=== PATIENT | male | born 1960 | race Two or more races ===

== ENCOUNTER 2020-04-25 08:55 | Outpatient (REF) | payer OTHER, SELFPAY ==
[2020-04-25 10:03] LABS: MANUAL DIFF FLAG NO
[2020-04-25 10:04] LABS: Basophils Absolute Auto 0.1 X10*3/uL (0.0-0.2); Basophils Percent Auto 0.8 % (0-2); Eosinophils Absolute Auto 0.1 X10*3/uL (0.0-0.4); Eosinophils Percent Auto 1.8 % (0-4); Hematocrit 48.6 % (42-52); Hemoglobin 15.3 g/dl (14.0-18.0); Imm Gran Abs Auto 0.02 X10*3/uL (0.00-0.03); Imm Gran Pct Auto 0.3 % (0.0-0.4); Lymphocytes Absolute Auto 1.8 X10*3/uL (1.2-4.9); Lymphocytes Percent Auto 27.9 % (20-40); Mean Corpuscular HGB Conc 31.5 g/dl (31.0-36.0); Mean Corpuscular Hemoglobin 25.9 pg (27.0-33.0); Mean Corpuscular Volume 82.4 fL (80-98); Mean Platelet Volume 11.7 fL (9.4-12.4); Monocytes Absolute Auto 0.6 X10*3/uL (0.1-1.2); Monocytes Percent Auto 8.4 % (2-11); Neutrophils Percent Auto 60.8 % (45-73); Platelet Count 184 X10*3/uL (160-400); Red Cell Distribution Width 13.8 % (11.0-16.0); White Blood Count 6.6 X10*3/uL (4.8-10.8)
[2020-04-25 10:22] LABS: Estimated Average Glucose 123 mg/dL; Hemoglobin A1c % 5.9 %
[2020-04-25 10:31] LABS: Alanine Aminotransferase 36 U/L (0-40); Albumin Level 4.5 g/dL (3.5-5.0); Alkaline Phosphatase 68 U/L (39-117); Anion Gap 12 (12-20); Aspartate Amino Transferase 23 U/L (5-37); Bilirubin Total 0.4 mg/dL (0.0-1.0); Blood Urea Nitrogen 16 mg/dL (9-16); Calcium 9.9 mg/dL (8.4-10.2); Carbon Dioxide 29 mmol/L (22-29); Chloride 102 mmol/L (96-108); Cholesterol 182 mg/dL; Estimated Glomerular Filt Rate 57; Glucose Fasting 119 mg/dL (60-99); HDL Cholesterol 40 mg/dL; LDL Cholesterol Calculated 114 mg/dl; Potassium 4.5 mmol/l (3.3-5.1); Sodium 138 mmol/L (135-145); Total Protein 7.8 g/dL (6.5-8.0); Triglycerides 144 mg/dL
[2020-04-25 10:38] LABS: TSH reflex Free T4 1.56 mIU/mL (0.32-4.0)
[2020-04-25 10:58] LABS: Glucose Urine UA NEG (NEG); Leukocyte Esterase Urine NEG (NEG); Nitrite Urine NEG (NEG); PH 6.5 (5.0-8.0); Specific Gravity - Urine 1.025 (1.005-1.025); Urine Blood TRACE (NEG); Urine Ketones NEG (NEG); Urine Protein NEG (NEG-TRACE)
[2020-04-25 11:01] LABS: Appearance Urine CLEAR; Color Urine YELLOW
[2020-04-25 11:35] LABS: RBC Urine 0-2 /HPF (0); WBC Urine 0 /HPF (0-4)
== END 2020-04-25 08:56 | disposition home or self-care (01) ==
LOC: HO.LAB 08:55
PROVIDERS: Visit Provider Internal Medicine
DX: E78.00 Pure hypercholesterolemia, unspecified (principal); I10 Essential (primary) hypertension; R73.01 Impaired fasting glucose; E66.9 Obesity, unspecified
CPT/HCPCS: 36415; 80053; 80061; 81001; 83036; 84443; 85025

== ENCOUNTER 2020-05-04 08:46 | Day surgery (SDC) | payer OTHER, SELFPAY ==
[2020-04-26 12:53] VITALS: BMI 32.8
--- NOTE | 2020-05-03 10:02 | P.CONAN_ITS ---
HPI - Anesthesia Eval Consult details Narrative: 60yo M for Colonoscopy [facility] Past Medical History Medical History Benign essential hypertension Impaired fasting glucose Obesity (BMI 30-39.9) Pure hypercholesterolemia Family History Family History Father No problems noted. Mother No problems noted. Surgical History Surgical History No pertinent past surgical history Social History Social History Smoking Status: Former smoker Smoking Quit Date: 2019 Have you been hit, kicked, punched, or otherwise hurt by someone within the past year? If so, by whom?: No Advance Directives: No (unknown) Advance Directives Information Provided: No Recently lost weight without trying: No Meds Allergies Allergy/AdvReac Type Severity Reaction Status Date / Time No Known Allergies Allergy Verified 05/01/20 11:07 [No Known Allergies*] Home Medications Medication Instructions Recorded Confirmed Type atorvastatin 10 mg PO BEDTIME 04/26/20 05/01/20 History lisinopril 20 mg PO DAILY 04/26/20 05/01/20 History Exam Exam Date and Time: May 03, 2020 1002 Height,Weight and Vital Signs: Height 5 ft 9 in Weight 100.97 kg Pertinent Lab Results Pertinent Lab Results: Laboratory Tests 04/25/20 04/25/20 09:20 09:20 WBC 6.6 Hgb 15.3 Hct 48.6 Plt Count 184 Sodium 138 Potassium 4.5 Chloride 102 Carbon Dioxide 29 BUN 16 Creatinine 1.28 Assessment and Plan Assessment Anesthesia Assessment: Chart Reviewed
[2020-05-04 10:20] VITALS: BMI 31.7
[2020-05-04] MEDS: Lactated Ringers 1,000 ML 100 ML IVCONT (10:49)
--- NOTE | 2020-05-04 11:00 | MHC.SHP ---
Pre-Procedural Eval Section B Chief Complaint: SCREENING Relevant Family History (Specify if Yes): No Relevant Social History: None Present Medications: see Short Stay Collaborative assessment Medical History: Significant History (HLP, HTN) History of Previous Operations: No relevant previous surgery Allergies: Allergies Allergy/AdvReac Type Severity Reaction Status Date / Time No Known Allergies Allergy Verified 05/01/20 11:07 [No Known Allergies*] Review of Systems Sugical H&P ROS: Negative: Constitution, Cardiovascular, Respiratory, Neurological, Psychiatric, Hem-Onc, Allergic/Immunologic, Gastrointestinal, Genitourinary, Musculoskeletal, Integumentary, Endocrine and Eyes/Ears/Nose/Throat Exam Surgical H&P Exam: Normal: HEENT, Normal: Heart, Normal: Lungs, Normal: Extremities, Normal: Abdomen, Normal: Skin and Normal: Neurological Plan Diagnosis/Plan: Unchanged Patient has been examined and remains a candidate for the planned procedure
--- NOTE | 2020-05-04 11:01 | P.OP_ITS ---
Operative Note Operative Note Date of Service: 05/04/20 Narrative: Operative Information Procedure Description: Colonoscopy COLONOSCOPY Instrument: Olympus variable stiffness pediatric scope 190L Colonoscopy Monitoring: Vital signs and clinical assessment, continuous EKG monitoring, Pulse oximetry, Carbon Dioxide monitoring and blood pressure monitoring were done throughout the procedure. Colon withdrawal time was 13 minutes. Procedure: The patient was placed in the left lateral decubitis position and pre-procedure medications were administered. After a digital rectal examination of the ano-rectum, the video colonoscope was inserted into the rectum and advanced through the colon to the cecum/TI. The colonoscope was slowly withdrawn in a retrograde panoramic fashion and the colon mucosa was carefully examined including a retroflexed view of the rectum. Findings and interventions are described below. Procedure Difficulty:easy Findings: Terminal Ileum-normal Cecum:normal, several diverticula seen Ascending Colon: many diverticula seen Transverse Colon -several diverticula seen Descending Colon:normal Sigmoid Colon: normal Rectosigmoid junction, 12 mm sessile polyp removed with cold snare Rectum: Retroflexion with moderate sized internal hemorrhoids, grade II, 6-8 mm sessile polyp removed with forceps Anorectum - internal hemorrhoids seen at anal verge Colon preparation: [place] Bowel Preparation Scale Right colon; 2 Transverse colon: 2 Left colon; 2 (0 = Unprepared colon segment with mucosa not seen due to solid stool that cannot be cleared. 1 = Portion of mucosa of the colon segment seen, but other areas of the colon segment not well seen due to staining, residual stool and/or opaque liquid. 2 = Minor amount of residual staining, small fragments of stool and/or opaque liquid, but mucosa of colon segment seen well. 3 = Entire mucosa of colon segment seen well with no residual staining, small fragments of stool or opaque liquid) Impression and Post Procedure Diagnosis: polyps diverticulosis internal hemorrhoids Plan: High fiber diet leaflet Avoid straining at stooll, epsom salts and sitz bath prn, anusol supps or cream prn Repeat Colonoscopy in 3-5 years or earlier if clinically indicated Above findings were reviewed with the patient and relevant handouts were provided if indicated.
--- NOTE | 2020-05-04 11:01 | PM.OP ---
Brief Operative Note Date of Service: 05/04/20 Pre-op diagnosis: screening colon Post-op diagnosis: same Procedure: see op note Surgeon: Carlos Mccray MD Anesthesia: MAC Estimated blood loss (mL): 0 Condition: stable Disposition: PACU
--- NOTE | 2020-05-04 11:26 | P.CONAN_ITS ---
[facility] Past Medical History Medical History Benign essential hypertension Impaired fasting glucose Obesity (BMI 30-39.9) Pure hypercholesterolemia Family History Family History Father No problems noted. Mother No problems noted. Surgical History Surgical History No pertinent past surgical history Social History Social History Smoking Status: Former smoker Smoking Quit Date: 2019 Have you been hit, kicked, punched, or otherwise hurt by someone within the past year? If so, by whom?: No Advance Directives: No (unknown) Advance Directives Information Provided: No Recently lost weight without trying: No Meds Allergies Allergy/AdvReac Type Severity Reaction Status Date / Time No Known Allergies Allergy Verified 05/01/20 11:07 [No Known Allergies*] Home Medications Medication Instructions Recorded Confirmed Type atorvastatin 10 mg PO BEDTIME 04/26/20 05/01/20 History lisinopril 20 mg PO DAILY 04/26/20 05/01/20 History Exam Exam Date and Time: May 04, 2020 1126 Height,Weight and Vital Signs: Height 5 ft 9 in Weight 97.522 kg Airway Mallampati Class: I TM Dist: >3cm Neck ROM: Full Loose/Missing/Broken Teeth: No Heart: RRR Lungs: CTA Assessment and Plan Assessment Anesthesia Assessment: Anesthesia Plan Discussed and Chart Reviewed Final Anesthetic Review NPO: Yes ASA Class: II Final Preanesthetic Review: Meds/Allgs Chart Reviewed, Consent Obtained/Reviewed and Anes Risks/Benef Reviewed Patient Risk: Low Procedure Risk: Low Anesthetic Plan Anesthetic Plan: MAC: Disposition: Standard PACU
[2020-05-04 12:04] VITALS: BP 89/50; PULSE 90; RESP 14; TEMP 36.2; O2SAT 96
[2020-05-04 12:09] VITALS: BP 90/52; PULSE 77; O2SAT 95
[2020-05-04 12:24] VITALS: BP 124/80; PULSE 77; O2SAT 99
--- NOTE | 2020-05-04 12:54 | HO.POSTANES ---
Post Anesthesia Evaluation Post Anesthesia Evaluation Vital Signs: Vital Signs Temp Pulse Resp BP Pulse Ox 05/04/20 12:24 97.1 F 77 124/80 99 05/04/20 12:09 77 90/52 L 95 05/04/20 12:04 97.1 F 90 14 89/50 L 96 Anesthesia: Monitored Mental Status: Awake Pain Control: Satisfactory Nausea/Vomiting: None Hydration: Adequate Anesthesia-Related Issues: No Anes. Related Issues
== END 2020-05-04 13:30 | disposition home or self-care (01) ==
PROVIDERS: PCP Internal Medicine; Visit Provider Internal Medicine Gastroenterology
PROC: 0DJD8ZZ Inspection of Lower Intestinal Tract, Via Natural or Artificial Opening Endoscopic (ICD-10-PCS; CPT 45378; principal; 2020-05-04 10:40)
DX: Z12.11 Encounter for screening for malignant neoplasm of colon (principal); K63.5 Polyp of colon; K57.30 Diverticulosis of large intestine without perforation or abscess without bleeding; K64.1 Second degree hemorrhoids; I10 Essential (primary) hypertension; Z79.899 Other long term (current) drug therapy
CPT/HCPCS: 45385; 45380; 88305

== ENCOUNTER → 2020-05-11 09:13 | Outpatient (BNVA) | payer OTHER, SELFPAY | PROVIDERS: Visit Provider Physician Assistant | DX: K63.5 Polyp of colon (principal); Z79.899 Other long term (current) drug therapy | CPT/HCPCS: Q3014 ==

== ENCOUNTER 2020-07-18 06:38 | Outpatient (REF) | payer OTHER, SELFPAY ==
[2020-07-18 06:59] LABS: MANUAL DIFF FLAG NO
[2020-07-18 07:06] LABS: Basophils Absolute Auto 0.1 X10*3/uL (0.0-0.2); Basophils Percent Auto 1.2 % (0-2); Eosinophils Absolute Auto 0.1 X10*3/uL (0.0-0.4); Eosinophils Percent Auto 2.4 % (0-4); Hematocrit 48.5 % (42-52); Hemoglobin 14.9 g/dl (14.0-18.0); Imm Gran Abs Auto 0.02 X10*3/uL (0.00-0.03); Imm Gran Pct Auto 0.3 % (0.0-0.4); Lymphocytes Absolute Auto 1.7 X10*3/uL (1.2-4.9); Lymphocytes Percent Auto 28.6 % (20-40); Mean Corpuscular HGB Conc 30.7 g/dl (31.0-36.0); Mean Corpuscular Volume 81.5 fL (80-98); Mean Platelet Volume 11.1 fL (9.4-12.4); Monocytes Absolute Auto 0.6 X10*3/uL (0.1-1.2); Monocytes Percent Auto 10.4 % (2-11); Neutrophils Absolute Auto 3.4 X10*3/uL (2.0-8.3); Neutrophils Percent Auto 57.1 % (45-73); Platelet Count 221 X10*3/uL (160-400); Red Blood Count 5.95 X10*6/uL (4.60-5.80); Red Cell Distribution Width 13.9 % (11.0-16.0)
[2020-07-18 07:20] LABS: Alanine Aminotransferase 40 U/L (0-40); Albumin Level 4.4 g/dL (3.5-5.0); Alkaline Phosphatase 67 U/L (39-117); Anion Gap 10 (12-20); Aspartate Amino Transferase 24 U/L (5-37); Bilirubin Total 0.8 mg/dL (0.0-1.0); Blood Urea Nitrogen 17 mg/dL (9-16); Calcium 9.7 mg/dL (8.4-10.2); Carbon Dioxide 30 mmol/L (22-29); Chloride 103 mmol/L (96-108); Cholesterol 149 mg/dL; Estimated Glomerular Filt Rate > 60; Glucose Fasting 121 mg/dL (60-99); HDL Cholesterol 39 mg/dL; LDL Cholesterol Calculated 87 mg/dl; Potassium 4.4 mmol/L (3.3-5.1); Sodium 139 mmol/L (135-145); Total Protein 7.6 g/dL (6.5-8.0); Triglycerides 119 mg/dL
[2020-07-18 07:40] LABS: TSH reflex Free T4 1.12 uIU/mL (0.32-4.0)
[2020-07-18 08:00] LABS: Glucose Urine UA NEG (NEG); Leukocyte Esterase Urine NEG (NEG); Nitrite Urine NEG (NEG); PH 6.5 (5.0-8.0); Specific Gravity - Urine 1.025 (1.005-1.025); Urine Blood TRACE (NEG); Urine Ketones NEG (NEG); Urine Protein NEG (NEG-TRACE)
[2020-07-18 08:02] LABS: Appearance Urine CLEAR; Color Urine YELLOW
[2020-07-18 08:20] LABS: RBC Urine 0-2 /HPF (0); WBC Urine 0 /HPF (0-4)
== END 2020-07-18 06:39 | disposition home or self-care (01) ==
LOC: HO.LAB 06:38
PROVIDERS: Visit Provider Internal Medicine
DX: I10 Essential (primary) hypertension (principal); E78.00 Pure hypercholesterolemia, unspecified; R73.01 Impaired fasting glucose; E66.9 Obesity, unspecified
CPT/HCPCS: 36415; 80053; 80061; 81001; 81003; 84443; 85025

== ENCOUNTER 2020-08-28 11:35 | Emergency (ER) | payer OTHER, SELFPAY ==
--- NOTE | 2020-08-28 | ECG_ITS ---
Test Reason : PALPITATIONS Blood Pressure : / mmHG Vent. Rate : 119 BPM Atrial Rate : 119 BPM P-R Int : 164 ms QRS Dur : 096 ms QT Int : 320 ms P-R-T Axes : 032 032 019 degrees QTc Int : 450 ms Sinus tachycardia Possible Left atrial enlargement Borderline ECG When compared with ECG of 06-AUG-2019 07:42, No significant change was found Referred By: Generic ED Physician Electronically Signed By:Fredy Flores
--- NOTE | ~2020-08-28 | CT_ITS ---
EXAMINATION: CT ANGIOGRAM OF THE CHEST WITH AND WITHOUT CONTRAST (CT PULMONARY ANGIOGRAM FOR PE) CLINICAL INFORMATION: Reason for Exam right mass and tachycardia COMPARISON: None TECHNIQUE: Prior to contrast administration, noncontrast localization images were obtained. Subsequently, multidetector volumetric imaging was performed from the thoracic inlet to below the diaphragms following the administration of 80 mL Omnipaque 350 intravenous contrast. No contrast reaction reported Sagittal, coronal, and MIP oblique sagittal reformatted images were obtained on the CT workstation, uploaded to PACS, and reviewed. This CT examination was performed using dose optimization techniques as appropriate, variously including the following: *Automated exposure control *Adjustment of mA and/or kV according to patient size (this includes techniques or standardized protocols for targeted exams where dose is matched to indication/reason for exam; i.e. extremities or head) *Use of iterative reconstruction technique Total exam dose-length product 366 mGy-cm FINDINGS: QUALITY OF STUDY/CONTRAST BOLUS: Satisfactory. PULMONARY ARTERIES: No central or segmental pulmonary emboli. THORACIC AORTA: No aneurysm or dissection. LUNG: No focal consolidation, nodules or masses. PLEURA: No pleural effusion or pneumothorax. MEDIASTINUM: The is a large lobulated right para cardiac mass above the diaphragm measuring 51 Hounsfield units. It measures approximately 10.3 cm in AP, 6.31 cm wide and 4.48 cm in craniocaudad length. It appears to have a broad attachment along the right pericardium. No additional mass or lymph node seen in the mediastinum. There is no pleural effusion. No evidence of septal bowing or right heart strain. CHEST WALL/AXILLA: There are small shotty lymph nodes in the axilla the largest lymph node measures 1 cm left axilla image 7/5 and right axilla 1.2 cm axial image 12/5. OSSEOUS STRUCTURES: There is moderate spondylosis throughout mid and lower dorsal spine. No lytic process. UPPER ABDOMEN: Unremarkable. No reflux of contrast into the hepatic veins to suggest elevated right heart pressures. CT/CT angio chest PE protocol IMPRESSION: No evidence of PE. No evidence aortic dissection. Large enhancing para-aortic mass. Differential diagnosis includes complex pericardial cyst, lymphoma, germ cell tumor or metastatic disease. VTE: negative
--- NOTE | ~2020-08-28 | XR_ITS ---
EXAMINATION: XR CHEST CLINICAL INFORMATION: High white blood cell count COMPARISON: None TECHNIQUE: Frontal view of the chest was obtained. FINDINGS: There is abnormal appearance to the right heart border. Appearance is questionable for a right infrahilar mass. The heart does not appear enlarged. Hilar and mediastinal contours are otherwise unremarkable. There may be small calcified nodule at the right lung base overlying the anterior fifth rib. The lungs are otherwise clear. There is no pleural effusion or pneumothorax. Bony structures are unremarkable. XR/XR chest 1V IMPRESSION: Abnormal appearance to the right heart border questionable for a right infrahilar mass. Appearance appears atypical for a pneumonia. Clinical correlation recommended. Follow-up chest CT with IV contrast should be considered.
[2020-08-28 11:55] VITALS: BP 194/93; PULSE 115; RESP 20; TEMP 37.2; O2SAT 99; BMI 30.4
[2020-08-28 12:00] VITALS: BP 178/100; PULSE 108; RESP 18; TEMP 36.9; O2SAT 98
--- NOTE | 2020-08-28 12:33 | ED.WEAKNESS ---
HPI - Weakness General Chief complaint: Weakness Stated complaint: weakness Time Seen by Provider: 08/28/20 12:33 Mode of arrival: ambulatory Limitations: no limitations History of Present Illness HPI Narrative: Patient started feeling palpitation while at work, he then felt diffuse weakness Complaint: generalized weakness Onset (ago): hour(s) Duration: constant Location: generalized Severity: moderate Relieving factors: none Exacerbating factors: movement Associated symptoms: other (palpitations) Related Data Previous Rx's Medication Instructions Recorded atorvastatin 10 mg tablet 10 mg PO BEDTIME 90 Days #90 tab 07/26/20 losartan 50 mg tablet 50 mg PO DAILY 90 Days #90 tab 07/26/20 Allergies Allergy/AdvReac Type Severity Reaction Status Date / Time No Known Allergies Allergy Verified 07/26/20 11:55 [No Known Allergies*] Review of Systems Constitutional: Constitutional: Reports no additional constitutional complaints Eyes: Eyes: Reports no additional eye complaints ENT: Denies dizziness Cardiovascular: Cardiovascular: Reports no additional cardiovascular complaints Respiratory: Respiratory: Reports as per HPI Gastrointestinal: Gastrointestinal: Reports no additional gastrointestinal complaints Musculoskeletal: Musculoskeletal: Reports no additional musculoskeletal complaints Integumentary/Breasts: Skin/Breast: Denies rash Neurologic: Reports system reviewed and no additional complaints, except as documented, Denies dizziness and Denies Sensory deficit (Neuro) Psychiatric: Psychiatric: Denies anxiety PMFSH Past Medical History Medical History Benign essential hypertension Impaired fasting glucose Obesity (BMI 30-39.9) Pure hypercholesterolemia Surgical History No pertinent past surgical history Family History Family History Father No problems noted. Mother No problems noted. Social History Social History Alcohol intake: never Smoking Status: Former smoker Advance Directives: No Advance Directives Information Provided: No Physical Exam Vital Signs: Vital Signs: Last Vital Signs Temp 98.4 F 08/28/20 12:00 Pulse 78 08/28/20 14:00 Resp 18 08/28/20 12:00 BP 135/84 08/28/20 14:00 Pulse Ox 98 08/28/20 12:00 Body Mass Index 30.4 Const: Other: male appearing slightly anxious Nutritional Appearance: overweight Orientation/consciousness: oriented to person and patient oriented x3 Limitations: no limitations HENMT: Head: Yes normal to inspection Ears: external ears normal General nose exam: Normal external nose present Mouth: Normal oral and palatal mucosa present and oropharynx normal Throat: Yes posterior oropharynx normal Eyes: General: appearance normal, both eyes and all related structures Neck: Other: supple Neck: Yes normal visual inspection Chest: Chest palpation & inspection: normal inspection of the chest Resp: Auscultation: clear to auscultation bilaterally Cardio: Other: tachycardia Jugular venous distension: no JVD Rate: regular rate Rhythm: regular rhythm Heart sounds: S1 normal heart sound present and S2 normal heart sound present GI: Inspection: Yes normal to inspection Palpation (GI): Soft to palpation, nontender and No hepatosplenomegaly present Auscultation: normal bowel sounds : General: Yes no CVA tenderness Back/Spine/Pelvis: Back: no CVA tenderness Skin: General skin exam: no rashes or lesions noted Neuro: General: oriented to person and patient oriented x3 Cranial nerves: Yes CN's II-XII intact bilaterally Motor exam (neuro): 5/5 motor strength present throughout Sensory Exam: No Sensory deficit (Neuro) Extrem: General: Yes normal to inspection Psych: Appearance: grossly normal Course Course Course Narrative: Discussed with Dr. Gregg from thoracic will admit MDM - Weakness Medical Records Medical records narrative: Patient with large cardiac mass will discuss with oncology and admit. Lab Data Result diagrams: 08/28/20 13:33 08/28/20 13:33 Labs: Lab Results 08/28/20 08/28/20 08/28/20 Range/Units 13:33 13:33 13:33 WBC 13.8 H (4.8-10.8) X10*3/uL RBC 6.01 H (4.60-5.80) X10*6/uL Hgb 15.1 (14.0-18.0) g/dl Hct 48.7 (42-52) % MCV 81.0 (80-98) fL MCH 25.1 L (27.0-33.0) pg MCHC 31.0 (31.0-36.0) g/dl RDW 14.6 (11.0-16.0) % Plt Count 193 (160-400) X10*3/uL MPV 11.2 (9.4-12.4) fL Immature Gran % (Auto) 0.3 (0.0-0.4) % Neut % (Auto) 85.7 H (45-73) % Lymph % (Auto) 7.6 L (20-40) % [place] % (Auto) 5.9 (2-11) % Eos % (Auto) 0.1 (0-4) % Baso % (Auto) 0.4 (0-2) % Lymph # (Auto) 1.1 L (1.2-4.9) X10*3/uL [place] # (Auto) 0.8 (0.1-1.2) X10*3/uL Eos # (Auto) 0.0 (0.0-0.4) X10*3/uL Baso # (Auto) 0.1 (0.0-0.2) X10*3/uL Abs Immat Gran (auto) 0.04 H (0.00-0.03) X10*3/uL Absolute Neuts (auto) 11.8 H (2.0-8.3) X10*3/uL Absolute Nucleated RBC 0.000 (0.0-0.012) X10*3/uL Nucleated RBC % (auto) 0.0 (0.0-0.2) /100WBC Sodium 138 (135-145) mmol/L Potassium 4.8 (3.3-5.1) mmol/L Chloride 103 (96-108) mmol/L Carbon Dioxide 24 (22-29) mmol/L Anion Gap 16 (12-20) BUN 13 (9-16) mg/dL Creatinine 1.03 (0.5-1.4) mg/dL Estim Creat Clear Calc 91.4 Estimated GFR > 60 Random Glucose 134 H (60-115) mg/dL Calcium 10.0 (8.4-10.2) mg/dL Troponin I High Sens 10.5 (<3.5-35.0) ng/L TSH 0.59 (0.32-4.0) uIU/mL Urine Color Urine Appearance Urine pH (5.0-8.0) Ur Specific [place] (1.005-1.025) Urine Protein (NEG-TRACE) MG/DL Urine Glucose (UA) (NEG) MG/DL Urine Ketones (NEG) MG/DL Urine Blood (NEG) Urine Nitrite (NEG) Ur Leukocyte Esterase (NEG) 08/28/20 Range/Units 17:34 WBC (4.8-10.8) X10*3/uL RBC (4.60-5.80) X10*6/uL Hgb (14.0-18.0) g/dl Hct (42-52) % MCV (80-98) fL MCH (27.0-33.0) pg MCHC (31.0-36.0) g/dl RDW (11.0-16.0) % Plt Count (160-400) X10*3/uL MPV (9.4-12.4) fL Immature Gran % (Auto) (0.0-0.4) % Neut % (Auto) (45-73) % Lymph % (Auto) (20-40) % [place] % (Auto) (2-11) % Eos % (Auto) (0-4) % Baso % (Auto) (0-2) % Lymph # (Auto) (1.2-4.9) X10*3/uL [place] # (Auto) (0.1-1.2) X10*3/uL Eos # (Auto) (0.0-0.4) X10*3/uL Baso # (Auto) (0.0-0.2) X10*3/uL Abs Immat Gran (auto) (0.00-0.03) X10*3/uL Absolute Neuts (auto) (2.0-8.3) X10*3/uL Absolute Nucleated RBC (0.0-0.012) X10*3/uL Nucleated RBC % (auto) (0.0-0.2) /100WBC Sodium (135-145) mmol/L Potassium (3.3-5.1) mmol/L Chloride (96-108) mmol/L Carbon Dioxide (22-29) mmol/L Anion Gap (12-20) BUN (9-16) mg/dL Creatinine (0.5-1.4) mg/dL Estim Creat Clear Calc Estimated GFR Random Glucose (60-115) mg/dL Calcium (8.4-10.2) mg/dL Troponin I High Sens (<3.5-35.0) ng/L TSH (0.32-4.0) uIU/mL Urine Color YELLOW Urine Appearance CLEAR Urine pH 6.5 (5.0-8.0) Ur Specific [place] 1.010 (1.005-1.025) Urine Protein NEG (NEG-TRACE) MG/DL Urine Glucose (UA) NEG (NEG) MG/DL Urine Ketones NEG (NEG) MG/DL Urine Blood TRACE (NEG) Urine Nitrite NEG (NEG) Ur Leukocyte Esterase NEG (NEG) Imaging Data CT scan - chest: Radiologist's impression: large cardiac mass Discharge Plan Discharge Clinical Impression: Mass in chest Patient Disposition: Admitted As Inpatient Prescriptions: No Action atorvastatin 10 mg tablet 10 mg PO BEDTIME 90 Days Qty: 90 RF: 1 losartan 50 mg tablet 50 mg PO DAILY 90 Days Qty: 90 RF: 1
--- NOTE | 2020-08-28 12:40 | ECG_ITS ---
Test Reason : PALPITATIONS Blood Pressure : / mmHG Vent. Rate : 119 BPM Atrial Rate : 119 BPM P-R Int : 164 ms QRS Dur : 096 ms QT Int : 320 ms P-R-T Axes : 032 032 019 degrees QTc Int : 450 ms Sinus tachycardia Possible Left atrial enlargement Borderline ECG When compared with ECG of 06-AUG-2019 07:42, No significant change was found Referred By: Ramses Moore Electronically Signed By:Fredy Flores
[2020-08-28] MEDS: 0.9 % Sodium Chloride 1,000 ML 999 ML IVCONT (13:33)
[2020-08-28 13:38] LABS: MANUAL DIFF FLAG NO
[2020-08-28 13:40] LABS: Basophils Absolute Auto 0.1 X10*3/uL (0.0-0.2); Basophils Percent Auto 0.4 % (0-2); Eosinophils Percent Auto 0.1 % (0-4); Hematocrit 48.7 % (42-52); Hemoglobin 15.1 g/dl (14.0-18.0); Imm Gran Abs Auto 0.04 X10*3/uL (0.00-0.03); Imm Gran Pct Auto 0.3 % (0.0-0.4); Lymphocytes Absolute Auto 1.1 X10*3/uL (1.2-4.9); Lymphocytes Percent Auto 7.6 % (20-40); Mean Corpuscular Hemoglobin 25.1 pg (27.0-33.0); Mean Platelet Volume 11.2 fL (9.4-12.4); Monocytes Absolute Auto 0.8 X10*3/uL (0.1-1.2); Monocytes Percent Auto 5.9 % (2-11); Neutrophils Absolute Auto 11.8 X10*3/uL (2.0-8.3); Neutrophils Percent Auto 85.7 % (45-73); Platelet Count 193 X10*3/uL (160-400); Red Blood Count 6.01 X10*6/uL (4.60-5.80); Red Cell Distribution Width 14.6 % (11.0-16.0); White Blood Count 13.8 X10*3/uL (4.8-10.8)
[2020-08-28 13:58] LABS: Anion Gap 16 (12-20); Blood Urea Nitrogen 13 mg/dL (9-16); Carbon Dioxide 24 mmol/L (22-29); Chloride 103 mmol/L (96-108); Creatinine Clr Calc Pharmacy 91.4; Estimated Glomerular Filt Rate > 60; Glucose Random 134 mg/dL (60-115); Potassium 4.8 mmol/L (3.3-5.1); Sodium 138 mmol/L (135-145)
[2020-08-28 14:00] VITALS: BP 135/84; PULSE 78
[2020-08-28 14:05] LABS: Troponin-I High Sensitivity 10.5 ng/L (<3.5-35.0)
[2020-08-28 14:20] LABS: TSH reflex Free T4 0.59 uIU/mL (0.32-4.0)
[2020-08-28] MEDS: iohexoL 350 MG/ML 75 ML INFUS..BTL IV (16:17)
--- NOTE | 2020-08-28 17:26 | PC.NURSE ---
pt discharged by mistake, called and will return to [facility] [place],
[2020-08-28 17:49] LABS: Glucose Urine UA NEG (NEG); Leukocyte Esterase Urine NEG (NEG); Nitrite Urine NEG (NEG); PH 6.5 (5.0-8.0); Urine Blood TRACE (NEG); Urine Ketones NEG (NEG); Urine Protein NEG (NEG-TRACE)
[2020-08-28 17:50] LABS: Color Urine YELLOW
[2020-08-28 17:51] LABS: Appearance Urine CLEAR
[2020-08-28 18:00] VITALS: BP 180/99; PULSE 110; O2SAT 98
[2020-08-28 18:07] LABS: RBC Urine 0-2 /HPF (0); WBC Urine 0 /HPF (0-4)
[2020-08-28 18:52] LABS: Troponin-I High Sensitivity 15.2 ng/L (<3.5-35.0)
[2020-08-28 18:59] LABS: D Dimer 283 NG/ML
--- NOTE | 2020-08-28 20:47 | ED.WEAKNESS ---
HPI - Weakness General Chief complaint: Weakness Stated complaint: weakness Time Seen by Provider: 08/28/20 12:33 Mode of arrival: ambulatory Limitations: no limitations History of Present Illness Complaint: generalized weakness Location: generalized Severity: moderate Relieving factors: none Exacerbating factors: movement Associated symptoms: other (palpitations) Related Data Previous Rx's Medication Instructions Recorded atorvastatin 10 mg tablet 10 mg PO BEDTIME 90 Days #90 tab 07/26/20 losartan 50 mg tablet 50 mg PO DAILY 90 Days #90 tab 07/26/20 Allergies Allergy/AdvReac Type Severity Reaction Status Date / Time No Known Allergies Allergy Verified 07/26/20 11:55 [No Known Allergies*] [facility] Past Medical History Medical History Benign essential hypertension Impaired fasting glucose Obesity (BMI 30-39.9) Pure hypercholesterolemia Surgical History No pertinent past surgical history Family History Family History Father No problems noted. Mother No problems noted. Social History Social History Alcohol intake: never Smoking Status: Former smoker Advance Directives: No Advance Directives Information Provided: No Physical Exam Vital Signs: Vital Signs: Last Vital Signs Temp 98.4 F 08/28/20 12:00 Pulse 110 H 08/28/20 18:00 Resp 18 08/28/20 12:00 BP 180/99 H 08/28/20 18:00 Pulse Ox 98 08/28/20 18:00 Body Mass Index 30.4 MDM - Weakness MDM Narrative Medical decision making narrative: Took over patient's case at the change of shift. CT angio of the chest was positive for having a mass that seems to be attached to the pericardium. There is no massive pericardial effusion. There is no vascular attachment. My predecessor discussed the case with thoracic. Initially the case was to be admitted to Dr. Mcqueen the hospitalist service. Dr. Mcqueen did not feel comfortable with the admission. He contacted Dr. Gregg directly. Wanted patient to be transferred to [facility]. Patient's case was then discussed with Dr. Huffman at [facility]. He accepted the patient. Risk of transfer discussed with patient. Patient is being transferred as we do not have the proper thoracic service to take care of patient. Patient needed higher level care. Risk and benefit of transfer also discussed including the risk of transfer. Patient states understanding. Imaging was transferred to [facility] via emily [facility]. In guarded condition awaiting admission. Lab Data Result diagrams: 08/28/20 13:33 08/28/20 13:33 Labs: Lab Results 08/28/20 08/28/20 08/28/20 Range/Units 13:33 13:33 13:33 WBC 13.8 H (4.8-10.8) X10*3/uL RBC 6.01 H (4.60-5.80) X10*6/uL Hgb 15.1 (14.0-18.0) g/dl Hct 48.7 (42-52) % MCV 81.0 (80-98) fL MCH 25.1 L (27.0-33.0) pg MCHC 31.0 (31.0-36.0) g/dl RDW 14.6 (11.0-16.0) % Plt Count 193 (160-400) X10*3/uL MPV 11.2 (9.4-12.4) fL Immature Gran % (Auto) 0.3 (0.0-0.4) % Neut % (Auto) 85.7 H (45-73) % Lymph % (Auto) 7.6 L (20-40) % [place] % (Auto) 5.9 (2-11) % Eos % (Auto) 0.1 (0-4) % Baso % (Auto) 0.4 (0-2) % Lymph # (Auto) 1.1 L (1.2-4.9) X10*3/uL [place] # (Auto) 0.8 (0.1-1.2) X10*3/uL Eos # (Auto) 0.0 (0.0-0.4) X10*3/uL Baso # (Auto) 0.1 (0.0-0.2) X10*3/uL Abs Immat Gran (auto) 0.04 H (0.00-0.03) X10*3/uL Absolute Neuts (auto) 11.8 H (2.0-8.3) X10*3/uL Absolute Nucleated RBC 0.000 (0.0-0.012) X10*3/uL Nucleated RBC % (auto) 0.0 (0.0-0.2) /100WBC D-Dimer NG/ML Hold Blue Top Sodium 138 (135-145) mmol/L Potassium 4.8 (3.3-5.1) mmol/L Chloride 103 (96-108) mmol/L Carbon Dioxide 24 (22-29) mmol/L Anion Gap 16 (12-20) BUN 13 (9-16) mg/dL Creatinine 1.03 (0.5-1.4) mg/dL Estim Creat Clear Calc 91.4 Estimated GFR > 60 Random Glucose 134 H (60-115) mg/dL Calcium 10.0 (8.4-10.2) mg/dL Troponin I High Sens 10.5 (<3.5-35.0) ng/L TSH 0.59 (0.32-4.0) uIU/mL Urine Color Urine Appearance Urine pH (5.0-8.0) Ur Specific [place] (1.005-1.025) Urine Protein (NEG-TRACE) MG/DL Urine Glucose (UA) (NEG) MG/DL Urine Ketones (NEG) MG/DL Urine Blood (NEG) Urine Nitrite (NEG) Ur Leukocyte Esterase (NEG) Urine RBC (0) /HPF Urine WBC (0-4) /HPF Ur Squamous Epith Cells /LPF Urine Bacteria /LPF 08/28/20 08/28/20 08/28/20 Range/Units 17:34 18:12 18:12 WBC (4.8-10.8) X10*3/uL RBC (4.60-5.80) X10*6/uL Hgb (14.0-18.0) g/dl Hct (42-52) % MCV (80-98) fL MCH (27.0-33.0) pg MCHC (31.0-36.0) g/dl RDW (11.0-16.0) % Plt Count (160-400) X10*3/uL MPV (9.4-12.4) fL Immature Gran % (Auto) (0.0-0.4) % Neut % (Auto) (45-73) % Lymph % (Auto) (20-40) % [place] % (Auto) (2-11) % Eos % (Auto) (0-4) % Baso % (Auto) (0-2) % Lymph # (Auto) (1.2-4.9) X10*3/uL [place] # (Auto) (0.1-1.2) X10*3/uL Eos # (Auto) (0.0-0.4) X10*3/uL Baso # (Auto) (0.0-0.2) X10*3/uL Abs Immat Gran (auto) (0.00-0.03) X10*3/uL Absolute Neuts (auto) (2.0-8.3) X10*3/uL Absolute Nucleated RBC (0.0-0.012) X10*3/uL Nucleated RBC % (auto) (0.0-0.2) /100WBC D-Dimer 283 NG/ML Hold Blue Top SEE NOTE Sodium (135-145) mmol/L Potassium (3.3-5.1) mmol/L Chloride (96-108) mmol/L Carbon Dioxide (22-29) mmol/L Anion Gap (12-20) BUN (9-16) mg/dL Creatinine (0.5-1.4) mg/dL Estim Creat Clear Calc Estimated GFR Random Glucose (60-115) mg/dL Calcium (8.4-10.2) mg/dL Troponin I High Sens 15.2 (<3.5-35.0) ng/L TSH (0.32-4.0) uIU/mL Urine Color YELLOW Urine Appearance CLEAR Urine pH 6.5 (5.0-8.0) Ur Specific [place] 1.010 (1.005-1.025) Urine Protein NEG (NEG-TRACE) MG/DL Urine Glucose (UA) NEG (NEG) MG/DL Urine Ketones NEG (NEG) MG/DL Urine Blood TRACE (NEG) Urine Nitrite NEG (NEG) Ur Leukocyte Esterase NEG (NEG) Urine RBC 0-2 (0) /HPF Urine WBC 0 (0-4) /HPF Ur Squamous Epith Cells NONE /LPF Urine Bacteria NONE /LPF Critical Care Time Critical Care Time Critical Care Time: Yes Total Critical Care Time: 40 Attestation: I have personally provided 40 minutes of critical care time exclusive of time spent on separately billable procedures. Time includes review of lab data, radiology results, discussion with consultants, and monitoring for potential decompensation. Interventions were performed as documented above Discharge Plan Discharge Clinical Impression: Mass in chest Patient Disposition: [facility] Transfer Details: Transfer to [facility] Prescriptions: No Action atorvastatin 10 mg tablet 10 mg PO BEDTIME 90 Days Qty: 90 RF: 1 losartan 50 mg tablet 50 mg PO DAILY 90 Days Qty: 90 RF: 1
--- NOTE | 2020-08-28 21:15 | PC.NURSE ---
PLAN TO TRANSFER TO [facility], PER FOR MASS FOUND ON HEART. PREPARING FOR TRANSFER AT THIS TIME.
[2020-08-28 21:42] LABS: COVID-19 Test Negative (Negative)
--- NOTE | 2020-08-28 22:47 | PC.NURSE ---
Pt transfered to [facility] via [facility]. Report given to CHARLENE Ramey.
== END 2020-08-28 22:48 | disposition short-term general hospital (02) ==
PROVIDERS: Emergency Medicine; Emergency Provider Emergency Medicine Emergency Medical Services; PCP Internal Medicine
DX: I51.89 Other ill-defined heart diseases (principal); R53.1 Weakness; Z20.822 Contact with and (suspected) exposure to COVID-19; I10 Essential (primary) hypertension; E78.00 Pure hypercholesterolemia, unspecified; Z79.02 Long term (current) use of antithrombotics/antiplatelets; Z79.899 Other long term (current) drug therapy
CPT/HCPCS: 36415; 71045; 71275; 80048; 81001; 84443; 84484; 85025; 85379; 87635; 93005; 96361; 96365; 99285; 99291; Q9967

== ENCOUNTER → 2020-09-29 08:36 | Outpatient (BNVA) | payer OTHER, SELFPAY | PROVIDERS: PCP Internal Medicine; Visit Provider Surgery | DX: J98.59 Other diseases of mediastinum, not elsewhere classified (principal); I10 Essential (primary) hypertension; Z79.899 Other long term (current) drug therapy | CPT/HCPCS: 99212 ==

== ENCOUNTER 2020-10-10 11:01 | Day surgery (SDC) | payer OTHER, SELFPAY ==
[2020-10-10] VITALS (8 sets, daily range): BP systolic 102–133; BP diastolic 71–83; PULSE 78–93; RESP 16–20; TEMP 36.5–37.4; O2SAT 94–96; BMI 30.7
--- NOTE | ~2020-10-10 | CT_ITS ---
PROCEDURE: CT GUIDED BIOPSY, LUNG CLINICAL INFORMATION: Right lung biopsy. COMPARISON: None TECHNIQUE: Following explaining CT guided right mediastinal mass biopsy procedure, benefits and risk, a written consent was obtained. Patient was placed supine and pulmonary CT imaging was obtained through the anterior chest. An optimal site was selected along the right sternum and markers placed. Repeat imaging was obtained. A most right marker was selected and marked on the skin. The skin was cleaned and draped chlorhexidine solution. 1% lidocaine was injected at the skin and along the periosteum of the right sternum. A 20-gauge guide needle was then advanced along the right sternum using stoma the guide into the right para mediastinal mass. Coaxial for possible biopsy was performed through the right mediastinal mass. The tissue collected was handed over to the pathologist for immediate light evaluation, alcohol and flow cytometry. Postprocedure the guide needle was withdrawn and complete hemostasis achieved at puncture site. Simple dressing applied postprocedure. This CT examination was performed using dose optimization techniques as appropriate, variously including the following: *Automated exposure control *Adjustment of mA and/or kV according to patient size (this includes techniques or standardized protocols for targeted exams where dose is matched to indication/reason for exam; i.e. extremities or head) *Use of iterative reconstruction technique DLP: 385 mGy-cm FINDINGS: On preliminary CT imaging there is a large right paracardiac mass. 6 CT fluoroscopy-guided right paramediastinal mass coaxial core biopsy was performed x4. Immediate pathology results revealed lymph nodes. CT/CT biopsy lung RT IMPRESSION: Successful CT fluoroscopy-guided right mediastinal mass biopsy performed.
[2020-10-10 11:26] LABS: MANUAL DIFF FLAG NO
[2020-10-10 11:30] LABS: Basophils Absolute Auto 0.1 X10*3/uL (0.0-0.2); Eosinophils Absolute Auto 0.2 X10*3/uL (0.0-0.4); Eosinophils Percent Auto 2.3 % (0-4); Hematocrit 47.7 % (42-52); Hemoglobin 15.1 g/dl (14.0-18.0); Imm Gran Abs Auto 0.02 X10*3/uL (0.00-0.03); Imm Gran Pct Auto 0.3 % (0.0-0.4); Lymphocytes Absolute Auto 1.9 X10*3/uL (1.2-4.9); Lymphocytes Percent Auto 26.9 % (20-40); Mean Corpuscular HGB Conc 31.7 g/dl (31.0-36.0); Mean Corpuscular Hemoglobin 25.5 pg (27.0-33.0); Mean Corpuscular Volume 80.6 fL (80-98); Mean Platelet Volume 10.7 fL (9.4-12.4); Monocytes Absolute Auto 0.7 X10*3/uL (0.1-1.2); Monocytes Percent Auto 9.5 % (2-11); Neutrophils Absolute Auto 4.2 X10*3/uL (2.0-8.3); Platelet Count 209 X10*3/uL (160-400); Red Blood Count 5.92 X10*6/uL (4.60-5.80); Red Cell Distribution Width 14.5 % (11.0-16.0)
[2020-10-10 11:37] LABS: Prothrombin Time 12.1 SEC (10.8-13.0)
[2020-10-10 11:40] LABS: Partial Thromboplastin Time 35.2 SEC (24.1-38.0)
[2020-10-10] MEDS: Acetaminophen 325 MG TABLET 650 MG PO (15:40)
[2020-10-10] MEDS: oxyCODONE HCl Immed Release 5 MG TABLET PO (15:40)
== END 2020-10-10 17:58 | disposition home or self-care (01) ==
PROVIDERS: Radiology Diagnostic Radiology; PCP Internal Medicine; Visit Provider Radiology Diagnostic Radiology
DX: J98.59 Other diseases of mediastinum, not elsewhere classified (principal); I10 Essential (primary) hypertension; R73.01 Impaired fasting glucose; Z79.899 Other long term (current) drug therapy; Z87.891 Personal history of nicotine dependence
CPT/HCPCS: 32408; 36415; 85025; 85610; 85730; 88112; 88184; 88185; 88300; 88305; 88333; 88341; 88342; 88360; 99152; 99153; J2250; J3010

== ENCOUNTER → 2020-10-20 09:20 | Outpatient (BNVA) | payer OTHER, SELFPAY | PROVIDERS: PCP Internal Medicine; Visit Provider Surgery | DX: D49.89 Neoplasm of unspecified behavior of other specified sites (principal); Z79.899 Other long term (current) drug therapy | CPT/HCPCS: 99212 ==

== ENCOUNTER 2020-11-06 08:23 | Outpatient (REF) | payer OTHER, SELFPAY ==
--- NOTE | ~2020-11-06 | MR_ITS ---
EXAMINATION: MR CHEST WITHOUT AND WITH CONTRAST CLINICAL INFORMATION: Thymoma. COMPARISON: Previous chest CTA 08/28/2020. TECHNIQUE: Sagittal axial and coronal sequences through the chest with and without contrast. Patient received 10 mL Gadavist contrast. FINDINGS: There is a lobulated bilobed mass seen in the right side of the mediastinum. This abuts the SVC, right atrium and right pulmonary hilum. This is intermediate signal on T1 and T2-weighted sequences. This has a small probable cystic component posteriorly. This does not demonstrate evidence of enhancement. This measures 6.2 x 10.4 cm in transverse and AP dimension and approximately 8 cm in sagittal dimension. There is a fat plane seen between the mass and the right side of the heart. The lungs are clear. There is no pleural effusion or pleural thickening. No enlarged hilar or mediastinal lymph nodes are seen. The heart does not appear enlarged. There is no pericardial effusion. The thoracic aorta is normal in caliber. No chest wall mass is seen. There are small bilateral axillary lymph nodes, right greater than left. Largest lymph node measures 1 cm. There are several liver lesions. These are low signal on T1-weighted sequences and high signal on T2-weighted sequences. The largest measures 3 cm in the anterior segment of the right lobe of the liver. These are not included on the postcontrast enhanced images and cannot be further characterized. There are degenerative changes of the spine. MR/MR chest wo/w con IMPRESSION: Large lobulated right-sided mediastinal mass. This abuts the SVC, right atrium and right pulmonary hilum. There is a fat plane seen between the mass and these structures. No adenopathy or pleural effusion. Small bilateral axillary lymph nodes, right greater than left. Multiple liver lesions not fully characterized on this exam.
[2020-11-06 09:18] LABS: Glucose Urine UA NEG (NEG); Leukocyte Esterase Urine NEG (NEG); Nitrite Urine NEG (NEG); Specific Gravity - Urine 1.015 (1.005-1.025); Urine Blood NEG (NEG); Urine Ketones NEG (NEG); Urine Protein TRACE MG/DL (NEG-TRACE)
[2020-11-06 09:19] LABS: MANUAL DIFF FLAG NO
[2020-11-06 09:20] LABS: Appearance Urine CLEAR; Color Urine YELLOW
[2020-11-06 09:24] LABS: Basophils Absolute Auto 0.1 X10*3/uL (0.0-0.2); Basophils Percent Auto 0.9 % (0-2); Eosinophils Absolute Auto 0.3 X10*3/uL (0.0-0.4); Eosinophils Percent Auto 3.6 % (0-4); Hematocrit 44.7 % (42-52); Hemoglobin 13.9 g/dl (14.0-18.0); Imm Gran Abs Auto 0.03 X10*3/uL (0.00-0.03); Imm Gran Pct Auto 0.4 % (0.0-0.4); Lymphocytes Absolute Auto 1.7 X10*3/uL (1.2-4.9); Lymphocytes Percent Auto 22.5 % (20-40); Mean Corpuscular HGB Conc 31.1 g/dl (31.0-36.0); Mean Corpuscular Hemoglobin 25.3 pg (27.0-33.0); Mean Corpuscular Volume 81.3 fL (80-98); Mean Platelet Volume 11.1 fL (9.4-12.4); Monocytes Absolute Auto 0.8 X10*3/uL (0.1-1.2); Monocytes Percent Auto 10.3 % (2-11); Neutrophils Absolute Auto 4.7 X10*3/uL (2.0-8.3); Neutrophils Percent Auto 62.3 % (45-73); Platelet Count 213 X10*3/uL (160-400); Red Cell Distribution Width 14.3 % (11.0-16.0); White Blood Count 7.6 X10*3/uL (4.8-10.8)
[2020-11-06 09:35] LABS: Estimated Average Glucose 137 mg/dL; Hemoglobin A1c % 6.4 %
[2020-11-06 09:42] LABS: Alanine Aminotransferase 36 U/L (0-40); Albumin Level 4.4 g/dL (3.5-5.0); Alkaline Phosphatase 85 U/L (39-117); Anion Gap 11 (12-20); Aspartate Amino Transferase 23 U/L (5-37); Bilirubin Total 0.7 mg/dL (0.0-1.0); Blood Urea Nitrogen 15 mg/dL (9-16); Calcium 9.7 mg/dL (8.4-10.2); Carbon Dioxide 29 mmol/L (22-29); Chloride 105 mmol/L (96-108); Cholesterol 152 mg/dL; Estimated Glomerular Filt Rate > 60; Glucose Fasting 117 mg/dL (60-99); HDL Cholesterol 40 mg/dL; LDL Cholesterol Calculated 71 mg/dl; Potassium 4.7 mmol/L (3.3-5.1); Sodium 140 mmol/L (135-145); Total Protein 7.7 g/dL (6.5-8.0); Triglycerides 205 mg/dL
== END 2020-11-06 08:24 | disposition home or self-care (01) ==
LOC: HO.MRI 08:23
PROVIDERS: PCP Internal Medicine; Visit Provider Surgery
DX: D49.89 Neoplasm of unspecified behavior of other specified sites (principal); E78.00 Pure hypercholesterolemia, unspecified; R73.01 Impaired fasting glucose; I10 Essential (primary) hypertension
CPT/HCPCS: 36415; 71552; 80053; 80061; 81003; 83036; 85025; A9585

== ENCOUNTER 2020-11-07 10:43 | Outpatient (REF) | payer OTHER, SELFPAY ==
--- NOTE | ~2020-11-07 | PE_ITS ---
EXAMINATION: Fluorine-18 FDG PET/CT Scan CLINICAL INDICATION: Initial treatment management. Neoplasm, 10/10/2020 biopsy of mediastinal lesion reported as thymoma. Also, patient states Covid vaccination right arm last week. PROCEDURE: 69 minutes following the intravenous administration of 17.1 mCi of fluorine 18 FDG, images from the base of the skull to the mid thighs were obtained using a combined PET/CT scanner with CT scan based attenuation correction. No oral contrast was administered. No intravenous contrast was administered. Transverse, coronal, sagittal, and volume reconstruction projections were obtained. The patient's blood glucose as determined by a finger stick, was 99 mg/dl immediately prior to injection. Total CT exam dose-length product 788.39 mGy-cm * These CT images were obtained using dose optimization techniques as appropriate, variously including the following: Automated exposure control * Adjustment of mA and/or kV according to patient size (this includes techniques or standardized protocols for targeted exams where dose is matched to indication/reason for exam; i.e. extremities or head) * Use of iterative reconstruction technique COMPARISON: No previous PET/CT scan is available for comparison. CT angiogram of the chest dated 10/28/2020 is available for comparison. Images from a CT-guided biopsy dated 10/10/2020 are also available for comparison. FINDINGS: (Slice numbers described in this report are numbered superiorly to inferiorly with slice #1 in the head) NECK AND VISUALIZED HEAD: There is a focus of moderately intense increased FDG activity present in the midline tongue base, SUVmax 7.1, slice 36/[address] abnormality. Superior to this there is increased activity in the lingual tonsils bilaterally, slightly more intensely on the right, with no associated abnormal FDG activity. There are also multiple normal-sized and normal-appearing bilateral cervical level 1A and 1B lymph nodes, the largest of which are mildly FDG avid, the most intense a right level 1B lymph node showing SUVmax 5.8, slice 37/267. In addition, a subcentimeter right-sided level 2A lymph node which is mildly FDG avid, SUVmax 3.8, slice 32/267. No additional cervical lymphadenopathy is present. The distribution of FDG activity in this region is otherwise physiological. THORAX: The recently biopsied right sided anterior para-aortic mass is mildly FDG avid with only minimal heterogeneity throughout the mass, SUVmax 5.9, slice 92/267. On the CT images this measures 10.2 x 6.4 cm in largest transverse dimensions, and approximately 4.7 cm cephalocaudad. It is not significantly changed in appearance from the CT angiogram dated 08/28/2020. No pulmonary nodules are visualized. Mildly to moderately intense increased FDG activity is present in several right axillary lymph nodes, the most intense showing SUVmax 7.3, slice 80/267 corresponding to a normal-appearing lymph node that measures 1.7 x 1.0 cm in largest transverse dimensions. There is also weakly increased activity laterally in the right deltoid musculature, SUVmax 2.0, slice 78/267. No left axillary lymphadenopathy or mediastinal or supraclavicular lymphadenopathy is present. There are no additional foci of abnormally increased FDG activity present in the chest. ABDOMEN AND PELVIS: No foci of abnormal FDG activity are present in the abdomen or pelvis. There is diffuse FDG activity throughout the gastrointestinal tract of varying intensities, likely physiological. There is mild diverticulosis without evidence of diverticulitis. The hollow viscera are otherwise unremarkable. The liver, spleen, kidneys, adrenal glands and pancreas appear unremarkable. The pelvic organs are unremarkable. There is no retroperitoneal, mesenteric common pelvic or inguinal lymphadenopathy. MUSCULOSKELETAL: There is mild FDG activity in the acromioclavicular joints bilaterally, likely arthritic. There is also mildly increased FDG activity associated with degenerative changes anteriorly in the cervical spine at the C5 level. No other foci of abnormal FDG activity are present in the osseous structures. There are degenerative changes in the spine but no suspicious sclerotic or lytic lesions are visualized. There is a small lipoma laterally in the proximal right thigh musculature. VASCULAR: No significant abnormalities are present. PET/PET CT fusion skull to thigh IMPRESSION: 1. Abnormal FDG activity in the mediastinal mass is noted as described above, and the intensity is consistent with an aggressive thymoma or thymic carcinoma. 2. There is focally increased activity in the midline tongue base as described above, and this is nonspecific and may be physiological or inflammatory in etiology in the absence of significant CT findings at this site. In addition, subcentimeter FDG avid cervical lymph nodes are present bilaterally and these are also nonspecific. Initial correlation with direct visualization of the midline tongue base is recommended for follow-up. This could also be evaluated with CT imaging of the neck soft tissues performed without and with intravenous contrast. 3. FDG avid right axillary lymphadenopathy is nonspecific, but is most likely due to recent Covid vaccination. 4. No additional abnormalities suspicious for metastatic or other malignant lesions are noted.
== END 2020-11-07 10:44 | disposition home or self-care (01) ==
LOC: HO.PET 10:43
PROVIDERS: Visit Provider Surgery
DX: Z13.89 Encounter for screening for other disorder (principal)

== ENCOUNTER → 2020-11-17 09:36 | Outpatient (BNVA) | payer OTHER, SELFPAY | PROVIDERS: PCP Internal Medicine; Visit Provider Surgery | DX: D49.89 Neoplasm of unspecified behavior of other specified sites (principal); Z79.899 Other long term (current) drug therapy | CPT/HCPCS: 99212 ==

== ENCOUNTER 2021-01-15 06:24 | Outpatient (REF) | payer OTHER, SELFPAY ==
[2021-01-15 07:06] LABS: MANUAL DIFF FLAG NO
[2021-01-15 07:17] LABS: Basophils Absolute Auto 0.1 X10*3/uL (0.0-0.2); Basophils Percent Auto 0.9 % (0-2); Eosinophils Absolute Auto 0.2 X10*3/uL (0.0-0.4); Eosinophils Percent Auto 2.9 % (0-4); Hemoglobin 13.7 g/dl (14.0-18.0); Imm Gran Abs Auto 0.02 X10*3/uL (0.00-0.03); Imm Gran Pct Auto 0.3 % (0.0-0.4); Lymphocytes Absolute Auto 1.8 X10*3/uL (1.2-4.9); Lymphocytes Percent Auto 26.8 % (20-40); Mean Corpuscular HGB Conc 31.1 g/dl (31.0-36.0); Mean Corpuscular Hemoglobin 25.5 pg (27.0-33.0); Mean Corpuscular Volume 81.8 fL (80-98); Mean Platelet Volume 11.7 fL (9.4-12.4); Monocytes Absolute Auto 0.6 X10*3/uL (0.1-1.2); Monocytes Percent Auto 9.7 % (2-11); Neutrophils Absolute Auto 3.9 X10*3/uL (2.0-8.3); Neutrophils Percent Auto 59.4 % (45-73); Platelet Count 231 X10*3/uL (160-400); Red Blood Count 5.38 X10*6/uL (4.60-5.80); Red Cell Distribution Width 13.6 % (11.0-16.0); White Blood Count 6.5 X10*3/uL (4.8-10.8)
[2021-01-15 07:34] LABS: Alanine Aminotransferase 42 U/L (0-40); Albumin Level 4.4 g/dL (3.5-5.0); Alkaline Phosphatase 102 U/L (39-117); Anion Gap 12 (12-20); Aspartate Amino Transferase 23 U/L (5-37); Bilirubin Total 0.4 mg/dL (0.0-1.0); Blood Urea Nitrogen 12 mg/dL (9-16); Calcium 9.6 mg/dL (8.4-10.2); Carbon Dioxide 28 mmol/L (22-29); Chloride 101 mmol/L (96-108); Cholesterol 167 mg/dL; Estimated Glomerular Filt Rate > 60; Glucose Fasting 108 mg/dL (60-99); HDL Cholesterol 48 mg/dL; LDL Cholesterol Calculated 100 mg/dl; Potassium 4.3 mmol/L (3.3-5.1); Sodium 137 mmol/L (135-145); Total Protein 7.6 g/dL (6.5-8.0); Triglycerides 97 mg/dL
[2021-01-15 07:58] LABS: TSH reflex Free T4 1.88 uIU/mL (0.32-4.0)
[2021-01-15 08:27] LABS: Estimated Average Glucose 120 mg/dL; Hemoglobin A1c % 5.8 %
[2021-01-15 09:10] LABS: Glucose Urine UA NEG (NEG); Leukocyte Esterase Urine NEG (NEG); Nitrite Urine NEG (NEG); Specific Gravity - Urine >= 1.030 (1.005-1.025); Urine Blood NEG (NEG); Urine Ketones NEG (NEG); Urine Protein NEG (NEG-TRACE)
[2021-01-15 09:12] LABS: Appearance Urine CLEAR; Color Urine YELLOW
[2021-01-15 09:34] LABS: Creatinine Urine 144.57 mg/dL; Microalbum/Creatinine Ratio Ur 4.8 ug/mg cr
== END 2021-01-15 06:25 | disposition home or self-care (01) ==
LOC: HO.LAB 06:24
PROVIDERS: PCP Internal Medicine; Visit Provider Internal Medicine
DX: I10 Essential (primary) hypertension (principal); R80.9 Proteinuria, unspecified; E78.00 Pure hypercholesterolemia, unspecified; R73.01 Impaired fasting glucose; D49.89 Neoplasm of unspecified behavior of other specified sites
CPT/HCPCS: 36415; 80053; 80061; 81003; 82043; 83036; 84443; 85025

== ENCOUNTER 2021-06-19 06:10 | Outpatient (REF) | payer OTHER, SELFPAY ==
[2021-06-19 06:25] LABS: MANUAL DIFF FLAG NO
[2021-06-19 07:09] LABS: Basophils Absolute Auto 0.1 X10*3/uL (0.0-0.2); Basophils Percent Auto 1.2 % (0-2); Eosinophils Absolute Auto 0.2 X10*3/uL (0.0-0.4); Eosinophils Percent Auto 2.6 % (0-4); Hematocrit 46.7 % (42.0-52.0); Hemoglobin 14.5 g/dl (14.0-18.0); Imm Gran Abs Auto 0.02 X10*3/uL (0.00-0.03); Imm Gran Pct Auto 0.3 % (0.0-0.4); Lymphocytes Absolute Auto 1.7 X10*3/uL (1.2-4.9); Lymphocytes Percent Auto 28.4 % (20-40); Mean Corpuscular Hemoglobin 25.5 pg (27.0-33.0); Mean Corpuscular Volume 82.1 fL (80.0-98.0); Mean Platelet Volume 11.9 fL (9.4-12.4); Monocytes Absolute Auto 0.6 X10*3/uL (0.1-1.2); Monocytes Percent Auto 9.4 % (2-11); Neutrophils Absolute Auto 3.5 x10*3/uL (2.0-8.3); Neutrophils Percent Auto 58.1 % (45-73); Platelet Count 214 X10*3/uL (160-400); Red Blood Count 5.69 X10*6/uL (4.60-5.80); Red Cell Distribution Width 14.4 % (11.0-16.0); White Blood Count 6.1 X10*3/uL (4.8-10.8)
[2021-06-19 07:46] LABS: Alanine Aminotransferase 47 U/L (0-40); Albumin Level 4.2 g/dL (3.5-5.0); Alkaline Phosphatase 81 U/L (39-117); Anion Gap 13 (12-20); Aspartate Amino Transferase 27 U/L (5-37); Bilirubin Total 0.4 mg/dL (0.0-1.0); Blood Urea Nitrogen 15 mg/dL (9-16); Calcium 9.6 mg/dL (8.4-10.2); Carbon Dioxide 27 mmol/L (22-29); Chloride 104 mmol/L (96-108); Cholesterol 200 mg/dL; Estimated Glomerular Filt Rate > 60; Glucose Fasting 128 mg/dL (60-99); HDL Cholesterol 45 mg/dL; LDL Cholesterol Calculated 128 mg/dl; Potassium 4.3 mmol/L (3.3-5.1); Sodium 140 mmol/L (135-145); Total Protein 7.6 g/dL (6.5-8.0); Triglycerides 137 mg/dL
[2021-06-19 07:53] LABS: Prostate Specific Antigen 3.14 ng/mL (<0.05-4.0)
[2021-06-19 08:10] LABS: Erythrocyte Sedimentation Rate 6 MM/HR (0-15)
== END 2021-06-19 06:11 | disposition home or self-care (01) ==
LOC: HO.LAB 06:10
PROVIDERS: PCP Internal Medicine Medical Oncology; Visit Provider Internal Medicine Medical Oncology
DX: Z12.5 Encounter for screening for malignant neoplasm of prostate (principal); E78.5 Hyperlipidemia, unspecified; I10 Essential (primary) hypertension
CPT/HCPCS: 36415; 80053; 80061; 84153; 85025; 85652

== ENCOUNTER 2021-06-20 07:00 | Outpatient (REF) | payer OTHER, SELFPAY ==
--- NOTE | ~2021-06-20 | CT_ITS ---
EXAMINATION: CT CHEST WITHOUT CONTRAST CLINICAL INFORMATION: Lung cancer. COMPARISON: PET/CT of 11/07/[address] scan of 08/28/2020. TECHNIQUE: Multidetector volumetric CT imaging of the chest was done. Axial MIP volume rendering provided. Sagittal and coronal reformatted images were obtained. This CT examination was performed using dose optimization techniques as appropriate, variously including the following: *Automated exposure control *Adjustment of mA and/or kV according to patient size (this includes techniques or standardized protocols for targeted exams where dose is matched to indication/reason for exam; i.e. extremities or head) *Use of iterative reconstruction technique DLP: 215 mGy-cm FINDINGS: LUNGS: Central airways are patent. No bronchial wall thickening. No bronchiectasis. No confluent parenchymal disease. There are a few scattered calcified granulomas seen. Scattered sub-4 mm densities are present. There is a 3 mm noncalcified density seen within the right upper lobe on image 280 of 665. MEDIASTINUM: Since previous study the right mediastinal mass adjacent to the right pericardium and hilar region is no longer seen. Heart normal size. No significant coronary artery calcification is seen. No pericardial effusion. No thoracic aortic aneurysm. There appears to be a 2.1 cm right thyroid nodule with calcification about its rim. No mediastinal or hilar lymphadenopathy is seen. There are a few nonenlarged subcarinal calcified lymph nodes. There is some hazy density seen about the anterior mediastinum but without focal solid mass identified and without mass effect. PLEURA: There is no pleural effusion. No pleural mass or thickening. AXILLA: There are prominent axillary lymph nodes with one left-sided enlarged lymph node measuring 1.4 x 1.1 cm in size. No significant change from prior study of 08/28/2020 is seen. No internal mammary lymphadenopathy. UPPER ABDOMEN: The previously noted low-density lesion with some rim enhancement from study of 08/28/2020 is not identified on this noncontrast study. This likely represented a hemangioma. No adrenal gland masses. OSSEOUS STRUCTURES: Status post median sternotomy. No suspicious destructive bony lesions identified. DISH is present. CT/CT chest wo con IMPRESSION: Status post surgery for right mediastinal mass. Old granulomatous disease. 2.1 cm rim calcified right thyroid nodule. Known liver lesion not identified on this noncontrasted study.
== END 2021-06-20 07:01 | disposition home or self-care (01) ==
LOC: HO.CT 07:00
PROVIDERS: Visit Provider Surgery
DX: D49.89 Neoplasm of unspecified behavior of other specified sites (principal)
CPT/HCPCS: 71250

== ENCOUNTER → 2021-07-13 08:59 | Outpatient (BNVA) | payer OTHER, SELFPAY | PROVIDERS: PCP Internal Medicine Medical Oncology; Visit Provider Surgery | DX: D49.89 Neoplasm of unspecified behavior of other specified sites (principal); Z79.899 Other long term (current) drug therapy; Z87.891 Personal history of nicotine dependence; Z90.89 Acquired absence of other organs | CPT/HCPCS: 99212 ==

== ENCOUNTER 2022-01-04 09:42 | Outpatient (REF) | payer OTHER, SELFPAY ==
--- NOTE | ~2022-01-04 | US_ITS ---
EXAMINATION: US THYROID CLINICAL INFORMATION: Nontoxic single thyroid nodule. COMPARISON: None. TECHNIQUE: Linear transducer grayscale and color Doppler examination with attention to the region of the thyroid. FINDINGS: SIZE: Measurements of the thyroid lobes and nodules are given in sagittal, anteroposterior and transverse dimensions respectively. Right Thyroid Lobe: 5.1 x 2.1 x 3.1 cm, volume 17.4 mL. Parenchyma: The gland echotexture is heterogeneous. Thyroid vascularity is normal. Left Thyroid Lobe: 5.3 x 1.8 x 2.4 cm, volume 12.0 mL. Parenchyma: The gland echotexture is heterogeneous. Thyroid vascularity is normal. Isthmus: 0.6 cm in maximum AP dimension. Estimated total number of nodules greater than or equal to 1 cm: 3. Embossing Clerk nodules are described as follows: 1. Location: Right superior. Size: 0.7 x 0.6 x 0.8 cm, volume 0.18 mL. Nodule characteristics: Composition: Solid/almost completely solid (2). Echogenicity: Isoechoic (1). Shape: Not taller than wide (0). Margins: Ill-defined (0). Echogenic Foci: None (0). ACR TI-RADS total points: 3. ACR TI-RADS category: 3. 2. Location: Right mid. Size: 2.3 x 2.0 x 1.6 cm, volume 3.8 mL. Nodule characteristics: Composition: Solid/almost completely solid (2). Echogenicity: Hypoechoic (2). Shape: Not taller than wide (0). Margins: Smooth (0). Echogenic Foci: Punctate echogenic foci (3). ACR TI-RADS total points: 7. ACR TI-RADS category: 5. 3. Location: Right inferior. Size: 1.5 x 1.6 x 1.1 cm, volume 1.4 mL. Nodule characteristics: Composition: Solid (2). Echogenicity: Hypoechoic (2). Shape: Not taller than wide (0). Margins: Smooth (0). Echogenic Foci: None (0). ACR TI-RADS total points: 4. ACR TI-RADS category: 4. 4. Location: Left superior. Size: 0.9 x 0.8 x 0.7 cm, volume 0.3 mL. Nodule characteristics: Composition: Solid/almost completely solid (2). Echogenicity: Isoechoic (1). Shape: Not taller than wide (0). Margins: Smooth (0). Echogenic Foci: None (0). ACR TI-RADS total points: 3. ACR TI-RADS category: 3. 5. Location: Left mid. Size: 2.3 x 1.9 x 1.4 cm, volume 3.2 mL. Nodule characteristics: Composition: Solid (2). Echogenicity: Hypoechoic (2). Shape: Not taller than wide (0). Margins: Smooth (0). Echogenic Foci: None (0). ACR TI-RADS total points: 4. ACR TI-RADS category: 4. NODES: No lymphadenopathy is seen in the tissue surrounding the thyroid gland. US/US thyroid IMPRESSION: Enlarged right thyroid lobe. Suspicious solid right thyroid nodule, heterogeneous, measuring 2.3 cm and abnormal by TI-RADS criteria. Recommend biopsy. There is a left midpole thyroid nodule measuring 2.3 cm. Recommend annual follow-up of all other nodules. ACR TI-RADS RECOMMENDATION REFERENCE: Ultrasound-guided fine-needle aspiration, followup ultrasound, no further follow up. * TR1 (0 point) and TR 2 (2 points): No FNA or follow up * TR3 (3 points): FNA if more than or equal to 2.5 cm in maximum dimension, followup ultrasound in 1, 3 and 5 years if 1.5 to 2.4 cm in maximum dimension. * TR4 (4-6 points): FNA if more than or equal to 1.5 cm in maximum dimension, followup ultrasound in 1, 2, 3 and 5 years if 1 to 1.4 cm in maximum dimension. * TR5 (more than or equal to 7 points): FNA if more than or equal to 1 cm in maximum dimension, followup ultrasound every year for 5 years if 0.5 to 0.9 cm in maximum dimension. * TR3, TR4 or TR5 nodules that are below the size threshold for follow up receive no follow up.
[2022-01-04 13:13] LABS: Free T4 (Free Thyroxine) 1.08 ng/dL (0.71-1.85); Thyroid Stimulating Hormone 1.29 uIU/mL (0.32-4.0)
== END 2022-01-04 09:43 | disposition home or self-care (01) ==
LOC: HO.US 09:42
PROVIDERS: Visit Provider Internal Medicine Endocrinology, Diabetes & Metabolism
DX: E04.1 Nontoxic single thyroid nodule (principal)
CPT/HCPCS: 36415; 76536; 84439; 84443

== ENCOUNTER → 2022-01-08 10:27 | Outpatient (BNVA) | payer OTHER, SELFPAY | PROVIDERS: PCP Internal Medicine Medical Oncology; Visit Provider Internal Medicine Endocrinology, Diabetes & Metabolism | DX: E04.1 Nontoxic single thyroid nodule (principal) | CPT/HCPCS: 99202 ==

== ENCOUNTER 2022-01-23 12:29 | Outpatient (REF) | payer OTHER, SELFPAY ==
--- NOTE | ~2022-01-23 | CT_ITS ---
EXAMINATION: CT CHEST WITHOUT CONTRAST CLINICAL INFORMATION: Thymoma. COMPARISON: CT chest 06/20/2021 and PET/CT 11/07/2020. CTA 08/28/2020. TECHNIQUE: Multidetector volumetric CT imaging of the chest was done. Axial MIP volume rendering provided. Sagittal and coronal reformatted images were obtained. This CT examination was performed using dose optimization techniques as appropriate, variously including the following: *Automated exposure control *Adjustment of mA and/or kV according to patient size (this includes techniques or standardized protocols for targeted exams where dose is matched to indication/reason for exam; i.e. extremities or head) *Use of iterative reconstruction technique DLP: 409 mGy-cm FINDINGS: WALKING DRAGLINE OILER: Unremarkable. LUNGS: The lungs are well expanded and clear of acute pneumonic process. There are no pulmonary nodules, mass or ground-glass density. There are scattered calcified granulomas in the right middle lobe and right lower lobe, largest measuring 5 mm right middle lobe subpleural location axial image 314/6. No noncalcified nodules seen. MEDIASTINUM: Previously visualized large right paracardiac and paramediastinal thymoma has been surgically removed. There is no residual or recurrent mass seen in this region. The heart size and the great vessels are normal caliber. No pericardial effusion. No abnormal sized mediastinal lymph nodes. There is a heterogeneous complex nodule mid pole right lobe, similar to previous exam measuring 2.1 cm. PLEURA: There is no pleural effusion. No pleural mass or thickening. AXILLA: No lymphadenopathy. UPPER ABDOMEN: The visualized liver, spleen, pancreas, and bilateral adrenal glands are unremarkable. OSSEOUS STRUCTURES: There is moderate ventral spondylosis throughout the dorsal spine. There are median sternotomy sutures from previous intervention. No aggressive lytic or sclerotic process seen. CT/CT chest wo con IMPRESSION: Status post-resection of right paramediastinal large thymoma. There is no recurrent tumor or any residual thymoma tissue seen. No abnormal mediastinal adenopathy or mass. Calcified lung nodules, likely granuloma, are stable and unchanged. No new nodules seen. Fleischner guidelines were followed.
== END 2022-01-23 12:30 | disposition home or self-care (01) ==
LOC: HO.CT 12:29
PROVIDERS: Visit Provider Surgery
DX: D49.89 Neoplasm of unspecified behavior of other specified sites (principal)
CPT/HCPCS: 71250

== ENCOUNTER → 2022-01-25 09:58 | Outpatient (BNVA) | payer OTHER, SELFPAY | PROVIDERS: PCP Internal Medicine Medical Oncology; Visit Provider Surgery | DX: D49.89 Neoplasm of unspecified behavior of other specified sites (principal) | CPT/HCPCS: 99212 ==

== ENCOUNTER 2022-02-21 08:18 | Outpatient (REF) | payer OTHER, SELFPAY ==
--- NOTE | 2022-02-21 09:22 | PM.OP ---
Brief Operative Note Date of Service: 02/21/22 Pre-op diagnosis: Multinodular Thyroid Procedure: This is doctor Mable Drew. This is an ultrasound-guided fine-needle aspiration report. Date of Examination: Indication: Multinodular Thyroid Porcedure: Procedure was explained to the patient. Alternatives, the risk and benefits were discussed. Written consent was obtained. A time-out was also obtained. After sterile preparation, fine-needle aspiration of a 0.8 cm left upper pole lateral thyroid nodule was performed using direct ultrasound guidance to confirm accurate needle placement. Four aspirations were made using 27 gauge needles. Samples were submitted for cytology. Our attention was then turned to a nodule in the left upper pole medial region. Fine-needle aspiration of a left upper pole medial 1.2 cm thyroid nodule was performed using direct ultrasound guidance to confirm accurate needle placement. Three aspirations were made using 27 gauge needles. Samples were submitted for cytology. One pass was dedicated for [employer] sequencing spray operator testing. Our attention was then turned to the left mid pole. Fine-needle aspiration of a left mid pole 2.1 cm thyroid nodule was performed using direct ultrasound guidance to confirm accurate needle placement. Four aspirations were made using 27 gauge needles. An additional 2 aspirations were made using 25 guage needles. Samples were submitted for cytology. One pass was dedicated for [employer] sequencing spray operator testing. The patient tolerated the procedure well. Aftercare instructions were provided. Impression: Uncomplicated fine needle aspiration biopsy of a left upper pole lateral 0.8 cm thyroid nodule, a left upper pole medial 1.2 cm thyroid nodule and a left mid pole 2.1 cm thyroid nodule under ultrasound guidance. The patient has 3 additional nodules (isthmus and 2 within the R lobe) requiring FNA bipsy but he will present at another date for these. Surgeon: Mable Drew, DO Was an Computer Information Systems Professor used for this Procedure?: No Estimated blood loss (mL): 0
[2022-02-21] MEDS: Lidocaine HCl 1 % MPF 5 ML VIAL 2 ML SUBCUT (09:38)
== END 2022-02-21 08:19 | disposition home or self-care (01) ==
LOC: HO.US 08:18
PROVIDERS: Visit Provider Internal Medicine Endocrinology, Diabetes & Metabolism
DX: E04.2 Nontoxic multinodular goiter (principal)
CPT/HCPCS: 10005; 10006; 88172; 88173; 88177

== ENCOUNTER → 2022-02-28 08:47 | Outpatient (BNVA) | payer OTHER, SELFPAY | PROVIDERS: PCP Internal Medicine Medical Oncology; Visit Provider Internal Medicine Endocrinology, Diabetes & Metabolism | DX: E04.1 Nontoxic single thyroid nodule (principal); C73 Malignant neoplasm of thyroid gland | CPT/HCPCS: 99212 ==

== ENCOUNTER 2022-07-17 13:43 | Outpatient (REF) | payer OTHER, SELFPAY ==
--- NOTE | ~2022-07-17 | CT_ITS ---
EXAMINATION: CT CHEST WITHOUT CONTRAST CLINICAL INFORMATION: History of mediastinal mass post resection/thymoma COMPARISON: Previous MRI of the chest October [address] scans most recent December 2021 TECHNIQUE: Multidetector volumetric CT imaging of the chest was done. Axial MIP volume rendering provided. Sagittal and coronal reformatted images were obtained. This CT examination was performed using dose optimization techniques as appropriate, variously including the following: *Automated exposure control *Adjustment of mA and/or kV according to patient size (this includes techniques or standardized protocols for targeted exams where dose is matched to indication/reason for exam; i.e. extremities or head) *Use of iterative reconstruction technique DLP: 413 mGy-cm FINDINGS: COOLER OPERATOR: Median sternotomy wires LUNGS: Small calcified pulmonary nodules are stable. Largest is a 4 mm peripheral or subpleural calcified right middle lobe nodule axial image 368 series 5. No new pulmonary nodules. MEDIASTINUM: . The mediastinal mass has been removed. No evidence of recurrent or residual lesion. The thyroid gland appears to have been removed. Small partially calcified mediastinal lymph nodes. No enlarged lymph nodes. Normal heart size. No pericardial effusion. Normal caliber thoracic aorta. The thyroid gland has been removed. CORONARY ARTERY CALCIFICATION: None visualized on this study. PLEURA: There is no pleural effusion. No pleural mass or thickening. AXILLA: No lymphadenopathy. UPPER ABDOMEN: 3.6 cm low-attenuation lesion in the liver axial image 63 series 2. This is similar to previous exams. OSSEOUS STRUCTURES: Median sternotomy wires. Degenerative changes of the spine. CT/CT chest wo IV con IMPRESSION: No evidence of recurrent or metastatic disease in the chest. The thyroid gland has been removed in the interval from December 2021 exam. Stable 3.6 cm liver lesion. Fleischner guidelines were followed.
== END 2022-07-17 13:44 | disposition home or self-care (01) ==
LOC: HO.CT 13:43
PROVIDERS: Visit Provider Surgery
DX: D49.89 Neoplasm of unspecified behavior of other specified sites (principal)
CPT/HCPCS: 71250

== ENCOUNTER → 2022-07-19 09:32 | Outpatient (BNVA) | payer OTHER, SELFPAY | PROVIDERS: PCP Internal Medicine Medical Oncology; Visit Provider Surgery | DX: D49.89 Neoplasm of unspecified behavior of other specified sites (principal); Z90.89 Acquired absence of other organs | CPT/HCPCS: 99212 ==

== ENCOUNTER 2022-08-21 06:02 | Outpatient (REF) | payer OTHER, SELFPAY ==
[2022-08-21 06:12] LABS: MANUAL DIFF FLAG NO
[2022-08-21 07:45] LABS: Basophils Absolute Auto 0.1 X10*3/uL (0.0-0.2); Basophils Percent Auto 1.1 % (0-2); Eosinophils Absolute Auto 0.2 X10*3/uL (0.0-0.4); Eosinophils Percent Auto 3.4 % (0-4); Hematocrit 46.7 % (42.0-52.0); Hemoglobin 14.7 g/dl (14.0-18.0); Imm Gran Abs Auto 0.01 X10*3/uL (0.00-0.03); Imm Gran Pct Auto 0.2 % (0.0-0.4); Lymphocytes Absolute Auto 1.6 X10*3/uL (1.2-4.9); Lymphocytes Percent Auto 28.2 % (20-40); Mean Corpuscular HGB Conc 31.5 g/dl (31.0-36.0); Mean Corpuscular Hemoglobin 25.4 pg (27.0-33.0); Mean Corpuscular Volume 80.8 fL (80.0-98.0); Mean Platelet Volume 12.1 fL (9.4-12.4); Monocytes Absolute Auto 0.6 X10*3/uL (0.1-1.2); Monocytes Percent Auto 9.9 % (2-11); Neutrophils Absolute Auto 3.2 x10*3/uL (2.0-8.3); Neutrophils Percent Auto 57.2 % (45-73); Platelet Count 184 X10*3/uL (160-400); Red Blood Count 5.78 X10*6/uL (4.60-5.80); Red Cell Distribution Width 13.8 % (11.0-16.0); White Blood Count 5.6 X10*3/uL (4.8-10.8)
[2022-08-21 08:22] LABS: Alanine Aminotransferase 45 U/L (0-40); Alkaline Phosphatase 80 U/L (39-117); Anion Gap 14 (12-20); Aspartate Amino Transferase 26 U/L (5-37); Bilirubin Total 0.8 mg/dL (0.0-1.0); Blood Urea Nitrogen 10 mg/dL (9-16); Calcium 8.9 mg/dL (8.4-10.2); Carbon Dioxide 25 mmol/L (22-29); Chloride 106 mmol/L (96-108); Estimated Glomerular Filt Rate > 60; Glucose Random 135 mg/dL (60-115); Potassium 4.1 mmol/L (3.3-5.1); Sodium 141 mmol/L (135-145); Total Protein 6.7 g/dL (6.5-8.0)
[2022-08-21 08:27] LABS: Free T4 (Free Thyroxine) 1.49 ng/dL (0.71-1.85)
== END 2022-08-21 06:03 | disposition home or self-care (01) ==
LOC: HO.LAB 06:02
PROVIDERS: PCP Internal Medicine Medical Oncology; Visit Provider Internal Medicine Medical Oncology
DX: I10 Essential (primary) hypertension (principal); E78.5 Hyperlipidemia, unspecified; D15.0 Benign neoplasm of thymus
CPT/HCPCS: 36415; 80053; 84439; 84443; 85025

== ENCOUNTER → 2022-09-04 09:38 | Outpatient (BNVA) | payer OTHER, SELFPAY | PROVIDERS: PCP Internal Medicine Medical Oncology; Visit Provider Internal Medicine Endocrinology, Diabetes & Metabolism | DX: C73 Malignant neoplasm of thyroid gland (principal) | CPT/HCPCS: 99212 ==

== ENCOUNTER 2022-09-04 10:28 | Outpatient (REF) | payer OTHER, SELFPAY ==
[2022-09-04 12:22] LABS: Free T4 (Free Thyroxine) 1.26 ng/dL (0.71-1.85); Thyroid Stimulating Hormone 0.33 uIU/mL (0.32-4.0)
[2022-09-06 10:53] LABS: Thyroglobulin <0.1 ng/mL
== END 2022-09-04 10:29 | disposition home or self-care (01) ==
LOC: HO.LAB 10:28
PROVIDERS: PCP Internal Medicine Medical Oncology; Visit Provider Internal Medicine Endocrinology, Diabetes & Metabolism
DX: C73 Malignant neoplasm of thyroid gland (principal)
CPT/HCPCS: 36415; 84432; 84439; 84443

== ENCOUNTER 2023-01-14 14:43 | Outpatient (AMB) | payer OTHER, SELFPAY ==
--- NOTE | 2023-01-14 14:56 | A.OFFVIS_ITS ---
Intake Vital Signs 01/14/23 14:57 Height 5 ft 11 in Weight 234 lb 9.149 oz BMI 32.7 BP 142/88 H Blood Pressure Location Lt brachial Position Sitting Pulse 76 Pulse Source Pulse Oximeter Intake Visit Reasons: S/P thyroidectomy Intake Note: Patient present today for S/P Thyroidectomy follow up visit. Security Expert Required: No Accompanied by: Self / Same As Patient Allergies lisinopril Allergy (Verified 01/14/23 15:01) Cough Medication List - Last Reconciled 01/14/23 by Nicholas Gregg MD atorvastatin 40 mg PO BEDTIME 90 days levothyroxine 150 mcg PO DAILY HPI HPI Comments History of Present Illness Details This 62-year-old male status post total thyroidectomy by Dr. 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 He is currently on 150 mcg levothyroxine post surgery. Thyroglobulin level was undetectable [facility] Medical History (Updated 02/28/22 @ 09:10 by Nicholas Gregg MD) Albuminuria Benign essential hypertension Impaired fasting glucose Obesity (BMI 30-39.9) Personal history of nicotine dependence Polyp of colon, hyperplastic (~2019) Pure hypercholesterolemia Thymoma (~2020) Thyroid cancer Thyroid nodule Surgical History History of lung biopsy (~09/2020) Hx of colonoscopy (~05/2020) S/P thymectomy (~12/20/20) Status post thymectomy Family History Father No problems noted. Mother No problems noted. 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 Reflexes 2+ DTR Assessment & Plan Assessment & Plan (1) Thyroid cancer: Code(s): C73 - Malignant neoplasm of thyroid gland Plan: This 62-year-old male status post thyroidectomy with 1.4 cm classic papillary with minimal microscopic extrathyroidal extension. He appears to be clinically euthyroid 150 mcg levothyroxine. He has undetectable thyroglobulin The plan is recheck TSH and free T4 and adjust levothyroxine. Will check neck ultrasound. Assuming neck ultrasound does not show any evidence of persistence of disease would hold off on radioactive iodine Orders: Orders US thyroid Today C73 - Malignant neoplasm of thyroid gland, E04.2 - Nontoxic multinodular goiter Coding Level of Care Code Est Pt Level 3 (34872) Diagnoses Thyroid cancer C73
[2023-01-14 14:57] VITALS: BP 142/88; PULSE 76; BMI 32.7
== END 2023-01-14 15:33 | disposition home or self-care (01) ==
PROVIDERS: PCP Internal Medicine Medical Oncology; Referring Provider Internal Medicine Medical Oncology; Visit Provider Internal Medicine Endocrinology, Diabetes & Metabolism
DX: C73 Malignant neoplasm of thyroid gland (principal)
CPT/HCPCS: 99213

== ENCOUNTER → 2023-01-14 14:43 | Outpatient (BNVA) | payer OTHER, SELFPAY | PROVIDERS: Visit Provider Internal Medicine Endocrinology, Diabetes & Metabolism | DX: C73 Malignant neoplasm of thyroid gland (principal); E89.0 Postprocedural hypothyroidism; Z79.899 Other long term (current) drug therapy | CPT/HCPCS: 99212 ==

== ENCOUNTER 2023-01-28 05:55 | Outpatient (REF) | payer OTHER, SELFPAY ==
[2023-01-28 06:13] LABS: MANUAL DIFF FLAG NO
[2023-01-28 07:01] LABS: Basophils Absolute Auto 0.1 X10*3/uL (0.0-0.2); Eosinophils Absolute Auto 0.1 X10*3/uL (0.0-0.4); Eosinophils Percent Auto 2.3 % (0-4); Hemoglobin 15.2 g/dl (14.0-18.0); Imm Gran Abs Auto 0.02 X10*3/uL (0.00-0.03); Imm Gran Pct Auto 0.3 % (0.0-0.4); Lymphocytes Absolute Auto 1.5 X10*3/uL (1.2-4.9); Lymphocytes Percent Auto 23.8 % (20-40); Mean Corpuscular HGB Conc 31.7 g/dl (31.0-36.0); Mean Corpuscular Hemoglobin 25.5 pg (27.0-33.0); Mean Corpuscular Volume 80.4 fL (80.0-98.0); Mean Platelet Volume 11.8 fL (9.4-12.4); Monocytes Absolute Auto 0.6 X10*3/uL (0.1-1.2); Monocytes Percent Auto 9.7 % (2-11); Neutrophils Absolute Auto 3.8 x10*3/uL (2.0-8.3); Neutrophils Percent Auto 62.9 % (45-73); Platelet Count 197 X10*3/uL (160-400); Red Blood Count 5.97 X10*6/uL (4.60-5.80); Red Cell Distribution Width 14.2 % (11.0-16.0); White Blood Count 6.1 X10*3/uL (4.8-10.8)
[2023-01-28 07:26] LABS: Alanine Aminotransferase 50 U/L (0-40); Albumin Level 4.3 g/dL (3.5-5.0); Alkaline Phosphatase 71 U/L (39-117); Anion Gap 13 (12-20); Aspartate Amino Transferase 26 U/L (5-37); Bilirubin Total 0.6 mg/dL (0.0-1.0); Blood Urea Nitrogen 14 mg/dL (9-16); Calcium 9.7 mg/dL (8.4-10.2); Carbon Dioxide 26 mmol/L (22-29); Chloride 106 mmol/L (96-108); Cholesterol 148 mg/dL (<200); Estimated Glomerular Filt Rate > 60; Glucose Fasting 147 mg/dL (60-99); HDL Cholesterol 42 mg/dL (>40); LDL Cholesterol Calculated 91 mg/dL (<100); Sodium 141 mmol/L (135-145); Total Protein 7.5 g/dL (6.5-8.0); Triglycerides 78 mg/dL (<150)
[2023-01-28 07:42] LABS: Free T4 (Free Thyroxine) 1.28 ng/dL (0.71-1.85); Thyroid Stimulating Hormone 0.88 uIU/mL (0.32-4.0)
== END 2023-01-28 05:56 | disposition home or self-care (01) ==
LOC: HO.LAB 05:55
PROVIDERS: PCP Internal Medicine Medical Oncology; Visit Provider Internal Medicine Medical Oncology
DX: I10 Essential (primary) hypertension (principal); E78.5 Hyperlipidemia, unspecified; E66.9 Obesity, unspecified; C73 Malignant neoplasm of thyroid gland; R73.9 Hyperglycemia, unspecified
CPT/HCPCS: 36415; 80053; 80061; 84439; 84443; 85025

== ENCOUNTER 2023-08-12 06:01 | Outpatient (REF) | payer OTHER, SELFPAY ==
[2023-08-12 06:18] LABS: MANUAL DIFF FLAG NO
[2023-08-12 07:17] LABS: Basophils Absolute Auto 0.1 X10*3/uL (0.0-0.2); Basophils Percent Auto 1.1 % (0-2); Eosinophils Absolute Auto 0.1 X10*3/uL (0.0-0.4); Eosinophils Percent Auto 1.9 % (0-4); Hematocrit 48.7 % (42.0-52.0); Hemoglobin 15.6 g/dl (14.0-18.0); Imm Gran Abs Auto 0.01 X10*3/uL (0.00-0.03); Imm Gran Pct Auto 0.2 % (0.0-0.4); Lymphocytes Absolute Auto 1.5 X10*3/uL (1.2-4.9); Mean Corpuscular Hemoglobin 25.7 pg (27.0-33.0); Mean Corpuscular Volume 80.2 fL (80.0-98.0); Mean Platelet Volume 11.7 fL (9.4-12.4); Monocytes Absolute Auto 0.6 X10*3/uL (0.1-1.2); Monocytes Percent Auto 9.8 % (2-11); Platelet Count 233 X10*3/uL (160-400); Red Blood Count 6.07 X10*6/uL (4.60-5.80); Red Cell Distribution Width 14.3 % (11.0-16.0); White Blood Count 6.3 X10*3/uL (4.8-10.8)
[2023-08-12 07:52] LABS: Alanine Aminotransferase 53 U/L (0-40); Albumin Level 4.4 g/dL (3.5-5.0); Alkaline Phosphatase 77 U/L (39-117); Anion Gap 12 (12-20); Aspartate Amino Transferase 33 U/L (5-37); Bilirubin Total 0.7 mg/dL (0.0-1.0); Blood Urea Nitrogen 17 mg/dL (9-16); Calcium 9.8 mg/dL (8.4-10.2); Carbon Dioxide 27 mmol/L (22-29); Chloride 105 mmol/L (96-108); Cholesterol 251 mg/dL (<200); Estimated Glomerular Filt Rate > 60; Glucose Fasting 136 mg/dL (60-99); HDL Cholesterol 44 mg/dL (>40); LDL Cholesterol Calculated 187 mg/dL (<100); Potassium 4.2 mmol/L (3.3-5.1); Sodium 140 mmol/L (135-145); Triglycerides 103 mg/dL (<150)
[2023-08-12 08:10] LABS: Erythrocyte Sedimentation Rate 7 MM/HR (0-15)
== END 2023-08-12 06:02 | disposition home or self-care (01) ==
LOC: HO.LAB 06:01
PROVIDERS: PCP Internal Medicine Medical Oncology; Visit Provider Internal Medicine Medical Oncology
DX: E66.9 Obesity, unspecified (principal); R73.9 Hyperglycemia, unspecified; C73 Malignant neoplasm of thyroid gland
CPT/HCPCS: 36415; 80053; 80061; 84439; 84443; 85025; 85652

== ENCOUNTER 2023-11-19 06:00 | Outpatient (REF) | payer OTHER, SELFPAY ==
[2023-11-19 06:19] LABS: MANUAL DIFF FLAG NO
[2023-11-19 07:49] LABS: Basophils Absolute Auto 0.1 X10*3/uL (0.0-0.2); Eosinophils Absolute Auto 0.1 X10*3/uL (0.0-0.4); Eosinophils Percent Auto 2.2 % (0-4); Hematocrit 47.4 % (42.0-52.0); Hemoglobin 15.1 g/dl (14.0-18.0); Imm Gran Abs Auto 0.01 X10*3/uL (0.00-0.03); Imm Gran Pct Auto 0.2 % (0.0-0.4); Lymphocytes Absolute Auto 1.5 X10*3/uL (1.2-4.9); Lymphocytes Percent Auto 24.7 % (20-40); Mean Corpuscular HGB Conc 31.9 g/dl (31.0-36.0); Mean Corpuscular Hemoglobin 25.6 pg (27.0-33.0); Mean Corpuscular Volume 80.3 fL (80.0-98.0); Mean Platelet Volume 11.8 fL (9.4-12.4); Monocytes Absolute Auto 0.6 X10*3/uL (0.1-1.2); Monocytes Percent Auto 10.5 % (2-11); Neutrophils Absolute Auto 3.7 x10*3/uL (2.0-8.3); Neutrophils Percent Auto 61.4 % (45-73); Platelet Count 176 X10*3/uL (160-400); Red Cell Distribution Width 13.8 % (11.0-16.0)
[2023-11-19 08:18] LABS: Alanine Aminotransferase 47 U/L (0-40); Albumin Level 4.3 g/dL (3.5-5.0); Alkaline Phosphatase 83 U/L (39-117); Anion Gap 10 (12-20); Aspartate Amino Transferase 24 U/L (5-37); Bilirubin Total 0.8 mg/dL (0.0-1.0); Blood Urea Nitrogen 15 mg/dL (9-16); Calcium 9.8 mg/dL (8.4-10.2); Carbon Dioxide 29 mmol/L (22-29); Chloride 105 mmol/L (96-108); Cholesterol 137 mg/dL (<200); Estimated Glomerular Filt Rate > 60; Glucose Fasting 129 mg/dL (60-99); HDL Cholesterol 38 mg/dL (>40); LDL Cholesterol Calculated 79 mg/dL (<100); Sodium 140 mmol/L (135-145); Total Protein 7.6 g/dL (6.5-8.0); Triglycerides 101 mg/dL (<150)
== END 2023-11-19 06:01 | disposition home or self-care (01) ==
LOC: HO.LAB 06:00
PROVIDERS: PCP Internal Medicine Medical Oncology; Visit Provider Internal Medicine Medical Oncology
DX: E78.5 Hyperlipidemia, unspecified (principal); E66.9 Obesity, unspecified; E11.9 Type 2 diabetes mellitus without complications
CPT/HCPCS: 36415; 80053; 80061; 85025

== ENCOUNTER 2024-03-26 10:15 | Outpatient (REF) | payer OTHER, SELFPAY ==
[2024-03-26 10:44] LABS: MANUAL DIFF FLAG NO
[2024-03-26 11:46] LABS: Basophils Absolute Auto 0.1 X10*3/uL (0.0-0.2); Basophils Percent Auto 0.8 % (0-2); Eosinophils Absolute Auto 0.1 X10*3/uL (0.0-0.4); Eosinophils Percent Auto 0.7 % (0-4); Hematocrit 48.8 % (42.0-52.0); Hemoglobin 15.7 g/dl (14.0-18.0); Imm Gran Abs Auto 0.02 X10*3/uL (0.00-0.03); Imm Gran Pct Auto 0.3 % (0.0-0.4); Lymphocytes Absolute Auto 1.4 X10*3/uL (1.2-4.9); Lymphocytes Percent Auto 19.9 % (20-40); Mean Corpuscular HGB Conc 32.2 g/dl (31.0-36.0); Mean Corpuscular Hemoglobin 25.4 pg (27.0-33.0); Mean Corpuscular Volume 79.1 fL (80.0-98.0); Mean Platelet Volume 11.2 fL (9.4-12.4); Monocytes Absolute Auto 0.6 X10*3/uL (0.1-1.2); Monocytes Percent Auto 8.7 % (2-11); Neutrophils Percent Auto 69.6 % (45-73); Platelet Count 207 X10*3/uL (160-400); Red Blood Count 6.17 X10*6/uL (4.60-5.80); Red Cell Distribution Width 14.1 % (11.0-16.0); White Blood Count 7.1 X10*3/uL (4.8-10.8)
[2024-03-26 12:36] LABS: Alanine Aminotransferase 59 U/L (0-40); Albumin Level 4.4 g/dL (3.5-5.0); Alkaline Phosphatase 84 U/L (39-117); Anion Gap 13 (12-20); Aspartate Amino Transferase 38 U/L (5-37); Bilirubin Total 0.8 mg/dL (0.0-1.0); Blood Urea Nitrogen 10 mg/dL (9-16); Carbon Dioxide 27 mmol/L (22-29); Chloride 103 mmol/L (96-108); Cholesterol 153 mg/dL (<200); Estimated Glomerular Filt Rate > 60; Glucose Fasting 118 mg/dL (60-99); HDL Cholesterol 47 mg/dL (>40); LDL Cholesterol Calculated 88 mg/dL (<100); Potassium 4.3 mmol/L (3.3-5.1); Sodium 139 mmol/L (135-145); Triglycerides 93 mg/dL (<150)
[2024-03-26 12:53] LABS: Prostate Specific Antigen 4.78 ng/mL (<0.05-4.0)
[2024-03-26 12:56] LABS: Free T4 (Free Thyroxine) 1.31 ng/dL (0.71-1.85); Thyroid Stimulating Hormone 0.41 uIU/mL (0.32-4.0)
== END 2024-03-26 10:16 | disposition home or self-care (01) ==
LOC: HO.LAB 10:15
PROVIDERS: PCP Internal Medicine Medical Oncology; Visit Provider Internal Medicine Medical Oncology
DX: N40.0 Benign prostatic hyperplasia without lower urinary tract symptoms (principal); E11.9 Type 2 diabetes mellitus without complications; C73 Malignant neoplasm of thyroid gland
CPT/HCPCS: 36415; 80053; 80061; 84153; 84439; 84443; 85025

== ENCOUNTER 2024-05-19 08:44 | Outpatient (REF) | payer OTHER, SELFPAY ==
--- OUTSIDE RECORDS SUMMARY | 2024-05-20 09:05 | XMS_ITS ---
Author Organization Nicholas Ontiveros III, MD Address [address] [place] [address] [place] [address] Care Team Providers Care Patient Registration Specialist Name Role Phone Nicholas Ontiveros Primary Care Provider [phone] Medications Medication SIG (Take, Route, Fr equency, Duration) Notes Start Date End Date Status Naproxen 500 MG 1 tablet with food o r milk as needed Orally every 12 hrs for severe pain for 30 days 04/05/2024 11/01/2024 Active Social History Sex Assigned At : Social History Observation Description Sex Assigned At Male Encounters Encounter Location Date Provider Diagnosis Nicholas Ontiveros III, MD [address] [place] [address] [address] [place] [address] 04/05/2024 Nicholas Ontiveros Plan Of Treatment Medication Medication Name Sig Start Date Stop Date Notes Naproxen 500 MG 1 tablet with food o r milk as needed Orally every 12 hrs for severe pain for 30 days 04/05/2024 11/01/2024 Next Appt Details Provider Name:Nicholas Ontiveros, 07/28/2024 09:30:00 AM, [address] [facility] [place], [address], Provider Name:Nicholas Ontiveros, 08/18/2024 02:00:00 PM, [address] [place] [address] [place], [address], Progress Notes * Narendra PAGAN HDOB:1 06/17/1959 (63 yo M)Acc No.[id number]:04/05/2024 Patient:?Michael PAGAN ra :1960???Age:63 Y???Sex:Male Address:[address] [place] [address], [address] * Refills? Start Naproxen Tablet, 500 MG, Orally, 60, 1 tablet with food or milk as needed, every 12 hrs for severe pain, 30 days, Refills=6 * true * Date:? Generated for Dominick culp/Mindy/eTransmitting on:?05/20/2024 09:05 AM EST
--- OUTSIDE RECORDS SUMMARY | 2024-05-20 09:06 | XMS_ITS | Patient Health Record ---
Author Organization Nicholas Ontiveros III, MD Address [address] [place] [address] [address] [place] [address] Care Team Providers Care Materials Branch Chief Name Role Phone Nicholas Ontiveros Primary Care Provider [phone] Allergies Allergen (clinical drug ingredient) Drug/Non Drug Allergy documented on EMR Reaction Allergy Type Onset Date Status lisinopril Lisinopril Unknown Drug Allergy Activ e Results Component Value Reference Range Notes Complete Blood Count Auto Di ff Reviewed date:08/18/2023 02:12:24 PM Interpretation: Performing Lab:[facility], [address] [place] [phone] Notes/Report: White Blood Count 6.3 4.8-10.8 X10*3/uL [...] te Reviewed date:08/18/2023 02:12:24 PM Interpretation: Performing Lab:[facility], [address] [place] [address] Notes/Report: Erythrocyte Sedimentation Rate 7 0-15 MM/HR Patients with polycythemia and many hemoglobin abnormalities may have depressed sed rates whereas patients with anemia may have elevated sed rates. [facility] [place]. Panel Fa st Reviewed date:08/18/2023 02:12:24 PM Interpretation: Performing Lab:[facility], [address] [place] [phone] Notes/Report: Sodium 140 135-145 mmol/L Potassium 4.2 3.3-5.1 mmol/L Chloride 105 96-108 mmol/L Carbon Dioxide 27 22-29 mmol/L Anion Gap 12 12-20 Blood Urea Nitrogen 17 9-16 mg/dL Creatinine 1.12 0.5-1.4 mg/dL Estimated Glomerular Filt Rate > 60 NOTE: For -Citizen Of [place] individuals, multiply the result by 1.210. Chronic [...] Panel Reviewed date:08/18/2023 02:12:24 PM Interpretation: Performing Lab:[facility], [address] [place] [phone] Notes/Report: Triglycerides 103 <150 mg/dL Desirable Triglyceride: [...] Thyroxine) Reviewed date:08/18/2023 02:12:24 PM Interpretation: Performing Lab:[facility], [address] [place] [phone] Notes/Report: Free T4 (Free Thyroxine) 1.40 0.71-1.85 ng/dL Thyroid Stimulating Hormone Reviewed date:08/18/2023 02:12:24 PM Interpretation: Performing Lab:[facility], [address] [place] [phone] Notes/Report: Thyroid Stimulating Hormone 2.30 0.32-4.0 uIU/ mL TSH 3rd Generation ([employer]) URINE DIP STICK Reviewed date:08/18/2023 01:45:01 PM Interpretation: Performing Lab: Notes/Report: SG 1.025 1.005 - 1.025 pH 5.0 5.0 - 9.0 JEFFRY Negative Negative - NIT Negative Negative - PRO 15 Negative - Trace GLU Negative Negative - KET Negative Negative - UBG 0.2 0.1 - 1.8 ALPHONSE Negative 0.2 - 1.3 BLD 50 Negative - Diabetic Eye Exam Reviewed date:11/25/2023 01:32:39 PM Interpretation:undefined Performing Lab: Notes/Report: undefined Complete Blood Count Auto Di ff Reviewed date:11/22/2023 05:53:30 PM Interpretation: Performing Lab:[facility], [address] [place] [phone] Notes/Report: White Blood Count 6.0 4.8-10.8 X10*3/uL [...] NRBC Abs Auto 0.000 0.0-0.012 X10*3/uL Comprehensive [place]. Panel Fa st Reviewed date:11/22/2023 05:53:30 PM Interpretation: Performing Lab:[facility], [address] [place] [phone] Notes/Report: Sodium 140 135-145 mmol/L Potassium 4.0 3.3-5.1 mmol/L Chloride 105 96-108 mmol/L Carbon Dioxide 29 22-29 mmol/L Anion Gap 10 12-20 Blood Urea Nitrogen 15 9-16 mg/dL Creatinine 0.92 0.5-1.4 mg/dL Estimated Glomerular Filt Rate > 60 NOTE: For -Citizen Of [place] individuals, multiply the result by 1.210. Chronic [...] Panel Reviewed date:11/22/2023 05:53:30 PM Interpretation: Performing Lab:[facility], [address] [place] [phone] Notes/Report: Triglycerides 101 <150 mg/dL Desirable Triglyceride: [...] ff Reviewed date:03/27/2024 09:04:41 PM Interpretation: Performing Lab:[facility], [address] [place] [address] Notes/Report: White Blood Count 7.1 4.8-10.8 X10*3/uL [...] NRBC Abs Auto 0.000 0.0-0.012 X10*3/uL Comprehensive [place]. Panel Fa st Reviewed date:03/27/2024 09:04:41 PM Interpretation: Performing Lab:[facility], [address] [place] [phone] Notes/Report: Sodium 139 135-145 mmol/L Potassium 4.3 3.3-5.1 mmol/L Chloride 103 96-108 mmol/L Carbon Dioxide 27 22-29 mmol/L Anion Gap 13 12-20 Blood Urea Nitrogen 10 9-16 mg/dL Creatinine 0.97 0.5-1.4 mg/dL Estimated Glomerular Filt Rate > 60 NOTE: For -Citizen Of [place] individuals, multiply the result by 1.210. Chronic [...] Panel Reviewed date:03/27/2024 09:04:41 PM Interpretation: Performing Lab:[address] [address] Notes/Report: Triglycerides 93 <150 mg/dL Desirable Triglyceride: [...] Antigen Reviewed date:03/27/2024 09:04:41 PM Interpretation: Performing Lab:[address] [phone] Notes/Report: Prostate Specific Antigen 4.78 <0.05-4.0 ng/mL PSA methodology: Gold Alinity i Chemiluminescent Microparticle Immunoassay (CMIA) Free T4 (Free Thyroxine) Reviewed date:03/27/2024 09:04:41 PM Interpretation: Performing Lab:[facility], [address] [place] [phone] Notes/Report: Free T4 (Free Thyroxine) 1.31 0.71-1.85 ng/dL Thyroid Stimulating Hormone Reviewed date:03/27/2024 09:04:41 PM Interpretation: Performing Lab:[facility], [address] [place] [phone] Notes/Report: Thyroid Stimulating Hormone 0.41 0.32-4.0 uIU/ mL TSH 3rd Generation ([employer]) Reason For Referral Reason Consult and Treat Left Knee Pain Diagnosis 1 Left knee pain (M25. 562) Referral Organization Nicholas Ontiveros III, MD Referring Provider First Name Nicholas Referring Provider Last Name Rama Referring Provider Speciality Internal M edicine Referred Provider [facility] er, Orthopedic Surgeons Referred Provider Specialty Orthopedic S [facility] General Notes Carolyn Sung 04/05/2024 04:30:10 PM > Referral faxed [...] Problem Status W/U Status Risk Notes Problem 0571772 Former smoker (Z87.891) Active confirmed He is highly motivated not to smoke. We formulated a plan to prevent relapse in times of stress and illness. Problem Hyperlipidemia (01428690) Hyperlipidemia (E78.5) Active confirmed His lipids are currently controlled. No change in current medication was necessary. I recommended aggressive weight loss and a healthy diet. Problem 777822953971900 Obesity (BMI 30.0-34.9) (E66.9) Active confirmed His weight is currently stable. We reviewed his weight loss strategy. I recommended weight loss in the right a one half of a pound per week through diet restricted in fat calories and sodium unconcentrated sweets. Problem Hypertension (70561327) Hypertension (I10) Active confirmed His blood pressure is unremarkable and no change in his regimen was necessary today. I recommended aggressive weight loss and sodium restriction. He has succeeded in losing 4 pounds. He will continue to lose weight and be followed in the office. Problem Benign prostatic hyperplasia (753626110) BPH (benign prostatic hyperplasia) (N40.0) Active confirmed He has been rising from sleep at most once a night to urinate. We have discussed lifestyle modifications he could make to reduce nocturia. Problem Thyroid cancer (216882971) Thyroid cancer (C73) Active confirmed He was found to have a 1.4 cm papillary thyroid cancer in the right lobe of his thyroid which has been removed. There is no sign of recurrence Problem 508508587 Type 2 diabetes mellitus without complication, without long-term current use of insulin (E11.9) Active confirmed His blood glucose is slightly elevated. Hemoglobin A1c has been ordered. No change in medication was necessary. He will pursue aggressive weight loss. Problem 300519759 Allergy to lisinopril (Z88.8) Active confirmed Problem 948509866 Thymoma, benign (D15.0) Active confirmed He has [...] Date Provider Diagnosis Nicholas Ontiveros III, MD [address] [place] [address] [place] [address] 08/18/2023 Nicholas Ontiveros Right anterior knee pain M25.561 ; Hyperlipidemia E78.5 ; Obesity (BMI 30.0-34.9) E66.9 ; Type 2 diabetes mellitus without complication, without long-term current use of insulin E11.9 ; Thymoma, benign D15.0 ; Former smoker Z87.891 ; Hypertension I10 and BPH (benign prostatic hyperplasia) N40.0 Nicholas Ontiveros III, MD [address] [place] [address] [place] [address] 11/24/2023 Nicholas Ontiveros BPH (benign prostati c hyperplasia) N40.0 ; Type 2 diabetes mellitus without complication, without long-term current use of insulin E11.9 ; Thyroid cancer C73 ; Former smoker Z87.891 ; Hypertension I10 and Thymoma D49.89 Nicholas Ontiveros III, MD [address] [place] [address] [place] [address] 03/31/2024 Nicholas Ontiveros Hyperlipidemia E78.5 ; Thyroid cancer C73 ; Obesity (BMI 30.0-34.9) E66.9 ; Type 2 diabetes mellitus without complication, without long-term current use of insulin E11.9 ; BPH (benign prostatic hyperplasia) N40.0 and Former smoker Z87.891 Nicholas Ontiveros III, MD [address] [place] [address] [place] [address] 04/05/2024 Nicholas Ontiveros Assessments Encounter Date Diagnosis [...] Details Provider Name:Nicholas Ontiveros, 07/28/2024 09:30:00 AM, [address] [place] [address] [address], [place], [address], Provider Name:Nicholas Ontiveros, 08/18/2024 02:00:00 PM, [address] [place] [address] [address], [place], [address], Insurance Providers Payer Name Payer Address Payer Phone Subscriber Number Group Number Insured Name Patient Relationship to Insured Coverage Start Date Coverage End Date [facility] [address] [place] [phone] [id number] Narendra Naylor Self - patient is the insured Medical (General) History Medical History History ICD Code Hyperlipidemia E78.5 Hypertension I10 Benign thymoma, resected, 2020 Obesity Impaired fasting glucose Low-sodium diet Colonic polyp, hyperplastic 2019 Albuminuria Former smoker Papillary carcinoma of the thyroid 2022 Surgical History Surgery Date(Month/Year) Thyroidectomy for papillary thyroid canc er 2022 thymectomy, , [facility] ter, benign 11/2020 Colonoscopy, [facility], Dr. Mccray 05/2020 lung biopsy 09/2020
--- OUTSIDE RECORDS SUMMARY | 2024-05-20 09:06 | XMS_ITS ---
Author Organization Nicholas Ontiveros III, MD Address [address] [place] [address] [place] [address] Care Team Providers Care Continuing Education Dean Name Role Phone Nicholas Ontiveros Primary Care [...] Provider Speciality Internal M edicine Referred Provider [facility] er, Orthopedic Surgeons Referred Provider [facility] General Notes D Carolyn 04/05/2024 04:30:10 PM [...] Date Provider Diagnosis Nicholas Ontiveros III, MD [address] [place] [address] [place] [address] 03/31/2024 Nicholas Ontiveros Hyperlipidemia E78.5 ; Thyroid [...] and Treat Left Knee Pain, Orthopedic Surgeons [facility] Next Appt Details Follow Up: As Scheduled, t week in July, Reason: OV, Pre Op, Follow-up on knee pain and preoperative clearance for cataract surgery Provider Name:Nicholas Ontiveros, 07/28/2024 09:30:00 AM, [address] [place] [address] [address], [place], [phone], Provider Name:Nicholas nOtiveros, 08/18/2024 02:00:00 PM, [address] [place] [address] [address], [place], [address], Progress Notes * Narendra PAGAN HDOB:1 06/17/1959 (63 yo M)Acc No.[id number]:03/31/2024 Progress Notes Patient:?YURISOFÍAMichael Joao Provider:?Nicholas Ontiveros MD :1960???Age:63 Y???Sex:Male Kelechi e:03/31/2024 Address:[address] [place], [place] [id number] Subjective: * Chief Complaints: * ???HypertensionLeft knee [...] History:? * Surgical History:?lung biops y olonoscopy, [facility], Dr. Mccray 05/2020thymectomy, , [facility], benign 11/2020Thyroidectomy for papillary thyroid cancer [...] Findings: Tobacco Non-User?Ex-cigarette smoker ???He lives in [facility]. He is employed and has no toxic exposures. He is but has a good relationship with his ex-. He has recovered from his recent thymectomy and is back at work. He does not smoke or drink alcohol or take drugs. He has no children. He was sborn in [facility]. * Medications:?TakingValsartan 40 MG Tablet 1 [...] days, 30, Refills 1.? Referral To:[facility]??Orthopedic Surgery ?Reason:Consult and Treat Left Knee Pain [...] Provider:?Nicholas Ontiveros MD Date:?03/04 Generated for Dominick culp/Mindy/eTtelmasmitting on:?05/20/2024 09:05 AM EST History and Physical Notes * [...] Referral Date Referring Provider Referred Provider Not es 03/31/2024 Nicholas Ontiveros [facility], Orthopedic Surgeons Consult and Treat Left Knee Pain
--- OUTSIDE RECORDS SUMMARY | 2024-05-20 09:06 | XMS_ITS ---
Author Organization Nicholas Ontiveros III, MD Address [address] [place] [address] [address] [place] [address] Care Team Providers Care Manager Medical Name Role Phone Nicholas Ontiveros Primary Care Provider [phone] Allergies Allergen (clinical drug ingredient) Drug/Non Drug [...] W/U Status Risk Notes Problem Thyroid cancer (092635194) Thyroid cancer (C73) Active confirmed He was [...] Date Provider Diagnosis Nicholas Ontiveros III, MD [address] [place] [address] [place] [address] 11/24/2023 Nicholas Ontiveros BPH (benign prostati c [...] OV Provider Name:Nicholas Ontiveros, 07/28/2024 09:30:00 AM, [address] [place] [address] [address], [place], [address], Provider Name:Nicholas Ontiveros, 08/18/2024 02:00:00 PM, [address] [place] [address] [address], [place], [address], Progress Notes * Narendra PAGAN HDOB:1 06/17/1959 (63 yo M)Acc No.[id number]:11/24/2023 Progress Notes Patient:?Ramonitamaximo Michael Provider:?Nicholas Ontiveros MD :1960???Age:63 Y???Sex:Male Kelechi e:11/24/2023 Address:[address] [place], [place] [id number] Subjective: * Chief Complaints: * ???Papillary thyroid [...] History:? * Surgical History:?lung biops y 1Colonoscopy, [facility], Dr. Mccray 05/2020thymectomy, , [facility], benign 11/2020Thyroidectomy for papillary thyroid cancer 2022 [...] Findings: Tobacco Non-User?Ex-cigarette smoker ???He lives in [facility]. He is employed and has no toxic exposures. He is but has a good relationship with his ex-. He has recovered from his recent thymectomy and is back at work. He does not smoke or drink alcohol or take drugs. He has no children. He was sborn in [facility]. * Medications:?TakingValsartan 40 MG Tablet 1 [...] 42 (Ref Range: >40 mg/dL) * Lab:[facility] [place]. Pane l Fast * Order Date 11/19/2023 [...] * Provider:?Nicholas Ontiveros MD Date:?11/01 Generated for Dominick culp/Mindy/eTtelmasmitting on:?05/20/2024 09:05 AM EST History and Physical Notes * HPI (History of Present Illness) Category Sub-Category Detail Notes COVID-19 Screening Questions Have you had any new onset fever, chills, cough, congestion, sore throat, shortness of breath, muscle aches?: No Have you been exposed to the virus withi n the last 10 days?: No Have you travelled internationally in [facility] last 10 days?: No Have you [...]
== END 2024-05-19 08:45 | disposition home or self-care (01) ==
LOC: HO.HOSX 08:44
PROVIDERS: Visit Provider Orthopaedic Surgery
DX: M25.562 Pain in left knee (principal); M17.12 Unilateral primary osteoarthritis, left knee
CPT/HCPCS: 73562; 99202

== ENCOUNTER 2024-05-19 09:50 | Outpatient (AMB) | payer OTHER, SELFPAY ==
--- OUTSIDE RECORDS SUMMARY | 2024-05-19 09:54 | XMS_ITS ---
Author Organization Nicholas Ontiveros III, MD Address [address] [place] [address] [place] [address] Care Team Providers Care Archivist Name Role Phone Nicholas Ontiveros Primary Care Provider [phone] Allergies Allergen (clinical drug ingredient) Drug/Non Drug [...] Provider Speciality Internal M edicine Referred Provider [facility] er, Orthopedic Surgeons Referred Provider [facility] [place] [facility] Notes D Carolyn 04/05/2024 04:30:10 PM > Referral faxed with progress note Referral Priority Routine REASON FOR VISIT Hypertension, Left knee pain [...] Date Provider Diagnosis Nicholas Ontiveros III, MD [address] [place] [address] [place] [address] 03/31/2024 Nicholas Ontiveros Hyperlipidemia E78.5 ; Thyroid [...] and Treat Left Knee Pain, [facility] Next Appt Details Follow Up: As Scheduled, t week in July, Reason: OV, Pre Op, Follow-up on knee pain and preoperative clearance for cataract surgery Provider Name:Nicholas Ontiveros, 07/28/2024 09:30:00 AM, [address] [place] [address] [address], [place], [address], Provider Name:Nicholas Ontiveros, 08/18/2024 02:00:00 PM, [address] [place] [address] [address], [place], [address], Progress Notes * Narendra PAGAN HDOB:1 06/17/1959 (63 yo M)Acc No.[id number]:03/31/2024 Progress Notes Patient:?YURISOFÍAMichael Joao Provider:?Nicholas Ontiveros MD :1960???Age:63 Y???Sex:Male Kelechi e:03/31/2024 Address:[address] [place], [place] [id number] Subjective: * Chief Complaints: * ???HypertensionLeft knee lia n x 6 daysHistory of thymomaThe DemeoBenign prostatic hypertrophyDiabetesPapillary thyroid cancer 2022 * HPI: ???COVID-19 Screening:?Questions?Have you experienced fever, chills, cough, sore throat, shortness of breath, difficulty breathing, muscle aches, loss of taste or smell??No ?Have you been exposed to the virus within the last 10 days??No ?Have you travelled internationally in the last 10 days??No ?Have you been exposed to COVID-19 in the past??Yes ???:? The patient, a 63-year-old male, presented with [...] undergoing upcoming cataract surgery in July. * ROS:?General/Constitutional:?pain?Left knee for the last 6 days.?Chills?denies.?Fatigue?admits.?Fever?denies.?ENT:?Decreased hearing?denies.?Respiratory:?Cough?denies.?Cardiovascular:?Chest pain with exertion?denies.?Dyspnea on exertion?denies.?Shortness of breath?denies.?Gastrointestinal:?Constipation?occasional.?Decreased appetite?denies.?Diarrhea?denies.?Heartburn?denies.?Nausea?denies.?Rectal bleeding?denies.?Vomiting?denies.?Hematology:?bruising?denies.?petechiae?denies.?Swollen glands?none have been noted.?Genitourinary:?Frequent urination?once a night.?Musculoskeletal:?Muscle aches?denies.?Painful joints?Left knee.?Sciatica?denies.?Weakness?denies.?Skin:?Itching?denies.?Rash?denies.?Skin lesion(s)?denies.?Neurologic:?Difficulty speaking?denies.?Dizziness?denies.?Headache?denies.?Low back pain?denies.?Psychiatric:?Depressed mood?denies.? * Medical History:? * Surgical History:?lung biops y olonoscopy, [facility], Dr. Mccray 05/2020thymectomy, , [facility], benign 11/2020Thyroidectomy for papillary thyroid cancer 2022 * Hospitalization/Major Diagno stic Procedure:?Denies Past Hospitalization * Family History:?Father: dece ased 87 yrs, Head injury, alcoholism.?Mother: 92 yrs, Stroke.? He is not aware of any inherited [...] who are healthy and well. * Social History:?Tobacco Use:?Tobacco Use/Smoking?Patient is a?former smoker ?How long has it been since you last smoked??1-5 years ?Additional Findings: Tobacco Non-User?Ex-cigarette smoker ???He lives in [facility]. He is employed and has no toxic exposures. He is but has a good relationship with his ex-. He has recovered from his recent thymectomy and is back at work. He does not smoke or drink alcohol or take drugs. He has no children. He was sborn in [facility]. * Medications:?TakingValsartan 40 MG Tablet 1 tablet Orally Once [...] reviewed and reconciled with the patient * Allergies:?Lisinopril: Aller gyno[Allergies Verified] Objective: * Vitals:?Ht: 71, Wt: 222, BMI :30.96, BP: 138/80, HR: 97, Temp: 97.9, Wt-k.7. * ???Past Orders: Lab:[facility] * Collection Date 03/26/2024 11/19/2023 08/12/2023 Collection Time 10:44 AM 06:18 AM 06:16 AM Order Date 03/26/2024 11/19/2023 08/12/2023 Sodium 139 (Ref Range: 135-145 mmol/L) 140 (Ref Range: 135-145 mmol/L) 140 (Ref Range: 135-145 mmol/L) Bilirubin Total 0.8 (Ref Range: 0.0-1.0 mg/dL) 0.8 (Ref Range: 0.0-1.0 mg/dL) 0.7 (Ref Range: 0.0-1.0 mg/dL) Aspartate Amino Transferase 38?H (Ref Range: 5-37 U/L) 24 (Ref Range: 5-37 U/L) 33 (Ref Range: 5-37 U/L) Alanine Aminotransferase 59?H (Ref Range: 0-40 U/L) 47?H (Ref Range: 0-40 U/L) 53?H (Ref Range: 0-40 U/L) Total Protein 8.0 [...] mmol/L) Anion Gap 13 (Ref Range: 12-20) 10?L (Ref Range: 12-20) 12 (Ref Range: 12-20) Blood Urea Nitrogen 10 (Ref Range: 9-16 mg/dL) 15 (Ref Range: 9-16 mg/dL) 17?H (Ref Range: 9-16 mg/dL) Creatinine 0.97 (Ref Range: 0.5-1.4 mg/dL) 0.92 (Ref Range: 0.5-1.4 mg/dL) 1.12 (Ref Range: 0.5-1.4 mg/dL) Estimated Glomerular Filt Rate > 60 > 60 > 60 Glucose Fasting 118?H (Ref Range: 60-99 mg/dL) 129?H (Ref Range: 60-99 mg/dL) 136?H (Ref Range: 60-99 mg/dL) Calcium 10.0 (Ref [...] <200 mg/dL) 137 (Ref Range: <200 mg/dL) 251?H (Ref Range: <200 mg/dL) LDL Cholesterol Calculated 88 (Ref Range: <100 mg/dL) 79 (Ref Range: <100 mg/dL) 187?H (Ref Range: <100 mg/dL) HDL Cholesterol 47 (Ref Range: >40 mg/dL) 38?L (Ref Range: >40 mg/dL) 44 (Ref Range: >40 mg/dL) * Lab:Prostate Specific Antige n * Collection Date 03/26/2024 06/19/2021 Collection Time 10:44 AM 06:22 AM Order Date 03/26/2024 06/19/2021 Prostate Specific Antigen 4.78?H (Ref Range: <0.05-4.0 ng/mL) 3.14 (Ref Range: [...] (Ref Range: 4.8-10.8 X10*3/uL) Red Blood Count 6.17?H (Ref Range: 4.60-5.80 X10*6/uL) 5.90?H (Ref Range: 4.60-5.80 X10*6/uL) 6.07?H (Ref Range: 4.60-5.80 X10*6/uL) Hemoglobin 15.7 (Ref Range: 14.0-18.0 g/dl) 15.1 (Ref Range: 14.0-18.0 g/dl) 15.6 (Ref Range: 14.0-18.0 g/dl) Hematocrit 48.8 (Ref Range: 42.0-52.0 %) 47.4 (Ref Range: 42.0-52.0 %) 48.7 (Ref Range: 42.0-52.0 %) Mean Corpuscular Volume 79.1?L (Ref Range: 80.0-98.0 fL) 80.3 (Ref Range: 80.0-98.0 fL) 80.2 (Ref Range: 80.0-98.0 fL) Mean Corpuscular Hemoglobin 25.4?L (Ref Range: 27.0-33.0 pg) 25.6?L (Ref Range: 27.0-33.0 pg) 25.7?L (Ref Range: 27.0-33.0 pg) Mean Corpuscular HGB [...] (Ref Range: 0.0-0.4 %) Lymphocytes Percent Auto 19.9?L (Ref Range: 20-40 %) 24.7 (Ref Range: [...] 0.000 (Ref Range: 0.0-0.012 X10*3/uL) * Examination: ???General Examination: ?GENERAL APPEARANCE:?pleasant, well nourished, well developed, in no acute distress, calm and relaxed, obese, man.?HEAD:?atraumatic, normocephalic.?EYES:?eomi, perrla, anicteric, conjugate.?EARS:?normal.?NOSE:?septum intact.?ORAL CAVITY:?normal, unremarkable.?NECK/THYROID:?no jugular venous distention, no carotid bruit, Thyroid surgery scar well-healed, no palpable remnant.?LYMPH NODES:?no enlarged lymph nodes,spleen normal.?SKIN:?no suspicious lesions, anicteric.?HEART:?no clicks, gallops, murmurs, or rubs, regular rhythm, S1, S2 normal, no s3, or vascular bruits.?LUNGS:?clear to auscultation, Healed median sternotomy incision.?BREASTS:??no masses palpable bilaterally.?ABDOMEN:?bowel sounds normal, no ascites, no organomegaly, no mass, centripital obesity.?RECTAL EXAM:?not examined.?MUSCULOSKELETAL:?extremities unremarkable, no clubbing, cyanosis or edema.?PERIPHERAL PULSES:?normal.?NEUROLOGIC:?alert and oriented, cranial nerves 2-12 grossly intact, deep tendon reflexes 2+ symmetrical, motor strength normal upper and lower extremities, sensory exam intact.?PSYCH:?alert, oriented.? Assessment: * Assessment: 1.?Thyroid cancer - C73 (Bhavana moya)???Notes :He was found to have a 1.4 cm papillary thyroid cancer in the right lobe of his thyroid which has been removed.? There is no sign of recurrence???2.?Hyperlipidemia - E78.5???Notes :His lipids are currently controlled.? No change in current medication was necessary.? I recommended aggressive weight loss and a healthy diet.???3.?Obesity (BMI 30.0-34.9) - E66.9???Notes :His weight is currently stable.? We reviewed his weight loss strategy.? I recommended weight loss in the right a one half of a pound per week through diet restricted in fat calories and sodium unconcentrated sweets.???4.?Type 2 diabetes mellitus without complication, without long-term current use of insulin - E11.9???Notes :His blood glucose is slightly elevated.? Hemoglobin A1c has been ordered.? No change in medication was necessary.? He will pursue aggressive weight loss.???5.?BPH (benign prostatic hyperplasia) - N40.0???Notes :He has been rising from sleep at most once a night to urinate.? We have discussed lifestyle modifications he could make to reduce nocturia.???6.?Former smoker - Z87.891???Notes :He is highly motivated not to smoke. We formulated a plan to prevent relapse in times of stress and illness.??? Plan: * Treatment: 2.?Hyperlipidemia?LAB: PROFILE, FASTING (COMPREHENSIVE METABOLIC) ?LAB: CBC WITH AUTO DIFF ?LAB: Lipid Panel ?LAB: PSA Free and Total ?LAB: Free T4 (Free Thyroxine) ?LAB: Microalbumin, Random ?LAB: Hemoglobin A1c 3.?Obesity (BMI 30.0-34.9)?LAB: PROFILE, FASTING (COMPREHENSIVE METABOLIC) ?LAB: CBC WITH AUTO DIFF ?LAB: Lipid Panel ?LAB: PSA Free and Total ?LAB: Free T4 (Free Thyroxine) ?LAB: Microalbumin, Random ?LAB: Hemoglobin A1c 4.?Type 2 diabetes mellitus without complication, without long-term current use of insulin?LAB: PROFILE, FASTING (COMPREHENSIVE METABOLIC) ?LAB: CBC WITH AUTO DIFF ?LAB: Lipid Panel ?LAB: PSA Free and Total ?LAB: Free T4 (Free Thyroxine) ?LAB: Microalbumin, Random ?LAB: Hemoglobin A1c 5.?BPH (benign prostatic hyp erplasia)?LAB: PROFILE, FASTING (COMPREHENSIVE METABOLIC) ?LAB: CBC WITH AUTO DIFF ?LAB: Lipid Panel ?LAB: PSA Free and Total ?LAB: Free T4 (Free Thyroxine) ?LAB: Microalbumin, Random ?LAB: Hemoglobin A1c 6.?Others? Continue Atorvastatin Calcium Tablet, 40 MG, TAKE 1 TABLET BY MOUTH EVERY DAY;?Continue Valsartan Tablet, 40 MG, 1 tablet, Orally, Once a day;?Continue Levothyroxine Sodium Tablet, 150 MCG, TAKE 1 TABLET BY MOUTH EVERY DAY IN THE MORNING ON EMPTY STOMACH FOR 90 DAYS;?Start Meloxicam Capsule, 10 MG, 1 capsule, Orally, Once a day, 30 days, 30, Refills 1.? Referral To:[facility]??Orthopedic Surgery ?Reason:Consult and Treat Left Knee Pain * Procedure Codes:? * Preventive Medicine:? ??Counseling:?Care goal follow-up plan:?Counseling for abnormal BMI given?Yes ?Above Normal BMI Follow-up?Dietary management education, guidance, and counseling, Dietary needs education, Exercise promotion: strength training, Exercise promotion: stretching, Feeding regime, Giving encouragement to exercise, Lifestyle education regarding diet, Nutrition / feeding management, Nutrition therapy, Prescribed activity/exercise education, Prescribed diet education, Prescribed dietary intake, Special diet education, Weight monitoring , Intervention, Order not done: Medical or Other reason not done * Follow Up:?As Scheduled, week in July (Reason: OV, Pre Op, Follow-up on knee pain and preoperative clearance for cataract surgery) * Images: * Sign off status: Completed true * Provider:?Nicholas Ontiveros MD Date:?03/04 Generated for Dominick culp/Mindy/eTransmitting on:?05/19/2024 09:53 AM EST History and Physical Notes * HPI (History of Present Illness) Category Sub-Category Detail Notes COVID-19 Screening Questions Have you had any new onset fever, chills, cough, congestion, sore throat, shortness of breath, muscle aches?: No Have you been exposed to the virus withi n the last 10 days?: No Have you travelled internationally in last 10 days?: No Have you been [...] Notes Referral Date Referring Provider Referred Provider Not sabino 03/31/2024 Nicholas Ontiveros [facility], Orthopedic Surgeons Consult and Treat Left Knee Pain
--- OUTSIDE RECORDS SUMMARY | 2024-05-19 09:54 | XMS_ITS ---
Author Organization Nicholas Ontiveros III, MD Address [address] [place] [address] [place] [address] Care Team Providers Care Producer Assistant Name Role Phone Nicholas Ontiveros Primary Care Provider Allergies Allergen (clinical drug [...] W/U Status Risk Notes Problem Thyroid cancer ([id number]) Thyroid cancer (C73) Active confirmed He was found to have a 1.4 cm papillary thyroid cancer in the right lobe of his thyroid which has been removed. There is no sign of recurrence Vital Signs Blood pressure systolic 132 mm Hg 11/24/19 Blood pressure diastolic 81 mm Hg 024 Heart Rate 85 /min 11/24/2023 Height 71 in 11/24/2023 Weight 222 lbs 11/24/2023 BMI 30.96 kg/m2 11/24/2023 Encounters Encounter Location Date Provider Diagnosis Nicholas Ontiveros III, MD [address] [place] [address] [place] [address] 11/24/2023 Nicholas Ontiveros BPH (benign prostati c [...] Up: 4 Months, Reason: OV Provider Name:Nicholas Ontiveros, 07/28/2024 09:30:00 AM, [address] [place] [address] [address], [place], [address], Provider Name:Nicholas Ontiveros, 08/18/2024 02:00:00 PM, [address] [place] [address] [address], [place], [address], Progress Notes * Narendra PAAGN HDOB:1 06/17/1959 (63 yo M)Acc No.[id number]:11/24/2023 Progress Notes Patient:?Ramonitamaximo Michael Provider:?Nicholas Ontiveros MD :1960???Age:63 Y???Sex:Male Kelechi e:11/24/2023 Address:[address] [place], [place] [id number] Subjective: * Chief Complaints: * ???Papillary thyroid cancerThymomaHypertensionHyperlipidemiaObesityDiabetesBenign prostatic hypertrophy * HPI: ???COVID-19 Screening:? He returns for management of numerous issues. [...] No change in his medications was needed. ?Questions?Have you experienced fever, chills, cough, sore throat, shortness of breath, difficulty breathing, muscle aches, loss of taste or smell??No ?Have you been exposed to the virus within the last 10 days??No ?Have you travelled internationally in the last 10 days??No ?Have you been exposed to COVID-19 in the past??Yes * ROS:?General/Constitutional:?pain?only normal aches and pains.?Chills?denies.?Fatigue?admits.?Fever?denies.?ENT:?Decreased hearing?denies.?Respiratory:?Cough?denies.?Cardiovascular:?Chest pain with exertion?denies.?Dyspnea on exertion?denies.?Shortness of breath?denies.?Gastrointestinal:?Constipation?occasional.?Decreased appetite?denies.?Diarrhea?denies.?Heartburn?denies.?Nausea?occasional.?Rectal bleeding?denies.?Vomiting?denies.?Hematology:?bruising?denies.?petechiae?denies.?Swollen glands?none have been noted.?Genitourinary:?Frequent urination?once a night.?Musculoskeletal:?Muscle aches?denies.?Painful joints?denies.?Sciatica?denies.?Weakness?denies.?Skin:?Itching?denies.?Rash?denies.?Skin lesion(s)?denies.?Neurologic:?Difficulty speaking?denies.?Dizziness?denies.?Headache?denies.?Low back pain?denies.?Psychiatric:?Depressed mood?denies.? * Medical History:? * Surgical History:?lung biops y 1Colonoscopy, [facility], Dr. Mccray 05/2020thymectomy, , , benign 11/2020Thyroidectomy for papillary thyroid cancer 2022 [...] Findings: Tobacco Non-User?Ex-cigarette smoker ???He lives in [facility]. He is employed and has no toxic exposures. He is but has a good relationship with his ex-. He has recovered from his recent thymectomy and is back at work. He does not smoke or drink alcohol or take drugs. He has no children. He was sborn in [facility]. * Medications:?TakingValsartan 40 MG Tablet 1 tablet [...] Vitals:?Ht: 71, Wt: 222, BMI :30.96, BP: 132/81, HR: 85, Wt-k.7. * ???Past Orders: Lab:Lipid Panel * Order Date 11/19/2023 08/12/2023 01/28/2023 Triglycerides 101 (Ref Range: <150 mg/dL) 103 (Ref Range: <150 mg/dL) 78 (Ref Range: <150 mg/dL) Cholesterol 137 (Ref Range: <200 mg/dL) 251?H (Ref Range: <200 mg/dL) 148 (Ref Range: <200 mg/dL) LDL Cholesterol Calculated 79 (Ref Range: <100 mg/dL) 187?H (Ref Range: <100 mg/dL) 91 (Ref Range: <100 mg/dL) HDL Cholesterol 38?L (Ref Range: >40 mg/dL) 44 (Ref Range: >40 mg/dL) 42 (Ref Range: >40 mg/dL) * Lab:Comprehensive [place]. Pane l Fast * Order Date 11/19/2023 08/12/2023 01/28/2023 Sodium 140 (Ref Range: 135-145 mmol/L) 140 (Ref Range: 135-145 mmol/L) 141 (Ref Range: 135-145 mmol/L) Bilirubin Total 0.8 (Ref Range: 0.0-1.0 mg/dL) 0.7 (Ref Range: 0.0-1.0 mg/dL) 0.6 (Ref Range: 0.0-1.0 mg/dL) Aspartate Amino Transferase 24 (Ref Range: 5-37 U/L) 33 (Ref Range: 5-37 U/L) 26 (Ref Range: 5-37 U/L) Alanine Aminotransferase 47?H (Ref Range: 0-40 U/L) 53?H (Ref Range: 0-40 U/L) 50?H (Ref Range: 0-40 U/L) Total Protein 7.6 [...] 26 (Ref Range: 22-29 mmol/L) Anion Gap 10?L (Ref Range: 12-20) 12 (Ref Range: 12-20) 13 (Ref Range: 12-20) Blood Urea Nitrogen 15 (Ref Range: 9-16 mg/dL) 17?H (Ref Range: 9-16 mg/dL) 14 (Ref Range: 9-16 mg/dL) Creatinine 0.92 (Ref Range: 0.5-1.4 mg/dL) 1.12 (Ref Range: 0.5-1.4 mg/dL) 0.99 (Ref Range: 0.5-1.4 mg/dL) Estimated Glomerular Filt Rate > 60 > 60 > 60 Glucose Fasting 129?H (Ref Range: 60-99 mg/dL) 136?H (Ref Range: 60-99 mg/dL) 147?H (Ref Range: 60-99 mg/dL) Calcium 9.8 (Ref Range: 8.4-10.2 mg/dL) 9.8 (Ref Range: 8.4-10.2 mg/dL) 9.7 (Ref Range: 8.4-10.2 mg/dL) * Lab:Complete Blood Count Aut o Diff * Order Date 11/19/2023 08/12/2023 01/28/2023 White Blood Count 6.0 (Ref Range: 4.8-10.8 X10*3/uL) 6.3 (Ref Range: 4.8-10.8 X10*3/uL) 6.1 (Ref Range: 4.8-10.8 X10*3/uL) Red Blood Count 5.90?H (Ref Range: 4.60-5.80 X10*6/uL) 6.07?H (Ref Range: 4.60-5.80 X10*6/uL) 5.97?H (Ref Range: 4.60-5.80 X10*6/uL) Hemoglobin 15.1 (Ref Range: 14.0-18.0 g/dl) 15.6 (Ref Range: 14.0-18.0 g/dl) 15.2 (Ref Range: 14.0-18.0 g/dl) Hematocrit 47.4 (Ref Range: 42.0-52.0 %) 48.7 (Ref Range: 42.0-52.0 %) 48.0 (Ref Range: 42.0-52.0 %) Mean Corpuscular Volume 80.3 (Ref Range: 80.0-98.0 fL) 80.2 (Ref Range: 80.0-98.0 fL) 80.4 (Ref Range: 80.0-98.0 fL) Mean Corpuscular Hemoglobin 25.6?L (Ref Range: 27.0-33.0 pg) 25.7?L (Ref Range: 27.0-33.0 pg) 25.5?L (Ref Range: 27.0-33.0 pg) Mean Corpuscular HGB [...] distress, calm and relaxed , obese , man.?HEAD:?atraumatic, normocephalic.?EYES:?eomi, perrla, anicteric, conjugate.?EARS:?normal.?NOSE:?septum intact.?ORAL CAVITY:?normal, unremarkable.?NECK/THYROID:?no jugular venous distention, no carotid bruit, thyroid normal.?LYMPH NODES:?no enlarged lymph nodes,spleen normal.?SKIN:?no suspicious lesions, anicteric.?HEART:?no clicks, gallops, murmurs, or rubs, regular rhythm, S1, S2 normal, no s3, or vascular bruits,old? median sternotomy.?LUNGS:?clear to auscultation .?BREASTS:??no masses palpable bilaterally.?ABDOMEN:?bowel sounds normal, no ascites, no organomegaly, no mass.?RECTAL EXAM:?not examined.?MUSCULOSKELETAL:?extremities unremarkable, no clubbing, cyanosis or edema.?PERIPHERAL PULSES:?normal.?NEUROLOGIC:?alert and oriented, cranial nerves 2-12 grossly intact, deep tendon reflexes 2+ symmetrical, motor strength normal upper and lower extremities, sensory exam intact.?PSYCH:?alert, oriented , cognitive function intact , speech clear.? Assessment: * Assessment: 1.?BPH (benign prostatic hyp erplasia) - N40.0, He is experiencing R once a night. We discussed lifestyle modification as a way to reduce nocturia.?2.?Type 2 diabetes mellitus without complication, without long-term current use of insulin - E11.9, His fasting glucose is 129. I have ordered a microalbumin and hemoglobin A1c.?3.?Thyroid cancer - C73, This has been resected. There was no sign of recurrent disease.?4.?Former smoker - Z87.891, He is highly motivated not to smoke. We formulated a plan to prevent relapse in times of stress and illness.?5.?Hypertension - I10, His blood pressure is unremarkable and no change in his regimen was necessary today. I recommended aggressive weight loss and sodium restriction. He has succeeded in losing 4 pounds. He will continue to lose weight and be followed in the office.?6.?Thymoma - D49.89, The wound is well-healed and there is no sign of recurrent or? Plan: * Treatment: 2.?Type 2 diabetes mellitus without complication, without long-term current use of insulin?LAB: PROFILE, FASTING (COMPREHENSIVE METABOLIC) ?LAB: TSH (THYROID STIMULATING HORMONE) ?LAB: PSA, TOTAL ?LAB: CBC WITH AUTO DIFF ?LAB: Lipid Panel ?LAB: Free T4 (Free Thyroxine) 3.?Thyroid cancer?LAB: PROFILE, FASTING (COMPREHENSIVE METABOLIC) ?LAB: TSH (THYROID STIMULATING HORMONE) ?LAB: PSA, TOTAL ?LAB: CBC WITH AUTO DIFF ?LAB: Lipid Panel ?LAB: Free T4 (Free Thyroxine) 4.?Others? Continue Valsartan Tablet, 40 MG, 1 tablet, Orally, Once a day;?Continue Atorvastatin Calcium Tablet, 40 MG, take 1 tablet by mouth every day for 90 days, Orally, Once a day;?Continue Levothyroxine Sodium Tablet, 150 MCG, TAKE 1 TABLET BY MOUTH EVERY DAY IN THE MORNING ON EMPTY STOMACH FOR 90 DAYS.?? * Procedure Codes:? * Preventive Medicine:? ??Counseling:?Care [...] done: Medical or Other reason not done ?Smoking/Tobacco Use?Patient counseled on the dangers of tobacco use and urged to quit.?11/24/2023 * Follow Up:?4 Months (Reason: OV) * Images: * Sign off status: Completed true * Provider:?Nicholas Ontiveros MD Date:?11/01 Generated for Gustavoi suni/Mindy/eTransmitting on:?05/19/2024 09:53 AM EST History and Physical Notes * HPI (History of Present Illness) Category Sub-Category Detail Notes COVID-19 Screening Questions Have you had any new onset fever, chills, cough, congestion, sore throat, shortness of breath, muscle aches?: No Have you been exposed to the virus withi n the last 10 days?: No [facility] you [facility] days?: No Have [...]
--- OUTSIDE RECORDS SUMMARY | 2024-05-19 09:54 | XMS_ITS ---
Author Organization Nicholas Ontiveros III, MD Address [address] [place] [address] [place] [address] Care Team Providers Care Shredder/Granulator Operator Name Role Phone Nicholas Ontiveros Primary Care Provider Medications Medication SIG (Take, [...] Date Provider Diagnosis Nicholas Ontiveros III, MD [address] [place] [address] [address] [address] 04/05/2024 Nicholas Ontiveros Plan Of Treatment Medication Medication Name Sig Start Date Stop Date Notes Naproxen 500 MG 1 tablet with food o r milk as needed Orally every 12 hrs for severe pain for 30 days 04/05/2024 11/01/2024 Next Appt Details Provider Name:Nicholas Ontiveros, 07/28/2024 09:30:00 AM, [address] [facility] [place], [address], Provider Name:Nicholas Ontiveros, 08/18/2024 02:00:00 PM, [address] [facility] [place], [address], Progress Notes * Narendra PAGAN HDOB:1 06/17/1959 (63 yo M)Acc No.[id number]:04/05/2024 Patient:?Michael PAGAN ra :1960???Age:63 Y???Sex:Male Address:[address] [place] [address], [address] * Refills? Start Naproxen Tablet, 500 MG, Orally, 60, 1 tablet with food or milk as needed, every 12 hrs for severe pain, 30 days, Refills=6 * true * Date:? Generated for Dominick culp/Mindy/eTransmitting on:?05/19/2024 09:53 AM EST
--- OUTSIDE RECORDS SUMMARY | 2024-05-19 09:54 | XMS_ITS | Patient Health Record ---
Author Organization Nicholas Ontiveros III, MD Address [address] [place] [address] [address] [place] [address] Care Team Providers Care Broadband Engineer Name Role Phone Nicholas Ontiveros Primary Care Provider Allergies Allergen (clinical drug ingredient) Drug/Non Drug Allergy documented on EMR Reaction Allergy Type Onset Date Status lisinopril Lisinopril Unknown Drug Allergy Activ e Results Component Value Reference Range Notes Complete Blood Count Auto Di ff Reviewed date:08/18/2023 02:12:24 PM Interpretation: Performing Lab:[facility], [address] [place] [phone] Notes/Report: White Blood Count 6.3 4.8-10.8 X10*3/uL Red Blood Count 6.07 4.60-5.80 X10*6/uL Hemoglobin 15.6 14.0-18.0 g/dl Hematocrit 48.7 42.0-52.0 % Mean Corpuscular Volume 80.2 80.0-98.0 fL Mean Corpuscular Hemoglobin 25.7 27.0-33.0 pg Mean Corpuscular HGB Conc 32.0 31.0-36.0 g/dl Red Cell Distribution Width 14.3 11.0-16.0 % Platelet Count 233 160-400 X10*3/uL Mean Platelet Volume 11.7 9.4-12.4 fL Neutrophils Percent Auto 63.0 45-73 % Imm Gran Pct Auto 0.2 0.0-0.4 % Lymphocytes Percent Auto 24.0 20-40 % Monocytes Percent Auto 9.8 2-11 % Eosinophils Percent Auto 1.9 0-4 % Basophils Percent Auto 1.1 0-2 % NRBC Pct Auto 0.0 0.0-0.2 /100WBC Neutrophils Absolute Auto 4.0 2.0-8.3 x10*3/u L Imm Gran Abs Auto 0.01 0.00-0.03 X10*3/uL Lymphocytes Absolute Auto 1.5 1.2-4.9 X10*3/u L Monocytes Absolute Auto 0.6 0.1-1.2 X10*3/uL Eosinophils Absolute Auto 0.1 0.0-0.4 X10*3/u L Basophils Absolute Auto 0.1 0.0-0.2 X10*3/uL NRBC Abs Auto 0.000 0.0-0.012 X10*3/uL Erythrocyte Sedimentation Ra te Reviewed date:08/18/2023 02:12:24 PM Interpretation: Performing Lab:[facility], [address] [place] [phone] Notes/Report: Erythrocyte Sedimentation Rate 7 0-15 MM/HR Patients with polycythemia and many hemoglobin abnormalities may have depressed sed rates whereas patients with anemia may have elevated sed rates. Comprehensive [place]. Panel Fa st Reviewed date:08/18/2023 02:12:24 PM Interpretation: Performing Lab:[facility], [address] [place] [phone] Notes/Report: Sodium 140 135-145 mmol/L Potassium 4.2 3.3-5.1 mmol/L Chloride 105 96-108 mmol/L Carbon Dioxide 27 22-29 mmol/L Anion Gap 12 12-20 Blood Urea Nitrogen 17 9-16 mg/dL Creatinine 1.12 0.5-1.4 mg/dL Estimated Glomerular Filt Rate > 60 NOTE: For -Stateless individuals, multiply the result by 1.210. Chronic Kidney Disease: Estimated GFR < 60 mL/min/1.73m2 Severe Kidney Disease: Estimated GFR < 15 mL/min/1.73m2 Glucose Fasting 136 60-99 mg/dL A fasting glucose of 126 mg/dl or greater on more than one occasion is considered diagnostic of diabetes. Calcium 9.8 8.4-10.2 mg/dL Bilirubin Total 0.7 0.0-1.0 mg/dL Aspartate Amino Transferase 33 5-37 U/L Alanine Aminotransferase 53 0-40 U/L Total Protein 8.0 6.5-8.0 g/dL Albumin Level 4.4 3.5-5.0 g/dL Alkaline Phosphatase 77 39-117 U/L Lipid Panel Reviewed date:08/18/2023 02:12:24 PM Interpretation: Performing Lab:[facility], [address] [place] [phone] Notes/Report: Triglycerides 103 <150 mg/dL Desirable Triglyceride: less than 150 mg/dL Borderline High Triglyceride 150-199 mg/dL High Triglyceride: 200-499 mg/dL Very High Triglyceride: greater than or equal to 5OO mg/dL Cholesterol 251 <200 mg/dL Desirable Cholesterol: less than 200 mg/dL Borderline High Cholesterol: 200-239 mg/dL High Cholesterol: greater than 239 mg/dL LDL Cholesterol Calculated 187 <100 mg/dL Desirable LDL: less than 100 mg/dL Near Optimal/Above Optimal LDL: 110-129 mg/dL Borderline High LDL: 130-159 mg/dL High LDL: 160-189 mg/dL Very High LDL: greater than or equal to 190 mg/dL HDL Cholesterol 44 >40 mg/dL Desirable HDL: greater than 40 mg/dL Note: This HDL assay may give artificially low results in patients with liver disease. Free T4 (Free Thyroxine) Reviewed date:08/18/2023 02:12:24 PM Interpretation: Performing Lab:[facility], [address] [place] [phone] Notes/Report: Free T4 (Free Thyroxine) 1.40 0.71-1.85 ng/dL Thyroid Stimulating Hormone Reviewed date:08/18/2023 02:12:24 PM Interpretation: Performing Lab:[facility], [address] [place] [phone] Notes/Report: Thyroid Stimulating Hormone 2.30 0.32-4.0 uIU/ mL TSH 3rd Generation ([employer]) URINE DIP STICK Reviewed date:08/18/2023 01:45:01 PM Interpretation: Performing Lab: Notes/Report: SG 1.025 1.005 - 1.025 pH 5.0 5.0 - 9.0 JEFFRY Negative Negative - NIT Negative Negative - PRO 15 Negative - Trace GLU Negative Negative - KET Negative Negative - UBG 0.2 0.1 - 1.8 ALPOHNSE Negative 0.2 - 1.3 BLD 50 Negative - Diabetic Eye Exam Reviewed date:11/25/2023 01:32:39 PM Interpretation:undefined Performing Lab: Notes/Report: undefined Complete Blood Count Auto Di ff Reviewed date:11/22/2023 05:53:30 PM Interpretation: Performing Lab:[facility], [address] [place] [phone] Notes/Report: White Blood Count 6.0 4.8-10.8 X10*3/uL Red Blood Count 5.90 4.60-5.80 X10*6/uL Hemoglobin 15.1 14.0-18.0 g/dl Hematocrit 47.4 42.0-52.0 % Mean Corpuscular Volume 80.3 80.0-98.0 fL Mean Corpuscular Hemoglobin 25.6 27.0-33.0 pg Mean Corpuscular HGB Conc 31.9 31.0-36.0 g/dl Red Cell Distribution Width 13.8 11.0-16.0 % Platelet Count 176 160-400 X10*3/uL Mean Platelet Volume 11.8 9.4-12.4 fL Neutrophils Percent Auto 61.4 45-73 % Imm Gran Pct Auto 0.2 0.0-0.4 % Lymphocytes Percent Auto 24.7 20-40 % Monocytes Percent Auto 10.5 2-11 % Eosinophils Percent Auto 2.2 0-4 % Basophils Percent Auto 1.0 0-2 % NRBC Pct Auto 0.0 0.0-0.2 /100WBC Neutrophils Absolute Auto 3.7 2.0-8.3 x10*3/u L Imm Gran Abs Auto 0.01 0.00-0.03 X10*3/uL Lymphocytes Absolute Auto 1.5 1.2-4.9 X10*3/u L Monocytes Absolute Auto 0.6 0.1-1.2 X10*3/uL Eosinophils Absolute Auto 0.1 0.0-0.4 X10*3/u L Basophils Absolute Auto 0.1 0.0-0.2 X10*3/uL NRBC Abs Auto 0.000 0.0-0.012 X10*3/uL Comprehensive [place]. Panel Fa st Reviewed date:11/22/2023 05:53:30 PM Interpretation: Performing Lab:[facility], [address] [place] [phone] Notes/Report: Sodium 140 135-145 mmol/L Potassium 4.0 3.3-5.1 mmol/L Chloride 105 96-108 mmol/L Carbon Dioxide 29 22-29 mmol/L Anion Gap 10 12-20 Blood Urea Nitrogen 15 9-16 mg/dL Creatinine 0.92 0.5-1.4 mg/dL Estimated Glomerular Filt Rate > 60 NOTE: For -Stateless individuals, multiply the result by 1.210. Chronic Kidney Disease: Estimated GFR < 60 mL/min/1.73m2 Severe Kidney Disease: Estimated GFR < 15 mL/min/1.73m2 Glucose Fasting 129 60-99 mg/dL A fasting glucose of 126 mg/dl or greater on more than one occasion is considered diagnostic of diabetes. Calcium 9.8 8.4-10.2 mg/dL Bilirubin Total 0.8 0.0-1.0 mg/dL Aspartate Amino Transferase 24 5-37 U/L Alanine Aminotransferase 47 0-40 U/L Total Protein 7.6 6.5-8.0 g/dL Albumin Level 4.3 3.5-5.0 g/dL Alkaline Phosphatase 83 39-117 U/L Lipid Panel Reviewed date:11/22/2023 05:53:30 PM Interpretation: Performing Lab:[facility], [address] [place] [phone] Notes/Report: Triglycerides 101 <150 mg/dL Desirable Triglyceride: less than 150 mg/dL Borderline High Triglyceride 150-199 mg/dL High Triglyceride: 200-499 mg/dL Very High Triglyceride: greater than or equal to 5OO mg/dL Cholesterol 137 <200 mg/dL Desirable Cholesterol: less than 200 mg/dL Borderline High Cholesterol: 200-239 mg/dL High Cholesterol: greater than 239 mg/dL LDL Cholesterol Calculated 79 <100 mg/dL Desirable LDL: less than 100 mg/dL Near Optimal/Above Optimal LDL: 110-129 mg/dL Borderline High LDL: 130-159 mg/dL High LDL: 160-189 mg/dL Very High LDL: greater than or equal to 190 mg/dL HDL Cholesterol 38 >40 mg/dL Desirable HDL: greater than 40 mg/dL Note: This HDL assay may give artificially low results in patients with liver disease. Complete Blood Count Auto Di ff Reviewed date:03/27/2024 09:04:41 PM Interpretation: Performing Lab:[facility], [address] [place] [phone] Notes/Report: White Blood Count 7.1 4.8-10.8 X10*3/uL Red Blood Count 6.17 4.60-5.80 X10*6/uL Hemoglobin 15.7 14.0-18.0 g/dl Hematocrit 48.8 42.0-52.0 % Mean Corpuscular Volume 79.1 80.0-98.0 fL Mean Corpuscular Hemoglobin 25.4 27.0-33.0 pg Mean Corpuscular HGB Conc 32.2 31.0-36.0 g/dl Red Cell Distribution Width 14.1 11.0-16.0 % Platelet Count 207 160-400 X10*3/uL Mean Platelet Volume 11.2 9.4-12.4 fL Neutrophils Percent Auto 69.6 45-73 % Imm Gran Pct Auto 0.3 0.0-0.4 % Lymphocytes Percent Auto 19.9 20-40 % Monocytes Percent Auto 8.7 2-11 % Eosinophils Percent Auto 0.7 0-4 % Basophils Percent Auto 0.8 0-2 % NRBC Pct Auto 0.0 0.0-0.2 /100WBC Neutrophils Absolute Auto 5.0 2.0-8.3 x10*3/u L Imm Gran Abs Auto 0.02 0.00-0.03 X10*3/uL Lymphocytes Absolute Auto 1.4 1.2-4.9 X10*3/u L Monocytes Absolute Auto 0.6 0.1-1.2 X10*3/uL Eosinophils Absolute Auto 0.1 0.0-0.4 X10*3/u L Basophils Absolute Auto 0.1 0.0-0.2 X10*3/uL NRBC Abs Auto 0.000 0.0-0.012 X10*3/uL Comprehensive [place]. Panel Fa st Reviewed date:03/27/2024 09:04:41 PM Interpretation: Performing Lab:[facility], [address] [place] [phone] Notes/Report: Sodium 139 135-145 mmol/L Potassium 4.3 3.3-5.1 mmol/L Chloride 103 96-108 mmol/L Carbon Dioxide 27 22-29 mmol/L Anion Gap 13 12-20 Blood Urea Nitrogen 10 9-16 mg/dL Creatinine 0.97 0.5-1.4 mg/dL Estimated Glomerular Filt Rate > 60 NOTE: For -Stateless individuals, multiply the result by 1.210. Chronic Kidney Disease: Estimated GFR < 60 mL/min/1.73m2 Severe Kidney Disease: Estimated GFR < 15 mL/min/1.73m2 Glucose Fasting 118 60-99 mg/dL A fasting glucose from 100-125 mg/dl is considered impaired (pre-diabetes). Calcium 10.0 8.4-10.2 mg/dL Bilirubin Total 0.8 0.0-1.0 mg/dL Aspartate Amino Transferase 38 5-37 U/L Alanine Aminotransferase 59 0-40 U/L Total Protein 8.0 6.5-8.0 g/dL Albumin Level 4.4 3.5-5.0 g/dL Alkaline Phosphatase 84 39-117 U/L Lipid Panel Reviewed date:03/27/2024 09:04:41 PM Interpretation: Performing Lab:[address] [phone] Notes/Report: Triglycerides 93 <150 mg/dL Desirable Triglyceride: less than 150 mg/dL Borderline High Triglyceride 150-199 mg/dL High Triglyceride: 200-499 mg/dL Very High Triglyceride: greater than or equal to 5OO mg/dL Cholesterol 153 <200 mg/dL Desirable Cholesterol: less than 200 mg/dL Borderline High Cholesterol: 200-239 mg/dL High Cholesterol: greater than 239 mg/dL LDL Cholesterol Calculated 88 <100 mg/dL Desirable LDL: less than 100 mg/dL Near Optimal/Above Optimal LDL: 110-129 mg/dL Borderline High LDL: 130-159 mg/dL High LDL: 160-189 mg/dL Very High LDL: greater than or equal to 190 mg/dL HDL Cholesterol 47 >40 mg/dL Desirable HDL: greater than 40 mg/dL Note: This HDL assay may give artificially low results in patients with liver disease. Prostate Specific Antigen Reviewed date:03/27/2024 09:04:41 PM Interpretation: Performing Lab:[address] [phone] Notes/Report: Prostate Specific Antigen 4.78 <0.05-4.0 ng/mL PSA methodology: Gold [employer] i Chemiluminescent Microparticle Immunoassay (CMIA) Free T4 (Free Thyroxine) Reviewed date:03/27/2024 09:04:41 PM Interpretation: Performing Lab:[facility], [address] [place] [phone] Notes/Report: Free T4 (Free Thyroxine) 1.31 0.71-1.85 ng/dL Thyroid Stimulating Hormone Reviewed date:03/27/2024 09:04:41 PM Interpretation: Performing Lab:[facility], [address] [place] [phone] Notes/Report: Thyroid Stimulating Hormone 0.41 0.32-4.0 uIU/ mL TSH 3rd Generation ([facility] [employer]) Reason For Referral Reason Consult and Treat Left Knee Pain Diagnosis 1 Left knee pain (M25. 562) Referral Organization Nicholas Ontiveros III, MD Referring Provider First Name Nicholas Referring Provider Last Name Rama Referring Provider Speciality Internal M edicine Referred Provider [facility], [facility] Surgeons Referred Provider Specialty Orthopedic [facility] General Notes Caroyln Sung 04/05/2024 04:30:10 PM > Referral faxed with progress note Referral Priority Routine Medications Medication SIG (Take, Route, Frequency, Duration) Notes Start Date End Date Status Levothyroxine Sodium 150 MCG TAKE 1 TABLET BY MOUTH EVERY DAY IN THE MORNING ON EMPTY STOMACH FOR 90 DAYS Active Valsartan 40 MG 1 tablet Orally Once a day 08/10/2021 Active Atorvastatin Calcium 40 MG TAKE 1 TABLET BY MOUTH EVERY DAY Active Naproxen 500 MG 1 tablet with food o r milk as needed Orally every 12 hrs for severe pain for 30 days 04/05/2024 11/01/2024 Active Meloxicam 10 MG 1 capsule Orally Onc e a day for 30 days 03/31/2024 05/29/2024 Active Immunizations Vaccine Route Administration Date Status Comme nts COVID 19 Moderna Unknown 10/04/2020 Administered COVID 19 Moderna Unknown 11/01/2020 Administered COVID 19 Moderna Unknown 06/09/2021 Administered Social History Tobacco Use: Social History Observation Description Date Details (start date - stop date) Former Smoker NA - NA Sex Assigned At : Social History Observation Description Sex Assigned At Male Tobacco Use/Smoking Question Answer Notes Patient is a former smoker How long has it been since you last smoked? 1-5 years Additional Findings: Tobacco Non-User Ex-cigaret te smoker Alcohol Screen Question Answer Notes Did you have a drink containing alcohol in the p ast year? No Points 0 Interpretation Negative Problems Problem Type SNOMED Code ICD Code Onset Dates Problem Status W/U Status Risk Notes Problem 6420764 Former smoker (Z87.891) Active confirmed He is highly motivated not to smoke. We formulated a plan to prevent relapse in times of stress and illness. Problem Hyperlipidemia (15550867) Hyperlipidemia (E78.5) Active confirmed His lipids are currently controlled. No change in current medication was necessary. I recommended aggressive weight loss and a healthy diet. Problem [id number] Obesity (BMI 30.0-34.9) (E66.9) Active confirmed His weight is currently stable. We reviewed his weight loss strategy. I recommended weight loss in the right a one half of a pound per week through diet restricted in fat calories and sodium unconcentrated sweets. Problem Hypertension (36121994) Hypertension (I10) Active confirmed His blood pressure is unremarkable and no change in his regimen was necessary today. I recommended aggressive weight loss and sodium restriction. He has succeeded in losing 4 pounds. He will continue to lose weight and be followed in the office. Problem Benign prostatic hyperplasia (681439637) BPH (benign prostatic hyperplasia) (N40.0) Active confirmed He has been rising from sleep at most once a night to urinate. We have discussed lifestyle modifications he could make to reduce nocturia. Problem Thyroid cancer (957758266) Thyroid cancer (C73) Active confirmed He was found to have a 1.4 cm papillary thyroid cancer in the right lobe of his thyroid which has been removed. There is no sign of recurrence Problem 616164844 Type 2 diabetes mellitus without complication, without long-term current use of insulin (E11.9) Active confirmed His blood glucose is slightly elevated. Hemoglobin A1c has been ordered. No change in medication was necessary. He will pursue aggressive weight loss. 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 Vital Signs Heart Rate 97 /min 03/31/2024 Temperature 97.9 degrees Fahrenheit 03/31/2024 Blood pressure diastolic 80 mm Hg 03/31/2024 Height 71 in 03/31/2024 Blood pressure systolic 138 mm Hg 03/31/2024 Weight 222 lbs 03/31/2024 BMI 30.96 kg/m2 03/31/2024 Encounters Encounter Location Date Provider Diagnosis Nicholas Ontiveros III, MD [address] [place] [address] [place] [phone] 08/18/2023 Nicholas Ontiveros Right anterior knee pain M25.561 ; Hyperlipidemia E78.5 ; Obesity (BMI 30.0-34.9) E66.9 ; Type 2 diabetes mellitus without complication, without long-term current use of insulin E11.9 ; Thymoma, benign D15.0 ; Former smoker Z87.891 ; Hypertension I10 and BPH (benign prostatic hyperplasia) N40.0 Nicholas Ontiveros III, MD [address] [place] [address] [place] [address] 11/24/2023 Nicholas Ontiveros BPH (benign prostati c hyperplasia) N40.0 ; Type 2 diabetes mellitus without complication, without long-term current use of insulin E11.9 ; Thyroid cancer C73 ; Former smoker Z87.891 ; Hypertension I10 and Thymoma D49.89 Nicholas Ontiveros III, MD [address] [place] [address] [place] [phone] 03/31/2024 Nicholas Ontiveros Hyperlipidemia E78.5 ; Thyroid cancer C73 ; Obesity (BMI 30.0-34.9) E66.9 ; Type 2 diabetes mellitus without complication, without long-term current use of insulin E11.9 ; BPH (benign prostatic hyperplasia) N40.0 and Former smoker Z87.891 Nicholas Ontiveros III, MD [address] [place] [address] [place] [phone] 04/05/2024 Nicholas Ontiveros Assessments Encounter Date Diagnosis (ICD Code) Assessment Notes Treat ment Notes Treatment Clinical Notes 08/18/2023 Hyperlipidemia (ICD-10 - E78.5) Recently we decided to stop his atorvastatin to see if he could control his total cholesterol by diet. The value today is 251. He has resumed his atorvastatin. 08/18/2023 Right anterior knee pain (ICD-10 - M25.561) This is likely from limping and bearing weight and probably. He was given an appointment with orthopedics. 11/24/2023 BPH (benign prostatic hyperplasia) (ICD-10 - N40.0) He is experiencing R once a night. We discussed lifestyle modification as a way to reduce nocturia. 11/24/2023 Type 2 diabetes mellitus without complication, without long-term current use of insulin (ICD-10 - E11.9) His fasting glucose is 129. I have ordered a microalbumin and hemoglobin A1c. 03/31/2024 Hyperlipidemia (ICD-10 - E78.5) His lipids are currently controlled. No change in current medication was necessary. I recommended aggressive weight loss and a healthy diet. 03/31/2024 Thyroid cancer (ICD-10 - C73) He was found to have a 1.4 cm papillary thyroid cancer in the right lobe of his thyroid which has been removed. There is no sign of recurrence 08/18/2023 Obesity (BMI 30.0-34.9) (ICD-10 - E66.9) He has lost 4 pounds and his body mass index is 31. We reviewed his weight loss strategy. He will continue to lose weight at a rate of one half of a pound per week. He will consider a referral to the weight loss clinic. 11/24/2023 Thyroid cancer (ICD-10 - C73) This has been resected. There was no sign of recurrent disease. 03/31/2024 Obesity (BMI 30.0-34.9) (ICD-10 - E66.9) His weight is currently stable. We reviewed his weight loss strategy. I recommended weight loss in the right a one half of a pound per week through diet restricted in fat calories and sodium unconcentrated sweets. 08/18/2023 Type 2 diabetes mellitus without complication, without long-term current use of insulin (ICD-10 - E11.9) He has lost 4 pounds. I have ordered a hemoglobin A1c. He will have a fasting lipid profile and a microalbumin. We reviewed the elements of the diabetic diet. His fasting glucose was 136. 11/24/2023 Former smoker (ICD-10 - Z87.891) He is highly motivated not to smoke. We formulated a plan to prevent relapse in times of stress and illness. 03/31/2024 Type 2 diabetes mellitus without complication, without long-term current use of insulin (ICD-10 - E11.9) His blood glucose is slightly elevated. Hemoglobin A1c has been ordered. No change in medication was necessary. He will pursue aggressive weight loss. 08/18/2023 Thymoma, benign (ICD-10 - D15.0) He has recovered from the surgery and the sternal incision is well-healed and nonpainful. 11/24/2023 Hypertension (ICD-10 - I10) His blood pressure is unremarkable and no change in his regimen was necessary today. I recommended aggressive weight loss and sodium restriction. He has succeeded in losing 4 pounds. He will continue to lose weight and be followed in the office. 03/31/2024 BPH (benign prostatic hyperplasia) (ICD-10 - N40.0) He has been rising from sleep at most once a night to urinate. We have discussed lifestyle modifications he could make to reduce nocturia. 08/18/2023 Former smoker (ICD-10 - Z87.891) He is highly motivated not to smoke. We formulated a plan to prevent relapse in times of stress and illness. 11/24/2023 Thymoma (ICD-10 - D49.89) The wound is well-healed and there is no sign of recurrent or 03/31/2024 Former smoker (ICD-10 - Z87.891) He is highly motivated not to smoke. We formulated a plan to prevent relapse in times of stress and illness. 08/18/2023 Hypertension (ICD-10 - I10) His blood pressure is 138/90 and no change in his regimen was necessary today. I recommended aggressive weight loss and sodium restriction. He has succeeded in losing 4 pounds. He will continue to lose weight and be followed in the office. 08/18/2023 BPH (benign prostatic hyperplasia) (ICD-10 - N40.0) He is rising from sleep once a night. No change in his regimen was needed. We discussed lifestyle modification as a way of controlling nocturia. Plan Of Treatment Pending Test Test Name Order Date PROFILE, FASTING (COMPREHENSIVE METABOLI C) 03/31/2024 PROFILE, FASTING (COMPREHENSIVE METABOLI C) 02/04/2023 PROFILE, FASTING (COMPREHENSIVE METABOLI C) 11/01/2022 PROFILE, FASTING (COMPREHENSIVE METABOLI C) 08/18/2023 PROFILE, FASTING (COMPREHENSIVE METABOLI C) 03/26/2021 PROFILE, FASTING (COMPREHENSIVE METABOLI C) 11/24/2023 LIPID PANEL 02/04/2023 LIPID PANEL 11/01/2022 LIPID PANEL 03/26/2021 FREE T4 (FT4) 02/04/2023 FREE T4 (FT4) 11/01/2022 TSH (THYROID STIMULATING HORMONE) 2023 TSH (THYROID STIMULATING HORMONE) 2022 TSH (THYROID STIMULATING HORMONE) 2022 PSA, TOTAL 11/24/2023 PSA, TOTAL 03/26/2021 CBC w DIFF 02/04/2023 CBC w DIFF 11/01/2022 CBC w DIFF 03/26/2021 SED RATE (ESR) 03/26/2021 SED RATE (ESR) 02/04/2023 CBC WITH AUTO DIFF 03/31/2024 CBC WITH AUTO DIFF 11/24/2023 CBC WITH AUTO DIFF 08/18/2023 Lipid Panel 03/31/2024 Lipid Panel 11/24/2023 Lipid Panel 08/18/2023 PSA Free and Total 03/31/2024 Free T4 (Free Thyroxine) 03/31/2024 Free T4 (Free Thyroxine) 11/24/2023 Microalbumin, Random 03/31/2024 Hemoglobin A1c 03/31/2024 Next Appt Details Provider Name:Nicholas Ontiveros, 07/28/2024 09:30:00 AM, [address] [place] [address] [address], [place], [phone], Provider Name:Nicholas Ontiveros, 08/18/2024 02:00:00 PM, [address] [place] [address] [address], [place], [phone], Insurance Providers Payer Name Payer Address Payer Phone Subscriber Number Group Number Insured Name Patient Relationship to Insured Coverage Start Date Coverage End Date [facility] [address] [place] [phone] [id number] Narendra Naylor Self - patient is the insured Medical (General) History Medical History History ICD Code Hyperlipidemia E78.5 Hypertension I10 Benign thymoma, resected, 2020 Obesity Impaired fasting glucose Low-sodium diet Colonic polyp, hyperplastic 2019 Albuminuria Former smoker Papillary carcinoma of the thyroid 2022 Surgical History Surgery Date(Month/Year) Thyroidectomy for papillary thyroid canc er 2022 thymectomy, , [facility] ter, benign 11/2020 Colonoscopy, [facility], Dr. Mccray 05/2020 lung biopsy 09/2020
--- NOTE | 2024-05-19 09:58 | MHC.OFFVIS ---
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 He describes his pain as sharp and severe in nature. He has failed the last 3 months of conservative treatment which has consisted of physical therapy exercises, topical creams, Tylenol and anti-inflammatory medicines. Most of the pain is along the medial aspect of his knee. He denies any locking or giving way. He states that his left knee pain is interfering with his activities of daily living and his ability to sleep well through the night. He wishes to hold off on surgery for as long as possible. Allergies lisinopril Allergy (Verified 05/19/24 09:59) Cough Medication List - Last Reviewed 05/19/24 by PETER Akhtar atorvastatin 40 mg PO BEDTIME 90 days levothyroxine 150 mcg PO DAILY valsartan 40 mg PO DAILY [facility] Medical History (Updated 05/19/24 @ 10:21 by Jamie Campbell MD) Thyroid cancer Thyroid nodule Albuminuria Thymoma (~2020) Personal history of nicotine dependence Polyp of colon, hyperplastic (~2019) Obesity (BMI 30-39.9) Impaired fasting glucose Pure hypercholesterolemia Benign essential hypertension Surgical History History of lung biopsy (~09/2020) Hx of colonoscopy (~05/2020) S/P thymectomy (~12/20/20) Status post thymectomy Family History Father No problems noted. Mother No problems noted. 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 Physical Exam Vital Signs: BMI result Body Mass Index 32.6 Const Other: Well-nourished well-developed very friendly male awake alert and oriented x3 in no acute distress Extrem Other: Bilateral lower extremity examination shows good capillary refill, no skin lesions noted, normal sensation light touch Left knee examination shows a minimal effusion, palpable crepitus with range of motion, pain with range of motion, range of motion from -3 degrees to 115 degrees, no instability Results Reviewed Results Reviewed: X-rays of the patient's left knee show moderate to severe joint space narrowing, subchondral sclerosis, no acute bony abnormalities Assessment & Plan Assessment & Plan (1) Osteoarthritis of left knee: Code(s): M17.12 - Unilateral primary osteoarthritis, left knee Category: Medical Plan Narendra is a 64-year-old male who presents with progressively worsening left knee pain due to osteoarthritis. I had a lengthy discussion with the patient regarding the treatment options. He wishes to hold off on total knee replacement surgery for as long as possible. I agree with this plan. I will see whether or not the patient's insurance company will cover a viscosupplementation injection. I will see him back once the injection is available. Feel free to call me at any time should questions regarding his orthopedic management arise. Thank you very much for asking me to see this very friendly gentleman. I spent 22 minutes in reviewing the patient's records and imaging studies, seeing the patient and documenting in the medical record. Orders: Orders XR knee LT 3V Today M25.562 - Pain in left knee Coding Level of Care Code New Pt Level 3 (02149) Complex EM visit Add On G2211 Diagnoses Osteoarthritis of left knee M17.12
[2024-05-19 10:02] VITALS: BMI 32.6
== END 2024-05-19 10:12 | disposition home or self-care (01) ==
PROVIDERS: PCP Internal Medicine Medical Oncology; Visit Provider Orthopaedic Surgery
DX: M17.12 Unilateral primary osteoarthritis, left knee (principal)
CPT/HCPCS: 99203; G2211

== ENCOUNTER 2024-06-09 07:37 | Outpatient (AMB) | payer OTHER, SELFPAY ==
--- OUTSIDE RECORDS SUMMARY | 2024-06-09 07:39 | XMS_ITS ---
Author Organization Nicholas Ontiveros III, MD Address [address] [place] [address] [place] [address] Care Team Providers Care Inspector [employer] Name Role Phone Nicholas Ontiveros Primary Care [...] Provider Speciality Internal M edicine Referred Provider [facility] er, Orthopedic Surgeons Referred Provider Specialty Orthopedic S [facility] General Notes D Carolyn 04/05/2024 04:30:10 PM [...] Date Provider Diagnosis Nicholas Ontiveros III, MD [address] [place] [address] [place] [address] 03/31/2024 Nicholas Ontiveros Hyperlipidemia E78.5 ; Thyroid [...] and Treat Left Knee Pain, Orth[facility] Surgeons [facility] Next Appt Details Follow Up: As Scheduled, t week in July, Reason: OV, Pre Op, Follow-up on knee pain and preoperative clearance for cataract surgery Provider Name:Nicholas Ontiveros, 07/28/2024 09:30:00 AM, [address] [place] [address] [address], [place], [address], Provider Name:Nicholas Ontiveros, 08/18/2024 02:00:00 PM, [address] [place] [address] [address], [place], [address], Progress Notes * Narendra PAGAN HDOB:1 06/17/1959 (63 yo M)Acc No.[id number]:03/31/2024 Progress Notes Patient:?YURISOFÍA Michael ra Shepherd Provider:?Nicholas Ontiveros MD :1960???Age:63 Y???Sex:Male Kelechi e:03/31/2024 Address:[address] [place], [place] [id number] Subjective: * Chief Complaints: * ???HypertensionLeft knee [...] History:? * Surgical History:?lung biops y olonoscopy, [facility], Dr. Mccray 05/2020thymectomy, , [facility], benign 11/2020Thyroidectomy for papillary thyroid cancer 2022 [...] Findings: Tobacco Non-User?Ex-cigarette smoker ???He lives in [facility]. He is employed and has no toxic exposures. He is but has a good relationship with his ex-. He has recovered from his recent thymectomy and is back at work. He does not smoke or drink alcohol or take drugs. He has no children. He was sborn in [facility]. * Medications:?TakingValsartan 40 MG Tablet 1 tablet [...] days, 30, Refills 1.? Referral To:[facility] Sur[facility]??Orthopedic Surgery ?Reason:Consult and Treat Left Knee Pain [...] reason not done * Follow Up:?As Scheduled, t rahel in July (Reason: OV, Pre Op, Follow-up on knee pain and preoperative clearance for cataract surgery) * Images: * Sign off status: Completed true * Provider:?Nicholas Ontiveros MD Date:?03/04 Generated for Printi ng/Mindy/eTransmitting on:?06/09/2024 07:39 AM EST History and Physical Notes * [...] Referred Provider Not es 03/31/2024 Nicholas Ontiveros [facility], Orthopedic Surgeons Consult and Treat Left Knee Pain
--- OUTSIDE RECORDS SUMMARY | 2024-06-09 07:39 | XMS_ITS | Patient Health Record ---
Author Organization Nicholas Ontiveros III, MD Address [address] [place] [address] Care Team Providers Care Donations Attendant Name Role Phone Nicholas Ontiveros Primary Care Provider Allergies Allergen (clinical drug ingredient) Drug/Non Drug Allergy documented on EMR Reaction Allergy Type Onset Date Status lisinopril Lisinopril Unknown Drug Allergy Activ e Results Component Value Reference Range Notes URINE DIP STICK Reviewed date:08/18/2023 01:45:01 PM Interpretation: Performing Lab: Notes/Report: SG 1.025 1.005 - 1.025 pH 5.0 5.0 - 9.0 JEFFRY Negative Negative - NIT Negative Negative - PRO 15 Negative - Trace GLU Negative Negative - KET Negative Negative - UBG 0.2 0.1 - 1.8 ALPHONSE Negative 0.2 - 1.3 BLD 50 Negative - Complete Blood Count Auto Di ff Reviewed date:08/18/2023 02:12:24 PM Interpretation: Performing Lab:[facility], [address] [place] [phone] Notes/Report: White Blood Count 6.3 4.8-10.8 X10*3/uL [...] te Reviewed date:08/18/2023 02:12:24 PM Interpretation: Performing Lab:[facility], [address] [place] [phone] Notes/Report: Erythrocyte Sedimentation Rate 7 0-15 MM/HR Patients with polycythemia and many hemoglobin abnormalities may have depressed sed rates whereas patients with anemia may have elevated sed rates. Comprehensive Gilbert. Panel Fa st Reviewed date:08/18/2023 02:12:24 PM Interpretation: Performing Lab:[facility], [address] [place] [phone] Notes/Report: Sodium 140 135-145 mmol/L Potassium 4.2 3.3-5.1 mmol/L Chloride 105 96-108 mmol/L Carbon Dioxide 27 22-29 mmol/L Anion Gap 12 12-20 Blood Urea Nitrogen 17 9-16 mg/dL Creatinine 1.12 0.5-1.4 mg/dL Estimated Glomerular Filt Rate > 60 NOTE: For -Ethiopian individuals, multiply the result by 1.210. Chronic [...] Panel Reviewed date:08/18/2023 02:12:24 PM Interpretation: Performing Lab:[address] [address] Notes/Report: Triglycerides 103 <150 mg/dL Desirable Triglyceride: [...] Thyroxine) Reviewed date:08/18/2023 02:12:24 PM Interpretation: Performing Lab:[facility], [address] [place] [phone] Notes/Report: Free T4 (Free Thyroxine) 1.40 0.71-1.85 ng/dL Thyroid Stimulating Hormone Reviewed date:08/18/2023 02:12:24 PM Interpretation: Performing Lab:[facility], [address] [place] [phone] Notes/Report: Thyroid Stimulating Hormone 2.30 0.32-4.0 uIU/ mL TSH 3rd Generation ([employer]) Diabetic Eye Exam Reviewed date:11/25/2023 01:32:39 PM Interpretation:undefined Performing Lab: Notes/Report: undefined Complete Blood Count Auto Di ff Reviewed date:11/22/2023 05:53:30 PM Interpretation: Performing Lab:[facility], [address] [place] [phone] Notes/Report: White Blood Count 6.0 4.8-10.8 X10*3/uL [...] NRBC Abs Auto 0.000 0.0-0.012 X10*3/uL Comprehensive [place]. Panel Fa st Reviewed date:11/22/2023 05:53:30 PM Interpretation: Performing Lab:[facility], [address] [place] [phone] Notes/Report: Sodium 140 135-145 mmol/L Potassium 4.0 3.3-5.1 mmol/L Chloride 105 96-108 mmol/L Carbon Dioxide 29 22-29 mmol/L Anion Gap 10 12-20 Blood Urea Nitrogen 15 9-16 mg/dL Creatinine 0.92 0.5-1.4 mg/dL Estimated Glomerular Filt Rate > 60 NOTE: For -Ethiopian individuals, multiply the result by 1.210. Chronic [...] Panel Reviewed date:11/22/2023 05:53:30 PM Interpretation: Performing Lab:[facility], [address] [place] [phone] Notes/Report: Triglycerides 101 <150 mg/dL Desirable Triglyceride: [...] ff Reviewed date:03/27/2024 09:04:41 PM Interpretation: Performing Lab:[facility], [address] [place] [phone] Notes/Report: White Blood Count 7.1 4.8-10.8 X10*3/uL [...] NRBC Abs Auto 0.000 0.0-0.012 X10*3/uL Comprehensive [place]. Panel Fa st Reviewed date:03/27/2024 09:04:41 PM Interpretation: Performing Lab:[facility], [address] [place] [phone] Notes/Report: Sodium 139 135-145 mmol/L Potassium 4.3 3.3-5.1 mmol/L Chloride 103 96-108 mmol/L Carbon Dioxide 27 22-29 mmol/L Anion Gap 13 12-20 Blood Urea Nitrogen 10 9-16 mg/dL Creatinine 0.97 0.5-1.4 mg/dL Estimated Glomerular Filt Rate > 60 NOTE: For -Ethiopian individuals, multiply the result by 1.210. Chronic [...] Reviewed date:03/27/2024 09:04:41 PM Interpretation: Performing Lab:[address] [address] Notes/Report: Triglycerides 93 <150 mg/dL Desirable Triglyceride: [...] Reviewed date:03/27/2024 09:04:41 PM Interpretation: Performing Lab:[address] [address] Notes/Report: Prostate Specific Antigen 4.78 <0.05-4.0 ng/mL PSA methodology: Gold Alinity i Chemiluminescent Microparticle Immunoassay (CMIA) Free T4 (Free Thyroxine) Reviewed date:03/27/2024 09:04:41 PM Interpretation: Performing Lab:[facility], [address] [place] [phone] Notes/Report: Free T4 (Free Thyroxine) 1.31 0.71-1.85 ng/dL Thyroid Stimulating Hormone Reviewed date:03/27/2024 09:04:41 PM Interpretation: Performing Lab:[facility], [address] [place] [phone] Notes/Report: Thyroid Stimulating Hormone 0.41 0.32-4.0 uIU/ mL TSH 3rd Generation ([facility]) Reason For Referral Reason Consult and Treat Left Knee Pain Diagnosis 1 Left knee pain (M25. 562) Referral Organization Nicholas Ontiveros III, MD Referring Provider First Name Nicholas Referring Provider Last Name Rama Referring Provider Speciality Internal M edicine Referred Provider [facility], Orthopedic Surgeons Referred Provider Specialty Orthopedic [facility] General Notes Carolyn Sung 04/05/2024 04:30:10 PM > Referral faxed with progress note Referral Priority Routine Referral Appointment Date 05/19/2024 Medications Medication SIG (Take, Route, Frequency, Duration) Notes Start Date End Date Status Levothyroxine Sodium 150 MCG TAKE 1 TABLET BY MOUTH EVERY DAY IN THE MORNING ON EMPTY STOMACH FOR 90 DAYS Active Atorvastatin Calcium 40 MG TAKE 1 TABLET BY MOUTH EVERY DAY Active Naproxen 500 MG 1 tablet with food o r milk as needed Orally every 12 hrs for severe pain for 30 days 04/05/2024 11/01/2024 Active Valsartan 40 MG TAKE 1 TABLET BY YESSICA TH EVERY DAY FOR 90 DAYS for 90 Active Immunizations Vaccine Route Administration Date Status [...] Problem Status W/U Status Risk Notes Problem 7693573 Former smoker (Z87.891) Active confirmed He is highly motivated not to smoke. We formulated a plan to prevent relapse in times of stress and illness. Problem Hyperlipidemia (53248327) Hyperlipidemia (E78.5) Active confirmed His lipids are currently controlled. No change in current medication was necessary. I recommended aggressive weight loss and a healthy diet. Problem 648100557528941 Obesity (BMI 30.0-34.9) (E66.9) Active confirmed His weight is currently stable. We reviewed his weight loss strategy. I recommended weight loss in the right a one half of a pound per week through diet restricted in fat calories and sodium unconcentrated sweets. Problem Hypertension (04476584) Hypertension (I10) Active confirmed His blood pressure is unremarkable and no change in his regimen was necessary today. I recommended aggressive weight loss and sodium restriction. He has succeeded in losing 4 pounds. He will continue to lose weight and be followed in the office. Problem Benign prostatic hyperplasia (939461812) BPH (benign prostatic hyperplasia) (N40.0) Active confirmed He has been rising from sleep at most once a night to urinate. We have discussed lifestyle modifications he could make to reduce nocturia. Problem Thyroid cancer (034325330) Thyroid cancer (C73) Active confirmed He was found to have a 1.4 cm papillary thyroid cancer in the right lobe of his thyroid which has been removed. There is no sign of recurrence Problem 957320455 Type 2 diabetes mellitus without complication, without long-term current use of insulin (E11.9) Active confirmed His blood glucose is slightly elevated. Hemoglobin A1c has been ordered. No change in medication was necessary. He will pursue aggressive weight loss. 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) Active confirmed Problem 665245576 Thymoma, benign (D15.0) Active confirmed He has [...] Date Provider Diagnosis Nicholas Ontiveros III, MD [address] [place] [address] [place] [phone] 08/18/2023 Nicholas Ontiveros Right anterior knee pain M25.561 ; Hyperlipidemia E78.5 ; Obesity (BMI 30.0-34.9) E66.9 ; Type 2 diabetes mellitus without complication, without long-term current use of insulin E11.9 ; Thymoma, benign D15.0 ; Former smoker Z87.891 ; Hypertension I10 and BPH (benign prostatic hyperplasia) N40.0 Nicholas Ontiveros III, MD [address] [place] [address] [place] [phone] 11/24/2023 Nicholas Ontiveros BPH (benign prostati c hyperplasia) N40.0 ; Type 2 diabetes mellitus without complication, without long-term current use of insulin E11.9 ; Thyroid cancer C73 ; Former smoker Z87.891 ; Hypertension I10 and Thymoma D49.89 Nicholas Onitveros III, MD [address] [place] [address] [place] [phone] 03/31/2024 Nicholas Ontiveros Hyperlipidemia E78.5 ; Thyroid cancer C73 ; Obesity (BMI 30.0-34.9) E66.9 ; Type 2 diabetes mellitus without complication, without long-term current use of insulin E11.9 ; BPH (benign prostatic hyperplasia) N40.0 and Former smoker Z87.891 Nicholas Ontiveros III, MD [address] [place] [address] [place] [phone] 04/05/2024 Nicholas Ontiveros Assessments Encounter Date Diagnosis [...] Details Provider Name:Nicholas Ontiveros, 07/28/2024 09:30:00 AM, [address] [place] [address] [address], [place], [address], Provider Name:Nicholas Ontiveros, 08/18/2024 02:00:00 PM, [address] [place] [address] [address], [place], [address], Insurance Providers Payer Name Payer Address Payer Phone Subscriber Number Group Number Insured Name Patient Relationship to Insured Coverage Start Date Coverage End Date [facility] [address] [place] [phone] [id number] Narendra Naylor Self - patient is the insured Medical (General) History Medical History History ICD Code Hyperlipidemia E78.5 Hypertension I10 Benign thymoma, resected, 2020 Obesity Impaired fasting glucose Low-sodium diet Colonic polyp, hyperplastic 2019 Albuminuria Former smoker Papillary carcinoma of the thyroid 2022 Surgical History Surgery Date(Month/Year) Thyroidectomy for papillary thyroid canc er 2022 thymectomy, , [facility] ter, benign 11/2020 Colonoscopy, [facility], Dr. Mccray 05/2020 lung biopsy 09/2020
--- OUTSIDE RECORDS SUMMARY | 2024-06-09 07:39 | XMS_ITS ---
Author Organization Nicholas Ontiveros III, MD Address [address] [place] [address] [place] [address] Care Team Providers Care Chief Technician X Ray Name Role Phone Nicholas Ontiveros Primary Care Provider [phone] Allergies Allergen (clinical drug ingredient) Drug/Non Drug [...] W/U Status Risk Notes Problem Thyroid cancer (315933342) Thyroid cancer (C73) Active confirmed He was [...] Date Provider Diagnosis Nicholas Ontiveros III, MD [address] [place] [address] [place] [address] 11/24/2023 Nicholas Ontiveros BPH (benign prostati c [...] OV Provider Name:Nicholas Ontiveros, 07/28/2024 09:30:00 AM, [address] [place] [address] [address], [place], [address], Provider Name:Nicholas Ontiveros, 08/18/2024 02:00:00 PM, [address] [place] [address] [address], [place], [phone], Progress Notes * Narendra PAGAN HDOB:1 06/17/1959 (63 yo M)Acc No.[id number]:11/24/2023 Progress Notes Patient:?Ramonitamaximo Michael Provider:?Nicholas Ontiveros MD :1960???Age:63 Y???Sex:Male Kelechi e:11/24/2023 Address:[address] [place], [place] [id number] Subjective: * Chief Complaints: * ???Papillary thyroid [...] History:? * Surgical History:?lung biops y 1Colonoscopy, [facility], Dr. Mccray 05/2020thymectomy, , [facility], benign 11/2020Thyroidectomy for papillary thyroid cancer [...] Findings: Tobacco Non-User?Ex-cigarette smoker ???He lives in [facility]. He is employed and has no toxic exposures. He is but has a good relationship with his ex-. He has recovered from his recent thymectomy and is back at work. He does not smoke or drink alcohol or take drugs. He has no children. He was sborn in [facility]. * Medications:?TakingValsartan 40 MG Tablet 1 [...] 42 (Ref Range: >40 mg/dL) * Lab:[facility] [place]. Pane l Fast * Order Date 11/19/2023 [...] Ontiveros MD Date:?11/01 Generated for Dominick culp/Mindy/eTtelmasmitting on:?06/09/2024 07:39 AM EST History and Physical [...]
--- OUTSIDE RECORDS SUMMARY | 2024-06-09 07:39 | XMS_ITS ---
Author Organization Nicholas Ontiveros III, MD Address [address] [place] [address] [place] [address] Care Team Providers Care Formal Service Waiter Name Role Phone Nicholas Ontiveros Primary Care [...] Date Provider Diagnosis Nicholas Ontiveros III, MD [address] [place] [address] [place] [address] 04/05/2024 Nicholsa Ontiveros Plan Of Treatment Medication Medication Name Sig Start Date Stop Date Notes Naproxen 500 MG 1 tablet with food o r milk as needed Orally every 12 hrs for severe pain for 30 days 04/05/2024 11/01/2024 Next Appt Details Provider Name:Nicholas Ontiveros, 07/28/2024 09:30:00 AM, [address] [facility] [place], [address], Provider Name:Nicholsa Ontiveros, 08/18/2024 02:00:00 PM, [address] [facility] [place], [address], Progress Notes * Narendra PAGAN HDOB:1 06/17/1959 (63 yo M)Acc No.[id number]:04/05/2024 Patient:?Michael PAGAN ra :1960???Age:63 Y???Sex:Male Address:[address] [place] [address], [address] * Refills? Start Naproxen Tablet, 500 MG, Orally, 60, 1 tablet with food or milk as needed, every 12 hrs for severe pain, 30 days, Refills=6 * true * Date:? Generated for Dominick cupl/Mindy/eTransmitting on:?06/09/2024 07:39 AM EST
[2024-06-09 07:42] VITALS: BMI 32.6
--- NOTE | 2024-06-09 07:42 | MHC.OFFVIS ---
Vital Signs 06/09/24 07:42 Height 5 ft 11 in Weight 234 lb BMI 32.6 Intake Visit Reasons: Left knee pain Intake Note: Narendra is a 64 year old male who presents today for a left knee cortisone injection. He would like to move forward with gel injections however he must trial cortisone injections first - per insurance requirements. He agrees with plan and wishes to have a cortisone injection today. He has tried Tylenol and anti-inflammatory medicines which gave him minimal relief. He denies any locking or giving way. He wishes to hold off on surgery if at all possible. Allergies lisinopril Allergy (Verified 05/19/24 09:59) Cough Medication List - Last Reconciled 06/09/24 by Jamie Campbell MD atorvastatin 40 mg PO BEDTIME 90 days levothyroxine 150 mcg PO DAILY valsartan 40 mg PO DAILY [facility] Medical History (Updated 05/19/24 @ 10:21 by Jamie Campbell MD) Thyroid cancer Thyroid nodule Albuminuria Thymoma (~2020) Personal history of nicotine dependence Polyp of colon, hyperplastic (~2019) Obesity (BMI 30-39.9) Impaired fasting glucose Pure hypercholesterolemia Benign essential hypertension Surgical History History of lung biopsy (~09/2020) Hx of colonoscopy (~05/2020) S/P thymectomy (~12/20/20) Status post thymectomy Family History Father No problems noted. Mother No problems noted. 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 Physical Exam Vital Signs: BMI result Body Mass Index 32.6 Const Other: Well-nourished well-developed very friendly male awake alert and oriented x3 in no acute distress Extrem Other: Bilateral lower extremity examination shows good capillary refill, no skin lesions noted, normal sensation light touch Left knee examination shows a minimal effusion, palpable crepitus with range of motion, pain with range of motion, no instability Office Procedures AMB Joint Injection/Aspiration Joint Injection/Aspiration Primary Site: left knee Prep: site was prepped using aseptic technique Injected: 40 mg of, DepoMedrol and 1% plain lidocaine Procedure: The patient tolerated the procedure well Coding - Large joint Procedure code (CPT) selection complete Results Reviewed Results Reviewed: X-rays of the patient's left knee taken previously show joint space narrowing, subchondral sclerosis, no acute bony abnormalities Assessment & Plan Assessment & Plan (1) Osteoarthritis of left knee: Code(s): M17.12 - Unilateral primary osteoarthritis, left knee Category: Medical (2) Left knee pain: Code(s): M25.562 - Pain in left knee Category: Medical Plan Narendra presents with left knee pain due to osteoarthritis. The risks and benefits of a cortisone injection were discussed at length with the patient. The patient wished proceed. Tolerated the injection well. He will continue with his home exercise program. He will contact me prior to his follow-up appointment in 3 months should any questions or concerns arise. If he does not get relief from the cortisone injection I will see whether or not the patient's insurance company will cover a viscosupplementation injection. Feel free to call me at any time should questions regarding his orthopedic management arise. I spent 22 minutes in reviewing the patient's records and imaging studies, seeing the patient and documenting in the medical record. Orders: Orders AMB Joint Injection/Aspiration Today M17.12 - Unilateral primary osteoarthritis, left knee Coding Level of Care Code Est Pt Level 3 (81204) Complex EM visit Add On G2211 Diagnoses Osteoarthritis of left knee M17.12 Left knee pain M25.562 CPT Codes Coding - Large joint: 86861 - Large joint ([id number])
== END 2024-06-09 08:22 | disposition home or self-care (01) ==
PROVIDERS: PCP Internal Medicine Medical Oncology; Visit Provider Orthopaedic Surgery
DX: M17.12 Unilateral primary osteoarthritis, left knee (principal); M25.562 Pain in left knee
CPT/HCPCS: 20610; 99213

== ENCOUNTER → 2024-06-09 07:37 | Outpatient (BNVA) | payer OTHER, SELFPAY | PROVIDERS: PCP Internal Medicine Medical Oncology; Visit Provider Orthopaedic Surgery | DX: M17.12 Unilateral primary osteoarthritis, left knee (principal); M25.562 Pain in left knee | CPT/HCPCS: 20610; 99212; J1010; J2003 ==

== ENCOUNTER 2024-07-21 06:02 | Outpatient (REF) | payer OTHER, SELFPAY ==
--- OUTSIDE RECORDS SUMMARY | 2024-07-21 06:07 | XMS_ITS | Clinical Summary ---
Author Organization [facility] Address [address] [place] [address] Care Team Providers Care Front Elevator Operator Name Role Phone Nicholas Ontiveros MD Primary Care Provider [phone] Social History Tobacco Use Types Packs/Day Years Used Date Smoking Tobacco: Never Assessed Sex and Gender Information Value Date Recorded Sex Assigned at Not on file Legal Sex Male 10:02 AM EST Gender Identity Not on file Sexual Orientation Not on file Plan of Treatment Health Maintenance Due Date Last Done Comments DTaP,Tdap,and Td Vaccines (1 - Tdap) 1979 Pneumococcal Vaccine: 50+ Ye ars (1 of 1 - PCV) 2010 Zoster Vaccines (1 of 2) 2010 Cholesterol Screening (Lipid Panel) 04/30/2022 Colorectal Cancer Screening: Colonoscopy 04/30/2022 Depression Screening 04/30/2022 HIV Screening 04/30/2022 Hepatitis C Screening 04/30/2022 Social Influencers of Health Screening 04/30/2022 COVID-19 Vaccine (1 - 2023-2 5 season) 2024 Influenza Vaccine (#1) 2024 RSV Immunization Patients 60 + Years Old (1 - 1-dose 75+ series) 2035 HIB Vaccines Aged Out No longer eligi ble based on patient's age to complete this topic HPV Vaccines Aged Out No longer eligi ble based on patient's age to complete this topic Hepatitis A Vaccines Aged Out No long er eligible based on patient's age to complete this topic Hepatitis B Vaccines Aged Out No long er eligible based on patient's age to complete this topic IPV Vaccines Aged Out No longer eligi ble based on patient's age to complete this topic MMR Vaccines Aged Out No longer eligi ble based on patient's age to complete this topic Meningococcal ACWY Vaccine Aged Out N o longer eligible based on patient's age to complete this topic Meningococcal B Vacine Aged Out No lo nger eligible based on patient's age to complete this topic Pneumococcal Vaccine: Pediat rics (0 to 5 Years) and At-Risk Patients (6 to 64 Years) Aged Out No longer eligible b ased on patient's age to complete this topic RSV Immunization Patients Un sonja 20 months Aged Out No longer eligible b ased on patient's age to complete this topic Varicella Vaccines Aged Out No longer eligible based on patient's age to complete this topic Care Teams Front Elevator Operator Relationship Specialty Start Date End Date Nicholas Ontiveros MD [address] [address] PCP - General 07/18/21
--- OUTSIDE RECORDS SUMMARY | 2024-07-21 06:07 | XMS_ITS ---
Author Organization Nicholas Ontiveros III, MD Address [address] [place] [address] [place] [address] Care Team Providers Care Sap Functional Analyst Name Role Phone Nicholas Ontiveros Primary Care Provider [phone] Medications Medication SIG (Take, Route, Fr equency, Duration) Notes Start Date End Date Status Naproxen 500 MG 1 tablet with food o r milk as needed Orally every 12 hrs for severe pain for 30 days 04/05/2024 11/01/2024 Active Social History Sex Assigned At : Social History Observation Description Sex Assigned At Male Encounters Encounter Location Date Provider Diagnosis Nicholas Ontiveros III, MD [address] [place] [address] [address] [place] [address] 04/05/2024 Nicholas Ontiveros Plan Of Treatment Medication Medication Name Sig Start Date Stop Date Notes Naproxen 500 MG 1 tablet with food o r milk as needed Orally every 12 hrs for severe pain for 30 days 04/05/2024 11/01/2024 Next Appt Details Provider Name:Nicholas Ontiveros, 07/28/2024 09:30:00 AM, [address] [facility] [place], [address], Provider Name:Nicholas Ontiveros, 08/18/2024 02:00:00 PM, [address] [place] [address] [place], [address], Progress Notes * Narendra PAGAN HDOB:1 06/17/1959 (63 yo M)Acc No.[id number]:04/05/2024 Patient:?Michael PAGAN ra :1960???Age:63 Y???Sex:Male Address:[address] [place] [address], [address] * Refills? Start Naproxen Tablet, 500 MG, Orally, 60, 1 tablet with food or milk as needed, every 12 hrs for severe pain, 30 days, Refills=6 * true * Date:? Generated for Dominick culp/Mindy/eTransmitting on:?07/21/2024 06:07 AM EST
--- OUTSIDE RECORDS SUMMARY | 2024-07-21 06:08 | XMS_ITS ---
Author Organization Nicholas Ontiveros III, MD Address [address] [place] [address] [place] [address] Care Team Providers Care Assisted Living Director Name Role Phone Nicholas Ontiveros Primary Care Provider [phone] Allergies Allergen (clinical drug ingredient) Drug/Non Drug [...] W/U Status Risk Notes Problem Thyroid cancer (823534130) Thyroid cancer (C73) Active confirmed He was [...] Date Provider Diagnosis Nicholas Ontiveros III, MD [address] [place] [address] [place] [address] 11/24/2023 Nicholas Ontiveros BPH (benign prostati c [...] OV Provider Name:Nicholas Ontiveros, 07/28/2024 09:30:00 AM, [address] [place] [address] [address], [place], [phone], Provider Name:Nicholas Ontiveros, 08/18/2024 02:00:00 PM, [address] [place] [address] [address], [place], [phone], Progress Notes * Narendra PAGAN HDOB:1 06/17/1959 (63 yo M)Acc No.[id number]:11/24/2023 Progress Notes Patient:?Ramonitamaximo Michael Provider:?Nicholas Ontiveros MD :1960???Age:63 Y???Sex:Male Kelechi e:11/24/2023 Address:[address] [place], [place] [id number] Subjective: * Chief Complaints: * ???Papillary thyroid [...] History:? * Surgical History:?lung biops y 1Colonoscopy, [facility], Dr. Mccray 05/2020thymectomy, , [facility], benign 11/2020Thyroidectomy for papillary thyroid cancer [...] Findings: Tobacco Non-User?Ex-cigarette smoker ???He lives in [facility]. He is employed and has no toxic exposures. He is but has a good relationship with his ex-. He has recovered from his recent thymectomy and is back at work. He does not smoke or drink alcohol or take drugs. He has no children. He was sborn in [facility]. * Medications:?TakingValsartan 40 MG Tablet 1 [...] 42 (Ref Range: >40 mg/dL) * Lab:[facility] * Order Date 11/19/2023 [...] Ontiveros MD Date:?11/01 Generated for Dominick culp/Mindy/eTtelmasmitting on:?07/21/2024 06:07 AM EST History and Physical Notes * HPI (History of Present Illness) Category Sub-Category Detail Notes COVID-19 Screening Questions Have you had any new onset fever, chills, cough, congestion, sore throat, shortness of breath, muscle aches?: No Have you been exposed to the virus withi n the last 10 days?: No Have you travelled internationally in [facility] last 10 days?: No Have you been [...]
--- OUTSIDE RECORDS SUMMARY | 2024-07-21 06:08 | XMS_ITS ---
Author Organization iNcholas Ontiveros III, MD Address [address] [place] [address] [place] [address] Care Team Providers Care Senior Net Architect Name Role Phone Nicholas Ontiveros Primary Care [...] Provider Speciality Internal M edicine Referred Provider [facility] er, Orthopedic Surgeons Referred Provider Specialty Orthopedic [facility] General Notes D Carolyn 04/05/2024 [...] Date Provider Diagnosis Nicholas Ontiveros III, MD [address] [place] [address] [place] [address] 03/31/2024 Nicholas Ontiveros Hyperlipidemia E78.5 ; Thyroid [...] and Treat Left Knee Pain, [facility] Next Appt Details Follow Up: As Scheduled, t week in July, Reason: OV, Pre Op, Follow-up on knee pain and preoperative clearance for cataract surgery Provider Name:Nicholas Ontiveros, 07/28/2024 09:30:00 AM, [address] [place] [address] [address], [place], [phone], Provider Name:Nicholas Ontiveros, 08/18/2024 02:00:00 PM, [address] [place] [address] [address], [place], [phone], Progress Notes * Narendra PAGAN HDOB:1 06/17/1959 (63 yo M)Acc No.[id number]:03/31/2024 Progress Notes Patient:?YURISOFÍA Michael ra Shepherd Provider:?Nicholas Ontiveros MD :1960???Age:63 Y???Sex:Male Kelechi e:03/31/2024 Address:[address] [place], [place] [id number] Subjective: * Chief Complaints: * ???HypertensionLeft knee [...] History:? * Surgical History:?lung biops y olonoscopy, [facility], Dr. Mccray 05/2020thymectomy, , [facility], benign 11/2020Thyroidectomy for papillary thyroid cancer [...] Findings: Tobacco Non-User?Ex-cigarette smoker ???He lives in [facility]. He is employed and has no toxic exposures. He is but has a good relationship with his ex-. He has recovered from his recent thymectomy and is back at work. He does not smoke or drink alcohol or take drugs. He has no children. He was sborn in [facility]. * Medications:?TakingValsartan 40 MG Tablet 1 [...] days, 30, Refills 1.? Referral To:[facility]??Orthopedic Surgery ?Reason:Consult and Treat Left Knee [...] Ontiveros MD Date:?03/04 Generated for Printi ng/Mindy/eTransmitting on:?07/21/2024 06:07 AM EST History and Physical [...] Referred Provider Not es 03/31/2024 Nicholas Ontiveros [facility], Orthopedic Surgeons Consult and Treat Left Knee Pain
[2024-07-21 06:16] LABS: MANUAL DIFF FLAG NO
[2024-07-21 07:19] LABS: Basophils Absolute Auto 0.1 X10*3/uL (0.0-0.2); Basophils Percent Auto 1.1 % (0-2); Eosinophils Absolute Auto 0.1 X10*3/uL (0.0-0.4); Eosinophils Percent Auto 1.5 % (0-4); Hematocrit 47.5 % (42.0-52.0); Hemoglobin 15.4 g/dl (14.0-18.0); Imm Gran Abs Auto 0.02 X10*3/uL (0.00-0.03); Imm Gran Pct Auto 0.3 % (0.0-0.4); Lymphocytes Absolute Auto 1.5 X10*3/uL (1.2-4.9); Lymphocytes Percent Auto 24.2 % (20-40); Mean Corpuscular HGB Conc 32.4 g/dl (31.0-36.0); Mean Corpuscular Hemoglobin 25.8 pg (27.0-33.0); Mean Corpuscular Volume 79.4 fL (80.0-98.0); Mean Platelet Volume 11.1 fL (9.4-12.4); Monocytes Absolute Auto 0.6 X10*3/uL (0.1-1.2); Monocytes Percent Auto 10.1 % (2-11); Neutrophils Absolute Auto 3.9 x10*3/uL (2.0-8.3); Neutrophils Percent Auto 62.8 % (45-73); Platelet Count 213 X10*3/uL (160-400); Red Blood Count 5.98 X10*6/uL (4.60-5.80); White Blood Count 6.2 X10*3/uL (4.8-10.8)
[2024-07-21 07:25] LABS: Estimated Average Glucose 154 mg/dL; Hemoglobin A1C 202.1597 umol/L; Total Hemoglobin (HGBA1C) 3807.2807 umol/L
[2024-07-21 07:39] LABS: Alanine Aminotransferase 59 U/L (0-40); Albumin Level 4.3 g/dL (3.5-5.0); Alkaline Phosphatase 82 U/L (39-117); Anion Gap 15 (12-20); Aspartate Amino Transferase 34 U/L (5-37); Bilirubin Total 0.8 mg/dL (0.0-1.0); Blood Urea Nitrogen 17 mg/dL (9-16); Calcium 9.4 mg/dL (8.4-10.2); Carbon Dioxide 25 mmol/L (22-29); Chloride 105 mmol/L (96-108); Cholesterol 139 mg/dL (<200); Estimated Glomerular Filt Rate > 60; Glucose Fasting 120 mg/dL (60-99); HDL Cholesterol 39 mg/dL (>40); LDL Cholesterol Calculated 84 mg/dL (<100); Potassium 4.2 mmol/L (3.3-5.1); Sodium 141 mmol/L (135-145); Triglycerides 83 mg/dL (<150)
[2024-07-21 07:56] LABS: Free T4 (Free Thyroxine) 1.56 ng/dL (0.71-1.85)
[2024-07-21 08:58] LABS: Creatinine Urine 214.04 mg/dL
[2024-07-22 11:57] LABS: Free Prostate Spec Ag 0.5 ng/mL; Percent Free Prostate Spec Ag 11 % (calc) (>25); Prostate Specific Ag Total 4.7 ng/mL (< OR = 4.0)
== END 2024-07-21 06:03 | disposition home or self-care (01) ==
LOC: HO.LAB 06:02
PROVIDERS: PCP Internal Medicine Medical Oncology; Visit Provider Internal Medicine Medical Oncology
DX: E78.5 Hyperlipidemia, unspecified (principal); E66.9 Obesity, unspecified; C73 Malignant neoplasm of thyroid gland; E11.9 Type 2 diabetes mellitus without complications; N40.0 Benign prostatic hyperplasia without lower urinary tract symptoms
CPT/HCPCS: 36415; 80053; 80061; 82043; 82570; 83036; 84154; 84439; 85025

== ENCOUNTER 2024-08-12 06:00 | Outpatient (REF) | payer OTHER, SELFPAY ==
--- OUTSIDE RECORDS SUMMARY | 2024-08-12 06:03 | XMS_ITS ---
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 Name Role Phone Nicholas Ontiveros Primary Care [...] Problem Status W/U Status Risk Notes Problem [id number] Age-related incipient cataract of both eyes (H25.093) [...] Date Provider Diagnosis Nicholas Ontiveros III, MD [address] [place] [address] DR [place]EDO[place], ADARSH [id number] 07/28/2024 Nicholas Ontiveros Thyroid cancer C73 ; [...] As Scheduled, Verito son: OV Provider Name:Nicholas Ontiveros, 08/18/2024 02:00:00 PM, [address] [place] [address] DR, [place] [address], [place], [address], Progress Notes * Narendra PAGAN HDOB:1 06/17/1959 (64 yo M)Acc No.[id number]:07/28/2024 Patient:?Michael PAGAN ra Provider:?Nicholas Ontiveros MD :1960???Age:64 Y???Sex:Male Kelechi e:07/28/2024 Address:[address] [place], [place] [id number] Subjective: * Chief Complaints: * ???Medical clearance for gabrielle ateral cataract surgery by Dr. Bocanegra on 08/05/24, 08/20/24HypertensionHyperlipidemiaObesityHistory of resected thymomaProstatic hypertrophyDiabetesHistory of thyroidectomy for papillary thyroid cancer. I * HPI: ???COVID-19 Screening:? 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 He is here today for medical clearance.? He was carefully examined and a careful history was obtained.? He has had no trouble breathing and no chest pains.? He seems quite medically stable.? He has a history of thymoma resection as well as a total thyroidectomy for a 1.4 cm papillary thyroid cancer which is now in remission.? He was breathing comfortably today.? His examination was unremarkable.? He has been quite stable lately with normal vital signs.? He is given medical clearance for cataract extraction with anesthesia without reservation.? ?The risk is minimal and the benefit is great.? He is medically cleared for the procedures. ?Questions?Have you had any new onset fever, chills, cough, congestion, sore throat, shortness of breath, muscle aches??No * ROS:?General/Constitutional:?pain?only normal aches and pains.?Chills?denies.?Fatigue?admits.?Fever?denies.?ENT:?Decreased hearing?denies.?Respiratory:?Cough?denies.?Cardiovascular:?Chest pain with exertion?denies.?Dyspnea on exertion?denies.?Shortness of breath?denies.?Gastrointestinal:?Constipation?occasional.?Decreased appetite?denies.?Diarrhea?denies.?Heartburn?denies.?Nausea?denies.?Rectal bleeding?denies.?Vomiting?denies.?Hematology:?bruising?denies.?petechiae?denies.?Swollen glands?none have been noted.?Genitourinary:?Frequent urination?once a night.?Musculoskeletal:?Muscle aches?denies.?Painful joints?denies.?Sciatica?denies.?Weakness?denies.?Skin:?Itching?denies.?Rash?denies.?Skin lesion(s)?denies.?Neurologic:?Difficulty speaking?denies.?Dizziness?denies.?Headache?denies.?Low back pain?denies.?Psychiatric:?Depressed mood?denies.? * Medical History:? * Surgical History:?lung biops y olonoscopy, [facility], Dr. Mccray 05/2020thymectomy, , [facility], benign 11/2020Thyroidectomy for papillary thyroid cancer [...] Findings: Tobacco Non-User?Ex-cigarette smoker ???He lives in [facility]. He is employed and has no toxic exposures. He is but has a good relationship with his ex-. He has recovered from his recent thymectomy and is back at work. He does not smoke or drink alcohol or take drugs. He has no children. He was sborn in [facility]. * Medications:?TakingAtorvasta tin Calcium 40 MG Tablet TAKE 1 TABLET [...] gyno[Allergies Verified] Objective: * Vitals:?Ht: 71, Wt: 221, BMI :30.82, BP: 138/80, HR: 78, Temp: 98.1, Wt-k.24. * Examination: ???General Examination: ?GENERAL APPEARANCE:?pleasant, well nourished, well developed, in no acute distress, calm and relaxed, obese, man.?HEAD:?atraumatic, normocephalic.?EYES:?eomi, perrla, anicteric, conjugate.?EARS:?normal.?NOSE:?septum intact.?ORAL CAVITY:?normal, unremarkable.?NECK/THYROID:?no jugular venous distention, no carotid bruit, thyroid normal,? Healed thyroidectomy scar, no palpable masses.?LYMPH NODES:?no enlarged lymph nodes,spleen normal.?SKIN:?no suspicious lesions, anicteric.?HEART:?no clicks, gallops, murmurs, or rubs, regular rhythm, S1, S2 normal, no s3, or vascular bruits, Healed sternotomy incision.?LUNGS:?clear to auscultation .?BREASTS:??no masses palpable bilaterally.?ABDOMEN:?bowel sounds normal, no ascites, no organomegaly, no mass, centripital obesity.?RECTAL EXAM:?not examined.?MUSCULOSKELETAL:?extremities unremarkable, no clubbing, cyanosis or edema.?PERIPHERAL PULSES:?normal.?NEUROLOGIC:?alert and oriented, cranial nerves 2-12 grossly intact, deep tendon reflexes 2+ symmetrical, motor strength normal upper and lower extremities, sensory exam intact.?PSYCH:?alert, oriented, alert, oriented, thought process logical, goal directed, cognitive function intact, good eye contact, speech clear.? Assessment: * Assessment: 1.?Thyroid cancer - C73 (Bhavana moya)???Notes :He was found to have a 1.4 cm papillary thyroid cancer in the right lobe of his thyroid which has been removed. There is no sign of recurrence???2.?Age-related incipient cataract of both eyes - H25.093???Notes :He is medically cleared for sequential bilateral cataract extraction and lens implantation in July 2024.? There is no contraindication and he is given medical clearance.???3.?Hyperlipidemia - E78.5???Notes :He seems to be stable.? A fasting lipid profile will be done prior to his next visit.???4.?Obesity (BMI 30.0-34.9) - E66.9???Notes :His body mass index is 30 in the obese range.? We have reviewed his weight loss strategy.? We have discussed diet and nutrition at length.? We made a plan to lose weight at a rate of one half of a pound per week.???5.?Hypertension - I10???Notes :His blood pressure is unremarkable and no change in his regimen was necessary today. I recommended aggressive weight loss and sodium restriction. He has succeeded in losing 4 pounds. He will continue to lose weight and be followed in the office.???6.?Thymoma, benign - D15.0???Notes :He has recovered from the surgery and the sternal incision is well-healed and nonpainful.???7.?Former smoker - Z87.891???Notes :He is highly motivated not to smoke. We formulated a plan to prevent relapse in times of stress and illness.???8.?Allergy to lisinopril - Z88.8???Notes :This medication caused a chronic cough and therefore it was discontinued.???9.?Type 2 diabetes mellitus without complication, without long-term current use of insulin - E11.9???Notes :His blood glucose is slightly elevated. Hemoglobin A1c has been ordered. No change in medication was necessary. He will pursue aggressive weight loss.??? Plan: * Treatment: 2.?Obesity (BMI 30.0-34.9)?LAB: PROFILE, FASTING (COMPREHENSIVE METABOLIC) ?LAB: PSA, TOTAL ?LAB: CBC WITH AUTO DIFF ?LAB: Lipid Panel 3.?Type 2 diabetes mellitus without complication, without long-term current use of insulin?LAB: PROFILE, FASTING (COMPREHENSIVE METABOLIC) ?LAB: PSA, TOTAL ?LAB: CBC WITH AUTO DIFF ?LAB: Lipid Panel 4.?Others? Continue Valsartan Tablet, 40 MG, TAKE 1 TABLET BY MOUTH EVERY DAY FOR 90 DAYS;?Continue Naproxen Tablet, 500 MG, 1 tablet with food or milk as needed, Orally, every 12 hrs for severe pain;?Continue Atorvastatin Calcium Tablet, 40 MG, TAKE 1 TABLET BY MOUTH EVERY DAY;?Continue Levothyroxine Sodium Tablet, 150 MCG, TAKE 1 [...] dangers of tobacco use and urged to quit.?07/28/2024 ??DM Care Plan:?Patient Lifestyle Goals?Patient wants to be able to manage diabetes without too much effort.?Treatment Goals?HbA1C < 7.0, Blood Sugars less than < 115.?Barriers?no barriers.?Self-Managment Goals?Work on weight loss, with a goal of losing 1 lb per week.? * Follow Up:?As Scheduled (Lovelady son: OV) * Images: * Sign off status: Completed true * Provider:?Nicholas Ontiveros MD Date:?07/04 Generated for Dominick culp/Mindy/eTransmitting on:?08/12/2024 06:03 AM EDT History and Physical Notes * HPI (History [...]
--- OUTSIDE RECORDS SUMMARY | 2024-08-12 06:03 | XMS_ITS ---
Author Organization Nicholas Ontiveros III, MD Address [address] [place] [address] [place] [address] Care Team Providers Care Senior Telecommunications Engineer Name Role Phone Nicholas Ontiveros Primary [...] Provider Speciality Internal M edicine Referred Provider [facility] er, Orthopedic Surgeons Referred Provider Specialty Orthopedic [facility] General Notes D Carolyn 04/05/2024 04:30:10 PM [...] Date Provider Diagnosis Nicholas Ontiveros III, MD [address] [place] [address] [place] [address] 03/31/2024 Nicholas Ontiveros Hyperlipidemia E78.5 ; Thyroid [...] and Treat Left Knee Pain, Orthopedic Surgeons [facility] Next Appt Details Follow Up: As Scheduled, t week in July, Reason: OV, Pre Op, Follow-up on knee pain and preoperative clearance for cataract surgery Provider Name:Nicholas Ontiveros, 08/18/2024 02:00:00 PM, [address] [place] [address] , [place] [address], [place], [address], Progress Notes * Narendra PAGAN HDOB:1 06/17/1959 (63 yo M)Acc No.[id number]:03/31/2024 Progress Notes Patient:?Michael PAGAN ra H Provider:?Nicholas Ontiveros MD :1960???Age:63 Y???Sex:Male Kelechi e:03/31/2024 Address:[address] [place], [place] [id number] Subjective: * Chief Complaints: * ???HypertensionLeft knee [...] History:? * Surgical History:?lung biops y olonoscopy, [facility], Dr. Mccray 05/2020thymectomy, , [facility], benign 11/2020Thyroidectomy for papillary thyroid cancer 2022 [...] Findings: Tobacco Non-User?Ex-cigarette smoker ???He lives in [facility]. He is employed and has no toxic exposures. He is but has a good relationship with his ex-. He has recovered from his recent thymectomy and is back at work. He does not smoke or drink alcohol or take drugs. He has no children. He was sborn in [facility]. * Medications:?TakingValsartan 40 MG Tablet 1 tablet [...] 97, Temp: 97.9, Wt-k.7. * ???Past Orders: Lab:[facility] [place] * Collection Date 03/26/2024 11/19/2023 [...] days, 30, Refills 1.? Referral To:Orthopedic Surgeons [facility]??Orthopedic Surgery ?Reason:Consult and Treat Left Knee [...] not done * Follow Up:?As Scheduled, t week in July (Reason: OV, Pre Op, Follow-up on knee pain and preoperative clearance for cataract surgery) * Images: * Sign off status: Completed true * Provider:?Nicholas Ontiveros MD Date:?03/04 Generated for Printi ng/Fajaquig/eTransmitting on:?08/12/2024 06:03 AM EDT History and Physical Notes * HPI (History of Present Illness) Category Sub-Category Detail Notes COVID-19 Screening Questions Have you had any new onset fever, chills, cough, congestion, sore throat, shortness of breath, muscle aches?: No Have you been exposed to the virus withi n the last 10 days?: No Have you travelled internationally in [facility] last 10 days?: No Have you [...] Referred Provider Not sabino 03/31/2024 Nicholas Ontiveros [facility], Orthopedic Surgeons Consult and Treat Left Knee Pain
--- OUTSIDE RECORDS SUMMARY | 2024-08-12 06:03 | XMS_ITS | Clinical Summary ---
Author Organization [facility] Address [address] [place] [address] Care Team Providers Care Horticultural Farmer Name Role Phone Nicholas Ontiveros MD Primary Care Provider [phone] Social History Tobacco Use Types Packs/Day Years [...] age to complete this topic Care Teams Horticultural Farmer Relationship Specialty Start Date End Date Nicholas Ontiveros MD [address] [address] PCP - General 07/18/21
--- OUTSIDE RECORDS SUMMARY | 2024-08-12 06:03 | XMS_ITS ---
Author Organization Nicholas Ontiveros III, MD Address [address] [place] [address] [place] [address] Care Team Providers Care Ambulance Officer Name Role Phone Nicholas Ontiveros Primary Care Provider [phone] Medications Medication SIG (Take, Route, Fr equency, Duration) Notes Start Date End Date Status Naproxen 500 MG 1 tablet with food o r milk as needed Orally every 12 hrs for severe pain for 30 days 04/05/2024 11/01/2024 Active Social History Sex Assigned At : Social History Observation Description Sex Assigned At Male Encounters Encounter Location Date Provider Diagnosis Nicholas Ontiveros III, MD [address] [place] [address] DR [facility] [place] [address] 04/05/2024 Nicholas Ontiveros Plan Of Treatment Medication Medication Name Sig Start Date Stop Date Notes Naproxen 500 MG 1 tablet with food o r milk as needed Orally every 12 hrs for severe pain for 30 days 04/05/2024 11/01/2024 Next Appt Details Provider Name:Nicholas Ontiveros, 08/18/2024 02:00:00 PM, [address] [place] [address] [address] [facility] [place], [phone], Progress Notes * Narendra PAGAN HDOB:1 06/17/1959 (63 yo M)Acc No.[id number]:04/05/2024 Patient:?Michael PAGAN ra Joao :1960???Age:63 Y???Sex:Male Address:[address] [place] [address], [address] * Refills? Start Naproxen Tablet, 500 MG, Orally, 60, 1 tablet with food or milk as needed, every 12 hrs for severe pain, 30 days, Refills=6 * true * Date:? Generated for Dominick culp/Mindy/Russsmitting on:?08/12/2024 06:03 AM EDT
[2024-08-12 06:09] LABS: MANUAL DIFF FLAG NO
[2024-08-12 06:54] LABS: Basophils Absolute Auto 0.1 X10*3/uL (0.0-0.2); Basophils Percent Auto 1.1 % (0-2); Eosinophils Absolute Auto 0.1 X10*3/uL (0.0-0.4); Eosinophils Percent Auto 1.9 % (0-4); Hematocrit 46.7 % (42.0-52.0); Imm Gran Abs Auto 0.01 X10*3/uL (0.00-0.03); Imm Gran Pct Auto 0.2 % (0.0-0.4); Lymphocytes Absolute Auto 1.5 X10*3/uL (1.2-4.9); Lymphocytes Percent Auto 24.1 % (20-40); Mean Corpuscular HGB Conc 32.1 g/dl (31.0-36.0); Mean Corpuscular Hemoglobin 25.6 pg (27.0-33.0); Mean Corpuscular Volume 79.7 fL (80.0-98.0); Mean Platelet Volume 11.3 fL (9.4-12.4); Monocytes Absolute Auto 0.6 X10*3/uL (0.1-1.2); Monocytes Percent Auto 9.2 % (2-11); Neutrophils Absolute Auto 3.9 x10*3/uL (2.0-8.3); Neutrophils Percent Auto 63.5 % (45-73); Platelet Count 200 X10*3/uL (160-400); Red Blood Count 5.86 X10*6/uL (4.60-5.80); White Blood Count 6.2 X10*3/uL (4.8-10.8)
[2024-08-12 07:09] LABS: Alanine Aminotransferase 51 U/L (0-40); Albumin Level 4.2 g/dL (3.5-5.0); Alkaline Phosphatase 87 U/L (39-117); Anion Gap 11 (12-20); Aspartate Amino Transferase 31 U/L (5-37); Bilirubin Total 0.8 mg/dL (0.0-1.0); Blood Urea Nitrogen 14 mg/dL (9-16); Calcium 9.3 mg/dL (8.4-10.2); Carbon Dioxide 27 mmol/L (22-29); Chloride 106 mmol/L (96-108); Cholesterol 121 mg/dL (<200); Estimated Glomerular Filt Rate > 60; Glucose Fasting 128 mg/dL (60-99); HDL Cholesterol 39 mg/dL (>40); LDL Cholesterol Calculated 70 mg/dL (<100); Potassium 4.1 mmol/L (3.3-5.1); Sodium 140 mmol/L (135-145); Total Protein 7.8 g/dL (6.5-8.0); Triglycerides 64 mg/dL (<150)
[2024-08-12 07:28] LABS: Prostate Specific Antigen 4.88 ng/mL (<0.05-4.0)
== END 2024-08-12 06:01 | disposition home or self-care (01) ==
LOC: HO.LAB 06:00
PROVIDERS: PCP Internal Medicine Medical Oncology; Visit Provider Internal Medicine Medical Oncology
DX: E78.5 Hyperlipidemia, unspecified (principal); E66.9 Obesity, unspecified; N40.0 Benign prostatic hyperplasia without lower urinary tract symptoms; E11.9 Type 2 diabetes mellitus without complications
CPT/HCPCS: 36415; 80053; 80061; 84153; 85025

== ENCOUNTER 2024-09-07 09:05 | Outpatient (AMB) | payer OTHER, SELFPAY ==
[2024-09-07 09:45] VITALS: BMI 32.6
--- NOTE | 2024-09-07 09:45 | A.OFFVIS_ITS ---
Vital Signs 09/07/24 09:45 Height 5 ft 11 in Weight 234 lb BMI 32.6 Intake Visit Reasons: Left knee pain Intake Note: Narendra is a 64 year old female who presents with complaints of left knee pain. He describes his pain as sharp in nature. He has had cortisone injections in the past which gave him fairly good relief. He wishes to hold off on surgery if at all possible. He has done physical therapy exercises which aggravated his pain. He has also tried Tylenol and anti-inflammatory medicines which gave him minimal relief. Allergies lisinopril Allergy (Verified 09/07/24 09:49) Cough Medication List - Last Reconciled 09/07/24 by Jamie Campbell MD atorvastatin 40 mg PO BEDTIME 90 days levothyroxine 150 mcg PO DAILY valsartan 40 mg PO DAILY [facility] Medical History (Updated 05/19/24 @ 10:21 by Jamie Capmbell MD) Thyroid cancer Thyroid nodule Albuminuria Thymoma (~2020) Personal history of nicotine dependence Polyp of colon, hyperplastic (~2019) Obesity (BMI 30-39.9) Impaired fasting glucose Pure hypercholesterolemia Benign essential hypertension Surgical History History of lung biopsy (~09/2020) Hx of colonoscopy (~05/2020) S/P thymectomy (~12/20/20) Status post thymectomy Family History Father No problems noted. Mother No problems noted. 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 Physical Exam Vital Signs: BMI result Body Mass Index 32.6 Const Other: Well-nourished well-developed very friendly male awake alert and oriented x3 in no acute distress Extrem Other: Bilateral lower extremity examination shows good capillary refill, no skin lesions noted, normal sensation light touch Left knee examination shows a minimal effusion, palpable crepitus with range of motion, pain with range of motion, no instability Office Procedures AMB Joint Injection/Aspiration Joint Injection/Aspiration Primary Site: left knee Prep: site was prepped using aseptic technique Injected: 40 mg of, DepoMedrol and 1% plain lidocaine Procedure: The patient tolerated the procedure well Coding - Large joint Procedure code (CPT) selection complete Results Reviewed Results Reviewed: X-rays of the patient's left knee show joint space narrowing, subchondral sclerosis, no acute bony abnormalities Assessment & Plan Assessment & Plan (1) Osteoarthritis of left knee: Code(s): M17.12 - Unilateral primary osteoarthritis, left knee Category: Medical (2) Left knee pain: Code(s): M25.562 - Pain in left knee Category: Medical Plan Narendra presents with left knee pain due to degenerative joint disease. The risks and benefits of a left knee cortisone injection were discussed at length with the patient. The patient wished to proceed. He tolerated the injection well. Will continue with his home exercise program. He will contact me prior to his follow-up appointment in 3 months should any questions or concerns arise. Feel free to call me at any time should questions regarding his orthopedic management arise. I spent 22 minutes in reviewing the patient's records and imaging studies, seeing the patient and documenting in the medical record. Orders: Orders AMB Joint Injection/Aspiration Today M17.12 - Unilateral primary osteoarthritis, left knee Coding Level of Care Code Est Pt Level 3 (98322) Complex EM visit Add On G2211 Diagnoses Osteoarthritis of left knee M17.12 Left knee pain M25.562 CPT Codes Coding - Large joint: 80515 - Large joint ([id number])
--- OUTSIDE RECORDS SUMMARY | 2024-09-07 09:59 | XMS_ITS ---
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 Name Role Phone Nicholas Ontiveros Primary Care Provider [phone] Allergies Allergen (clinical drug ingredient) Drug/Non Drug [...] Problem Status W/U Status Risk Notes Problem [id number] Age-related incipient cataract of both eyes (H25.093) [...] Date Provider Diagnosis Nicholas Ontiveros III, MD [address] [place] [address] [place] [address] 07/28/2024 Nicholas Ontiveros Thyroid cancer C73 ; [...] Scheduled, Verito son: OV Provider Name:Nicholas Ontiveros, 11/25/2024 09:00:00 AM, [address] [place] [address] [address], [place], [id number], Provider Name:Nicholas Ontiveros, 08/22/2025 02:00:00 PM, [address] [place] [address] [address], [place], [address], Progress Notes * Narendra PAGAN HDOB:1 06/17/1959 (64 yo M)Acc No.[id number]:07/28/2024 Patient:?Michael PAGAN ra Provider:?Nicholas Ontiveros MD :1960???Age:64 Y???Sex:Male Kelechi e:07/28/2024 Address:[address] [place] [address] Subjective: * Chief Complaints: * ???Medical clearance for gabrielle ateral cataract surgery by Dr. Bocanegra on 08/05/24, 08/20/24HypertensionHyperlipidemiaObesityHistory of resected thymomaProstatic hypertrophyDiabetesHistory of thyroidectomy for papillary thyroid cancer. I * HPI: ???COVID-19 Screening:? 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 He is here today for [...] History:? * Surgical History:?lung biops y olonoscopy, [facility], Dr. Mccray 05/2020thymectomy, , [facility] [...] Tobacco Non-User?Ex-cigarette smoker ???He lives in [facility]. He is employed and has no toxic exposures. He is but has a good relationship with his ex-. He has recovered from his recent thymectomy and is back at work. He does not smoke or drink alcohol or take drugs. He has no children. He was sborn in [facility]. * Medications:?TakingAtorvasta tin Calcium 40 MG Tablet [...] lb per week.? * Follow Up:?As Scheduled (Verito son: OV) * Images: * Sign off status: Completed true * Provider:?Nicholas Ontiveros MD Date:?07/04 Generated for Dominick culp/Mindy/Naveenitting on:?09/07/2024 09:59 AM EDT History and Physical Notes * [...]
--- OUTSIDE RECORDS SUMMARY | 2024-09-07 09:59 | XMS_ITS ---
Author Organization Nicholas Ontiveros III, MD Address [address] 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, [address], Provider Name:Nicholas Ontiveros, 08/22/2025 02:00:00 PM, [address] [facility] [place], [address], Progress Notes * Narendra PAGAN HDOB:1 06/17/1959 (63 yo M)Acc No.[id number]:04/05/2024 Patient:?JEANETH Michael graves Joao :1960???Age:63 Y???Sex:Male Address:[address] [place] [address] * Refills? Start Naproxen Tablet, 500 MG, Orally, 60, 1 tablet with food or milk as needed, every 12 hrs for severe pain, 30 days, Refills=6 * true * Date:? Generated for Dominick culp/Mindy/eTransmitting on:?09/07/2024 09:59 AM EDT
--- OUTSIDE RECORDS SUMMARY | 2024-09-07 09:59 | XMS_ITS ---
Author Organization Nicholas Ontiveros III, MD Address [address] [place] [address] Care Team Providers Care Higher Level Teaching Assistant Name Role Phone Nicholas Ontiveros Primary Care Provider [phone] Allergies Allergen (clinical drug ingredient) Drug/Non Drug [...] Problem Status W/U Status Risk Notes Problem [id number] Elevated PSA (R97.20) Active confirmed In the [...] Date Provider Diagnosis Nicholas Ontiveros III, MD [address] [place] [address] [place] [address] 08/18/2024 Nicholas Ontiveros Hypertension I10 ; Hyperlipidemia [...] Up: 2 Months, Reason: ov Provider Name:Nicholas Quiñonesrne, 11/25/2024 09:00:00 AM, [address] [place] [address] [address], [place], [phone], Provider Name:Nicholas Ontiveros, 08/22/2025 02:00:00 PM, [address] [place] [address] [address], [place], [address], Progress Notes * Narendra PAGAN HDOB:1 06/17/1959 (64 yo M)Acc No.[id number]:08/18/2024 Progress Notes Patient:?YURIROLANDOMichael NASH ra H Provider:?Nicholas Ontiveros MD :1960???Age:64 Y???Sex:Male Kelechi e:08/18/2024 Address:[address] [place] [address] Subjective: * Chief Complaints: * ???Annual Exam * HPI: ???Depression Screening:?He returns for his annual physical examination at the age of 64.? Since his last visit he has been healthy and well.? His blood work was reviewed with him.? His physical examination showed no new problems. He is followed here for a history of a thymoma, obesity, hyperlipidemia and hypertensioon, diabetes mellitus and benign prostatic hypertrophy.? All of these problems have been stable.There was no sign of recurrent thyroid cancer at this time.? He has no bone pain and feels quite well.? He is trying to lose weight and consume a healthy diet.? He has been compliant with all of his medication. ?PHQ-9?Little interest or pleasure in doing things?Not at all ?Feeling down, depressed, or hopeless?Not at all ?Trouble falling or staying asleep, or sleeping too much?Not at all ?Feeling tired or having little energy?Not at all ?Poor appetite or overeating?Not at all ?Feeling bad about yourself or that you are a failure, or have let yourself or your family down?Not at all ?Trouble concentrating on things, such as reading the newspaper or watching television?Not at all ?Moving or speaking so slowly that other people could have noticed; or the opposite, being so fidgety or restless that you have been moving around a lot more than usual?Not at all ?Thoughts that you would be better off or of hurting yourself in some way?Not at all ?Total Score?0 ???COVID-19 Screening:?Questions?Have you had any new onset fever, chills, cough, congestion, sore throat, shortness of breath, muscle aches??No ???SDOH Questions:?SDOH Questions?In the past year have you been worried about losing your housing??No ?In the past year have you or any family members you live with been unable to get any of the following when it was really needed? Check all that apply:?None * ROS:?General/Constitutional:?pain?only normal aches and pains.?Chills?denies.?Fatigue?admits.?Fever?denies.?ENT:?Decreased hearing?denies.?Respiratory:?Cough?denies.?Cardiovascular:?Chest pain with exertion?denies.?Dyspnea on exertion?denies.?Shortness of breath?denies.?Gastrointestinal:?Constipation?occasional.?Decreased appetite?denies.?Diarrhea?denies.?Heartburn?denies.?Nausea?denies.?Rectal bleeding?denies.?Vomiting?denies.?Hematology:?bruising?denies.?petechiae?denies.?Swollen glands?none have been noted.?Genitourinary:?Frequent urination?once a night.?Musculoskeletal:?Muscle aches?denies.?Painful joints?denies.?Sciatica?denies.?Weakness?denies.?Skin:?Itching?denies.?Rash?denies.?Skin lesion(s)?denies.?Neurologic:?Difficulty speaking?denies.?Dizziness?denies.?Headache?denies.?Low back pain?denies.?Psychiatric:?Depressed mood?denies.? * Medical History:? * Surgical History:?lung biops y olonoscopy, [facility], Dr. Mccray 05/2020thymectomy, , [facility], benign 11/2020Thyroidectomy for papillary thyroid cancer ilateral eye cataract surgery 2024 * Hospitalization/Major Diagno stic Procedure:?Denies Past Hospitalization [...] healthy and well. * Social History:?Tobacco Use:?Tobacco Control (Standard)?Tobacco use:?Former smoker ?How long has it been since you last smoked??5-10 years ?Additional Findings: Tobacco non-user?Ex-cigarette smoker ???Drugs/Alcohol:?Drugs?Have you used drugs other than those for medical reasons in the past 12 months??No ???Drug/Alcohol:?AUDIT-C (Standard)?Did you have a drink containing alcohol in the past year??Yes ?How often did you have six or more drinks on one occasion in the past year??Less than monthly (1 point) ?How many drinks did you have on a typical day when you were drinking in the past year??1 or 2 drinks (0 point) ?How often did you have a drink containing alcohol in the past year??Never (0 point) ?Points?1 ?Interpretation?Negative ???He lives in [facility]. He is employed and has no toxic exposures. He is but has a good relationship with his ex-. He has recovered from his recent thymectomy and is back at work. He does not smoke or drink alcohol or take drugs. He has no children. He was sborn in [facility]. * Medications:?TakingValsartan 40 MG Tablet TAKE 1 TABLET BY [...] Vitals:?Ht: 71, Wt: 222, BMI :30.96, BP: 133/77, HR: 80, Temp: 98.4, Wt-k.7. * ???Past Orders: Lab:Complete Blood Count Aut o Diff * Collection Date 08/12/2024 07/21/2024 03/26/2024 Collection Time 06:08 AM 06:15 AM 10:44 AM Order Date 08/12/2024 07/21/2024 03/26/2024 White Blood Count 6.2 (Ref Range: 4.8-10.8 X10*3/uL) 6.2 (Ref Range: 4.8-10.8 X10*3/uL) 7.1 (Ref Range: 4.8-10.8 X10*3/uL) Red Blood Count 5.86?H (Ref Range: 4.60-5.80 X10*6/uL) 5.98?H (Ref Range: 4.60-5.80 X10*6/uL) 6.17?H (Ref Range: 4.60-5.80 X10*6/uL) Hemoglobin 15.0 (Ref Range: 14.0-18.0 g/dl) 15.4 (Ref Range: 14.0-18.0 g/dl) 15.7 (Ref Range: 14.0-18.0 g/dl) Hematocrit 46.7 (Ref Range: 42.0-52.0 %) 47.5 (Ref Range: 42.0-52.0 %) 48.8 (Ref Range: 42.0-52.0 %) Mean Corpuscular Volume 79.7?L (Ref Range: 80.0-98.0 fL) 79.4?L (Ref Range: 80.0-98.0 fL) 79.1?L (Ref Range: 80.0-98.0 fL) Mean Corpuscular Hemoglobin 25.6?L (Ref Range: 27.0-33.0 pg) 25.8?L (Ref Range: 27.0-33.0 pg) 25.4?L (Ref Range: 27.0-33.0 pg) Mean Corpuscular HGB [...] 20-40 %) 24.2 (Ref Range: 20-40 %) 19.9?L (Ref Range: 20-40 %) Monocytes Percent Auto [...] 0.000 (Ref Range: 0.0-0.012 X10*3/uL) * Lab:Wisam Ferreira l Fast * Collection Date 08/12/2024 07/21/2024 [...] 5-37 U/L) 34 (Ref Range: 5-37 U/L) 38?H (Ref Range: 5-37 U/L) Alanine Aminotransferase 51?H (Ref Range: 0-40 U/L) 59?H (Ref Range: 0-40 U/L) 59?H (Ref Range: 0-40 U/L) Total Protein 7.8 [...] 27 (Ref Range: 22-29 mmol/L) Anion Gap 11?L (Ref Range: 12-20) 15 (Ref Range: 12-20) 13 (Ref Range: 12-20) Blood Urea Nitrogen 14 (Ref Range: 9-16 mg/dL) 17?H (Ref Range: 9-16 mg/dL) 10 (Ref Range: 9-16 mg/dL) Creatinine 0.88 (Ref Range: 0.5-1.4 mg/dL) 0.84 (Ref Range: 0.5-1.4 mg/dL) 0.97 (Ref Range: 0.5-1.4 mg/dL) Estimated Glomerular Filt Rate > 60 > 60 > 60 Glucose Fasting 128?H (Ref Range: 60-99 mg/dL) 120?H (Ref Range: 60-99 mg/dL) 118?H (Ref Range: 60-99 mg/dL) Calcium 9.3 (Ref [...] 88 (Ref Range: <100 mg/dL) HDL Cholesterol 39?L (Ref Range: >40 mg/dL) 39?L (Ref Range: >40 mg/dL) 47 (Ref Range: >40 mg/dL) * Lab:Prostate Specific Antige n * Collection Date 08/12/2024 03/26/2024 06/19/2021 Collection Time 06:08 AM 10:44 AM 06:22 AM Order Date 08/12/2024 03/26/2024 06/19/2021 Prostate Specific Antigen 4.88?H (Ref Range: <0.05-4.0 ng/mL) 4.78?H (Ref Range: <0.05-4.0 ng/mL) 3.14 (Ref Range: <0.05-4.0 ng/mL) ???Lab:Microalbumin, Random (Order Date - 07/21/2024) (Collection Date & Time - 07/21/2024 06:10 AM)?ValueReference Range?Creatinine Pauiw848.04- mg/dL?Microalbumin Urine15.0- mg/L?Microalbum Creatinine Ratio Ur 7.0<30 - ug/mg cr ???Lab:Hemoglobin A1c (Order Date - 07/21/2024) (Collection Date & Time - 07/21/2024 06:15 AM)?ValueReference Range?Hemoglobin A1c %7.0H<6.0 - %?Estimated Average Wttscrr491- mg/dL ???Lab:PSA Free and Total (Order Date [...] -) Menstrating NR NR N/A * Examination: ???General Examination: ?GENERAL APPEARANCE:?pleasant, well nourished, well developed, in no acute distress, calm and relaxed, obese, man.?HEAD:?atraumatic, normocephalic.?EYES:?eomi, perrla, anicteric, conjugate.?EARS:?normal.?NOSE:?septum intact.?ORAL CAVITY:?normal, unremarkable.?NECK/THYROID:?no jugular venous distention, no carotid bruit, No thyroid remnant palpable, healed thyroidectomy scar.?LYMPH NODES:?no enlarged lymph nodes,spleen normal.?SKIN:?no suspicious lesions, anicteric.?HEART:?no clicks, gallops, murmurs, or rubs, regular rhythm, S1, S2 normal, no s3, or vascular bruits, Healed sternotomy incision.?LUNGS:?clear to auscultation .?BREASTS:??no masses palpable bilaterally.?ABDOMEN:?bowel sounds normal, no ascites, no organomegaly, no mass, centripital obesity.?RECTAL EXAM:?prostate normal, stool guaiac negative, no masses palpable.?MUSCULOSKELETAL:?extremities unremarkable, no clubbing, cyanosis or edema.?PERIPHERAL PULSES:?normal.?NEUROLOGIC:?alert and oriented, cranial nerves 2-12 grossly intact, deep tendon reflexes 2+ symmetrical, motor strength normal upper and lower extremities, sensory exam intact.?PSYCH:?alert, oriented.? Assessment: * Assessment: 1.?Hypertension - I10 (Prima ry)???Notes :His blood pressure is unremarkable and no change in his regimen was necessary today. I recommended aggressive weight loss and sodium restriction. He has succeeded in losing 4 pounds. He will continue to lose weight and be followed in the office.???2.?Hyperlipidemia - E78.5???Notes :His total cholesterol is 121.? He was continued on current medication.? No change was necessary.???3.?Obesity (BMI 30.0-34.9) - E66.9???Notes :His body mass index is 30 in the obese range. We have reviewed his weight loss strategy. We have discussed diet and nutrition at length. We made a plan to lose weight at a rate of one half of a pound per week.???4.?Thymoma, benign - D15.0???Notes :He has recovered from the surgery and the sternal incision is well-healed and nonpainful.???5.?Former smoker - Z87.891???Notes :He is highly motivated not to smoke. We formulated a plan to prevent relapse in times of stress and illness.???6.?Type 2 diabetes mellitus without complication, without long-term current use of insulin - E11.9???Notes :His blood glucose is slightly elevated. Hemoglobin A1c is 7.0. No change in medication was necessary. He will pursue aggressive weight loss.???7.?Thyroid cancer - C73???Notes :He was found to have a 1.4 cm papillary thyroid cancer in the right lobe of his thyroid which has been removed. There is no sign of recurrence.? He is asymptomatic and feeling well.???8.?Age-related incipient cataract of both eyes - H25.093???Notes :He is medically cleared for sequential bilateral cataract extraction and lens implantation in July 2024. There is no contraindication and he is given medical clearance.???9.?Elevated PSA - R97.20???Notes :In the past his PSA was 3.14 and then 4.78.? It is now 4.88 with a free PSA of 11%.? This is going to be repeated in the near future.? Necessary he will see urology.? No nodules were palpated today.??? Plan: * Treatment: * Labs:? * ?Lab: URINE DIP STICK (C ollection Date & Time - 08/18/2024) ? Value Reference Range ?SG 1.030 1.005 - 1.025 * ?pH 5.0 5.0 - 9.0 * ?JEFFRY Negative Negative - * ?NIT Negative Negative - * ?PRO 15 Negative - Trac e * ?GLU Negative Negative - * ?KET 5 Negative - * ?UBG 0.2 0.1 - 1.8 * ?ALPHONSE 1 0.2 - 1.3 * ?BLD + Negative - * Procedure Codes:?14659 URINE -NO MICRO * Preventive Medicine:? ??Counseling:?Care goal follow-up plan:?Counseling [...] dangers of tobacco use and urged to quit.?08/18/2024 ??DM Care Plan:?Patient Lifestyle Goals?Patient wants to be able to manage diabetes without too much effort.?Treatment Goals?Blood Sugars less than < 115, HbA1C < 7.0.?Barriers?no barriers.?Self-Managment Goals?Work on weight loss, with a goal of losing 1 lb per week.? * Follow Up:?2 Months (Reason: ov) * Images: * Sign off status: Completed true * Provider:?Nicholas Ontiveros MD Date:?07/31 Generated for Dominick culp/Mindy/eTransmitting on:?09/07/2024 09:59 AM EDT History and Physical [...]
--- OUTSIDE RECORDS SUMMARY | 2024-09-07 09:59 | XMS_ITS | Patient Health Record ---
Author Organization Nicholas Ontiveros III, MD Address [address] [place] [address] Care Team Providers Care Black Leather Buffer Name Role Phone Nicholas Ontiveros Primary Care [...] 0.2 - 1.3 BLD + Negative - Diabetic Eye Exam Reviewed date:11/25/2023 01:32:39 PM Interpretation:undefined Performing Lab: Notes/Report: undefined Complete Blood Count Auto Di ff Reviewed date:11/22/2023 05:53:30 PM Interpretation: Performing Lab:[facility], [address] [place] [phone] Notes/Report: White Blood Count 6.0 4.8-10.8 X10*3/uL [...] NRBC Abs Auto 0.000 0.0-0.012 X10*3/uL Comprehensive Post. Panel Fa st Reviewed date:11/22/2023 05:53:30 PM Interpretation: Performing Lab:[facility], [address] [place] [phone] Notes/Report: Sodium 140 135-145 mmol/L Potassium 4.0 3.3-5.1 mmol/L Chloride 105 96-108 mmol/L Carbon Dioxide 29 22-29 mmol/L Anion Gap 10 12-20 Blood Urea Nitrogen 15 9-16 mg/dL Creatinine 0.92 0.5-1.4 mg/dL Estimated Glomerular Filt Rate > 60 NOTE: For -Russian individuals, multiply the result by 1.210. Chronic [...] Panel Reviewed date:11/22/2023 05:53:30 PM Interpretation: Performing Lab:[facility], [address] [place] [phone] Notes/Report: Triglycerides 101 <150 mg/dL Desirable Triglyceride: [...] ff Reviewed date:03/27/2024 09:04:41 PM Interpretation: Performing Lab:[facility], [address] [place] [phone] Notes/Report: White Blood Count 7.1 4.8-10.8 X10*3/uL [...] NRBC Abs Auto 0.000 0.0-0.012 X10*3/uL Comprehensive Post. Panel Fa st Reviewed date:03/27/2024 09:04:41 PM Interpretation: Performing Lab:[facility], [address] [place] [phone] Notes/Report: Sodium 139 135-145 mmol/L Potassium 4.3 3.3-5.1 mmol/L Chloride 103 96-108 mmol/L Carbon Dioxide 27 22-29 mmol/L Anion Gap 13 12-20 Blood Urea Nitrogen 10 9-16 mg/dL Creatinine 0.97 0.5-1.4 mg/dL Estimated Glomerular Filt Rate > 60 NOTE: For -Russian individuals, multiply the result by 1.210. Chronic [...] Panel Reviewed date:03/27/2024 09:04:41 PM Interpretation: Performing Lab:[facility], [address] [place] [phone] Notes/Report: Triglycerides 93 <150 mg/dL Desirable Triglyceride: [...] Antigen Reviewed date:03/27/2024 09:04:41 PM Interpretation: Performing Lab:[facility], [address] [place] [phone] Notes/Report: Prostate Specific Antigen 4.78 <0.05-4.0 ng/mL PSA methodology: Gold Alinity i Chemiluminescent Microparticle Immunoassay (CMIA) Free T4 (Free Thyroxine) Reviewed date:03/27/2024 09:04:41 PM Interpretation: Performing Lab:[address] [phone] Notes/Report: Free T4 (Free Thyroxine) 1.31 0.71-1.85 ng/dL Thyroid Stimulating Hormone Reviewed date:03/27/2024 09:04:41 PM Interpretation: Performing Lab:[facility], [address] [place] [phone] Notes/Report: Thyroid Stimulating Hormone 0.41 0.32-4.0 uIU/ mL TSH 3rd Generation ([employer]) Complete Blood Count Auto Di ff Reviewed date:07/21/2024 03:44:39 PM Interpretation: Performing Lab:[facility], [address] [place] [phone] Notes/Report: White Blood Count 6.2 4.8-10.8 X10*3/uL Red Blood Count 5.98 4.60-5.80 X10*6/uL Hemoglobin 15.4 14.0-18.0 g/dl Hematocrit 47.5 42.0-52.0 % Mean Corpuscular Volume 79.4 80.0-98.0 fL Mean Corpuscular Hemoglobin 25.8 27.0-33.0 pg Mean Corpuscular HGB Conc 32.4 31.0-36.0 g/dl Red Cell Distribution Width 14.0 11.0-16.0 % Platelet Count 213 160-400 X10*3/uL Mean Platelet Volume 11.1 9.4-12.4 fL Neutrophils Percent Auto 62.8 45-73 % Imm Gran Pct Auto 0.3 0.0-0.4 % Lymphocytes Percent Auto 24.2 20-40 % Monocytes Percent Auto 10.1 2-11 % Eosinophils Percent Auto 1.5 0-4 % Basophils Percent Auto 1.1 0-2 % NRBC Pct Auto 0.0 0.0-0.2 /100WBC Neutrophils Absolute Auto 3.9 2.0-8.3 x10*3/u L Imm Gran Abs Auto 0.02 0.00-0.03 X10*3/uL Lymphocytes Absolute Auto 1.5 1.2-4.9 X10*3/u L Monocytes Absolute Auto 0.6 0.1-1.2 X10*3/uL Eosinophils Absolute Auto 0.1 0.0-0.4 X10*3/u L Basophils Absolute Auto 0.1 0.0-0.2 X10*3/uL NRBC Abs Auto 0.000 0.0-0.012 X10*3/uL Comprehensive Post. Panel Fa st Reviewed date:07/21/2024 03:44:39 PM Interpretation: Performing Lab:[facility], [address] [place] [phone] Notes/Report: Sodium 141 135-145 mmol/L Potassium 4.2 3.3-5.1 mmol/L Chloride 105 96-108 mmol/L Carbon Dioxide 25 22-29 mmol/L Anion Gap 15 12-20 Blood Urea Nitrogen 17 9-16 mg/dL Creatinine 0.84 0.5-1.4 mg/dL Estimated Glomerular Filt Rate > 60 Chronic Kidney Disease: Estimated GFR < 60 mL/min/1.73m2 Severe Kidney Disease: Estimated GFR < 15 mL/min/1.73m2 Glucose Fasting 120 60-99 mg/dL A fasting glucose from 100-125 mg/dl is considered impaired (pre-diabetes). Calcium 9.4 8.4-10.2 mg/dL Bilirubin Total 0.8 0.0-1.0 mg/dL Aspartate Amino Transferase 34 5-37 U/L Alanine Aminotransferase 59 0-40 U/L Total Protein 8.0 6.5-8.0 g/dL Albumin Level 4.3 3.5-5.0 g/dL Alkaline Phosphatase 82 39-117 U/L Lipid Panel Reviewed date:07/21/2024 03:44:39 PM Interpretation: Performing Lab:[facility], [address] [place] [phone] Notes/Report: Triglycerides 83 <150 mg/dL Desirable Triglyceride: less than 150 mg/dL Borderline High Triglyceride 150-199 mg/dL High Triglyceride: 200-499 mg/dL Very High Triglyceride: greater than or equal to 5OO mg/dL Cholesterol 139 <200 mg/dL Desirable Cholesterol: less than 200 mg/dL Borderline High Cholesterol: 200-239 mg/dL High Cholesterol: greater than 239 mg/dL LDL Cholesterol Calculated 84 <100 mg/dL Desirable LDL: less than 100 mg/dL Near Optimal/Above Optimal LDL: 110-129 mg/dL Borderline High LDL: 130-159 mg/dL High LDL: 160-189 mg/dL Very High LDL: greater than or equal to 190 mg/dL HDL Cholesterol 39 >40 mg/dL Desirable HDL: greater than 40 mg/dL Note: This HDL assay may give artificially low results in patients with liver disease. PSA Free and Total Reviewed date:07/25/2024 09:07:18 AM Interpretation: Performing Lab:[facility], [address] [place] [phone] Notes/Report: Prostate Specific Ag Total 4.7 < OR = 4.0 ng/ mL Percent Free Prostate Spec Ag 11 >25 % (calc ) PSA(ng/mL) Free PSA(%) Estimated(x) Probability of Cancer(as%) 0-2.5 (*) Approx. 1 2.6-4.0(1) 0-27(2) 24(3) 4.1-10(4) 0-10 56 11-15 28 16-20 20 21-25 16 >or =26 8 >10(+) N/A >50 References:(1)Jason et al.:Urology 60: 469-474 (2001) (2)Jason et al.:J.Urol 168: 922-925 (2001) Free PSA(%) Sensitivity(%) Specificity(%) < or = 25 85 19 < or = 30 93 9 (3)Catalona et al.:SILKE 277: 4464-5463 (1996) (4)Catalona et al.:SILKE 279: 7709-3351 (1997) (x)These estimates vary with age, ethnicity, family history and JOSE results. (*)The diagnostic usefulness of % Free PSA has not been established in patients with total PSA below 2.6 ng/mL (+)In men with PSA above 10 ng/mL, prostate cancer risk is determined by total PSA alone. The Total PSA value from this assay system is standardized against the equimolar PSA standard. The test result will be approximately 20% higher when compared to the WHO-standardized Total PSA (Siemens assay). Comparison of serial PSA results should be interpreted with this fact in mind. PSA was performed using the [place] Immunoassay method. Values obtained from different assay methods cannot be used interchangeably. PSA levels, regardless of value, should not be interpreted as absolute evidence of the presence or absence of disease. THIS TEST WAS PERFORMED AT: [facility] [address] [place] [phone] MAURY ORTIZ MD Free Prostate Spec Ag 0.5 Free T4 (Free Thyroxine) Reviewed date:07/21/2024 03:44:39 PM Interpretation: Performing Lab:[facility], [address] [place] [phone] Notes/Report: Free T4 (Free Thyroxine) 1.56 0.71-1.85 ng/dL Microalbumin, Random Reviewed date:07/21/2024 03:44:39 PM Interpretation: Performing Lab:[facility], [address] [place] [phone] Notes/Report: Creatinine Urine 214.04 Microalbumin Urine 15.0 Microalbum/Creatinine Ratio Ur 7.0 <30 ug/mg cr Albumin/Creatinine Ratio Reference Ranges: Normal: < 30 ug/mg creatinine Microalbuminuria: 30 - 300 ug/mg creatinine Clinical Albuminuria: > 300 ug/mg creatinine Hemoglobin A1c Reviewed date:07/21/2024 03:44:39 PM Interpretation: Performing Lab:[facility], [address] [place] [phone] Notes/Report: Hemoglobin A1c % 7.0 <6.0 % Hemoglobin A1C Reference Range Adults: 4.8 - 6.0 % Non diabetic: < 6.0 % Goal: < 7.0 % Additional Action Suggested: > 8.0 % Note: Hemoglobin A1c results are invalid for patients with abnormal amounts of HbF. Blood transfusions may impact the HbA1c concentration in the patient sample. Estimated Average Glucose 154 eAG = Estimated average glucose which is %A1C expressed as average glucose, using the formula of the K8M-Nrhytzl Average Glucose study (ADAG), Diabetes Care, Vol.31,#8, 2007 Complete Blood Count Auto Di ff Reviewed date:08/18/2024 02:09:40 PM Interpretation: Performing Lab:[facility], [address] [place] [phone] Notes/Report: White Blood Count 6.2 4.8-10.8 X10*3/uL Red Blood Count 5.86 4.60-5.80 X10*6/uL Hemoglobin 15.0 14.0-18.0 g/dl Hematocrit 46.7 42.0-52.0 % Mean Corpuscular Volume 79.7 80.0-98.0 fL Mean Corpuscular Hemoglobin 25.6 27.0-33.0 pg Mean Corpuscular HGB Conc 32.1 31.0-36.0 g/dl Red Cell Distribution Width 14.0 11.0-16.0 % Platelet Count 200 160-400 X10*3/uL Mean Platelet Volume 11.3 9.4-12.4 fL Neutrophils Percent Auto 63.5 45-73 % Imm Gran Pct Auto 0.2 0.0-0.4 % Lymphocytes Percent Auto 24.1 20-40 % Monocytes Percent Auto 9.2 2-11 % Eosinophils Percent Auto 1.9 0-4 % Basophils Percent Auto 1.1 0-2 % NRBC Pct Auto 0.0 0.0-0.2 /100WBC Neutrophils Absolute Auto 3.9 2.0-8.3 x10*3/u L Imm Gran Abs Auto 0.01 0.00-0.03 X10*3/uL Lymphocytes Absolute Auto 1.5 1.2-4.9 X10*3/u L Monocytes Absolute Auto 0.6 0.1-1.2 X10*3/uL Eosinophils Absolute Auto 0.1 0.0-0.4 X10*3/u L Basophils Absolute Auto 0.1 0.0-0.2 X10*3/uL NRBC Abs Auto 0.000 0.0-0.012 X10*3/uL Comprehensive Post. Panel Fa st Reviewed date:08/18/2024 02:09:40 PM Interpretation: Performing Lab:[facility], [address] [place] [phone] Notes/Report: Sodium 140 135-145 mmol/L Potassium 4.1 3.3-5.1 mmol/L Chloride 106 96-108 mmol/L Carbon Dioxide 27 22-29 mmol/L Anion Gap 11 12-20 Blood Urea Nitrogen 14 9-16 mg/dL Creatinine 0.88 0.5-1.4 mg/dL Estimated Glomerular Filt Rate > 60 Chronic Kidney Disease: Estimated GFR < 60 mL/min/1.73m2 Severe Kidney Disease: Estimated GFR < 15 mL/min/1.73m2 Glucose Fasting 128 60-99 mg/dL A fasting glucose of 126 mg/dl or greater on more than one occasion is considered diagnostic of diabetes. Calcium 9.3 8.4-10.2 mg/dL Bilirubin Total 0.8 0.0-1.0 mg/dL Aspartate Amino Transferase 31 5-37 U/L Alanine Aminotransferase 51 0-40 U/L Total Protein 7.8 6.5-8.0 g/dL Albumin Level 4.2 3.5-5.0 g/dL Alkaline Phosphatase 87 39-117 U/L Lipid Panel Reviewed date:08/18/2024 02:09:40 PM Interpretation: Performing Lab:[facility], [address] [place] [phone] Notes/Report: Triglycerides 64 <150 mg/dL Desirable Triglyceride: less than 150 mg/dL Borderline High Triglyceride 150-199 mg/dL High Triglyceride: 200-499 mg/dL Very High Triglyceride: greater than or equal to 5OO mg/dL Cholesterol 121 <200 mg/dL Desirable Cholesterol: less than 200 mg/dL Borderline High Cholesterol: 200-239 mg/dL High Cholesterol: greater than 239 mg/dL LDL Cholesterol Calculated 70 <100 mg/dL Desirable LDL: less than 100 mg/dL Near Optimal/Above Optimal LDL: 110-129 mg/dL Borderline High LDL: 130-159 mg/dL High LDL: 160-189 mg/dL Very High LDL: greater than or equal to 190 mg/dL HDL Cholesterol 39 >40 mg/dL Desirable HDL: greater than 40 mg/dL Note: This HDL assay may give artificially low results in patients with liver disease. Prostate Specific Antigen Reviewed date:08/18/2024 02:09:40 PM Interpretation: Performing Lab:[facility], [address] [place] [phone] Notes/Report: Prostate Specific Antigen 4.88 <0.05-4.0 ng/mL PSA methodology: Gold Alinity i Chemiluminescent Microparticle Immunoassay (CMIA) Reason For Referral Reason Consult and Treat Left Knee Pain Diagnosis 1 Left knee pain (M25. 562) Referral Organization Nicholas Ontiveros III, MD Referring Provider First Name Nicholas Referring Provider Last Name Rama Referring Provider Speciality Internal M edicine Referred Provider [facility] Sur[facility] Referred Provider Specialty [facility] General Notes D, Carolyn 04/05/2024 04:30:10 PM [...] ON EMPTY STOMACH FOR 90 DAYS Active Immunizations Vaccine Route Administration Date Status [...] Problem Status W/U Status Risk Notes Problem [id number] Former smoker (Z87.891) Active confirmed He is highly motivated not to smoke. We formulated a plan to prevent relapse in times of stress and illness. Problem Hyperlipidemia (47855309) Hyperlipidemia (E78.5) Active confirmed His total cholesterol is 121. He was continued on current medication. No change was necessary. Problem [id number] Obesity (BMI 30.0-34.9) (E66.9) Active confirmed His body mass index is 30 in the obese range. We have reviewed his weight loss strategy. We have discussed diet and nutrition at length. We made a plan to lose weight at a rate of one half of a pound per week. Problem Hypertension (41660931) Hypertension (I10) Active confirmed His blood pressure is unremarkable and no change in his regimen was necessary today. I recommended aggressive weight loss and sodium restriction. He has succeeded in losing 4 pounds. He will continue to lose weight and be followed in the office. Problem Benign prostatic hyperplasia (844602633) BPH (benign prostatic hyperplasia) (N40.0) Active confirmed He has been rising from sleep at most once a night to urinate. We have discussed lifestyle modifications he could make to reduce nocturia. Problem Thyroid cancer (247813799) Thyroid cancer (C73) Active confirmed He was found to have a 1.4 cm papillary thyroid cancer in the right lobe of his thyroid which has been removed. There is no sign of recurrence. He is asymptomatic and feeling well. Problem 092573761 Elevated PSA (R97.20) Active confirmed In the past his PSA was 3.14 and then 4.78. It is now 4.88 with a free PSA of 11%. This is going to be repeated in the near future. Necessary he will see urology. No nodules were palpated today. Problem 942304721 Type 2 diabetes mellitus without complication, without long-term current use of insulin (E11.9) Active confirmed His blood gl ucose is slightly elevated. Hemoglobin A1c is 7.0. No change in medication was necessary. He will pursue aggressive weight loss. Problem 699023067 Age-related incipient cataract of both eyes (H25.093) Active confirmed He is medically cleared for sequential bilateral cataract extraction and lens implantation in July 2024. There is no contraindication and he is given medical clearance. 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 Problem 589530408 Thymoma, benign (D15.0) Active confirmed He has recovere d from the surgery and the sternal incision is well-healed and nonpainful. Vital Signs Heart Rate 80 /min 08/18/2024 Temperature 98.4 degrees Fahrenheit 08/18/2024 Blood pressure diastolic 77 mm Hg 08/18/2024 Height 71 in 08/18/2024 Blood pressure systolic 133 mm Hg 08/18/2024 Weight 222 lbs 08/18/2024 BMI 30.96 kg/m2 08/18/2024 Encounters Encounter Location Date Provider Diagnosis Nicholas Ontiveros III, MD [address] [place] [address] [place] [address] 11/24/2023 Nicholas Ontiveros BPH (benign prostati c hyperplasia) N40.0 ; Type 2 diabetes mellitus without complication, without long-term current use of insulin E11.9 ; Thyroid cancer C73 ; Former smoker Z87.891 ; Hypertension I10 and Thymoma D49.89 Nicholas Ontiveros III, MD [address] [place] [address] [place] [phone] 03/31/2024 Nicholas Ontiveros Hyperlipidemia E78.5 ; Thyroid cancer C73 ; Obesity (BMI 30.0-34.9) E66.9 ; Type 2 diabetes mellitus without complication, without long-term current use of insulin E11.9 ; BPH (benign prostatic hyperplasia) N40.0 and Former smoker Z87.891 Nicholas Ontiveros III, MD [address] [place] [address] [place] [address] 07/28/2024 Nicholas Ontiveros Thyroid cancer C73 ; Age-related incipient cataract of both eyes H25.093 ; Hyperlipidemia E78.5 ; Obesity (BMI 30.0-34.9) E66.9 ; Hypertension I10 ; Thymoma, benign D15.0 ; Former smoker Z87.891 ; Allergy to lisinopril Z88.8 and Type 2 diabetes mellitus without complication, without long-term current use of insulin E11.9 Nicholas Ontiveros III, MD [address] [place] [address] [place] [address] 08/18/2024 Nicholas Ontiveros Hypertension I10 ; Hyperlipidemia E78.5 ; Obesity (BMI 30.0-34.9) E66.9 ; Thymoma, benign D15.0 ; Former smoker Z87.891 ; Type 2 diabetes mellitus without complication, without long-term current use of insulin E11.9 ; Thyroid cancer C73 ; Age-related incipient cataract of both eyes H25.093 and Elevated PSA R97.20 Nicholas Ontiveros III, MD [address] [place] [address] [place] [address] 04/05/2024 Nicholas Ontiveros Assessments Encounter Date Diagnosis (ICD Code) Assessment Notes T reatment Notes Treatment Clinical Notes 11/24/2023 BPH (benign [...] There is no sign of recurrence 07/28/2024 Thyroid cancer (ICD-10 - C73) He [...] and he is given medical clearance. 08/18/2024 Hyperlipidemia (ICD-10 - E78.5) His total cholesterol is 121. He was continued on current medication. No change was necessary. 08/18/2024 Hypertension (ICD-10 - I10) His blood pressure is unremarkable and no change in his regimen was necessary today. I recommended aggressive weight loss and sodium restriction. He has succeeded in losing 4 pounds. He will continue to lose weight and be followed in the office. 11/24/2023 Thyroid cancer (ICD-10 - C73) This has been resected. There was no sign of recurrent disease. 03/31/2024 Obesity (BMI 30.0-34.9) (ICD-10 - E66.9) His weight is currently stable. We reviewed his weight loss strategy. I recommended weight loss in the right a one half of a pound per week through diet restricted in fat calories and sodium unconcentrated sweets. 07/28/2024 Hyperlipidemia (ICD-10 - E78.5) He seems to be stable. A fasting lipid profile will be done prior to his next visit. 08/18/2024 Obesity (BMI 30.0-34.9) (ICD-10 - E66.9) His body mass index is 30 in the obese range. We have reviewed his weight loss strategy. We have discussed diet and nutrition at length. We made a plan to lose weight at a rate of one half of a pound per week. 11/24/2023 Former smoker (ICD-10 - Z87.891) He [...] necessary. He will pursue aggressive weight loss. 07/28/2024 Obesity (BMI 30.0-34.9) (ICD-10 - E66.9) [...] modifications he could make to reduce nocturia. 07/28/2024 Hypertension (ICD-10 - I10) His blood pressure is unremarkable and no change in his regimen was necessary today. I recommended aggressive weight loss and sodium restriction. He has succeeded in losing 4 pounds. He will continue to lose weight and be followed in the office. 08/18/2024 Former smoker (ICD-10 - Z87.891) He [...] in times of stress and illness. 07/28/2024 Thymoma, benign (ICD-10 - D15.0) He has recovered from the surgery and the sternal incision is well-healed and nonpainful. 08/18/2024 Type 2 diabetes mellitus without complication, without long-term current use of insulin (ICD-10 - E11.9) His blood glucose is slightly elevated. Hemoglobin A1c is 7.0. No change in medication was necessary. He will pursue aggressive weight loss. 07/28/2024 Former smoker (ICD-10 - Z87.891) He is highly motivated not to smoke. We formulated a plan to prevent relapse in times of stress and illness. 08/18/2024 Thyroid cancer (ICD-10 - C73) He was found to have a 1.4 cm papillary thyroid cancer in the right lobe of his thyroid which has been removed. There is no sign of recurrence. He is asymptomatic and feeling well. 07/28/2024 Allergy to lisinopril (ICD-10 - Z88.8) This medication caused a chronic cough and therefore it was discontinued. 08/18/2024 Age-related incipient cataract of both eyes (ICD-10 - H25.093) He is medically cleared for sequential bilateral cataract extraction and lens implantation in July 2024. There is no contraindication and he is given medical clearance. 07/28/2024 Type 2 diabetes mellitus without complication, without long-term current use of insulin (ICD-10 - E11.9) His blood glucose is slightly elevated. Hemoglobin A1c has been ordered. No change in medication was necessary. He will pursue aggressive weight loss. 08/18/2024 Elevated PSA (ICD-10 - R97.20) In the past his PSA was 3.14 and then 4.78. It is now 4.88 with a free PSA of 11%. This is going to be repeated in the near future. Necessary he will see urology. No nodules were palpated today. Plan Of Treatment Pending Test Test Name Order Date PROFILE, FASTING (COMPREHENSIVE METABOLI C) 02/04/2023 PROFILE, FASTING (COMPREHENSIVE METABOLI C) 11/01/2022 PROFILE, FASTING (COMPREHENSIVE METABOLI C) 03/26/2021 PROFILE, FASTING (COMPREHENSIVE METABOLI C) 08/18/2023 PROFILE, FASTING (COMPREHENSIVE METABOLI C) 07/28/2024 PROFILE, FASTING (COMPREHENSIVE METABOLI C) 11/24/2023 PROFILE, FASTING (COMPREHENSIVE METABOLI C) 03/31/2024 LIPID PANEL 02/04/2023 LIPID PANEL 11/01/2022 LIPID PANEL 03/26/2021 FREE T4 (FT4) 02/04/2023 FREE T4 (FT4) 11/01/2022 TSH (THYROID STIMULATING HORMONE) 2022 TSH (THYROID STIMULATING HORMONE) 2022 TSH (THYROID STIMULATING HORMONE) 2023 PSA, TOTAL 11/24/2023 PSA, TOTAL 07/28/2024 PSA, TOTAL 03/26/2021 CBC w DIFF 03/26/2021 CBC w DIFF 02/04/2023 CBC w DIFF 11/01/2022 SED RATE (ESR) 02/04/2023 SED RATE (ESR) 03/26/2021 CBC WITH AUTO DIFF 03/31/2024 CBC WITH AUTO DIFF 11/24/2023 CBC WITH AUTO DIFF 08/18/2023 CBC WITH AUTO DIFF 07/28/2024 Lipid Panel 03/31/2024 Lipid Panel 11/24/2023 Lipid Panel 08/18/2023 Lipid Panel 07/28/2024 PSA Free and Total 03/31/2024 Free T4 (Free Thyroxine) 03/31/2024 Free T4 (Free Thyroxine) 11/24/2023 Microalbumin, Random 03/31/2024 Hemoglobin A1c 03/31/2024 Next Appt Details Provider Name:Nicholas Ontiveros, 11/25/2024 09:00:00 AM, [address] [place] [address] [address], [place], [phone], Provider Name:Nicholas Ontiveros, 08/22/2025 02:00:00 PM, [address] [place] [address] [address], [place], [phone], Insurance Providers Payer Name Payer Address Payer Phone Subscriber Number Group Number Insured Name Patient Relationship to Insured Coverage Start Date Coverage End Date [facility] [address] [place] [phone] [id number] Narendra Naylor Self - patient is the insured Medical (General) History Medical History History ICD Code Hyperlipidemia E78.5 Hypertension I10 Benign thymoma, resected, 2021 Obesity Impaired fasting glucose Low-sodium diet Colonic polyp, hyperplastic 2019 Albuminuria Former smoker Papillary carcinoma of the thyroid 2022 Surgical History Surgery Date(Month/Year) Bilateral eye cataract surgery 2024 Thyroidectomy for papillary thyroid canc er 2022 thymectomy, , [facility] ter, benign 11/2020 Colonoscopy, [facility], Dr. Mccray 05/2020 lung biopsy 09/2020
--- OUTSIDE RECORDS SUMMARY | 2024-09-07 09:59 | XMS_ITS | Clinical Summary ---
Author Organization [facility] Address [address] [place] [address] Care Team Providers Care Legal Administrative Secretary Name Role Phone Nicholas Ontiveros MD Primary Care Provider [phone] Social History Tobacco Use Types Packs/Day Years [...] 2024 Influenza Vaccine (#1) 2024 RSV Immunization Adult Patie nts (1 - 1-dose 75+ series) 2035 HIB [...] age to complete this topic Meningococcal B Vaccine Aged Out No l onger eligible based on patient's age to complete [...] age to complete this topic Care Teams Legal Administrative Secretary Relationship Specialty Start Date End Date Nicholas Ontiveros MD [address] [address] PCP - General 07/18/21
== END 2024-09-07 10:07 | disposition home or self-care (01) ==
LOC: HO.HOS 09:05
PROVIDERS: PCP Internal Medicine Medical Oncology; Visit Provider Orthopaedic Surgery
DX: M17.12 Unilateral primary osteoarthritis, left knee (principal); M25.562 Pain in left knee
CPT/HCPCS: 20610; 99213

== ENCOUNTER → 2024-09-07 09:05 | Outpatient (BNVA) | payer OTHER, SELFPAY | PROVIDERS: PCP Internal Medicine Medical Oncology; Visit Provider Orthopaedic Surgery | DX: M17.12 Unilateral primary osteoarthritis, left knee (principal) | CPT/HCPCS: 20610; 99212; J1010; J2003 ==

== ENCOUNTER 2024-12-14 08:48 | Outpatient (AMB) | payer OTHER, SELFPAY ==
--- NOTE | 2024-12-14 08:53 | MHC.OFFVIS ---
Vital Signs 12/14/24 09:00 Height 5 ft 11 in Weight 234 lb BMI 32.6 Intake Visit Reasons: OV- Left knee pain-last inj 09/07/24 Intake Note: Narendra is a 64 year old female who presents with complaints of left knee pain. He describes his pain as sharp in nature. He has tried topical creams which gave him minimal relief. He wishes to hold off on surgery if at all possible. He has had cortisone injections in the past which gave him fairly good relief. Allergies lisinopril Allergy (Verified 12/14/24 08:54) Cough Medication List - Last Reconciled 12/14/24 by Jamie Campbell MD atorvastatin 40 mg PO BEDTIME 90 days levothyroxine 150 mcg PO DAILY metoprolol succinate ER 50 mg PO DAILY naltrexone-bupropion 8-90 mg (Contrave) tabs PO valsartan 40 mg PO DAILY [facility] Medical History (Updated 05/19/24 @ 10:21 by Jamie Campbell MD) Thyroid cancer Thyroid nodule Albuminuria Thymoma (~2020) Personal history of nicotine dependence Polyp of colon, hyperplastic (~2019) Obesity (BMI 30-39.9) Impaired fasting glucose Pure hypercholesterolemia Benign essential hypertension Surgical History History of lung biopsy (~09/2020) Hx of colonoscopy (~05/2020) S/P thymectomy (~12/20/20) Status post thymectomy Family History Father No problems noted. Mother No problems noted. 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 Physical Exam Vital Signs: BMI result Body Mass Index 32.6 Const Other: Well-nourished well-developed very friendly male awake alert and oriented x3 in no acute distress Extrem Other: Bilateral lower extremity examination shows good capillary refill, no skin lesions noted, normal sensation light touch Left knee examination shows a minimal effusion, palpable crepitus with range of motion, pain with range of motion, no instability Office Procedures AMB Joint Injection/Aspiration Joint Injection/Aspiration Primary Site: left knee Prep: site was prepped using aseptic technique Injected: 40 mg of, DepoMedrol and 1% plain lidocaine Procedure: The patient tolerated the procedure well Coding 64979 - Large joint Procedure code (CPT) selection complete Results Reviewed Results Reviewed: X-rays of the patient's left knee taken previously show joint space narrowing, subchondral sclerosis, no acute bony abnormalities Assessment & Plan Assessment & Plan (1) Osteoarthritis of left knee: Code(s): M17.12 - Unilateral primary osteoarthritis, left knee Category: Medical Plan Mr. Pagan presents with left knee pain due to osteoarthritis. The risks and benefits of a cortisone injection were discussed at length with the patient. The patient wished to proceed. He tolerated the injection well. He will continue with his home exercise program. He will contact me prior to his follow-up appointment in 3 months should any questions or concerns arise. Feel free to call me at any time should questions regarding his orthopedic management arise. I spent 20 minutes in reviewing the patient's records and imaging studies, seeing the patient and documenting in the medical record. Orders: Orders AMB Joint Injection/Aspiration Today M17.12 - Unilateral primary osteoarthritis, left knee Coding Level of Care Code Est Pt Level 3 (76610) Complex EM visit Add On G2211 Diagnoses Osteoarthritis of left knee M17.12 CPT Codes Coding - Large joint: 03503 - Large joint ([id number])
--- OUTSIDE RECORDS SUMMARY | 2024-12-14 08:57 | XMS_ITS | Clinical Summary ---
Author Organization [facility] Address [address] [place] [address] Care Team Providers Care Circuit Breaker Assembler Name Role Phone Nicholas Ontiveros MD Primary Care Provider [phone] Social History Tobacco Use Types Packs/Day Years [...] 2023-2 5 season) 2024 Influenza Vaccine (#1) 2025 RSV Immunization Adult Patie nts (1 - [...] age to complete this topic Care Teams Circuit Breaker Assembler Relationship Specialty Start Date End Date Nicholas Ontiveros MD [address] [address] PCP - General 07/18/21
--- OUTSIDE RECORDS SUMMARY | 2024-12-14 08:57 | XMS_ITS | Patient Health Record ---
Author Organization Nicholas Ontiveros III, MD Address [address] [place] [address] Care Team Providers Care Pot Runner Name Role Phone Nicholas Ontiveros Primary Care [...] 0.2 - 1.3 BLD + Negative - Complete Blood Count Auto Di ff Reviewed date:03/27/2024 09:04:41 PM Interpretation: Performing Lab:[facility], [address] [place] [phone] Notes/Report: White Blood Count 7.1 4.8-10.8 X10*3/uL [...] NRBC Abs Auto 0.000 0.0-0.012 X10*3/uL Comprehensive [place]. Panel Fa st Reviewed date:03/27/2024 09:04:41 PM Interpretation: Performing Lab:[facility], [address] [place] [address] Notes/Report: Sodium 139 135-145 mmol/L Potassium 4.3 3.3-5.1 mmol/L Chloride 103 96-108 mmol/L Carbon Dioxide 27 22-29 mmol/L Anion Gap 13 12-20 Blood Urea Nitrogen 10 9-16 mg/dL Creatinine 0.97 0.5-1.4 mg/dL Estimated Glomerular Filt Rate > 60 NOTE: For -[place] individuals, multiply the result by 1.210. Chronic [...] Panel Reviewed date:03/27/2024 09:04:41 PM Interpretation: Performing Lab:[address] [address] Notes/Report: Triglycerides 93 <150 mg/dL Desirable Triglyceride: [...] Antigen Reviewed date:03/27/2024 09:04:41 PM Interpretation: Performing Lab:[address] [address] Notes/Report: Prostate Specific Antigen 4.78 <0.05-4.0 ng/mL PSA methodology: Gold Alinity i Chemiluminescent Microparticle Immunoassay (CMIA) Free T4 (Free Thyroxine) Reviewed date:03/27/2024 09:04:41 PM Interpretation: Performing Lab:[address] [address] Notes/Report: Free T4 (Free Thyroxine) 1.31 0.71-1.85 ng/dL Thyroid Stimulating Hormone Reviewed date:03/27/2024 09:04:41 PM Interpretation: Performing Lab:[address] [address] Notes/Report: Thyroid Stimulating Hormone 0.41 0.32-4.0 uIU/ mL TSH 3rd Generation ([employer]) Complete Blood Count Auto Di ff Reviewed date:07/21/2024 03:44:39 PM Interpretation: Performing Lab:[facility], [address] [place] [address] Notes/Report: White Blood Count 6.2 4.8-10.8 X10*3/uL [...] NRBC Abs Auto 0.000 0.0-0.012 X10*3/uL Comprehensive [place]. Panel Fa st Reviewed date:07/21/2024 03:44:39 PM Interpretation: Performing Lab:[place] [address] [address] Notes/Report: Sodium 141 135-145 mmol/L Potassium 4.2 [...] Panel Reviewed date:07/21/2024 03:44:39 PM Interpretation: Performing Lab:[address] [address] Notes/Report: Triglycerides 83 <150 mg/dL Desirable Triglyceride: [...] Total Reviewed date:07/25/2024 09:07:18 AM Interpretation: Performing Lab:[address] [place] [address] Notes/Report: Prostate Specific Ag Total 4.7 < [...] 30 93 9 (3)Catalona et al.:SILKE 277: 3715-9043 (1996) (4)Catalona et al.:SILKE 279: 6182-3952 (1997) (x)These estimates vary with age, ethnicity, [...] mind. PSA was performed using the [place] Immunoassay method. Values obtained from different assay methods cannot be used interchangeably. PSA levels, regardless of value, should not be interpreted as absolute evidence of the presence or absence of disease. THIS TEST WAS PERFORMED AT: [facility] [address] [place] [phone] MAURY ORTIZ MD Free Prostate Spec Ag 0.5 Free T4 (Free Thyroxine) Reviewed date:07/21/2024 03:44:39 PM Interpretation: Performing Lab:[facility], [address] [place] [phone] Notes/Report: Free T4 (Free Thyroxine) 1.56 0.71-1.85 ng/dL Microalbumin, Random Reviewed date:07/21/2024 03:44:39 PM Interpretation: Performing Lab:[facility], [address] [place] [address] Notes/Report: Creatinine Urine 214.04 Microalbumin Urine 15.0 Microalbum/Creatinine Ratio Ur 7.0 <30 ug/mg cr Albumin/Creatinine Ratio Reference Ranges: Normal: < 30 ug/mg creatinine Microalbuminuria: 30 - 300 ug/mg creatinine Clinical Albuminuria: > 300 ug/mg creatinine Hemoglobin A1c Reviewed date:07/21/2024 03:44:39 PM Interpretation: Performing Lab:[address] [address] Notes/Report: Hemoglobin A1c % 7.0 <6.0 % [...] average glucose, using the formula of the [id number] Average Glucose study (ADAG), Diabetes Care, Vol.31,#8, Dec. 2007 Complete Blood Count Auto Di ff Reviewed date:08/18/2024 02:09:40 PM Interpretation: Performing Lab:[address] [address] Notes/Report: White Blood Count 6.2 4.8-10.8 X10*3/uL [...] NRBC Abs Auto 0.000 0.0-0.012 X10*3/uL Comprehensive [place]. Panel Fa st Reviewed date:08/18/2024 02:09:40 PM Interpretation: Performing Lab:[facility], [address] [place] [phone] Notes/Report: Sodium 140 135-145 mmol/L Potassium 4.1 [...] Panel Reviewed date:08/18/2024 02:09:40 PM Interpretation: Performing Lab:[facility], [address] [place] [address] Notes/Report: Triglycerides 64 <150 mg/dL Desirable Triglyceride: [...] Antigen Reviewed date:08/18/2024 02:09:40 PM Interpretation: Performing Lab:[facility], [address] [place] [address] Notes/Report: Prostate Specific Antigen 4.88 <0.05-4.0 ng/mL PSA methodology: Gold Alinity i Chemiluminescent Microparticle Immunoassay (CMIA) Reason For Referral Reason Consult and Treat Left Knee Pain Diagnosis 1 Left knee pain (M25. 562) Referral Organization Nicholas Ontiveros III, MD Referring Provider First Name Nicholas Referring Provider Last Name Rama Referring Provider Speciality Internal M edicine Referred Provider [facility] er, Orthopedic Surgeons Referred Provider Specialty Orthopedic S urgery General Notes D, Carolyn 04/05/2024 04:30:10 PM [...] 1 TABLET BY MOUTH EVERY DAY Active Metoprolol Succinate 50 MG 1 capsule Ora lly Once a day 11/25/2024 Active Levothyroxine Sodium 150 MCG TAKE 1 TABLET BY MOUTH EVERY DAY Orally Once a day Active Immunizations Vaccine Route Administration Date Status [...] Problem Status W/U Status Risk Notes Problem 6319604 Former smoker (Z87.891) Active confirmed He is highly motivated not to smoke. We formulated a plan to prevent relapse in times of stress and illness. Problem Hyperlipidemia (02749680) Hyperlipidemia (E78.5) Active confirmed His total cholesterol is 121. He was continued on current medication. No change was necessary. Problem Obesity (175415081) Obesity (E66.9) Active confirmed His body mass index is 31. We reviewed his weight loss strategy diet and nutrition. We formulated a plan to lose weight at a rate of one half of a pound per week.At his request. I have given him a prescription for Contrave. If unavailable. I will try to help your made. I would like to avoid phentermine. Problem Hypertension (85550406) Hypertension (I10) Active confirmed His blood pressure is elevated. He was begun on metoprolol succinate 10 mg daily with a follow-up visit. Problem Benign prostatic hyperplasia (283765355) BPH (benign prostatic hyperplasia) (N40.0) Active confirmed He has been rising from sleep at most once a night to urinate. We have discussed lifestyle modifications he could make to reduce nocturia. Problem Thyroid cancer (331631949) Thyroid cancer (C73) Active confirmed He was found to have a 1.4 cm papillary thyroid cancer in the right lobe of his thyroid which has been removed. There is no sign of recurrence. He is asymptomatic and feeling well. Problem 982463599 Elevated PSA (R97.20) Active confirmed In the past his PSA was 3.14 and then 4.78. It is now 4.88 with a free PSA of 11%. This is going to be repeated in the near future. Necessary he will see urology. No nodules were palpated today. Problem 451688242 Type 2 diabetes mellitus without complication, without long-term current use of insulin (E11.9) Active confirmed His blood gl ucose is slightly elevated. Hemoglobin A1c is 7.0. No change in medication was necessary. He will pursue aggressive weight loss. Problem 813006315 Age-related incipient cataract of both eyes (H25.093) Active confirmed He is medically cleared for sequential bilateral cataract extraction and lens implantation in July 2024. There is no contraindication and he is given medical clearance. 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 Problem 427517354 Thymoma, benign (D15.0) Active confirmed He has recovere d from the surgery and the sternal incision is well-healed and nonpainful. Vital Signs Heart Rate 72 /min 12/09/2024 Temperature 97.9 degrees Fahrenheit 12/09/2024 Blood pressure diastolic 80 mm Hg 12/09/2024 Height 71 in 12/09/2024 Blood pressure systolic 142 mm Hg 12/09/2024 Weight 224 lbs 12/09/2024 BMI 31.24 kg/m2 12/09/2024 Encounters Encounter Location Date Provider Diagnosis Nicholas Ontiveros III, MD [address] [place] [address] [address] [place], [place] [address] 03/31/2024 Nicholas Ontiveros Hyperlipidemia E78.5 ; Thyroid cancer C73 ; Obesity (BMI 30.0-34.9) E66.9 ; Type 2 diabetes mellitus without complication, without long-term current use of insulin E11.9 ; BPH (benign prostatic hyperplasia) N40.0 and Former smoker Z87.891 Nicholas Ontiveros III, MD [address] [place] [address] [place] [address] 07/28/2024 Nicholas Ontiveros Thyroid cancer C73 ; Age-related incipient cataract of both eyes H25.093 ; Hyperlipidemia E78.5 ; Obesity (BMI 30.0-34.9) E66.9 ; Hypertension I10 ; Thymoma, benign D15.0 ; Former smoker Z87.891 ; Allergy to lisinopril Z88.8 and Type 2 diabetes mellitus without complication, without long-term current use of insulin E11.9 Nicholas Ontiveros III, MD [address] [place] [address] [place] [address] 08/18/2024 Nicholas Ontiveros Hypertension I10 ; Hyperlipidemia E78.5 ; Obesity (BMI 30.0-34.9) E66.9 ; Thymoma, benign D15.0 ; Former smoker Z87.891 ; Type 2 diabetes mellitus without complication, without long-term current use of insulin E11.9 ; Thyroid cancer C73 ; Age-related incipient cataract of both eyes H25.093 and Elevated PSA R97.20 Nicholas Ontiveros III, MD [address] [place] [address] [place] [address] 11/25/2024 Nicholas Ontiveros Former smoker Z87.89 1 ; Thymoma, benign D15.0 ; Hyperlipidemia E78.5 ; Hypertension I10 ; Elevated PSA R97.20 ; Thyroid cancer C73 and BPH (benign prostatic hyperplasia) N40.0 Nicholas Ontiveros III, MD [address] [place] [address] [place] [address] 12/09/2024 Nicholas Ontiveros Obesity E66.9 ; Thyr oid cancer C73 ; Type 2 diabetes mellitus without complication, without long-term current use of insulin E11.9 ; Thymoma, benign D15.0 ; Elevated PSA R97.20 ; Right anterior knee pain M25.561 and Former smoker Z87.891 Nicholas Ontiveros III, MD [address] [place] [address] [address] [place], [place] [address] 04/05/2024 Nicholas Ontiveros Assessments Encounter Date Diagnosis (ICD Code) Assessment Notes T reatment Notes Treatment Clinical Notes 03/31/2024 Hyperlipidemia (ICD-10 [...] weight and be followed in the office. 11/25/2024 Former smoker (ICD-10 - Z87.891) He is highly motivated not to smoke. We formulated a plan to prevent relapse in times of stress and illness. 11/25/2024 Thymoma, benign (ICD-10 - D15.0) He has recovered from the surgery and the sternal incision is well-healed and nonpainful. 12/09/2024 Obesity (ICD-10 - E66.9) His body [...] recurrence. He is asymptomatic and feeling well. 03/31/2024 Obesity (BMI 30.0-34.9) (ICD-10 - E66.9) [...] one half of a pound per week. 11/25/2024 Hyperlipidemia (ICD-10 - E78.5) His total cholesterol is 121. He was continued on current medication. No change was necessary. 12/09/2024 Type 2 diabetes mellitus without complication, without long-term current use of insulin (ICD-10 - E11.9) His blood glucose is slightly elevated. Hemoglobin A1c is 7.0. No change in medication was necessary. He will pursue aggressive weight loss. 03/31/2024 Type 2 diabetes mellitus without complication, [...] sternal incision is well-healed and nonpainful. 11/25/2024 Hypertension (ICD-10 - I10) His blood pressure is elevated. He was begun on metoprolol succinate 10 mg daily with a follow-up visit. 12/09/2024 Thymoma, benign (ICD-10 - D15.0) He has recovered from the surgery and the sternal incision is well-healed and nonpainful. 03/31/2024 BPH (benign prostatic hyperplasia) (ICD-10 - [...] in times of stress and illness. 11/25/2024 Elevated PSA (ICD-10 - R97.20) In the past his PSA was 3.14 and then 4.78. It is now 4.88 with a free PSA of 11%. This is going to be repeated in the near future. Necessary he will see urology. No nodules were palpated today. 12/09/2024 Elevated PSA (ICD-10 - R97.20) In the past his PSA was 3.14 and then 4.78. It is now 4.88 with a free PSA of 11%. This is going to be repeated in the near future. Necessary he will see urology. No nodules were palpated today. 03/31/2024 Former smoker (ICD-10 - Z87.891) He [...] necessary. He will pursue aggressive weight loss. 11/25/2024 Thyroid cancer (ICD-10 - C73) He was found to have a 1.4 cm papillary thyroid cancer in the right lobe of his thyroid which has been removed. There is no sign of recurrence. He is asymptomatic and feeling well. 12/09/2024 Right anterior knee pain (ICD-10 - M25.561) This is likely from limping and bearing weight and probably. He was given an appointment with orthopedics. 07/28/2024 Former smoker (ICD-10 - Z87.891) He [...] asymptomatic and feeling well. 11/25/2024 BPH (benign prostatic hyperplasia) (ICD-10 - N40.0) He has been rising from sleep at most once a night to urinate. We have discussed lifestyle modifications he could make to reduce nocturia. 12/09/2024 Former smoker (ICD-10 - Z87.891) He [...] 07/28/2024 PROFILE, FASTING (COMPREHENSIVE METABOLI C) 11/24/2023 LIPID PANEL 02/04/2023 LIPID PANEL 11/01/2022 LIPID PANEL 03/26/2021 FREE T4 (FT4) 02/04/2023 FREE T4 (FT4) 11/01/2022 TSH (THYROID STIMULATING HORMONE) 2023 TSH (THYROID STIMULATING HORMONE) 2022 TSH (THYROID STIMULATING HORMONE) 2022 PSA, TOTAL 11/24/2023 PSA, TOTAL 07/28/2024 PSA, TOTAL 03/26/2021 CBC w DIFF 11/01/2022 CBC w DIFF 03/26/2021 CBC w DIFF 02/04/2023 SED RATE (ESR) 03/26/2021 SED RATE (ESR) [...] 03/31/2024 Next Appt Details Provider Name:Nicholas Ontiveros, 01/20/2025 09:45:00 AM, [address] [place] [address] [place], [address], Provider Name:Nicholas Ontiveros, 08/22/2025 02:00:00 PM, [address] [place] [address] [place], [address], Insurance Providers Payer Name Payer Address Payer Phone Subscriber Number Group Number Insured Name Patient Relationship to Insured Coverage Start Date Coverage End Date [facility] [address] [place] [phone] [id number] Narendra Naylor Self - patient is the insured Medical (General) History Medical History History ICD Code Hyperlipidemia E78.5 Hypertension I10 Benign thymoma, resected, 2020 Obesity Low-sodium diet Colonic polyp, hyperplastic 2019 Albuminuria Former smoker Papillary carcinoma of the thyroid 2022 Adult-onset diabetes Surgical History Surgery Date(Month/Year) Bilateral eye cataract surgery 2024 Thyroidectomy for papillary thyroid canc er 2022 thymectomy, , [facility] ter, benign 11/2020 Colonoscopy, [facility], Dr. Mccray 05/2020 lung biopsy 09/2020
[2024-12-14 09:00] VITALS: BMI 32.6
== END 2024-12-14 09:16 | disposition home or self-care (01) ==
LOC: HO.HOS 08:49
PROVIDERS: PCP Internal Medicine Medical Oncology; Visit Provider Orthopaedic Surgery
DX: M17.12 Unilateral primary osteoarthritis, left knee (principal)
CPT/HCPCS: 20610; 99213

== ENCOUNTER → 2024-12-14 08:48 | Outpatient (BNVA) | payer OTHER, SELFPAY | PROVIDERS: PCP Internal Medicine Medical Oncology; Visit Provider Orthopaedic Surgery | DX: M17.12 Unilateral primary osteoarthritis, left knee (principal); M25.562 Pain in left knee | CPT/HCPCS: 20610; 99212; J1010; J2003 ==

== ENCOUNTER 2025-03-30 05:58 | Outpatient (REF) | payer OTHER, SELFPAY ==
[2025-03-30 06:12] LABS: MANUAL DIFF FLAG NO
[2025-03-30 07:28] LABS: Hematocrit 47.5 % (42.0-52.0); Hemoglobin 14.9 g/dl (14.0-18.0); Imm Gran Abs Auto 0.01 X10*3/uL (0.00-0.03); Imm Gran Pct Auto 0.2 % (0.0-0.4); Lymphocytes Absolute Auto 1.6 X10*3/uL (1.2-4.9); Mean Corpuscular HGB Conc 31.4 g/dl (31.0-36.0); Mean Corpuscular Hemoglobin 25.3 pg (27.0-33.0); Mean Corpuscular Volume 80.6 fL (80.0-98.0); NRBC Abs Auto 0.000 X10*3/uL (0.0-0.012); NRBC Pct Auto 0.0 /100WBC (0.0-0.2); Platelet Count 196 X10*3/uL (160-400); Red Blood Count 5.89 X10*6/uL (4.60-5.80); White Blood Count 5.9 X10*3/uL (4.8-10.8)
[2025-03-30 08:26] LABS: Alanine Aminotransferase 56 U/L (0-40); Albumin Level 4.3 g/dL (3.5-5.0); Alkaline Phosphatase 85 U/L (39-117); Anion Gap 10 (12-20); Aspartate Amino Transferase 34 U/L (5-37); Blood Urea Nitrogen 10 mg/dL (9-16); Calcium 9.3 mg/dL (8.4-10.2); Carbon Dioxide 29 mmol/L (22-29); Chloride 106 mmol/L (96-108); Cholesterol 154 mg/dL (<200); Estimated Glomerular Filt Rate > 60; HDL Cholesterol 39 mg/dL (>40); Potassium 4.4 mmol/L (3.3-5.1); Sodium 141 mmol/L (135-145); Total Protein 7.4 g/dL (6.5-8.0); Triglycerides 80 mg/dL (<150)
[2025-03-30 08:53] LABS: Prostate Specific Antigen 5.04 ng/mL (<0.05-4.0)
[2025-03-30 09:14] LABS: Microalbum/Creatinine Ratio Ur 4.9 ug/mg cr (<30)
== END 2025-03-30 05:59 | disposition home or self-care (01) ==
LOC: HO.LAB 05:58
PROVIDERS: PCP Internal Medicine Medical Oncology; Visit Provider Internal Medicine Medical Oncology
DX: E11.9 Type 2 diabetes mellitus without complications (principal); N40.0 Benign prostatic hyperplasia without lower urinary tract symptoms; E78.5 Hyperlipidemia, unspecified; E66.9 Obesity, unspecified
CPT/HCPCS: 36415; 80053; 80061; 82043; 82570; 84153; 85025

== ENCOUNTER 2025-04-06 13:59 | Outpatient (AMB) | payer OTHER, SELFPAY ==
--- OUTSIDE RECORDS SUMMARY | 2023-11-24 10:00 | XMS_ITS ---
Author Organization Nicholas Ontiveros III, MD Address [address] [place] [address] [place] [address] Care Team Providers Care Certified Pest Control Technician Name Role Phone Dr. Nicholas Ontiveros III Primary Care Provider [phone] Allergies Allergen (clinical drug ingredient) Drug/Non Drug Allergy documented on EMR Reaction Allergy Type Onset Date Status lisinopril Lisinopril Unknown Drug Allergy Activ e REASON FOR VISIT Papillary thyroid cancer, Thymoma, Hypertension, Hyperlipidemia, Obesity, Diabetes, Benign prostatic hypertrophy Medications Medication SIG (Take, Route, Frequency, Duration) Notes Start Date End Date Status Valsartan 40 MG 1 tablet Orally Once a day 08/10/2021 Active Levothyroxine Sodium 150 MCG TAKE 1 TABL ET BY MOUTH EVERY DAY IN THE MORNING ON EMPTY STOMACH FOR 90 DAYS Active Atorvastatin Calcium 40 MG take 1 tablet by mouth every day for 90 days Orally Once a day Active Social History Tobacco Use: Social History Observation Description Date Details (start date - stop date) Former Smoker NA - NA Sex Assigned At : Social History Observation Description Sex Assigned At Male Tobacco Use/Smoking Question Answer Notes Patient is a former smoker How long has it been since you last smoked? 1-5 years Additional Findings: Tobacco Non-User Ex-cigaret te smoker Problems Problem Type SNOMED Code ICD Code Onset Dates Problem Status W/U Status Risk Notes Problem Thyroid cancer ([id number]) Thyroid cancer (C73) Active confirmed He was found to have a 1.4 cm papillary thyroid cancer in the right lobe of his thyroid which has been removed. There is no sign of recurrence. He is asymptomatic and feeling well. Vital Signs Blood pressure systolic 132 mm Hg 11/24/19 Blood pressure diastolic 81 mm Hg 024 Heart Rate 85 /min 11/24/2023 Height 71 in 11/24/2023 Weight 222 lbs 11/24/2023 BMI 30.96 kg/m2 11/24/2023 Encounters Encounter Location Date Provider Diagnosis Nicholas Ontiveros III, MD [address] [place] [address] [address] [facility] [place] [address] 11/24/2023 Nicholas Ontiveros BPH (benign prostati c hyperplasia) N40.0 ; Type 2 diabetes mellitus without complication, without long-term current use of insulin E11.9 ; Thyroid cancer C73 ; Former smoker Z87.891 ; Hypertension I10 and Thymoma D49.89 Assessments Encounter Date Diagnosis (ICD Code) Assessment Notes Treatment Notes Treatment Clinical Notes 11/24/2023 BPH (benign prostatic hyperplasia) (ICD-10 - N40.0) He is experiencing R once a night. We discussed lifestyle modification as a way to reduce nocturia. 11/24/2023 Type 2 diabetes mellitus without complication, without long-term current use of insulin (ICD-10 - E11.9) His fasting glucose is 129. I have ordered a microalbumin and hemoglobin A1c. 11/24/2023 Thyroid cancer (ICD-10 - C73) This has been resected. There was no sign of recurrent disease. 11/24/2023 Former smoker (ICD-10 - Z87.891) He is highly motivated not to smoke. We formulated a plan to prevent relapse in times of stress and illness. 11/24/2023 Hypertension (ICD-10 - I10) His blood pressure is unremarkable and no change in his regimen was necessary today. I recommended aggressive weight loss and sodium restriction. He has succeeded in losing 4 pounds. He will continue to lose weight and be followed in the office. 11/24/2023 Thymoma (ICD-10 - D49.89) The wound is well-healed and there is no sign of recurrent or Plan Of Treatment Medication Medication Name Sig Start Date Stop Date Notes Valsartan 40 MG 1 tablet Orally Once a day 08/10/2021 Levothyroxine Sodium 150 MCG TAKE 1 TABL ET BY MOUTH EVERY DAY IN THE MORNING ON EMPTY STOMACH FOR 90 DAYS Atorvastatin Calcium 40 MG take 1 tablet by mouth every day for 90 days Orally Once a day Pending Test Test Name Order Date PROFILE, FASTING (COMPREHENSIVE METABOLI C) 11/24/2023 TSH (THYROID STIMULATING HORMONE) 2023 PSA, TOTAL 11/24/2023 CBC WITH AUTO DIFF 11/24/2023 Lipid Panel 11/24/2023 Free T4 (Free Thyroxine) 11/24/2023 Next Appt Details Follow Up: 4 Months, Reason: OV Provider Name:Nicholas Ontiveros , 08/22/2025 02:00:00 PM, [address] [place] [address] [address]ER, [place], [id number], Progress Notes * Narendra PAGAN HDOB:1 06/17/1959 (63 yo M)Acc No.[id number]:11/24/2023 Progress Notes Patient: Narendra Gale Provider: Tr Ontiveros MD :1960 A ge:63 Y S ex:Male Date:11/24/2023 Address:[address] [place] [address] Subjective: * Chief Complaints: * P apillary thyroid cancerThymomaHypertensionHyperlipidemiaObesityDiabetesBenign prostatic hypertrophy * HPI: C OVID-19 Screening: He returns for management of numerous issues. He continues to have some discomfort from thick KA her arms over his sternotomy incision. There was no evidence or recurrence of papillary thyroid cancer today. As his diabetes is well- controlled. He is compliant with all of his medications. He arises from sleep once a night to urinate. We have discussed lifestyle modification as a way of reducing nocturia. No change in his medications was needed. Questions H ave you experienced fever, chills, cough, sore throat, shortness of breath, difficulty breathing, muscle aches, loss of taste or smell? N o H ave you been exposed to the virus within the last 10 days? N o H ave you travelled internationally in the last 10 days? N o H ave you been exposed to COVID-19 in the past? Y es * ROS: G eneral/Constitutional: pain o nly normal aches and pains. C hills d enies.?Fatigue a dmits. F ever d enies. E NT: Decreased hearing d enies. R espiratory: Cough d enies. C ardiovascular: Chest pain with exertion d enies. D yspnea on exertion?denies. S hortness of breath d enies. G astrointestinal: Constipation o ccasional. D ecreased appetite d enies. D iarrhea d enies. H eartburn d enies. N ausea o ccasional. R ectal bleeding d enies. V omiting d enies. H ematology: bruising d enies. p etechiae d enies. S wollen glands n one have been noted. G enitourinary: Frequent urination o nce a night. M usculoskeletal: Muscle aches d enies. P ainful joints d enies. S ciatica d enies. W eakness d enies. S kin: Itching d enies. R jm d enies. S kin lesion(s)?denies. N eurologic: Difficulty speaking d enies. D izziness d enies.?Headache d enies. L ow back pain d enies. P sychiatric: Depressed mood d enies. * Medical History: * Surgical History: l janneth biopsy olonoscopy, [facility], Dr. Mccray 05/2020thymectomy, , [facility], benign 11/2020Thyroidectomy for papillary thyroid cancer 2022 * Hospitalization/Major Diagno stic Procedure: D enies Past Hospitalization * Family History: F ather: 87 yrs, Head injury, alcoholism. M other: 92 yrs, Stroke. He is not aware of any inherited family cancer syndromes. He is not aware of any family history of lymphomas. He has no family history of substance abuse or mental illness aside from his father's alcoholism. There is no family history of depression. His father of a head injury. His mother has had a stroke but remains alive. He has 11 brothers one who had lung cancer. He has 2 sisters who are healthy and well. * Social History: T obacco Use: T obacco Use/Smoking P atient is a f ormer smoker H ow long has it been since you last smoked??1-5 years A dditional Findings: Tobacco Non-User E x-cigarette smoker Joao khan lives in [facility]. He is employed and has no toxic exposures. He is but has a good relationship with his ex-. He has recovered from his recent thymectomy and is back at work. He does not smoke or drink alcohol or take drugs. He has no children. He was sborn in [facility]. * Medications: T akingValsartan 40 MG Tablet 1 tablet Orally Once a dayAtorvastatin Calcium 40 MG Tablet take 1 tablet by mouth every day for 90 days Orally Once a dayLevothyroxine Sodium 150 MCG Tablet TAKE 1 TABLET BY MOUTH EVERY DAY IN THE MORNING ON EMPTY STOMACH FOR 90 DAYS Medication List reviewed and reconciled with the patientTaking Valsartan 40 MG Tablet 1 tablet Orally Once a dayTaking Atorvastatin Calcium 40 MG Tablet take 1 tablet by mouth every day for 90 days Orally Once a dayTaking Levothyroxine Sodium 150 MCG Tablet TAKE 1 TABLET BY MOUTH EVERY DAY IN THE MORNING ON EMPTY STOMACH FOR 90 DAYS Medication List reviewed and reconciled with the patient * Allergies: L isinopril: Allergyno[Allergies Verified] Objective: * Vitals: H t: 71, Wt: 222, BMI:30.96, BP: 132/81, HR: 85, Wt-k.7. * P ast Orders: Lab:Lipid Panel * Order Date 11/19/2023 08/12/2023 01/28/2023 Triglycerides 101 (Ref Range: <150 mg/dL) 103 (Ref Range: <150 mg/dL) 78 (Ref Range: <150 mg/dL) Cholesterol 137 (Ref Range: <200 mg/dL) 251 H (Ref Range: <200 mg/dL) 148 (Ref Range: <200 mg/dL) LDL Cholesterol Calculated 79 (Ref Range: <100 mg/dL) 187 H (Ref Range: <100 mg/dL) 91 (Ref Range: <100 mg/dL) HDL Cholesterol 38 L (Ref Range: >40 mg/dL) 44 (Ref Range: >40 mg/dL) 42 (Ref Range: >40 mg/dL) * Lab:Comprehensive [place]. Pane l Fast * Order Date 11/19/2023 08/12/2023 01/28/2023 Sodium 140 (Ref Range: 135-145 mmol/L) 140 (Ref Range: 135-145 mmol/L) 141 (Ref Range: 135-145 mmol/L) Bilirubin Total 0.8 (Ref Range: 0.0-1.0 mg/dL) 0.7 (Ref Range: 0.0-1.0 mg/dL) 0.6 (Ref Range: 0.0-1.0 mg/dL) Aspartate Amino Transferase 24 (Ref Range: 5-37 U/L) 33 (Ref Range: 5-37 U/L) 26 (Ref Range: 5-37 U/L) Alanine Aminotransferase 47 H (Ref Range: 0-40 U/L) 53 H (Ref Range: 0-40 U/L) 50 H (Ref Range: 0-40 U/L) Total Protein 7.6 (Ref Range: 6.5-8.0 g/dL) 8.0 (Ref Range: 6.5-8.0 g/dL) 7.5 (Ref Range: 6.5-8.0 g/dL) Albumin Level 4.3 (Ref Range: 3.5-5.0 g/dL) 4.4 (Ref Range: 3.5-5.0 g/dL) 4.3 (Ref Range: 3.5-5.0 g/dL) Alkaline Phosphatase 83 (Ref Range: 39-117 U/L) 77 (Ref Range: 39-117 U/L) 71 (Ref Range: 39-117 U/L) Potassium 4.0 (Ref Range: 3.3-5.1 mmol/L) 4.2 (Ref Range: 3.3-5.1 mmol/L) 4.0 (Ref Range: 3.3-5.1 mmol/L) Chloride 105 (Ref Range: 96-108 mmol/L) 105 (Ref Range: 96-108 mmol/L) 106 (Ref Range: 96-108 mmol/L) Carbon Dioxide 29 (Ref Range: 22-29 mmol/L) 27 (Ref Range: 22-29 mmol/L) 26 (Ref Range: 22-29 mmol/L) Anion Gap 10 L (Ref Range: 12-20) 12 (Ref Range: 12-20) 13 (Ref Range: 12-20) Blood Urea Nitrogen 15 (Ref Range: 9-16 mg/dL) 17 H (Ref Range: 9-16 mg/dL) 14 (Ref Range: 9-16 mg/dL) Creatinine 0.92 (Ref Range: 0.5-1.4 mg/dL) 1.12 (Ref Range: 0.5-1.4 mg/dL) 0.99 (Ref Range: 0.5-1.4 mg/dL) Estimated Glomerular Filt Rate > 60 > 60 > 60 Glucose Fasting 129 H (Ref Range: 60-99 mg/dL) 136 H (Ref Range: 60-99 mg/dL) 147 H (Ref Range: 60-99 mg/dL) Calcium 9.8 (Ref Range: 8.4-10.2 mg/dL) 9.8 (Ref Range: 8.4-10.2 mg/dL) 9.7 (Ref Range: 8.4-10.2 mg/dL) * Lab:Complete Blood Count Aut o Diff * Order Date 11/19/2023 08/12/2023 01/28/2023 White Blood Count 6.0 (Ref Range: 4.8-10.8 X10*3/uL) 6.3 (Ref Range: 4.8-10.8 X10*3/uL) 6.1 (Ref Range: 4.8-10.8 X10*3/uL) Red Blood Count 5.90 H (Ref Range: 4.60-5.80 X10*6/uL) 6.07 H (Ref Range: 4.60-5.80 X10*6/uL) 5.97 H (Ref Range: 4.60-5.80 X10*6/uL) Hemoglobin 15.1 (Ref Range: 14.0-18.0 g/dl) 15.6 (Ref Range: 14.0-18.0 g/dl) 15.2 (Ref Range: 14.0-18.0 g/dl) Hematocrit 47.4 (Ref Range: 42.0-52.0 %) 48.7 (Ref Range: 42.0-52.0 %) 48.0 (Ref Range: 42.0-52.0 %) Mean Corpuscular Volume 80.3 (Ref Range: 80.0-98.0 fL) 80.2 (Ref Range: 80.0-98.0 fL) 80.4 (Ref Range: 80.0-98.0 fL) Mean Corpuscular Hemoglobin 25.6 L (Ref Range: 27.0-33.0 pg) 25.7 L (Ref Range: 27.0-33.0 pg) 25.5 L (Ref Range: 27.0-33.0 pg) Mean Corpuscular HGB Conc 31.9 (Ref Range: 31.0-36.0 g/dl) 32.0 (Ref Range: 31.0-36.0 g/dl) 31.7 (Ref Range: 31.0-36.0 g/dl) Red Cell Distribution Width 13.8 (Ref Range: 11.0-16.0 %) 14.3 (Ref Range: 11.0-16.0 %) 14.2 (Ref Range: 11.0-16.0 %) Platelet Count 176 (Ref Range: 160-400 X10*3/uL) 233 (Ref Range: 160-400 X10*3/uL) 197 (Ref Range: 160-400 X10*3/uL) Mean Platelet Volume 11.8 (Ref Range: 9.4-12.4 fL) 11.7 (Ref Range: 9.4-12.4 fL) 11.8 (Ref Range: 9.4-12.4 fL) Neutrophils Percent Auto 61.4 (Ref Range: 45-73 %) 63.0 (Ref Range: 45-73 %) 62.9 (Ref Range: 45-73 %) Imm Gran Pct Auto 0.2 (Ref Range: 0.0-0.4 %) 0.2 (Ref Range: 0.0-0.4 %) 0.3 (Ref Range: 0.0-0.4 %) Lymphocytes Percent Auto 24.7 (Ref Range: 20-40 %) 24.0 (Ref Range: 20-40 %) 23.8 (Ref Range: 20-40 %) Monocytes Percent Auto 10.5 (Ref Range: 2-11 %) 9.8 (Ref Range: 2-11 %) 9.7 (Ref Range: 2-11 %) Eosinophils Percent Auto 2.2 (Ref Range: 0-4 %) 1.9 (Ref Range: 0-4 %) 2.3 (Ref Range: 0-4 %) Basophils Percent Auto 1.0 (Ref Range: 0-2 %) 1.1 (Ref Range: 0-2 %) 1.0 (Ref Range: 0-2 %) NRBC Pct Auto 0.0 (Ref Range: 0.0-0.2 /100WBC) 0.0 (Ref Range: 0.0-0.2 /100WBC) 0.0 (Ref Range: 0.0-0.2 /100WBC) Neutrophils Absolute Auto 3.7 (Ref Range: 2.0-8.3 x10*3/uL) 4.0 (Ref Range: 2.0-8.3 x10*3/uL) 3.8 (Ref Range: 2.0-8.3 x10*3/uL) Imm Gran Abs Auto 0.01 (Ref Range: 0.00-0.03 X10*3/uL) 0.01 (Ref Range: 0.00-0.03 X10*3/uL) 0.02 (Ref Range: 0.00-0.03 X10*3/uL) Lymphocytes Absolute Auto 1.5 (Ref Range: 1.2-4.9 X10*3/uL) 1.5 (Ref Range: 1.2-4.9 X10*3/uL) 1.5 (Ref Range: 1.2-4.9 X10*3/uL) Monocytes Absolute Auto 0.6 (Ref Range: 0.1-1.2 X10*3/uL) 0.6 (Ref Range: 0.1-1.2 X10*3/uL) 0.6 (Ref Range: 0.1-1.2 X10*3/uL) Eosinophils Absolute Auto 0.1 (Ref Range: 0.0-0.4 X10*3/uL) 0.1 (Ref Range: 0.0-0.4 X10*3/uL) 0.1 (Ref Range: 0.0-0.4 X10*3/uL) Basophils Absolute Auto 0.1 (Ref Range: 0.0-0.2 X10*3/uL) 0.1 (Ref Range: 0.0-0.2 X10*3/uL) 0.1 (Ref Range: 0.0-0.2 X10*3/uL) NRBC Abs Auto 0.000 (Ref Range: 0.0-0.012 X10*3/uL) 0.000 (Ref Range: 0.0-0.012 X10*3/uL) 0.000 (Ref Range: 0.0-0.012 X10*3/uL) * Examination: G eneral Examination: GENERAL APPEARANCE: p sukhdev, well nourished, well developed, in no acute distress, calm and relaxed , obese , man. HEAD: a traumatic, normocephalic. EYES: e nathanael, perrla, anicteric, conjugate. EARS: n ormal. NOSE: s eptum intact. ORAL CAVITY: n ormal, unremarkable. NECK/THYROID: n o jugular venous distention, no carotid bruit, thyroid normal. LYMPH NODES: n o enlarged lymph nodes,spleen normal. SKIN: n o suspicious lesions, anicteric. HEART: n o clicks, gallops, murmurs, or rubs, regular rhythm, S1, S2 normal, no s3, or vascular bruits,old median sternotomy. LUNGS: c lear to auscultation . BREASTS: no masses palpable bilaterally. ABDOMEN: b owel sounds normal, no ascites, no organomegaly, no mass. RECTAL EXAM: n ot examined. MUSCULOSKELETAL: e xtremities unremarkable, no clubbing, cyanosis or edema. PERIPHERAL PULSES: n ormal. NEUROLOGIC: a lert and oriented, cranial nerves 2-12 grossly intact, deep tendon reflexes 2+ symmetrical, motor strength normal upper and lower extremities, sensory exam intact. PSYCH: a lert, oriented , cognitive function intact , speech clear. Assessment: * Assessment: 1. B PH (benign prostatic hyperplasia) - N40.0, He is experiencing R once a night. We discussed lifestyle modification as a way to reduce nocturia. 2 . T ype 2 diabetes mellitus without complication, without long-term current use of insulin - E11.9, His fasting glucose is 129. I have ordered a microalbumin and hemoglobin A1c. 3 . T hyroid cancer - C73, This has been resected. There was no sign of recurrent disease. 4 . F ormer smoker - Z87.891, He is highly motivated not to smoke. We formulated a plan to prevent relapse in times of stress and illness. 5 . H ypertension - I10, His blood pressure is unremarkable and no change in his regimen was necessary today. I recommended aggressive weight loss and sodium restriction. He has succeeded in losing 4 pounds. He will continue to lose weight and be followed in the office. 6 . T hymoma - D49.89, The wound is well-healed and there is no sign of recurrent or Plan: * Treatment: 2. T ype 2 diabetes mellitus without complication, without long-term current use of insulin L AB: PROFILE, FASTING (COMPREHENSIVE METABOLIC) L AB: TSH (THYROID STIMULATING HORMONE) L AB: PSA, TOTAL L AB: CBC WITH AUTO DIFF L AB: Lipid Panel L AB: Free T4 (Free Thyroxine) 3. T hyroid cancer L AB: PROFILE, FASTING (COMPREHENSIVE METABOLIC) L AB: TSH (THYROID STIMULATING HORMONE) L AB: PSA, TOTAL L AB: CBC WITH AUTO DIFF L AB: Lipid Panel L AB: Free T4 (Free Thyroxine) 4. O thers Continue Valsartan Tablet, 40 MG, 1 tablet, Orally, Once a day; C ontinue Atorvastatin Calcium Tablet, 40 MG, take 1 tablet by mouth every day for 90 days, Orally, Once a day; C ontinue Levothyroxine Sodium Tablet, 150 MCG, TAKE 1 TABLET BY MOUTH EVERY DAY IN THE MORNING ON EMPTY STOMACH FOR 90 DAYS. * Procedure Codes: * Preventive Medicine: Counseling: C are goal follow-up plan: Counseling for abnormal BMI given Y es Above Normal BMI Follow-up D ietary management education, guidance, and counseling, Dietary needs education, Exercise promotion: strength training, Exercise promotion: stretching, Feeding regime, Giving encouragement to exercise, Lifestyle education regarding diet, Nutrition / feeding management, Nutrition therapy, Prescribed activity/exercise education, Prescribed diet education, Prescribed dietary intake, Special diet education, Weight monitoring , Intervention, Order not done: Medical or Other reason not done S moking/Tobacco Use Patient counseled on the dangers of tobacco use and urged to quit. 0 11/24/2023 * Follow Up: 4 Months (Reason: OV) * Images: * Sign off status: Completed true * Provider: Tr Ontiveros MD Date: 0 11/24/2023 Generated for Printi suni/Mindy/eTtelmasmitting on: 1 06/06/2024 05:12 PM EST History and Physical Notes * HPI (History of Present Illness) Category Sub-Category Detail Notes COVID-19 Screening Questions Have you had any new onset fever, chills, cough, congestion, sore throat, shortness of breath, muscle aches?: No Have you been exposed to the virus withi n the last 10 days?: No Have you travelled internationally in [facility] last 10 days?: No Have you been exposed to COVID-19 in the past?: Yes Examination Category Sub-Category Detail Notes General Examination GENERAL APPEARANCE: pleasant , well nourished, well developed, in no acute distress, calm and relaxed , obese , man HEAD: atraumatic, normocep halic EYES: eomi, perrla, anicte mingo, conjugate EARS: normal NOSE: septum intact NECK/THYROID: no jugular venous di stention, no carotid bruit, thyroid normal HEART: no clicks, gallops, murmurs, or rubs, regular rhythm, S1, S2 normal, no s3, or vascular bruits,old median sternotomy LUNGS: clear to auscultatio n ABDOMEN: bowel sounds normal, no ascites, no organomegaly, no mass NEUROLOGIC: alert and oriented, cranial nerves 2-12 grossly intact, deep tendon reflexes 2+ symmetrical, motor strength normal upper and lower extremities, sensory exam intact SKIN: no suspicious lesion s, anicteric PERIPHERAL PULSES: normal BREASTS: no masses palpable b ilaterally MUSCULOSKELETAL: extremities unremark able, no clubbing, cyanosis or edema LYMPH NODES: no enlarged lymph no dayne,spleen normal RECTAL EXAM: not examined PSYCH: alert, oriented , co gnitive function intact , speech clear ORAL CAVITY: normal, unremarkable
--- OUTSIDE RECORDS SUMMARY | 2024-03-31 10:30 | XMS_ITS ---
Author Organization Nicholas Ontiveros III, MD Address [address] [place] [address] [place] [address] Care Team Providers Care Corporate Communications Specialist Name Role Phone Dr. Nicholas Ontiveros III Primary Care Provider Allergies Allergen (clinical drug ingredient) Drug/Non Drug Allergy documented on EMR Reaction Allergy Type Onset Date Status lisinopril Lisinopril Unknown Drug Allergy Activ e Reason For Referral Reason Consult and Treat Left Knee Pain Diagnosis 1 Left knee pain (M25. 562) Referral Organization Nicholas Ontiveros III, MD Referring Provider First Name Nicholas Referring Provider Last Name Rama Referring Provider Speciality Internal M edicine Referred Provider [facility], Orthopedic Surgeons Referred Provider Specialty Orthopedic [facility] General Notes D, Carolyn 04/05/2024 04:30:10 PM > Referral faxed with progress note Referral Priority Routine Referral Appointment Date 05/19/2024 REASON FOR VISIT Hypertension, Left knee pain x 6 days, History of thymoma, [facility] [place], Benign prostatic hypertrophy,Diabetes, Papillary thyroid cancer 2022 Medications Medication SIG (Take, Route, Frequency, Duration) Notes Start Date End Date Status Levothyroxine Sodium 150 MCG TAKE 1 TABLET BY MOUTH EVERY DAY IN THE MORNING ON EMPTY STOMACH FOR 90 DAYS Active Valsartan 40 MG 1 tablet Orally Once a day 08/10/2021 Active Atorvastatin Calcium 40 MG TAKE 1 TABLET BY MOUTH EVERY DAY Active Meloxicam 10 MG 1 capsule Orally Onc e a day for 30 days 03/31/2024 05/29/2024 Active Social History Tobacco Use: Social History Observation Description Date Details (start date - stop date) Former Smoker NA - NA Sex Assigned At : Social History Observation Description Sex Assigned At Male Tobacco Use/Smoking Question Answer Notes Patient is a former smoker How long has it been since you last smoked? 1-5 years Additional Findings: Tobacco Non-User Ex-cigaret te smoker Vital Signs Temperature 97.9 degrees Fahrenheit 03/31/20 24 Blood pressure systolic 138 mm Hg 03/31/20 24 Blood pressure diastolic 80 mm Hg 024 Heart Rate 97 /min 03/31/2024 Height 71 in 03/31/2024 Weight 222 lbs 03/31/2024 BMI 30.96 kg/m2 03/31/2024 Encounters Encounter Location Date Provider Diagnosis Nicholas Ontiveros III, MD [address] [place] [address] [place] [address] 03/31/2024 Nicholas Ontiveros Hyperlipidemia E78.5 ; Thyroid cancer C73 ; Obesity (BMI 30.0-34.9) E66.9 ; Type 2 diabetes mellitus without complication, without long-term current use of insulin E11.9 ; BPH (benign prostatic hyperplasia) N40.0 and Former smoker Z87.891 Assessments Encounter Date Diagnosis (ICD Code) Assessment Notes Treat ment Notes Treatment Clinical Notes 03/31/2024 Hyperlipidemia (ICD-10 - E78.5) His lipids are currently controlled. No change in current medication was necessary. I recommended aggressive weight loss and a healthy diet. 03/31/2024 Thyroid cancer (ICD-10 - C73) He was found to have a 1.4 cm papillary thyroid cancer in the right lobe of his thyroid which has been removed. There is no sign of recurrence 03/31/2024 Obesity (BMI 30.0-34.9) (ICD-10 - E66.9) His weight is currently stable. We reviewed his weight loss strategy. I recommended weight loss in the right a one half of a pound per week through diet restricted in fat calories and sodium unconcentrated sweets. 03/31/2024 Type 2 diabetes mellitus without complication, without long-term current use of insulin (ICD-10 - E11.9) His blood glucose is slightly elevated. Hemoglobin A1c has been ordered. No change in medication was necessary. He will pursue aggressive weight loss. 03/31/2024 BPH (benign prostatic hyperplasia) (ICD-10 - N40.0) He has been rising from sleep at most once a night to urinate. We have discussed lifestyle modifications he could make to reduce nocturia. 03/31/2024 Former smoker (ICD-10 - Z87.891) He is highly motivated not to smoke. We formulated a plan to prevent relapse in times of stress and illness. Plan Of Treatment Medication Medication Name Sig Start Date Stop Date Notes Levothyroxine Sodium 150 MCG TAKE 1 TABL ET BY MOUTH EVERY DAY IN THE MORNING ON EMPTY STOMACH FOR 90 DAYS Valsartan 40 MG 1 tablet Orally Once a day 08/10/2021 Atorvastatin Calcium 40 MG TAKE 1 TABLET BY MOUTH EVERY DAY Meloxicam 10 MG 1 capsule Orally Onc e a day for 30 days 03/31/2024 05/29/2024 Pending Test Test Name Order Date PROFILE, FASTING (COMPREHENSIVE METABOLI C) 03/31/2024 CBC WITH AUTO DIFF 03/31/2024 Lipid Panel 03/31/2024 PSA Free and Total 03/31/2024 Free T4 (Free Thyroxine) 03/31/2024 Microalbumin, Random 03/31/2024 Hemoglobin A1c 03/31/2024 Referrals Referral Date Details 03/31/2024 03/31/2024, Consult and Treat Left Knee Pain, [facility] Next Appt Details Follow Up: As Scheduled, t week in July, Reason: OV, Pre Op, Follow-up on knee pain and preoperative clearance for cataract surgery Provider Name:Nicholas Ontiveros , 08/22/2025 02:00:00 PM, [address] [place] [address] , [facility], [place], [address], Progress Notes * Narendra PAGAN HDOB:1 06/17/1959 (63 yo M)Acc No.[id number]:03/31/2024 Progress Notes Patient: Narendra VILLAR Provider: Tr Ontiveros MD :1960 A ge:63 Y S ex:Male Date:03/31/2024 Address:[address] [place] [address] Subjective: * Chief Complaints: * H ypertensionLeft knee pain x 6 daysHistory of thymomaThe DemeoBenign prostatic hypertrophyDiabetesPapillary thyroid cancer 2022 * HPI: C OVID-19 Screening: Questions H ave you experienced fever, chills, [...] COVID-19 in the past? Y es * : The patient, a 63-year-old male, presented with pain in his left knee that started about five days ago. The pain began suddenly, without any specific injury, and has been constant since then. The patient described the pain as severe, affecting his sleep and mobility. The pain is located on the side of the knee. The patient also reported a previous issue with his right knee, which has since resolved. Additionally, the patient mentioned an issue with a wire from a previous surgical procedure that had come out, but did not specify the location or nature of this procedure. The patient also mentioned undergoing upcoming cataract surgery in July. * ROS: G eneral/Constitutional: pain L eft knee for the last 6 days. C hills d enies. F atigue a dmits. F ever d enies. E NT: Decreased hearing d enies. R espiratory: Cough d enies. C ardiovascular: Chest pain with exertion d enies. D yspnea on exertion?denies. S hortness of breath d enies. G astrointestinal: Constipation o ccasional. D ecreased appetite d enies. D iarrhea d enies. H eartburn d enies. N ausea d enies. R ectal bleeding d enies. V omiting d enies. H ematology: bruising d enies. p etechiae d enies. S wollen glands n one have been noted. G enitourinary: Frequent urination o nce a night. M usculoskeletal: Muscle aches d enies. P ainful joints L eft knee.?Sciatica d enies. W eakness d enies. S kin: Itching d enies. R jm d enies. S kin lesion(s)?denies. N eurologic: Difficulty speaking d enies. D izziness d enies.?Headache d enies. L ow back pain d enies. P sychiatric: Depressed mood d enies. * Medical History: * Surgical History: l janneth biopsy olonoscopy, [facility], Dr. Mccray 05/2020thymectomy, , [facility], benign 11/2020Thyroidectomy for papillary thyroid cancer 2022 [...] dditional Findings: Tobacco Non-User E x-cigarette smoker H erin lives in [facility]. He is employed and has no toxic exposures. He is but has a good relationship with his ex-. He has recovered from his recent thymectomy and is back at work. He does not smoke or drink alcohol or take drugs. He has no children. He was sborn in [facility]. * Medications: T akingValsartan 40 MG Tablet 1 tablet Orally Once a day Levothyroxine Sodium 150 MCG Tablet TAKE 1 TABLET BY MOUTH EVERY DAY IN THE MORNING ON EMPTY STOMACH FOR 90 DAYS Atorvastatin Calcium 40 MG Tablet TAKE 1 TABLET BY MOUTH EVERY DAY Medication List reviewed and reconciled with the patientTaking Valsartan 40 MG Tablet 1 tablet Orally Once a day Taking Levothyroxine Sodium 150 MCG Tablet TAKE 1 TABLET BY MOUTH EVERY DAY IN THE MORNING ON EMPTY STOMACH FOR 90 DAYS Taking Atorvastatin Calcium 40 MG Tablet TAKE 1 TABLET BY MOUTH EVERY DAY Medication List reviewed and reconciled with the patient * Allergies: L isinopril: Allergyno[Allergies Verified] Objective: * Vitals: H t: 71, Wt: 222, BMI:30.96, BP: 138/80, HR: 97, Temp: 97.9, Wt-k.7. * P ast Orders: Lab:[facility]. Jhon l Fast * Collection Date 03/26/2024 11/19/2023 08/12/2023 Collection Time 10:44 AM 06:18 AM 06:16 AM Order Date 03/26/2024 11/19/2023 08/12/2023 Sodium 139 (Ref Range: 135-145 mmol/L) 140 (Ref Range: 135-145 mmol/L) 140 (Ref Range: 135-145 mmol/L) Bilirubin Total 0.8 (Ref Range: 0.0-1.0 mg/dL) 0.8 (Ref Range: 0.0-1.0 mg/dL) 0.7 (Ref Range: 0.0-1.0 mg/dL) Aspartate Amino Transferase 38 H (Ref Range: 5-37 U/L) 24 (Ref Range: 5-37 U/L) 33 (Ref Range: 5-37 U/L) Alanine Aminotransferase 59 H (Ref Range: 0-40 U/L) 47 H (Ref Range: 0-40 U/L) 53 H (Ref Range: 0-40 U/L) Total Protein 8.0 (Ref Range: 6.5-8.0 g/dL) 7.6 (Ref Range: 6.5-8.0 g/dL) 8.0 (Ref Range: 6.5-8.0 g/dL) Albumin Level 4.4 (Ref Range: 3.5-5.0 g/dL) 4.3 (Ref Range: 3.5-5.0 g/dL) 4.4 (Ref Range: 3.5-5.0 g/dL) Alkaline Phosphatase 84 (Ref Range: 39-117 U/L) 83 (Ref Range: 39-117 U/L) 77 (Ref Range: 39-117 U/L) Potassium 4.3 (Ref Range: 3.3-5.1 mmol/L) 4.0 (Ref Range: 3.3-5.1 mmol/L) 4.2 (Ref Range: 3.3-5.1 mmol/L) Chloride 103 (Ref Range: 96-108 mmol/L) 105 (Ref Range: 96-108 mmol/L) 105 (Ref Range: 96-108 mmol/L) Carbon Dioxide 27 (Ref Range: 22-29 mmol/L) 29 (Ref Range: 22-29 mmol/L) 27 (Ref Range: 22-29 mmol/L) Anion Gap 13 (Ref Range: 12-20) 10 L (Ref Range: 12-20) 12 (Ref Range: 12-20) Blood Urea Nitrogen 10 (Ref Range: 9-16 mg/dL) 15 (Ref Range: 9-16 mg/dL) 17 H (Ref Range: 9-16 mg/dL) Creatinine 0.97 (Ref Range: 0.5-1.4 mg/dL) 0.92 (Ref Range: 0.5-1.4 mg/dL) 1.12 (Ref Range: 0.5-1.4 mg/dL) Estimated Glomerular Filt Rate > 60 > 60 > 60 Glucose Fasting 118 H (Ref Range: 60-99 mg/dL) 129 H (Ref Range: 60-99 mg/dL) 136 H (Ref Range: 60-99 mg/dL) Calcium 10.0 (Ref Range: 8.4-10.2 mg/dL) 9.8 (Ref Range: 8.4-10.2 mg/dL) 9.8 (Ref Range: 8.4-10.2 mg/dL) * Lab:Lipid Panel * Collection Date 03/26/2024 11/19/2023 08/12/2023 Collection Time 10:44 AM 06:18 AM 06:16 AM Order Date 03/26/2024 11/19/2023 08/12/2023 Triglycerides 93 (Ref Range: <150 mg/dL) 101 (Ref Range: <150 mg/dL) 103 (Ref Range: <150 mg/dL) Cholesterol 153 (Ref Range: <200 mg/dL) 137 (Ref Range: <200 mg/dL) 251 H (Ref Range: <200 mg/dL) LDL Cholesterol Calculated 88 (Ref Range: <100 mg/dL) 79 (Ref Range: <100 mg/dL) 187 H (Ref Range: <100 mg/dL) HDL Cholesterol 47 (Ref Range: >40 mg/dL) 38 L (Ref Range: >40 mg/dL) 44 (Ref Range: >40 mg/dL) * Lab:Prostate Specific Antige n * Collection Date 03/26/2024 06/19/2021 Collection Time 10:44 AM 06:22 AM Order Date 03/26/2024 06/19/2021 Prostate Specific Antigen 4.78 H (Ref Range: <0.05-4.0 ng/mL) 3.14 (Ref Range: <0.05-4.0 ng/mL) * Lab:Free T4 (Free Thyroxine) * Collection Date 03/26/2024 08/12/2023 01/28/2023 Collection Time 10:44 AM 06:16 AM 06:11 AM Order Date 03/26/2024 08/12/2023 01/28/2023 Free T4 (Free Thyroxine) 1.31 (Ref Range: 0.71-1.85 ng/dL) 1.40 (Ref Range: 0.71-1.85 ng/dL) 1.28 (Ref Range: 0.71-1.85 ng/dL) * Lab:Thyroid Stimulating Horm one * Collection Date 03/26/2024 08/12/2023 01/28/2023 Collection Time 10:44 AM 06:16 AM 06:11 AM Order Date 03/26/2024 08/12/2023 01/28/2023 Thyroid Stimulating Hormone 0.41 (Ref Range: 0.32-4.0 uIU/mL) 2.30 (Ref Range: 0.32-4.0 uIU/mL) 0.88 (Ref Range: 0.32-4.0 uIU/mL) * Lab:Complete Blood Count Aut o Diff * Collection Date 03/26/2024 11/19/2023 08/12/2023 Collection Time 10:44 AM 06:18 AM 06:16 AM Order Date 03/26/2024 11/19/2023 08/12/2023 White Blood Count 7.1 (Ref Range: 4.8-10.8 X10*3/uL) 6.0 (Ref Range: 4.8-10.8 X10*3/uL) 6.3 (Ref Range: 4.8-10.8 X10*3/uL) Red Blood Count 6.17 H (Ref Range: 4.60-5.80 X10*6/uL) 5.90 H (Ref Range: 4.60-5.80 X10*6/uL) 6.07 H (Ref Range: 4.60-5.80 X10*6/uL) Hemoglobin 15.7 (Ref Range: 14.0-18.0 g/dl) 15.1 (Ref Range: 14.0-18.0 g/dl) 15.6 (Ref Range: 14.0-18.0 g/dl) Hematocrit 48.8 (Ref Range: 42.0-52.0 %) 47.4 (Ref Range: 42.0-52.0 %) 48.7 (Ref Range: 42.0-52.0 %) Mean Corpuscular Volume 79.1 L (Ref Range: 80.0-98.0 fL) 80.3 (Ref Range: 80.0-98.0 fL) 80.2 (Ref Range: 80.0-98.0 fL) Mean Corpuscular Hemoglobin 25.4 L (Ref Range: 27.0-33.0 pg) 25.6 L (Ref Range: 27.0-33.0 pg) 25.7 L (Ref Range: 27.0-33.0 pg) Mean Corpuscular HGB Conc 32.2 (Ref Range: 31.0-36.0 g/dl) 31.9 (Ref Range: 31.0-36.0 g/dl) 32.0 (Ref Range: 31.0-36.0 g/dl) Red Cell Distribution Width 14.1 (Ref Range: 11.0-16.0 %) 13.8 (Ref Range: 11.0-16.0 %) 14.3 (Ref Range: 11.0-16.0 %) Platelet Count 207 (Ref Range: 160-400 X10*3/uL) 176 (Ref Range: 160-400 X10*3/uL) 233 (Ref Range: 160-400 X10*3/uL) Mean Platelet Volume 11.2 (Ref Range: 9.4-12.4 fL) 11.8 (Ref Range: 9.4-12.4 fL) 11.7 (Ref Range: 9.4-12.4 fL) Neutrophils Percent Auto 69.6 (Ref Range: 45-73 %) 61.4 (Ref Range: 45-73 %) 63.0 (Ref Range: 45-73 %) Imm Gran Pct Auto 0.3 (Ref Range: 0.0-0.4 %) 0.2 (Ref Range: 0.0-0.4 %) 0.2 (Ref Range: 0.0-0.4 %) Lymphocytes Percent Auto 19.9 L (Ref Range: 20-40 %) 24.7 (Ref Range: 20-40 %) 24.0 (Ref Range: 20-40 %) Monocytes Percent Auto 8.7 (Ref Range: 2-11 %) 10.5 (Ref Range: 2-11 %) 9.8 (Ref Range: 2-11 %) Eosinophils Percent Auto 0.7 (Ref Range: 0-4 %) 2.2 (Ref Range: 0-4 %) 1.9 (Ref Range: 0-4 %) Basophils Percent Auto 0.8 (Ref Range: 0-2 %) 1.0 (Ref Range: 0-2 %) 1.1 (Ref Range: 0-2 %) NRBC Pct Auto 0.0 (Ref Range: 0.0-0.2 /100WBC) 0.0 (Ref Range: 0.0-0.2 /100WBC) 0.0 (Ref Range: 0.0-0.2 /100WBC) Neutrophils Absolute Auto 5.0 (Ref Range: 2.0-8.3 x10*3/uL) 3.7 (Ref Range: 2.0-8.3 x10*3/uL) 4.0 (Ref Range: 2.0-8.3 x10*3/uL) Imm Gran Abs Auto 0.02 (Ref Range: 0.00-0.03 X10*3/uL) 0.01 (Ref Range: 0.00-0.03 X10*3/uL) 0.01 (Ref Range: 0.00-0.03 X10*3/uL) Lymphocytes Absolute Auto 1.4 (Ref Range: 1.2-4.9 X10*3/uL) 1.5 (Ref Range: [...] Examination: G eneral Examination: GENERAL APPEARANCE: p leasant, well nourished, well developed, in no acute distress, calm and relaxed, obese, man. HEAD: a traumatic, normocephalic. EYES: e nathanael, perrla, anicteric, conjugate. EARS: n ormal. NOSE: s eptum intact. ORAL CAVITY: n ormal, unremarkable. NECK/THYROID: n o jugular venous distention, no carotid bruit, Thyroid surgery scar well-healed, no palpable remnant. LYMPH NODES: n o enlarged lymph nodes,spleen normal. SKIN: n o suspicious lesions, anicteric. HEART: n o clicks, gallops, murmurs, or rubs, regular rhythm, S1, S2 normal, no s3, or vascular bruits. LUNGS: c lear to auscultation, Healed median sternotomy incision. BREASTS: no masses palpable bilaterally. ABDOMEN: b owel sounds normal, no ascites, no organomegaly, no mass, centripital obesity. RECTAL EXAM: n ot examined. MUSCULOSKELETAL: e xtremities unremarkable, no clubbing, cyanosis or edema. PERIPHERAL PULSES: n ormal. NEUROLOGIC: a lert and oriented, cranial nerves 2-12 grossly intact, deep tendon reflexes 2+ symmetrical, motor strength normal upper and lower extremities, sensory exam intact. PSYCH: a lert, oriented. Assessment: * Assessment: 1. T hyroid cancer - C73 (Primary) N otes :He was found to have a 1.4 cm papillary thyroid cancer in the right lobe of his thyroid which has been removed. There is no sign of recurrence 2 . H yperlipidemia - E78.5 N otes :His lipids are currently controlled. No change in current medication was necessary. I recommended aggressive weight loss and a healthy diet. 3 . O besity (BMI 30.0-34.9) - E66.9 N otes :His weight is currently stable. We reviewed his weight loss strategy. I recommended weight loss in the right a one half of a pound per week through diet restricted in fat calories and sodium unconcentrated sweets. 4 . T ype 2 diabetes mellitus without complication, without long-term current use of insulin - E11.9 N otes :His blood glucose is slightly elevated. Hemoglobin A1c has been ordered. No change in medication was necessary. He will pursue aggressive weight loss. 5 . B PH (benign prostatic hyperplasia) - N40.0 N otes :He has been rising from sleep at most once a night to urinate. We have discussed lifestyle modifications he could make to reduce nocturia. 6 . F ormer smoker - Z87.891 N otes :He is highly motivated not to smoke. We formulated a plan to prevent relapse in times of stress and illness. Plan: * Treatment: 2. H yperlipidemia L AB: PROFILE, FASTING (COMPREHENSIVE METABOLIC) L AB: CBC WITH AUTO DIFF L AB: Lipid Panel L AB: PSA Free and Total L AB: Free T4 (Free Thyroxine) L AB: Microalbumin, Random L AB: Hemoglobin A1c 3. O besity (BMI 30.0-34.9) L AB: PROFILE, FASTING (COMPREHENSIVE METABOLIC) L AB: CBC WITH AUTO DIFF L AB: Lipid Panel L AB: PSA Free and Total L AB: Free T4 (Free Thyroxine) L AB: Microalbumin, Random L AB: Hemoglobin A1c 4. T ype 2 diabetes mellitus without complication, without long-term current use of insulin L AB: PROFILE, FASTING (COMPREHENSIVE METABOLIC) L AB: CBC WITH AUTO DIFF L AB: Lipid Panel L AB: PSA Free and Total L AB: Free T4 (Free Thyroxine) L AB: Microalbumin, Random L AB: Hemoglobin A1c 5. B PH (benign prostatic hyperplasia) L AB: PROFILE, FASTING (COMPREHENSIVE METABOLIC) L AB: CBC WITH AUTO DIFF L AB: Lipid Panel L AB: PSA Free and Total L AB: Free T4 (Free Thyroxine) L AB: Microalbumin, Random L AB: Hemoglobin A1c 6. O thers Continue Atorvastatin Calcium Tablet, 40 MG, TAKE 1 TABLET BY MOUTH EVERY DAY; C ontinue Valsartan Tablet, 40 MG, 1 tablet, Orally, Once a day; C ontinue Levothyroxine Sodium Tablet, 150 MCG, TAKE 1 TABLET BY MOUTH EVERY DAY IN THE MORNING ON EMPTY STOMACH FOR 90 DAYS; S tart Meloxicam Capsule, 10 MG, 1 capsule, Orally, Once a day, 30 days, 30, Refills 1. ? Referral To:[facility] Orthopedic Surgery Reason:Consult and Treat Left Knee Pain * Procedure Codes: * Preventive Medicine: Counseling: [...] done: Medical or Other reason not done * Follow Up: A s Scheduled, Last week in July (Reason: OV, Pre Op, Follow-up on knee pain and preoperative clearance for cataract surgery) * Images: * Sign off status: Completed true * Provider: Tr Ontiveros MD Date: Generated for Dominick culp/Mindy/Renan on: 06/06/2024 05:12 PM EST History and Physical Notes * HPI (History of Present Illness) Category Sub-Category Detail Notes COVID-19 Screening Questions Have you had any new onset fever, chills, cough, congestion, sore throat, shortness of breath, muscle aches?: No Have you been exposed to the virus withi n the last 10 days?: No Have you travelled internationally in [facility] last 10 days?: No Have you been exposed to COVID-19 in the past?: Yes Examination Category Sub-Category Detail Notes General Examination GENERAL APPEARANCE: pleasant , well nourished, well developed, in no acute distress, calm and relaxed, obese, man HEAD: atraumatic, normocep halic EYES: eomi, perrla, anicte mingo, conjugate EARS: normal NOSE: septum intact NECK/THYROID: no jugular venous di stention, no carotid bruit, Thyroid surgery scar well-healed, no palpable remnant HEART: no clicks, gallops, murmurs, or rubs, regular rhythm, S1, S2 normal, no s3, or vascular bruits LUNGS: clear to auscultatio n, Healed median sternotomy incision ABDOMEN: bowel sounds normal, no ascites, no organomegaly, no mass, centripital obesity NEUROLOGIC: alert and oriented, cranial nerves 2-12 grossly intact, deep tendon reflexes 2+ symmetrical, motor strength normal upper and lower extremities, sensory exam intact SKIN: no suspicious lesion s, anicteric PERIPHERAL PULSES: normal BREASTS: no masses palpable b ilaterally MUSCULOSKELETAL: extremities unremark able, no clubbing, cyanosis or edema LYMPH NODES: no enlarged lymph no dayne,spleen normal RECTAL EXAM: not examined PSYCH: alert, oriented ORAL CAVITY: normal, unremarkable Consultation Request Notes Referral Date Referring Provider Referred Provider Carlene gallo 03/31/2024 Nicholas Ontiveros [facility], Orthopedic Surgeons Consult and Treat Left Knee Pain
--- OUTSIDE RECORDS SUMMARY | 2024-04-05 00:06 | XMS_ITS ---
Author Organization Nicholas Ontiveros III, MD Address [address] [place] [address] [place] [address] Care Team Providers Care Contractor General Building Name Role Phone Dr. Nicholas Ontiveros III Primary Care Provider Medications Medication SIG (Take, Route, Fr equency, Duration) Notes Start Date End Date Status Naproxen 500 MG 1 tablet with food o r milk as needed Orally every 12 hrs for severe pain for 30 days 04/05/2024 11/01/2024 Active Social History Sex Assigned At : Social History Observation Description Sex Assigned At Male Encounters Encounter Location Date Provider Diagnosis Nicholas Ontiveros III, MD [address] [place] [address] [place] [address] 04/05/2024 Nicholas Ontiveros Plan Of Treatment Medication Medication Name Sig Start Date Stop Date Notes Naproxen 500 MG 1 tablet with food o r milk as needed Orally every 12 hrs for severe pain for 30 days 04/05/2024 11/01/2024 Next Appt Details Provider Name:Nicholas Ontiveros , 08/22/2025 02:00:00 PM, [address] [place] [address] [place], [address], Progress Notes * Narendra PAGAN HDOB:1 06/17/1959 (63 yo M)Acc No.[id number]:04/05/2024 Patient: Poncho Narendra HAILE Joao :1960 A ge:63 Y S ex:Male Address:[address] [place] [address], [address] * Refills Start Naproxen Tablet, 500 MG, Orally, 60, 1 tablet with food or milk as needed, every 12 hrs for severe pain, 30 days, Refills=6 * true * Date: Generated for Dominick culp/Mindy/Naveenitting on: 06/06/2024 05:12 PM EST
--- OUTSIDE RECORDS SUMMARY | 2024-07-28 04:30 | XMS_ITS ---
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 Nicholas Ontiveros III Primary Care Provider [phone] Allergies Allergen (clinical drug ingredient) Drug/Non Drug Allergy documented on EMR Reaction Allergy Type Onset Date Status lisinopril Lisinopril Unknown Drug Allergy Activ e REASON FOR VISIT Medical clearance for bilateral cataract surgery by Dr. Bocanegra on 08/05/24, 08/20/24, Hypertension, Hyperlipidemia, Obesity, History of resected thymoma, Prostatic hypertrophy, Diabetes, History of thyroidectomy for papillary thyroid cancer. I Medications Medication SIG (Take, Route, Frequency, Duration) Notes Start Date End Date Status Valsartan 40 MG TAKE 1 TABLET BY YESSICA TH EVERY DAY FOR 90 DAYS Active Naproxen 500 MG 1 tablet with food o r milk as needed Orally every 12 hrs for severe pain 04/05/2024 Active Atorvastatin Calcium 40 MG TAKE 1 TABLET BY MOUTH EVERY DAY Active Levothyroxine Sodium 150 MCG TAKE 1 TABL ET BY MOUTH EVERY DAY IN THE MORNING ON EMPTY STOMACH FOR 90 DAYS Active Social History Tobacco Use: Social History [...] Problem Status W/U Status Risk Notes Problem [id number] Age-related incipient cataract of both eyes (H25.093) Active confirmed He is medically cleared for sequential bilateral cataract extraction and lens implantation in July 2024. There is no contraindication and he is given medical clearance. Vital Signs Temperature 98.1 degrees Fahrenheit 07/28/19 25 Blood pressure systolic 138 mm Hg 07/28/19 25 Blood pressure diastolic 80 mm Hg 025 Heart Rate 78 /min 07/28/2024 Height 71 in 07/28/2024 Weight 221 lbs 07/28/2024 BMI 30.82 kg/m2 07/28/2024 Encounters Encounter Location Date Provider Diagnosis Nicholas Ontiveros III, MD [address] [place] [address] [place] [address] 07/28/2024 Nicholas Ontiveros Thyroid cancer C73 ; Age-related incipient cataract of both eyes H25.093 ; Hyperlipidemia E78.5 ; Obesity (BMI 30.0-34.9) E66.9 ; Hypertension I10 ; Thymoma, benign D15.0 ; Former smoker Z87.891 ; Allergy to lisinopril Z88.8 and Type 2 diabetes mellitus without complication, without long-term current use of insulin E11.9 Assessments Encounter Date Diagnosis (ICD Code) Assessment Notes T reatment Notes Treatment Clinical Notes 07/28/2024 Thyroid cancer (ICD-10 - C73) He was found to have a 1.4 cm papillary thyroid cancer in the right lobe of his thyroid which has been removed. There is no sign of recurrence 07/28/2024 Age-related incipient cataract of both eyes (ICD-10 - H25.093) He is medically cleared for sequential bilateral cataract extraction and lens implantation in July 2024. There is no contraindication and he is given medical clearance. 07/28/2024 Hyperlipidemia (ICD-10 - E78.5) He seems to be stable. A fasting lipid profile will be done prior to his next visit. 07/28/2024 Obesity (BMI 30.0-34.9) (ICD-10 - E66.9) His body mass index is 30 in the obese range. We have reviewed his weight loss strategy. We have discussed diet and nutrition at length. We made a plan to lose weight at a rate of one half of a pound per week. 07/28/2024 Hypertension (ICD-10 - I10) His blood pressure is unremarkable and no change in his regimen was necessary today. I recommended aggressive weight loss and sodium restriction. He has succeeded in losing 4 pounds. He will continue to lose weight and be followed in the office. 07/28/2024 Thymoma, benign (ICD-10 - D15.0) He has recovered from the surgery and the sternal incision is well-healed and nonpainful. 07/28/2024 Former smoker (ICD-10 - Z87.891) He is highly motivated not to smoke. We formulated a plan to prevent relapse in times of stress and illness. 07/28/2024 Allergy to lisinopril (ICD-10 - Z88.8) This medication caused a chronic cough and therefore it was discontinued. 07/28/2024 Type 2 diabetes mellitus without complication, without long-term current use of insulin (ICD-10 - E11.9) His blood glucose is slightly elevated. Hemoglobin A1c has been ordered. No change in medication was necessary. He will pursue aggressive weight loss. Plan Of Treatment Medication Medication Name Sig Start Date Stop Date Notes Valsartan 40 MG TAKE 1 TABLET BY YESSICA TH EVERY DAY FOR 90 DAYS Naproxen 500 MG 1 tablet with food o r milk as needed Orally every 12 hrs for severe pain 04/05/2024 Atorvastatin Calcium 40 MG TAKE 1 TABLET BY MOUTH EVERY DAY Levothyroxine Sodium 150 MCG TAKE 1 TABL ET BY MOUTH EVERY DAY IN THE MORNING ON EMPTY STOMACH FOR 90 DAYS Pending Test Test Name Order Date PROFILE, FASTING (COMPREHENSIVE METABOLI C) 07/28/2024 PSA, TOTAL 07/28/2024 CBC WITH AUTO DIFF 07/28/2024 Lipid Panel 07/28/2024 Next Appt Details Follow Up: As Scheduled, Verito son: OV Provider Name:Nicholas Ontiveros , 08/22/2025 02:00:00 PM, [address] [place] [address] [address], [place], [address], Progress Notes * Narendra PAGAN HDOB:1 06/17/1959 (64 yo M)Acc No.[id number]:07/28/2024 Patient: Poncho Narendra HAILE Provider: Tr Ontiveros MD :1960 A ge:64 Y S ex:Male Date:07/28/2024 Address:[address] [place], [place] [id number] Subjective: * Chief Complaints: * M edical clearance for bilateral cataract surgery by Dr. Bocanegra on 08/05/24, 08/20/24HypertensionHyperlipidemiaObesityHistory of resected thymomaProstatic hypertrophyDiabetesHistory of thyroidectomy for papillary thyroid cancer. 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 He is here today for medical clearance. He was carefully examined and a careful history was obtained. He has had no trouble breathing and no chest pains. He seems quite medically stable. He has a history of thymoma resection as well as a total thyroidectomy for a 1.4 cm papillary thyroid cancer which is now in remission. He was breathing comfortably today. His examination was unremarkable. He has been quite stable lately with normal vital signs. He is given medical clearance for cataract extraction with anesthesia without reservation. T he risk is minimal and the benefit is great. He is medically cleared for the procedures. Questions H ave you had any new onset fever, chills, cough, congestion, sore throat, shortness of breath, muscle aches? N o * ROS: G eneral/Constitutional: pain o nly [...] * Surgical History: l janneth biopsy olonoscopy, [facility], Dr. Mccray 05/2020thymectomy, , [facility], benign 11/2020Thyroidectomy for papillary thyroid cancer 2022 [...] E x-cigarette smoker H erin lives in [facility]. He is employed and has no toxic exposures. He is but has a good relationship with his ex-. He has recovered from his recent thymectomy and is back at work. He does not smoke or drink alcohol or take drugs. He has no children. He was sborn in [facility]. * Medications: T akingAtorvastatin Calcium 40 MG Tablet TAKE 1 TABLET BY MOUTH EVERY DAY Levothyroxine Sodium 150 MCG Tablet TAKE 1 TABLET BY MOUTH EVERY DAY IN THE MORNING ON EMPTY STOMACH FOR 90 DAYS Naproxen 500 MG Tablet 1 tablet with food or milk as needed Orally every 12 hrs for severe pain , stop date 11/01/2024Valsartan 40 MG Tablet TAKE 1 TABLET BY MOUTH EVERY DAY FOR 90 DAYS Medication List reviewed and reconciled with the patientTaking Atorvastatin Calcium 40 MG Tablet TAKE 1 TABLET BY MOUTH EVERY DAY Taking Levothyroxine Sodium 150 MCG Tablet TAKE 1 TABLET BY MOUTH EVERY DAY IN THE MORNING ON EMPTY STOMACH FOR 90 DAYS Taking Naproxen 500 MG Tablet 1 tablet with food or milk as needed Orally every 12 hrs for severe pain , stop date 11/01/2024Taking Valsartan 40 MG Tablet TAKE 1 TABLET BY MOUTH EVERY DAY FOR 90 DAYS Medication List reviewed and reconciled with the patient * Allergies: L isinopril: Allergyno[Allergies Verified] Objective: * Vitals: H t: 71, Wt: 221, BMI:30.82, BP: 138/80, HR: 78, Temp: 98.1, Wt-k.24. * Examination: G eneral Examination: GENERAL APPEARANCE: p leasant, well nourished, well developed, in no acute distress, calm and relaxed, obese, man. HEAD: a traumatic, normocephalic. EYES: e nathanael, perrla, anicteric, conjugate. EARS: n ormal. NOSE: s eptum intact. ORAL CAVITY: n ormal, unremarkable. NECK/THYROID: n o jugular venous distention, no carotid bruit, thyroid normal, Healed thyroidectomy scar, no palpable masses. LYMPH NODES: n o enlarged lymph nodes,spleen normal. SKIN: n o suspicious lesions, anicteric. HEART: n o clicks, gallops, murmurs, or rubs, regular rhythm, S1, S2 normal, no s3, or vascular bruits, Healed sternotomy incision. LUNGS: c lear to auscultation . BREASTS: [...] extremities, sensory exam intact. PSYCH: a lert, oriented, alert, oriented, thought process logical, goal directed, cognitive function intact, good eye contact, speech clear. ? Assessment: * Assessment: 1. T hyroid cancer - C73 (Primary) N otes :He was found to have a 1.4 cm papillary thyroid cancer in the right lobe of his thyroid which has been removed. There is no sign of recurrence 2 . A ge-related incipient cataract of both eyes - H25.093 N otes :He is medically cleared for sequential bilateral cataract extraction and lens implantation in July 2024. There is no contraindication and he is given medical clearance. 3 . H yperlipidemia - E78.5 N otes :He seems to be stable. A fasting lipid profile will be done prior to his next visit. 4 . O besity (BMI 30.0-34.9) - E66.9 N otes :His body mass index is 30 in the obese range. We have reviewed his weight loss strategy. We have discussed diet and nutrition at length. We made a plan to lose weight at a rate of one half of a pound per week. 5 . H ypertension - I10 N otes :His blood pressure is unremarkable and no change in his regimen was necessary today. I recommended aggressive weight loss and sodium restriction. He has succeeded in losing 4 pounds. He will continue to lose weight and be followed in the office. 6 . T hymoma, benign - D15.0 N otes :He has recovered from the surgery and the sternal incision is well-healed and nonpainful. 7 . F ormer smoker - Z87.891 N otes :He is highly motivated not to smoke. We formulated a plan to prevent relapse in times of stress and illness. 8 . A llergy to lisinopril - Z88.8 N otes :This medication caused a chronic cough and therefore it was discontinued. 9 . T ype 2 diabetes mellitus without complication, without long-term current use of insulin - E11.9 N otes :His blood glucose is slightly elevated. Hemoglobin A1c has been ordered. No change in medication was necessary. He will pursue aggressive weight loss. Plan: * Treatment: 2. O besity (BMI 30.0-34.9) L AB: PROFILE, FASTING (COMPREHENSIVE METABOLIC) L AB: PSA, TOTAL L AB: CBC WITH AUTO DIFF L AB: Lipid Panel 3. T ype 2 diabetes mellitus without complication, without long-term current use of insulin L AB: PROFILE, FASTING (COMPREHENSIVE METABOLIC) L AB: PSA, TOTAL L AB: CBC WITH AUTO DIFF L AB: Lipid Panel 4. O thers Continue Valsartan Tablet, 40 MG, TAKE 1 TABLET BY MOUTH EVERY DAY FOR 90 DAYS; C ontinue Naproxen Tablet, 500 MG, 1 tablet with food or milk as needed, Orally, every 12 hrs for severe pain; C ontinue Atorvastatin Calcium Tablet, 40 MG, TAKE 1 TABLET BY MOUTH EVERY DAY; C ontinue Levothyroxine Sodium Tablet, 150 MCG, [...] tobacco use and urged to quit. 0 07/28/2024 DM Care Plan: P atient Lifestyle Goals P atient wants to be able to manage diabetes without too much effort. T reatment Goals H bA1C < 7.0, Blood Sugars less than < 115. B arriers n o barriers. S elf-Managment Goals W ork on weight loss, with a goal of losing 1 lb per week. * Follow Up: A s Scheduled (Reason: OV) * Images: * Sign off status: Completed true * Provider: Tr Ontiveros MD Date: 0 07/28/2024 Generated for Dominick culp/Mindy/Naveenitting on: 06/06/2024 05:12 PM EST History and Physical Notes * HPI (History of Present Illness) Category Sub-Category Detail Notes COVID-19 Screening Questions Have you had any new onset fever, chills, cough, congestion, sore throat, shortness of breath, muscle aches?: No Examination Category Sub-Category Detail Notes General Examination GENERAL APPEARANCE: pleasant , well nourished, well developed, in no acute distress, calm and relaxed, obese, man HEAD: atraumatic, normocep halic EYES: eomi, perrla, anicte mingo, conjugate EARS: normal NOSE: septum intact NECK/THYROID: no jugular venous di stention, no carotid bruit, thyroid normal, Healed thyroidectomy scar, no palpable masses HEART: no clicks, gallops, murmurs, or rubs, regular rhythm, S1, S2 normal, no s3, or vascular bruits, Healed sternotomy incision LUNGS: clear to auscultatio n ABDOMEN: bowel [...] normal RECTAL EXAM: not examined PSYCH: alert, oriented, daniele rt, oriented, thought process logical, goal directed, cognitive function intact, good eye contact, speech clear ORAL CAVITY: normal, unremarkable
--- OUTSIDE RECORDS SUMMARY | 2024-08-18 09:00 | XMS_ITS ---
Author Organization Nicholas Ontiveros III, MD Address [address] [place] [address] Care Team Providers Care Stores Assistant Name Role Phone Dr. Nicholas Ontiveros III Primary Care Provider [phone] Allergies Allergen (clinical drug ingredient) Drug/Non Drug Allergy documented on EMR Reaction Allergy Type Onset Date Status lisinopril Lisinopril Unknown Drug Allergy Activ e Results Component Value Reference Range Notes URINE DIP STICK Reviewed date:08/18/2024 02:13:00 PM Interpretation: Performing Lab: Notes/Report: SG 1.030 1.005 - 1.025 pH 5.0 5.0 - 9.0 JEFFRY Negative Negative - NIT Negative Negative - PRO 15 Negative - Trace GLU Negative Negative - KET 5 Negative - UBG 0.2 0.1 - 1.8 ALPHONSE 1 0.2 - 1.3 BLD + Negative - REASON FOR VISIT Annual Exam Medications Medication SIG (Take, Route, Frequency, Duration) Notes Start Date End Date Status Naproxen 500 MG 1 tablet with food o r milk as needed Orally every 12 hrs for severe pain 04/05/2024 Active Atorvastatin Calcium 40 MG TAKE 1 TABLET BY MOUTH EVERY DAY Active Valsartan 40 MG TAKE 1 TABLET BY YESSICA TH EVERY DAY FOR 90 DAYS Active Levothyroxine Sodium 150 MCG TAKE 1 TABL ET BY MOUTH EVERY DAY IN THE MORNING ON EMPTY STOMACH FOR 90 DAYS Active Social History Tobacco Use: Social History Observation Description Date Details (start date - stop date) Former Smoker NA - NA Sex Assigned At : Social History Observation Description Sex Assigned At Male Tobacco Control (Standard) Question Answer Notes Tobacco use: Former smoker How long has it been since you last smoked? 5-10 years Additional Findings: Tobacco non-user Ex-cigaret te smoker AUDIT-C (Standard) Question Answer Notes Did you have a drink contain ing alcohol in the past year? Yes How often did you have six o r more drinks on one occasion in the past year? Less than monthly (1 point) How many drinks did you have on a typical day when you were drinking in the past year? 1 or 2 drinks (0 point) How often did you have a dri nk containing alcohol in the past year? Never (0 point) Points 1 Interpretation Negative Problems Problem Type SNOMED Code ICD Code Onset Dates Problem Status W/U Status Risk Notes Problem [id number] Elevated PSA (R97.20) Active confirmed In the past his PSA was 3.14 and then 4.78. It is now 4.88 with a free PSA of 11%. This is going to be repeated in the near future. Necessary he will see urology. No nodules were palpated today. Vital Signs Temperature 98.4 degrees Fahrenheit 08/19/19 25 Blood pressure systolic 133 mm Hg 08/19/19 25 Blood pressure diastolic 77 mm Hg 025 Heart Rate 80 /min 08/18/2024 Height 71 in 08/18/2024 Weight 222 lbs 08/18/2024 BMI 30.96 kg/m2 08/18/2024 Encounters Encounter Location Date Provider Diagnosis Nicholas Ontiveros III, MD [address] [place] [address] [facility] [address] 08/18/2024 Nicholas Ontiveros Hypertension I10 ; Hyperlipidemia E78.5 ; Obesity (BMI 30.0-34.9) E66.9 ; Thymoma, benign D15.0 ; Former smoker Z87.891 ; Type 2 diabetes mellitus without complication, without long-term current use of insulin E11.9 ; Thyroid cancer C73 ; Age-related incipient cataract of both eyes H25.093 and Elevated PSA R97.20 Assessments Encounter Date Diagnosis (ICD Code) Assessment Notes T reatment Notes Treatment Clinical Notes 08/18/2024 Hypertension (ICD-10 - I10) His blood pressure is unremarkable and no change in his regimen was necessary today. I recommended aggressive weight loss and sodium restriction. He has succeeded in losing 4 pounds. He will continue to lose weight and be followed in the office. 08/18/2024 Hyperlipidemia (ICD-10 - E78.5) His total cholesterol is 121. He was continued on current medication. No change was necessary. 08/18/2024 Obesity (BMI 30.0-34.9) (ICD-10 - E66.9) His body mass index is 30 in the obese range. We have reviewed his weight loss strategy. We have discussed diet and nutrition at length. We made a plan to lose weight at a rate of one half of a pound per week. 08/18/2024 Thymoma, benign (ICD-10 - D15.0) He has recovered from the surgery and the sternal incision is well-healed and nonpainful. 08/18/2024 Former smoker (ICD-10 - Z87.891) He is highly motivated not to smoke. We formulated a plan to prevent relapse in times of stress and illness. 08/18/2024 Type 2 diabetes mellitus without complication, without long-term current use of insulin (ICD-10 - E11.9) His blood glucose is slightly elevated. Hemoglobin A1c is 7.0. No change in medication was necessary. He will pursue aggressive weight loss. 08/18/2024 Thyroid cancer (ICD-10 - C73) He was found to have a 1.4 cm papillary thyroid cancer in the right lobe of his thyroid which has been removed. There is no sign of recurrence. He is asymptomatic and feeling well. 08/18/2024 Age-related incipient cataract of both eyes (ICD-10 - H25.093) He is medically cleared for sequential bilateral cataract extraction and lens implantation in July 2024. There is no contraindication and he is given medical clearance. 08/18/2024 Elevated PSA (ICD-10 - R97.20) In the past his PSA was 3.14 and then 4.78. It is now 4.88 with a free PSA of 11%. This is going to be repeated in the near future. Necessary he will see urology. No nodules were palpated today. Plan Of Treatment Medication Medication Name Sig Start Date Stop Date Notes Naproxen 500 MG 1 tablet with food o r milk as needed Orally every 12 hrs for severe pain 04/05/2024 Atorvastatin Calcium 40 MG TAKE 1 TABLET BY MOUTH EVERY DAY Valsartan 40 MG TAKE 1 TABLET BY YESSICA TH EVERY DAY FOR 90 DAYS Levothyroxine Sodium 150 MCG TAKE 1 TABL ET BY MOUTH EVERY DAY IN THE MORNING ON EMPTY STOMACH FOR 90 DAYS Next Appt Details Follow Up: 2 Months, Reason: ov Provider Name:Nicholas Hardy Rama , 08/22/2025 02:00:00 PM, [address] [place] [address], [address], Progress Notes * Narendra PAGAN HDOB:1 06/17/1959 (64 yo M)Acc No.[id number]:08/18/2024 Progress Notes Patient: Narendra VILLAR Provider: Tr Ontiveros MD :1960 A ge:64 Y S ex:Male Date:08/18/2024 Address:[address] [place] [address] Subjective: * Chief Complaints: * A nnual Exam * HPI: D epression Screening: He returns for his annual physical examination at the age of 64. Since his last visit he has been healthy and well. His blood work was reviewed with him. His physical examination showed no new problems. He is followed here for a history of a thymoma, obesity, hyperlipidemia and hypertensioon, diabetes mellitus and benign prostatic hypertrophy. All of these problems have been stable.There was no sign of recurrent thyroid cancer at this time. He has no bone pain and feels quite well. He is trying to lose weight and consume a healthy diet. He has been compliant with all of his medication. PHQ-9 L ittle interest or pleasure in doing things?Not at all F eeling down, depressed, or hopeless N ot at all T rouble falling or staying asleep, or sleeping too much N ot at all F eeling tired or having little energy N ot at all P oor appetite or overeating N ot at all F eeling bad about yourself or that you are a failure, or have let yourself or your family down N ot at all T rouble concentrating on things, such as reading the newspaper or watching television N ot at all M oving or speaking so slowly that other people could have noticed; or the opposite, being so fidgety or restless that you have been moving around a lot more than usual N ot at all T houghts that you would be better off or of hurting yourself in some way N ot at all T otal Score 0 C OVID-19 Screening: Questions H ave you had any new onset fever, chills, cough, congestion, sore throat, shortness of breath, muscle aches? N o S TRACIE Questions: SDOH Questions I n the past year have you been worried about losing your housing? N o I n the past year have you or any family members you live with been unable to get any of the following when it was really needed? Check all that apply: N one * ROS: G eneral/Constitutional: pain o nly [...] History: * Surgical History: l janneth biopsy 1Colonoscopy, [facility], Dr. Mccray 05/2020thymectomy, , [facility], benign 11/2020Thyroidectomy for papillary thyroid cancer ilateral eye cataract surgery 2024 * Hospitalization/Major Diagno stic Procedure: D enies [...] Social History: T obacco Use: T obacco Control (Standard) T obacco use: F ormer smoker H ow long has it been since you last smoked??5-10 years A dditional Findings: Tobacco non-user E x-cigarette smoker D rugs/Alcohol: D rugs H ave you used drugs other than those for medical reasons in the past 12 months? N o D rug/Alcohol: A MING-C (Standard) D id you have a drink containing alcohol in the past year? Y es H ow often did you have six or more drinks on one occasion in the past year? L ess than monthly (1 point) H ow many drinks did you have on a typical day when you were drinking in the past year? 1 or 2 drinks (0 point) H ow often did you have a drink containing alcohol in the past year? N ever (0 point) P oints 1 I nterpretation N egative H e lives in [facility]. He is employed and has no toxic exposures. He is but has a good relationship with his ex-. He has recovered from his recent thymectomy and is back at work. He does not smoke or drink alcohol or take drugs. He has no children. He was sborn in [facility]. * Medications: T akingValsartan 40 MG Tablet TAKE 1 TABLET BY MOUTH EVERY DAY FOR 90 DAYS Naproxen 500 MG Tablet 1 tablet with food or milk as needed Orally every 12 hrs for severe pain Atorvastatin Calcium 40 MG Tablet TAKE 1 TABLET BY MOUTH EVERY DAY Levothyroxine Sodium 150 MCG Tablet TAKE 1 TABLET BY MOUTH EVERY DAY IN THE MORNING ON EMPTY STOMACH FOR 90 DAYS Medication List reviewed and reconciled with the patientTaking Valsartan 40 MG Tablet TAKE 1 TABLET BY MOUTH EVERY DAY FOR 90 DAYS Taking Naproxen 500 MG Tablet 1 tablet with food or milk as needed Orally every 12 hrs for severe pain Taking Atorvastatin Calcium 40 MG Tablet TAKE 1 TABLET BY MOUTH EVERY DAY Taking Levothyroxine Sodium 150 MCG Tablet TAKE 1 TABLET BY MOUTH EVERY DAY IN THE MORNING ON EMPTY STOMACH FOR 90 DAYS Medication List reviewed and reconciled with the patient * Allergies: L isinopril: Allergyno[Allergies Verified] Objective: * Vitals: H t: 71, Wt: 222, BMI:30.96, BP: 133/77, HR: 80, Temp: 98.4, Wt-k.7. * P ast Orders: Lab:Complete Blood Count Aut o Diff * Collection Date 08/12/2024 07/21/2024 03/26/2024 Collection Time 06:08 AM 06:15 AM 10:44 AM Order Date 08/12/2024 07/21/2024 03/26/2024 White Blood Count 6.2 (Ref Range: 4.8-10.8 X10*3/uL) 6.2 (Ref Range: 4.8-10.8 X10*3/uL) 7.1 (Ref Range: 4.8-10.8 X10*3/uL) Red Blood Count 5.86 H (Ref Range: 4.60-5.80 X10*6/uL) 5.98 H (Ref Range: 4.60-5.80 X10*6/uL) 6.17 H (Ref Range: 4.60-5.80 X10*6/uL) Hemoglobin 15.0 (Ref Range: 14.0-18.0 g/dl) 15.4 (Ref Range: 14.0-18.0 g/dl) 15.7 (Ref Range: 14.0-18.0 g/dl) Hematocrit 46.7 (Ref Range: 42.0-52.0 %) 47.5 (Ref Range: 42.0-52.0 %) 48.8 (Ref Range: 42.0-52.0 %) Mean Corpuscular Volume 79.7 L (Ref Range: 80.0-98.0 fL) 79.4 L (Ref Range: 80.0-98.0 fL) 79.1 L (Ref Range: 80.0-98.0 fL) Mean Corpuscular Hemoglobin 25.6 L (Ref Range: 27.0-33.0 pg) 25.8 L (Ref Range: 27.0-33.0 pg) 25.4 L (Ref Range: 27.0-33.0 pg) Mean Corpuscular HGB Conc 32.1 (Ref Range: 31.0-36.0 g/dl) 32.4 (Ref Range: 31.0-36.0 g/dl) 32.2 (Ref Range: 31.0-36.0 g/dl) Red Cell Distribution Width 14.0 (Ref Range: 11.0-16.0 %) 14.0 (Ref Range: 11.0-16.0 %) 14.1 (Ref Range: 11.0-16.0 %) Platelet Count 200 (Ref Range: 160-400 X10*3/uL) 213 (Ref Range: 160-400 X10*3/uL) 207 (Ref Range: 160-400 X10*3/uL) Mean Platelet Volume 11.3 (Ref Range: 9.4-12.4 fL) 11.1 (Ref Range: 9.4-12.4 fL) 11.2 (Ref Range: 9.4-12.4 fL) Neutrophils Percent Auto 63.5 (Ref Range: 45-73 %) 62.8 (Ref Range: 45-73 %) 69.6 (Ref Range: 45-73 %) Imm Gran Pct Auto 0.2 (Ref Range: 0.0-0.4 %) 0.3 (Ref Range: 0.0-0.4 %) 0.3 (Ref Range: 0.0-0.4 %) Lymphocytes Percent Auto 24.1 (Ref Range: 20-40 %) 24.2 (Ref Range: 20-40 %) 19.9 L (Ref Range: 20-40 %) Monocytes Percent Auto 9.2 (Ref Range: 2-11 %) 10.1 (Ref Range: 2-11 %) 8.7 (Ref Range: 2-11 %) Eosinophils Percent Auto 1.9 (Ref Range: 0-4 %) 1.5 (Ref Range: 0-4 %) 0.7 (Ref Range: 0-4 %) Basophils Percent Auto 1.1 (Ref Range: 0-2 %) 1.1 (Ref Range: 0-2 %) 0.8 (Ref Range: 0-2 %) NRBC Pct Auto 0.0 (Ref Range: 0.0-0.2 /100WBC) 0.0 (Ref Range: 0.0-0.2 /100WBC) 0.0 (Ref Range: 0.0-0.2 /100WBC) Neutrophils Absolute Auto 3.9 (Ref Range: 2.0-8.3 x10*3/uL) 3.9 (Ref Range: 2.0-8.3 x10*3/uL) 5.0 (Ref Range: 2.0-8.3 x10*3/uL) Imm Gran Abs Auto 0.01 (Ref Range: 0.00-0.03 X10*3/uL) 0.02 (Ref Range: 0.00-0.03 X10*3/uL) 0.02 (Ref Range: 0.00-0.03 X10*3/uL) Lymphocytes Absolute Auto 1.5 (Ref Range: 1.2-4.9 X10*3/uL) 1.5 (Ref Range: 1.2-4.9 X10*3/uL) 1.4 (Ref Range: 1.2-4.9 X10*3/uL) Monocytes Absolute Auto [...] X10*3/uL) 0.000 (Ref Range: 0.0-0.012 X10*3/uL) * Lab:[facility] Sanders. Jhon l Fast * Collection Date 08/12/2024 07/21/2024 03/26/2024 Collection Time 06:08 AM 06:15 AM 10:44 AM Order Date 08/12/2024 07/21/2024 03/26/2024 Sodium 140 (Ref Range: 135-145 mmol/L) 141 (Ref Range: 135-145 mmol/L) 139 (Ref Range: 135-145 mmol/L) Bilirubin Total 0.8 (Ref Range: 0.0-1.0 mg/dL) 0.8 (Ref Range: 0.0-1.0 mg/dL) 0.8 (Ref Range: 0.0-1.0 mg/dL) Aspartate Amino Transferase 31 (Ref Range: 5-37 U/L) 34 (Ref Range: 5-37 U/L) 38 H (Ref Range: 5-37 U/L) Alanine Aminotransferase 51 H (Ref Range: 0-40 U/L) 59 H (Ref Range: 0-40 U/L) 59 H (Ref Range: 0-40 U/L) Total Protein 7.8 (Ref Range: 6.5-8.0 g/dL) 8.0 (Ref Range: 6.5-8.0 g/dL) 8.0 (Ref Range: 6.5-8.0 g/dL) Albumin Level 4.2 (Ref Range: 3.5-5.0 g/dL) 4.3 (Ref Range: 3.5-5.0 g/dL) 4.4 (Ref Range: 3.5-5.0 g/dL) Alkaline Phosphatase 87 (Ref Range: 39-117 U/L) 82 (Ref Range: 39-117 U/L) 84 (Ref Range: 39-117 U/L) Potassium 4.1 (Ref Range: 3.3-5.1 mmol/L) 4.2 (Ref Range: 3.3-5.1 mmol/L) 4.3 (Ref Range: 3.3-5.1 mmol/L) Chloride 106 (Ref Range: 96-108 mmol/L) 105 (Ref Range: 96-108 mmol/L) 103 (Ref Range: 96-108 mmol/L) Carbon Dioxide 27 (Ref Range: 22-29 mmol/L) 25 (Ref Range: 22-29 mmol/L) 27 (Ref Range: 22-29 mmol/L) Anion Gap 11 L (Ref Range: 12-20) 15 (Ref Range: 12-20) 13 (Ref Range: 12-20) Blood Urea Nitrogen 14 (Ref Range: 9-16 mg/dL) 17 H (Ref Range: 9-16 mg/dL) 10 (Ref Range: 9-16 mg/dL) Creatinine 0.88 (Ref Range: 0.5-1.4 mg/dL) 0.84 (Ref Range: 0.5-1.4 mg/dL) 0.97 (Ref Range: 0.5-1.4 mg/dL) Estimated Glomerular Filt Rate > 60 > 60 > 60 Glucose Fasting 128 H (Ref Range: 60-99 mg/dL) 120 H (Ref Range: 60-99 mg/dL) 118 H (Ref Range: 60-99 mg/dL) Calcium 9.3 (Ref Range: 8.4-10.2 mg/dL) 9.4 (Ref Range: 8.4-10.2 mg/dL) 10.0 (Ref Range: 8.4-10.2 mg/dL) * Lab:Lipid Panel * Collection Date 08/12/2024 07/21/2024 03/26/2024 Collection Time 06:08 AM 06:15 AM 10:44 AM Order Date 08/12/2024 07/21/2024 03/26/2024 Triglycerides 64 (Ref Range: <150 mg/dL) 83 (Ref Range: <150 mg/dL) 93 (Ref Range: <150 mg/dL) Cholesterol 121 (Ref Range: <200 mg/dL) 139 (Ref Range: <200 mg/dL) 153 (Ref Range: <200 mg/dL) LDL Cholesterol Calculated 70 (Ref Range: <100 mg/dL) 84 (Ref Range: <100 mg/dL) 88 (Ref Range: <100 mg/dL) HDL Cholesterol 39 L (Ref Range: >40 mg/dL) 39 L (Ref Range: >40 mg/dL) 47 (Ref Range: >40 mg/dL) * Lab:Prostate Specific Antige n * Collection Date 08/12/2024 03/26/2024 06/19/2021 Collection Time 06:08 AM 10:44 AM 06:22 AM Order Date 08/12/2024 03/26/2024 06/19/2021 Prostate Specific Antigen 4.88 H (Ref Range: <0.05-4.0 ng/mL) 4.78 H (Ref Range: <0.05-4.0 ng/mL) 3.14 (Ref Range: <0.05-4.0 ng/mL) ???Lab:Microalbumin, Random (Order Date - 07/21/2024) (Collection Date & Time - 07/21/2024 06:10 AM)?ValueReference Range?Creatinine Fjdcg794.04- mg/dL?Microalbumin Urine15.0- mg/L?Microalbum Creatinine Ratio Ur 7.0<30 - ug/mg cr ???Lab:Hemoglobin A1c (Order Date - 07/21/2024) (Collection Date & Time - 07/21/2024 06:15 AM)?ValueReference Range?Hemoglobin A1c %7.0H<6.0 - %?Estimated Average Hoyrddd479- mg/dL ???Lab:PSA Free and Total (Order Date - 07/21/2024) (Collection Date & Time - 07/21/2024 06:15 AM)?ValueReference Range?Prostate Specific Ag Total4.7A< OR = 4.0 - ng/mL?Percent Free Prostate Spec Ag11A>25 - % (calc)?Free Prostate Spec Ag0.5- ng/mL * Lab:Free T4 (Free Thyroxine) * Collection Date 07/21/2024 03/26/2024 08/12/2023 Collection Time 06:15 AM 10:44 AM 06:16 AM Order Date 07/21/2024 03/26/2024 08/12/2023 Free T4 (Free Thyroxine) 1.56 (Ref Range: 0.71-1.85 ng/dL) 1.31 (Ref Range: 0.71-1.85 ng/dL) 1.40 (Ref Range: 0.71-1.85 ng/dL) * Lab:URINE DIP STICK * Collection Date 08/18/2024 08/18/2023 08/14/2022 Order Date 08/18/2024 08/18/2023 08/14/2022 SG 1.030 (Ref Range: 1.005 - 1.025) 1.025 (Ref Range: 1.005 - 1.025) 1.010 (Ref Range: 1.005 - 1.025) pH 5.0 (Ref Range: 5.0 - 9.0) 5.0 (Ref Range: 5.0 - 9.0) 5.0 (Ref Range: 5.0 - 9.0) JEFFRY Negative (Ref Range: Negative -) Negative (Ref Range: Negative -) neg (Ref Range: Negative -) NIT Negative (Ref Range: Negative -) Negative (Ref Range: Negative -) neg (Ref Range: Negative -) PRO 15 (Ref Range: Negative - Trace) 15 (Ref Range: Negative - Trace) neg (Ref Range: Negative - Trace) GLU Negative (Ref Range: Negative -) Negative (Ref Range: Negative -) neg (Ref Range: Negative -) KET 5 (Ref Range: Negative -) Negative (Ref Range: Negative -) neg (Ref Range: Negative -) UBG 0.2 (Ref Range: 0.1 - 1.8) 0.2 (Ref Range: 0.1 - 1.8) 0.2 (Ref Range: 0.1 - 1.8) ALPHONSE 1 (Ref Range: 0.2 - 1.3) Negative (Ref Range: 0.2 - 1.3) 0.2 (Ref Range: 0.2 - 1.3) BLD + (Ref Range: Negative -) 50 (Ref Range: Negative -) neg (Ref Range: Negative -) Menstrating NR NR N/A * Examination: G eneral Examination: GENERAL APPEARANCE: p leasant, well nourished, well developed, in no acute distress, calm and relaxed, obese, man. HEAD: a traumatic, normocephalic. EYES: e nathanael, perrla, anicteric, conjugate. EARS: n ormal. NOSE: s eptum intact. ORAL CAVITY: n ormal, unremarkable. NECK/THYROID: n o jugular venous distention, no carotid bruit, No thyroid remnant palpable, healed thyroidectomy scar. LYMPH NODES: n o enlarged lymph nodes,spleen normal. SKIN: n o suspicious lesions, anicteric. HEART: n o clicks, gallops, murmurs, or rubs, regular rhythm, S1, S2 normal, no s3, or vascular bruits, Healed sternotomy incision. LUNGS: c lear to auscultation . BREASTS: no masses palpable bilaterally. ABDOMEN: b owel sounds normal, no ascites, no organomegaly, no mass, centripital obesity. RECTAL EXAM: p rostate normal, stool guaiac negative, no masses palpable. MUSCULOSKELETAL: e xtremities unremarkable, no clubbing, cyanosis or edema. PERIPHERAL PULSES: n ormal. NEUROLOGIC: a lert and oriented, cranial nerves 2-12 grossly intact, deep tendon reflexes 2+ symmetrical, motor strength normal upper and lower extremities, sensory exam intact. PSYCH: a lert, oriented. Assessment: * Assessment: 1. H ypertension - I10 (Primary) N otes :His blood pressure is unremarkable and no change in his regimen was necessary today. I recommended aggressive weight loss and sodium restriction. He has succeeded in losing 4 pounds. He will continue to lose weight and be followed in the office. 2 . H yperlipidemia - E78.5 N otes :His total cholesterol is 121. He was continued on current medication. No change was necessary. 3 . O besity (BMI 30.0-34.9) - E66.9 N otes :His body mass index is 30 in the obese range. We have reviewed his weight loss strategy. We have discussed diet and nutrition at length. We made a plan to lose weight at a rate of one half of a pound per week. 4 . T hymoma, benign - D15.0 N otes :He has recovered from the surgery and the sternal incision is well-healed and nonpainful. 5 . F ormer smoker - Z87.891 N otes :He is highly motivated not to smoke. We formulated a plan to prevent relapse in times of stress and illness. 6 . T ype 2 diabetes mellitus without complication, without long-term current use of insulin - E11.9 N otes :His blood glucose is slightly elevated. Hemoglobin A1c is 7.0. No change in medication was necessary. He will pursue aggressive weight loss. 7 . T hyroid cancer - C73 N otes :He was found to have a 1.4 cm papillary thyroid cancer in the right lobe of his thyroid which has been removed. There is no sign of recurrence. He is asymptomatic and feeling well. 8 . A ge-related incipient cataract of both eyes - H25.093 N otes :He is medically cleared for sequential bilateral cataract extraction and lens implantation in July 2024. There is no contraindication and he is given medical clearance. 9 . E levated PSA - R97.20 N otes :In the past his PSA was 3.14 and then 4.78. It is now 4.88 with a free PSA of 11%. This is going to be repeated in the near future. Necessary he will see urology. No nodules were palpated today. Plan: * Treatment: * Labs: * L ab: URINE DIP STICK (Collection Date & Time - 08/18/2024) Value Reference Range S G 1.030 1.005 - 1.025 * p H 5.0 5.0 - 9.0 * L EU Negative Negative - * N IT Negative Negative - * P RO 15 Negative - Trace * G LIDIA Negative Negative - * K ET 5 Negative - * U BG 0.2 0.1 - 1.8 * B IL 1 0.2 - 1.3 * B LD + Negative - * Procedure Codes: 8 1002 URINE-NO MICRO * Preventive Medicine: Counseling: C are goal [...] tobacco use and urged to quit. 0 08/18/2024 DM Care Plan: P atient Lifestyle Goals P atient wants to be able to manage diabetes without too much effort. T reatment Goals B lood Sugars less than < 115, HbA1C < 7.0. B arriers n o barriers. S elf-Managment Goals W ork on weight loss, with a goal of losing 1 lb per week. * Follow Up: 2 Months (Reason: ov) * Images: * Sign off status: Completed true * Provider: Tr Ontiveros MD Date: 0 08/18/2024 Generated for Dominick culp/Mindy/Renan on: 06/06/2024 05:11 PM EST History and Physical Notes * HPI (History of Present Illness) Category Sub-Category Detail Notes Depression Screening PHQ-9 Little inte rest or pleasure in doing things: Not at all Feeling down, depressed, or hopeless: No t at all Trouble falling or staying asleep, or sl eeping too much: Not at all Feeling tired or having little energy: N ot at all Poor appetite or overeating: Not at all Feeling bad about yourself o r that you are a failure, or have let yourself or your family down: Not at all Trouble concentrating on thi ngs, such as reading the newspaper or watching television: Not at all Moving or speaking so slowly that other people could have noticed; or the opposite, being so fidgety or restless that you have been moving around a lot more than usual: Not at all Thoughts that you would be b kamar off or of hurting yourself in some way: Not at all Total Score: 0 COVID-19 Screening Questions Have you had any new onset fever, chills, cough, congestion, sore throat, shortness of breath, muscle aches?: No SDOH Questions SDOH Questions In the past year have you been worried about losing your housing?: No In the past year have you or any family members you live with been unable to get any of the following when it was really needed? Check all that apply:: None Examination Category Sub-Category Detail Notes General Examination GENERAL APPEARANCE: pleasant , well nourished, well developed, in no acute distress, calm and relaxed, obese, man HEAD: atraumatic, normocep halic EYES: eomi, perrla, anicte mingo, conjugate EARS: normal NOSE: septum intact NECK/THYROID: no jugular venous di stention, no carotid bruit, No thyroid remnant palpable, healed thyroidectomy scar HEART: no clicks, gallops, murmurs, or rubs, [...] enlarged lymph no dayne,spleen normal RECTAL EXAM: prostate normal, sto ol guaiac negative, no masses palpable PSYCH: alert, oriented ORAL CAVITY: normal, unremarkable
--- OUTSIDE RECORDS SUMMARY | 2024-11-25 04:00 | XMS_ITS ---
Author Organization Nicholas Ontiveros III, MD Address [address] [place] [place] [address] Care Team Providers Care Notch Grinder Name Role Phone Dr. Nicholas Ontiveros III Primary Care Provider [phone] Allergies Allergen (clinical drug ingredient) Drug/Non Drug Allergy documented on EMR Reaction Allergy Type Onset Date Status lisinopril Lisinopril Unknown Drug Allergy Activ e REASON FOR VISIT Hypertension, Hyperlipidemia, Obesity, Benign prostatic hypertrophy, Diabetes, History of thymoma, Thyroid cancer, Elevated PSA Medications Medication SIG (Take, Route, Frequency, Duration) Notes Start Date End Date Status Naproxen 500 MG 1 tablet with food o r milk as needed Orally every 12 hrs for severe pain 04/05/2024 Active Atorvastatin Calcium 40 MG TAKE 1 TABLET BY MOUTH EVERY DAY Active Levothyroxine Sodium 150 MCG TAKE 1 TABL ET BY MOUTH EVERY DAY Orally Once a day Active Metoprolol Succinate 50 MG 1 capsule Ora lly Once a day for 30 days 11/25/2024 Active Valsartan 40 MG TAKE 1 TABLET BY YESSICA TH EVERY DAY FOR 90 DAYS Active Social History Tobacco [...] Additional Findings: Tobacco non-user Ex-cigaret te smoker Vital Signs Temperature 98.1 degrees Fahrenheit 11/26/19 25 Blood pressure systolic 142 mm Hg 11/26/19 25 Blood pressure diastolic 90 mm Hg 025 Heart Rate 90 /min 11/25/2024 Height 71 in 11/25/2024 Weight 221 lbs 11/25/2024 BMI 30.82 kg/m2 11/25/2024 Encounters Encounter Location Date Provider Diagnosis Nicholas Ontiveros III, MD [address] [place] [address] [address] [place], [place] [address] 11/25/2024 Nicholas Ontiveros Former smoker Z87.89 1 ; Thymoma, benign D15.0 ; Hyperlipidemia E78.5 ; Hypertension I10 ; Elevated PSA R97.20 ; Thyroid cancer C73 and BPH (benign prostatic hyperplasia) N40.0 Assessments Encounter Date Diagnosis (ICD Code) Assessment Notes Treat ment Notes Treatment Clinical Notes 11/25/2024 Former smoker (ICD-1 0 - Z87.891) He is highly motivated not to smoke. We formulated a plan to prevent relapse in times of stress and illness. 11/25/2024 Thymoma, benign (ICD-10 - D15.0) He has recovered from the surgery and the sternal incision is well-healed and nonpainful. 11/25/2024 Hyperlipidemia (ICD-10 - E78.5) His total cholesterol is 121. He was continued on current medication. No change was necessary. 11/25/2024 Hypertension (ICD-10 - I10) His blood pressure is elevated. He was begun on metoprolol succinate 10 mg daily with a follow-up visit. 11/25/2024 Elevated PSA (ICD-10 - R97.20) In the past his PSA was 3.14 and then 4.78. It is now 4.88 with a free PSA of 11%. This is going to be repeated in the near future. Necessary he will see urology. No nodules were palpated today. 11/25/2024 Thyroid cancer (ICD-10 - C73) He was found to have a 1.4 cm papillary thyroid cancer in the right lobe of his thyroid which has been removed. There is no sign of recurrence. He is asymptomatic and feeling well. 11/25/2024 BPH (benign prostati c hyperplasia) (ICD-10 - N40.0) He has been rising from sleep at most once a night to urinate. We have discussed lifestyle modifications he could make to reduce nocturia. Plan Of Treatment Medication Medication Name Sig Start Date Stop Date Notes Naproxen 500 MG 1 tablet with food o r milk as needed Orally every 12 hrs for severe pain 04/05/2024 Atorvastatin Calcium 40 MG TAKE 1 TABLET BY MOUTH EVERY DAY Levothyroxine Sodium 150 MCG TAKE 1 TABL ET BY MOUTH EVERY DAY Orally Once a day Metoprolol Succinate 50 MG 1 capsule Ora lly Once a day for 30 days 11/25/2024 Valsartan 40 MG TAKE 1 TABLET BY YESSICA TH EVERY DAY FOR 90 DAYS Next Appt Details Follow Up: 2 Weeks, Reason: OV Provider Name:Nicholas Ontiveros , 08/22/2025 02:00:00 PM, [address] [place] [address], [address], [address], Progress Notes * Narendra PAGAN HDOB:1 06/17/1959 (64 yo M)Acc No.[id number]:11/25/2024 Progress Notes Patient: Narendra VILLAR Provider: Tr Ontiveros MD :1960 A ge:64 Y S ex:Male Date:11/25/2024 Address:[address] [place] [address] Subjective: * Chief Complaints: * H ypertensionHyperlipidemiaObesityBenign prostatic hypertrophyDiabetesHistory of thymomaThyroid cancerElevated PSA * HPI: C OVID-19 Screening: He has had an elevated blood pressure elsewhere and returns today for further evaluation. Comprehensive blood work was ordered today but was not available is generally feeling healthy and well. He has been compliant with his medications. After lying down his blood pressure repeatedly was 140/90. After discussion of the risks and benefits he was begun on metoprolol succinate 50 mg once a day. Follow-up visit was arranged. Questions H ave you had any new [...] of breath d enies. G astrointestinal: Constipation d enies. D ecreased appetite d enies.?Diarrhea d enies. H eartburn d enies. N ausea d enies. R ectal bleeding?denies. V omiting d enies. H ematology: bruising d enies. p etechiae d enies. S wollen glands n one have been noted. G enitourinary: Frequent urination o nce a night. M usculoskeletal: Muscle aches d enies. P ainful joints d enies. S ciatica d enies. W eakness d enies. S kin: Itching d enies. R mj d enies. S kin lesion(s)?denies. N eurologic: Difficulty speaking d enies. D izziness d enies.?Headache d enies. L ow back pain d enies. P sychiatric: Depressed mood d enies. * Medical History: * Surgical History: l janneth biopsy olonoscopy, [facility], Dr. Mccray 05/2020thymectomy, , [facility], benign 11/2020Thyroidectomy for papillary thyroid cancer [...] dditional Findings: Tobacco non-user E x-cigarette smoker Joao khan lives in [facility]. He is employed and has no toxic exposures. He is but has a good relationship with his ex-. He has recovered from his recent thymectomy and is back at work. He does not smoke or drink alcohol or take drugs. He has no children. He was sborn in [facility]. * Medications: T akingValsartan 40 MG Tablet TAKE 1 TABLET BY MOUTH EVERY DAY FOR 90 DAYS Naproxen 500 MG Tablet 1 tablet with food or milk as needed Orally every 12 hrs for severe pain Atorvastatin Calcium 40 MG Tablet TAKE 1 TABLET BY MOUTH EVERY DAY Levothyroxine Sodium 150 MCG Tablet TAKE 1 TABLET BY MOUTH EVERY DAY Orally Once a day Medication List reviewed and reconciled with the [...] TAKE 1 TABLET BY MOUTH EVERY DAY Orally Once a day Medication List reviewed and reconciled with the patient * Allergies: L isinopril: Allergyno[Allergies Verified] Objective: * Vitals: H t: 71, Wt: 221, BMI:30.82, BP: 142/90, HR: 90, Temp: 98.1, Wt-k.24. * Examination: G eneral Examination: GENERAL APPEARANCE: p leasant, well nourished, well developed, in no acute distress, calm and relaxed, obese, man. HEAD: a traumatic, normocephalic. EYES: e nathanael, perrla, anicteric, conjugate. EARS: n ormal. NOSE: s eptum intact. ORAL CAVITY: n ormal, unremarkable. NECK/THYROID: n o jugular venous distention, no carotid bruit, No mass or adenopathy. LYMPH NODES: n o enlarged lymph nodes,spleen normal. SKIN: n o suspicious lesions, anicteric. HEART: n o clicks, gallops, murmurs, or rubs, regular rhythm, S1, S2 normal, no s3, or vascular bruits, Healed sternal incision. LUNGS: c lear to auscultation . [...] lert, oriented. Assessment: * Assessment: 1. T hymoma, benign - D15.0 (Primary) N otes :He has recovered from the surgery and the sternal incision is well-healed and nonpainful. 2 . F ormer smoker - Z87.891 N otes :He is highly motivated not to smoke. We formulated a plan to prevent relapse in times of stress and illness. 3 . H yperlipidemia - E78.5 N otes :His total cholesterol is 121. He was continued on current medication. No change was necessary. 4 . H ypertension - I10 N otes :His blood pressure is elevated. He was begun on metoprolol succinate 10 mg daily with a follow-up visit. 5 . E levated PSA - R97.20 N otes :In the past his PSA was 3.14 and then 4.78. It is now 4.88 with a free PSA of 11%. This is going to be repeated in the near future. Necessary he will see urology. No nodules were palpated today. 6 . T hyroid cancer - C73 N otes :He was found to have a 1.4 cm papillary thyroid cancer in the right lobe of his thyroid which has been removed. There is no sign of recurrence. He is asymptomatic and feeling well. 7 . B PH (benign prostatic hyperplasia) - N40.0 N otes :He has been rising from sleep at most once a night to urinate. We have discussed lifestyle modifications he could make to reduce nocturia. Plan: * Treatment: * Procedure Codes: * Preventive Medicine: Counseling: [...] tobacco use and urged to quit. 0 11/24/2024 DM Care Plan: P atient Lifestyle Goals P atient wants to be able to manage diabetes without too much effort. T reatment Goals B lood Sugars less than < 115.? B arriers n o barriers. S elf-Managment Goals W ork on weight loss, with a goal of losing 1 lb per week. * Follow Up: 2 Weeks (Reason: OV) * Images: * Sign off status: Completed true * Provider: Tr Ontiveros MD Date: 0 11/25/2024 Generated for Dominick culp/Mindy/eTransmitting on: 1 06/06/2024 05:12 PM EST History [...] venous di stention, no carotid bruit, No mass or adenopathy HEART: no clicks, gallops, murmurs, or rubs, regular rhythm, S1, S2 normal, no s3, or vascular bruits, Healed sternal incision LUNGS: clear to auscultatio n ABDOMEN: [...]
--- OUTSIDE RECORDS SUMMARY | 2024-12-09 06:15 | XMS_ITS ---
Author Organization Nicholas Ontiveros III, MD Address [address] [place] [address] [place] [address] Care Team Providers Care Peanut Vendor Name Role Phone Dr. Nicholas Ontiveros III Primary Care Provider [phone] Allergies Allergen (clinical drug ingredient) Drug/Non Drug Allergy documented on EMR Reaction Allergy Type Onset Date Status lisinopril Lisinopril Unknown Drug Allergy Activ e REASON FOR VISIT History of thymoma, History of thyroid cancer, Hypertension, Hyperlipidemia, Obesity, Benign prostatic hypertrophy, Elevated PSA, Diabetes Medications Medication SIG (Take, Route, Frequency, Duration) Notes Start Date End Date Status Valsartan 40 MG TAKE 1 TABLET BY YESSICA TH EVERY DAY FOR 90 DAYS Active Naproxen 500 MG 1 tablet with food o r milk as needed Orally every 12 hrs for severe pain 04/05/2024 Active Contrave 8-90 MG 1 tablet Orally Once a day for 30 days 12/09/2024 06/06/2025 Active Atorvastatin Calcium 40 MG TAKE 1 TABLET BY MOUTH EVERY DAY Active Levothyroxine Sodium 150 MCG TAKE 1 TABLET BY MOUTH EVERY DAY Orally Once a day Active Metoprolol Succinate 50 MG 1 capsule Ora lly Once a day 11/25/2024 Active Social History Tobacco Use: Social History Observation Description Date Details (start date - stop date) Former Smoker NA - NA Sex Assigned At : Social History Observation Description Sex Assigned At Male Tobacco Control (Standard) Question Answer Notes Tobacco use: Former smoker How long has it been since you last smoked? 5-10 years Additional Findings: Tobacco non-user Ex-cigaret te smoker Problems Problem Type SNOMED Code ICD Code Onset Dates Problem Status W/U Status Risk Notes Problem Obesity ([id number]) Obesity (E66.9) Active confirmed His body mass index is 31. We reviewed his weight loss strategy diet and nutrition. We formulated a plan to lose weight at a rate of one half of a pound per week.At his request. I have given him a prescription for Contrave. If unavailable. I will try to help your made. I would like to avoid phentermine. Vital Signs Temperature 97.9 degrees Fahrenheit 12/10/19 25 Blood pressure systolic 142 mm Hg 12/10/19 25 Blood pressure diastolic 80 mm Hg 025 Heart Rate 72 /min 12/09/2024 Height 71 in 12/09/2024 Weight 224 lbs 12/09/2024 BMI 31.24 kg/m2 12/09/2024 Encounters Encounter Location Date Provider Diagnosis Nicholas Ontiveros III, MD [address] [place] [address] [place] [address] 12/09/2024 Nicholas Ontiveros Obesity E66.9 ; Thyroid cancer C73 ; Type 2 diabetes mellitus without complication, without long-term current use of insulin E11.9 ; Thymoma, benign D15.0 ; Elevated PSA R97.20 ; Right anterior knee pain M25.561 and Former smoker Z87.891 Assessments Encounter Date Diagnosis (ICD Code) Assessment Notes Treatment Notes Treatment Clinical Notes 12/09/2024 Obesity (ICD-10 - E66.9) His body mass index is 31. We reviewed his weight loss strategy diet and nutrition. We formulated a plan to lose weight at a rate of one half of a pound per week.At his request. I have given him a prescription for Contrave. If unavailable. I will try to help your made. I would like to avoid phentermine. 12/09/2024 Thyroid cancer (ICD-10 - C73) He was found to have a 1.4 cm papillary thyroid cancer in the right lobe of his thyroid which has been removed. There is no sign of recurrence. He is asymptomatic and feeling well. 12/09/2024 Type 2 diabetes mellitus without complication, without long-term current use of insulin (ICD-10 - E11.9) His blood glucose is slightly elevated. Hemoglobin A1c is 7.0. No change in medication was necessary. He will pursue aggressive weight loss. 12/09/2024 Thymoma, benign (ICD-10 - D15.0) He has recovered from the surgery and the sternal incision is well-healed and nonpainful. 12/09/2024 Elevated PSA (ICD-10 - R97.20) In the past his PSA was 3.14 and then 4.78. It is now 4.88 with a free PSA of 11%. This is going to be repeated in the near future. Necessary he will see urology. No nodules were palpated today. 12/09/2024 Right anterior knee pain (ICD-10 - M25.561) This is likely from limping and bearing weight and probably. He was given an appointment with orthopedics. 12/09/2024 Former smoker (ICD-10 - Z87.891) He is [...] every 12 hrs for severe pain 04/05/2024 Contrave 8-90 MG 1 tablet Orally Once a day for 30 days 12/09/2024 06/06/2025 Atorvastatin Calcium 40 MG TAKE 1 TABLET BY MOUTH EVERY DAY Levothyroxine Sodium 150 MCG TAKE 1 TABL ET BY MOUTH EVERY DAY Orally Once a day Metoprolol Succinate 50 MG 1 capsule Orally Once a day Next Appt Details Follow Up: 3 Weeks, Reason: ov Provider Name:Nicholas Ontiveros , 08/22/2025 02:00:00 PM, [address] [place] [address] , [place] [address], [place], [address], Progress Notes * Narendra PAGAN HDOB:1 06/17/1959 (64 yo M)Acc No.[id number]:12/09/2024 Progress Notes Patient: Narendra VILLAR Provider: Tr Ontiveros MD :1960 A ge:64 Y S ex:Male Date:12/09/2024 Address:[address] [place], [place] [id number] Subjective: * Chief Complaints: * H istory of thymomaHistory of thyroid cancerHypertensionHyperlipidemiaObesityBenign prostatic hypertrophyElevated PSADiabetes * HPI: C OVID-19 Screening: He returns for a scheduled medical management. He wants to lose weight. His insurance does not cover injected weight loss medications. I gave him a prescription for contrave with a followup visit. If this cannot be obtained, we will try toe. Made. He had eye surgery 3 months ago and is doing well. He admits to nocturia once a night and we discussed lifestyle modifications he could make to reduce this. He says his diabetes is doing well. Questions H ave you had any new [...] * Surgical History: l janneth biopsy olonoscopy, [facility], Dr. Mccray 05/2020thymectomy, , [facility], benign 11/2020Thyroidectomy for papillary thyroid cancer [...] Findings: Tobacco non-user E x-cigarette smoker Joao e lives in [facility]. He is employed and has no toxic exposures. He is but has a good relationship with his ex-. He has recovered from his recent thymectomy and is back at work. He does not smoke or drink alcohol or take drugs. He has no children. He was sborn in [facility]. * Medications: T akingLevothyroxine Sodium 150 MCG Tablet TAKE 1 TABLET BY MOUTH EVERY DAY Orally Once a day Valsartan 40 MG Tablet TAKE 1 TABLET BY MOUTH EVERY DAY FOR 90 DAYS Naproxen 500 MG Tablet 1 tablet with food or milk as needed Orally every 12 hrs for severe pain Atorvastatin Calcium 40 MG Tablet TAKE 1 TABLET BY MOUTH EVERY DAY Metoprolol Succinate 50 MG Capsule ER 24 Hour Sprinkle 1 capsule Orally Once a day Medication List reviewed and reconciled with the patientTaking Levothyroxine Sodium 150 MCG Tablet TAKE 1 TABLET BY MOUTH EVERY DAY Orally Once a day Taking Valsartan 40 MG Tablet TAKE 1 TABLET BY MOUTH EVERY DAY FOR 90 DAYS Taking Naproxen 500 MG Tablet 1 tablet with food or milk as needed Orally every 12 hrs for severe pain Taking Atorvastatin Calcium 40 MG Tablet TAKE 1 TABLET BY MOUTH EVERY DAY Taking Metoprolol Succinate 50 MG Capsule ER 24 Hour Sprinkle 1 capsule Orally Once a day Medication List reviewed and reconciled with the patient * Allergies: L isinopril: Allergyno[Allergies Verified] Objective: * Vitals: H t: 71, Wt: 224, BMI:31.24, BP: 142/80, HR: 72, Temp: 97.9, Wt-k.6. * Examination: G eneral Examination: GENERAL APPEARANCE: [...] S2 normal, no s3, or vascular bruits, Old healed median sternotomy incision. LUNGS: c lear to auscultation [...] a lert, oriented. Assessment: * Assessment: 1. O besity - E66.9 (Primary) N otes :His body mass index is 31. We reviewed his weight loss strategy diet and nutrition. We formulated a plan to lose weight at a rate of one half of a pound per week.At his request. I have given him a prescription for Contrave. If unavailable. I will try to help your made. I would like to avoid phentermine. 2 . T hyroid cancer - C73 N otes :He was found to have a 1.4 cm papillary thyroid cancer in the right lobe of his thyroid which has been removed. There is no sign of recurrence. He is asymptomatic and feeling well. 3 . T ype 2 diabetes mellitus without complication, without long-term current use of insulin - E11.9 N otes :His blood glucose is slightly elevated. Hemoglobin A1c is 7.0. No change in medication was necessary. He will pursue aggressive weight loss. 4 . T hymoma, benign - D15.0 N otes :He has recovered from the surgery and the sternal incision is well-healed and nonpainful. 5 . E levated PSA - R97.20 N otes :In the past his PSA was 3.14 and then 4.78. It is now 4.88 with a free PSA of 11%. This is going to be repeated in the near future. Necessary he will see urology. No nodules were palpated today. 6 . R ight anterior knee pain - M25.561 N otes :This is likely from limping and bearing weight and probably. He was given an appointment with orthopedics. 7 . F ormer smoker - Z87.891 N otes :He is highly motivated not to smoke. We formulated a plan to prevent relapse in times of stress and illness. Plan: * Treatment: * Procedure Codes: * [...] tobacco use and urged to quit. 0 12/09/2024 DM Care Plan: P atient Lifestyle Goals P atient wants to be able to manage diabetes without too much effort. T reatment Goals B lood Sugars less than < 115, HbA1C < 7.0. * Follow Up: 3 Weeks (Reason: ov) * Images: * Sign off status: Completed true * Provider: Tr Ontiveros MD Date: 0 12/09/2024 Generated for Dominick culp/Mindy/Naveenitting on: 1 06/06/2024 05:12 PM EST History [...] S2 normal, no s3, or vascular bruits, Old healed median sternotomy incision LUNGS: clear to auscultatio n [...]
--- OUTSIDE RECORDS SUMMARY | 2025-01-20 12:00 | XMS_ITS ---
Author Organization Nicholas Ontiveros III, MD Address [address] [place] [address] [place] [address] Care Team Providers Care Director Of Photography Name Role Phone Dr. Nicholas Ontiveros III Primary Care Provider [phone] REASON FOR VISIT follow up Social History Sex Assigned At : Social History Observation Description Sex Assigned At Male Encounters Encounter Location Date Provider Diagnosis Nicholas Ontiveros III, MD [address] [place] [address] [place] [address] 01/20/2025 Nicholas Ontiveros Plan Of Treatment Next Appt Details Provider Name:Nicholas Ontiveros , 08/22/2025 02:00:00 PM, [address] [place] [address] [place], [address], Progress Notes * Narendra PAGAN HDOB:1 06/17/1959 (64 yo M)Acc No.[id number]:01/20/2025 Progress Notes Patient: Narendra VILLAR Provider: Tr Ontiveros MD :1960 A ge:64 Y S ex:Male Date:01/20/2025 Address:[address] [place], [place] [id number] Subjective: * Chief Complaints: * 1 . Follow up. * Medical History: Objective: * Vitals: Assessment: Plan: * Treatment: * Images: * The named appointment provid er may or may not be the originator of this progress note, and it is not deemed complete until electronically signed by the appointment provider. Sign off status: Pending * Provider: Tr Ontiveros MD Date: 0 01/20/2025 Generated for Dominick culp/Mindy/Renan on: 06/06/2024 05:12 PM EST
--- OUTSIDE RECORDS SUMMARY | 2025-02-02 10:00 | XMS_ITS ---
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 Nicholas Ontiveros III Primary Care Provider Allergies Allergen (clinical drug ingredient) Drug/Non Drug Allergy documented on EMR Reaction Allergy Type Onset Date Status lisinopril Lisinopril Unknown Drug Allergy Activ e REASON FOR VISIT Hypertension, Hyperlipidemia, Excised thymoma, Benign prostatic hypertrophy, Diabetes, Thyroid cancer, Obesity Medications Medication SIG (Take, Route, Frequency, Duration) Notes Start Date End Date Status Valsartan 40 MG TAKE 1 TABLET BY YESSICA TH EVERY DAY FOR 90 DAYS Active Levothyroxine Sodium 150 MCG TAKE 1 TABL ET BY MOUTH EVERY DAY Orally Once a day Active Metoprolol Succinate 50 MG 1 capsule Ora lly Once a day 11/25/2024 Active Atorvastatin Calcium 40 MG TAKE 1 TABLET BY MOUTH EVERY DAY Active Naproxen 500 MG 1 tablet with food o r milk as needed Orally every 12 hrs for severe pain 04/05/2024 Active Contrave 8-90 MG 1 tablet Orally Once a day 12/09/2024 Active Social History Tobacco Use: Social History [...] non-user Ex-cigaret te smoker Vital Signs Temperature 98.2 degrees Fahrenheit 02/03/20 25 Blood pressure systolic 138 mm Hg 02/03/20 25 Blood pressure diastolic 78 mm Hg 025 Heart Rate 94 /min 02/02/2025 Height 71 in 02/02/2025 Weight 221 lbs 02/02/2025 BMI 30.82 kg/m2 02/02/2025 Encounters Encounter Location Date Provider Diagnosis Nicholas Ontiveros III, MD [address] [place] [address] [place] [address] 02/02/2025 Nicholas Ontiveros Former smoker Z87.89 1 ; Thymoma, benign D15.0 ; Obesity E66.9 ; Hypertension I10 ; Hyperlipidemia E78.5 ; Thyroid cancer C73 and Type 2 diabetes mellitus without complication, without long-term current use of insulin E11.9 Assessments Encounter Date Diagnosis (ICD Code) Assessment Notes Treat ment Notes Treatment Clinical Notes 02/02/2025 Former smoker (ICD-1 0 - Z87.891) He is highly motivated not to smoke. We formulated a plan to prevent relapse in times of stress and illness. 02/02/2025 Thymoma, benign (ICD-10 - D15.0) He has recovered from the surgery and the sternal incision is well-healed and nonpainful. 02/02/2025 Obesity (ICD-10 - E66.9) His body mass index is 31. We reviewed his weight loss strategy diet and nutrition. We formulated a plan to lose weight at a rate of one half of a pound per week.At his request. I have given him a prescription for Contrave. If unavailable. I will try to help your made. I would like to avoid phentermine. 02/02/2025 Hypertension (ICD-10 - I10) His blood pressure is elevated. He was begun on metoprolol succinate 10 mg daily with a follow-up visit. 02/02/2025 Hyperlipidemia (ICD-10 - E78.5) His total cholesterol is 121. He was continued on current medication. No change was necessary. 02/02/2025 Thyroid cancer (ICD-10 - C73) He was found to have a 1.4 cm papillary thyroid cancer in the right lobe of his thyroid which has been removed. There is no sign of recurrence. He is asymptomatic and feeling well. 02/02/2025 Type 2 diabetes mellitus without complication, without [...] MG 1 capsule Orally Once a day Atorvastatin Calcium 40 MG TAKE 1 TABLET BY MOUTH EVERY DAY Naproxen 500 MG 1 tablet with food o r milk as needed Orally every 12 hrs for severe pain 04/05/2024 Contrave 8-90 MG 1 tablet Orally Once a day 12/09/2024 Pending Test Test Name Order Date PROFILE, FASTING (COMPREHENSIVE METABOLI C) 02/02/2025 PSA, TOTAL 02/02/2025 CBC w DIFF 02/02/2025 Lipid Panel 02/02/2025 Microalbumin, Random 02/02/2025 Hemoglobin A1c 02/02/2025 Next Appt Details Follow Up: 2 Months, Reason: OV Provider Name:Nicholas Ontiveros , 08/22/2025 02:00:00 PM, [address] [place] [address] DR, [address], [address], Progress Notes * Narendra PAGAN HDOB:1 06/17/1959 (64 yo M)Acc No.[id number]:02/02/2025 Progress Notes Patient: Narendra VILLAR Provider: Tr Ontiveros MD :1960 A ge:64 Y S ex:Male Date:02/02/2025 Address:[address] [place], [place] [id number] Subjective: * Chief Complaints: * H ypertensionHyperlipidemiaExcised thymomaBenign prostatic hypertrophyDiabetesThyroid cancerObesity * HPI: C OVID-19 Screening: lost weight contrave, nocturia x 1 had cat extracts. He returns for medical management.? There was no sign of relapse of the thyroid cancer which is followed by endocrinology. He has lost 3 pounds and his blood pressure has come down. If she has generally healthy and well. His vision is good after cataract extraction. He rises from sleep once a night to urinate. He thinks his diabetes is well controlled. He does not tests regularly although it has the equipment. Questions H ave you had any new [...] have been noted. G enitourinary: Frequent urination t wice a night. M usculoskeletal: Muscle aches d [...] * Surgical History: l janneth biopsy olonoscopy, [facility], Dr. Mccray 05/2020thymectomy, , [facility], benign 11/2020Thyroidectomy for papillary thyroid cancer [...] E x-cigarette smoker Joao khan lives in [facility]. He is employed and has no toxic exposures. He is but has a good relationship with his ex-. He has recovered from his recent thymectomy and is back at work. He does not smoke or drink alcohol or take drugs. He has no children. He was sborn in [facility]. * Medications: T akingLevothyroxine Sodium 150 [...] Sprinkle 1 capsule Orally Once a day Contrave 8-90 MG Tablet Extended Release 12 Hour 1 tablet Orally Once a day , stop date 06/06/2025Medication List reviewed and reconciled with the patientTaking [...] Sprinkle 1 capsule Orally Once a day Taking Contrave 8-90 MG Tablet Extended Release 12 Hour 1 tablet Orally Once a day , stop date 06/06/2025Medication List reviewed and reconciled with the patient * Allergies: L isinopril: Allergyno[Allergies Verified] Objective: * Vitals: H t: 71, Wt: 221, BMI:30.82, BP: 138/78, HR: 94, Temp: 98.2, Wt-k.24. * Examination: G eneral Examination: GENERAL APPEARANCE: kaylee santizo, well nourished, well developed, in no acute distress, calm and relaxed: obese: man. HEAD: a traumatic, normocephalic. EYES: e [...] sounds normal, no ascites, no organomegaly, no mass: centripital obesity. RECTAL EXAM: n ot examined. [...] times of stress and illness. 3 . O besity - E66.9 N otes :His body mass index is 31. We reviewed his weight loss strategy diet and nutrition. We formulated a plan to lose weight at a rate of one half of a pound per week.At his request. I have given him a prescription for Contrave. If unavailable. I will try to help your made. I would like to avoid phentermine. 4 . H ypertension - I10 N otes :His blood pressure is elevated. He was begun on metoprolol succinate 10 mg daily with a follow-up visit. 5 . H yperlipidemia - E78.5 N otes :His total cholesterol is 121. He was continued on current medication. No change was necessary. 6 . T hyroid cancer - C73 N otes :He was found to have a 1.4 cm papillary thyroid cancer in the right lobe of his thyroid which has been removed. There is no sign of recurrence. He is asymptomatic and feeling well. 7 . T ype 2 diabetes mellitus without complication, without long-term current use of insulin - E11.9 N otes :His blood glucose is slightly elevated. Hemoglobin A1c is 7.0. No change in medication was necessary. He will pursue aggressive weight loss. Plan: * Treatment: * Labs: * L ab: PROFILE, FASTING (COMPREHENSIVE METABOLIC) L ab: PSA, TOTAL L ab: CBC w DIFF L ab: Lipid Panel L ab: Microalbumin, Random L ab: Hemoglobin A1c * Procedure Codes: * Preventive Medicine: Counseling: [...] done: Medical or Other reason not done DM Care Plan: P atient Lifestyle Goals P atient wants to be able to manage diabetes without too much effort. T reatment Goals H bA1C < 7.0, Blood Sugars less than < 115. B arriers n o barriers. S elf-Managment Goals W ork on weight loss, with a goal of losing 1 lb per week. * Follow Up: 2 Months (Reason: OV) * Images: * Sign off status: Completed true * Provider: Tr Ontiveros MD Date: 0 02/02/2025 Generated for Gustavoi suni/Mindy/eTtelmasmitting on: 06/06/2024 05:13 PM EST History and Physical Notes * HPI (History of Present Illness) Category Sub-Category Detail Notes COVID-19 Screening Questions Have you had any new onset fever, chills, cough, congestion, sore throat, shortness of breath, muscle aches?: No Examination Category Sub-Category Detail Notes General Examination GENERAL APPEARANCE: pleasant , well nourished, well developed, in no acute distress, calm and relaxed: obese: man HEAD: atraumatic, normocep halic EYES: eomi, perrla, anicte mingo, conjugate EARS: normal NOSE: septum intact NECK/THYROID: no jugular venous di stention, no carotid bruit, thyroid normal HEART: no clicks, gallops, murmurs, or rubs, regular rhythm, S1, S2 normal, no s3, or vascular bruits, Healed sternotomy incision LUNGS: clear to auscultatio n ABDOMEN: bowel sounds normal, no ascites, no organomegaly, no mass: centripital obesity NEUROLOGIC: alert and oriented, cranial [...]
--- OUTSIDE RECORDS SUMMARY | 2025-04-06 09:30 | XMS_ITS ---
Author Organization Nicholas Ontiveros III, MD Address [address] [place] [address] [place] [address] Care Team Providers Care Can Intake Worker Name Role Phone Dr. Nicholas Ontiveros III Primary Care Provider Allergies Allergen (clinical drug ingredient) Drug/Non Drug Allergy documented on EMR Reaction Allergy Type Onset Date Status lisinopril Lisinopril Unknown Drug Allergy Activ e REASON FOR VISIT follow up Medications Medication SIG (Take, Route, Frequency, Duration) Notes Start Date End Date Status Naproxen 500 MG 1 tablet with food o r milk as needed Orally every 12 hrs for severe pain 04/05/2024 Active Metoprolol Succinate 50 MG 1 capsule Ora lly Once a day 11/25/2024 Active Valsartan 40 MG TAKE 1 TABLET BY YESSICA TH EVERY DAY FOR 90 DAYS Active Contrave 8-90 MG 1 tablet Orally Once a day 12/09/2024 Active Atorvastatin Calcium 40 MG TAKE 1 TABLET BY MOUTH EVERY DAY Active Levothyroxine Sodium 150 MCG TAKE 1 TABL ET BY MOUTH EVERY DAY Orally Once a day Active Social History [...] Additional Findings: Tobacco non-user Ex-cigaret te smoker Encounters Encounter Location Date Provider Diagnosis Nicholas Ontiveros III, MD [address] [place] [address] [place] [address] 04/06/2025 Nicholas Ontiveros Plan Of Treatment Medication Medication Name Sig Start Date Stop Date Notes Naproxen 500 MG 1 tablet with food o r milk as needed Orally every 12 hrs for severe pain 04/05/2024 Metoprolol Succinate 50 MG 1 capsule Orally Once a day Valsartan 40 MG TAKE 1 TABLET BY YESSICA TH EVERY DAY FOR 90 DAYS Contrave 8-90 MG 1 tablet Orally Once a day 12/09/2024 Atorvastatin Calcium 40 MG TAKE 1 TABLET BY MOUTH EVERY DAY Levothyroxine Sodium 150 MCG TAKE 1 TABL ET BY MOUTH EVERY DAY Orally Once a day Next Appt Details Provider Name:Nicholas Ontiveros , 08/22/2025 02:00:00 PM, [address] [place] [address] [address], [place], [address], Progress Notes * Narendra PAGAN HDOB:1 06/17/1959 (64 yo M)Acc No.[id number]:04/06/2025 Progress Notes Patient: Narendra VILLAR Provider: Tr Ontiveros MD :1960 A ge:64 Y S ex:Male Date:04/06/2025 Address:[address] [place], [place] [id number] Subjective: * Chief Complaints: * 1 . Follow up. * HPI: C OVID-19 Screening: Questions H [...] have been noted. G enitourinary: Frequent urination d enies. M usculoskeletal: Muscle aches d enies. P ainful joints d enies. S ciatica d enies. W eakness d enies. S kin: Itching d enies. R jm d enies. S kin lesion(s)?denies. N eurologic: Difficulty speaking d enies. D izziness d enies.?Headache d enies. L ow back pain d enies. P sychiatric: Depressed mood d enies. * Medical History: H yperlipidemia, Hypertension, Benign thymoma, resected, 2020, Obesity, Low-sodium diet, Colonic polyp, hyperplastic 2019, Albuminuria, Former smoker, Papillary carcinoma of the thyroid 2022, Adult-onset diabetes. * Surgical History: l janneth biopsy 09/2020, Colonoscopy, [facility], Dr. Mccray 05/2020, thymectomy, , [facility], benign 11/2020, Thyroidectomy for papillary thyroid cancer 2022, Bilateral eye cataract surgery 2024. * Hospitalization/Major Diagno stic Procedure: D enies Past Hospitalization. * Family History: F ather: 87 yrs, [...] E x-cigarette smoker Joao khan lives in [facility]. He is employed and has no toxic exposures. He is but has a good relationship with his ex-. He has recovered from his recent thymectomy and is back at work. He does not smoke or drink alcohol or take drugs. He has no children. He was sborn in [facility]. * Medications: T loretog Levothyroxine Sodium 150 MCG Tablet TAKE 1 TABLET BY MOUTH EVERY DAY Orally Once a day , Taking Valsartan 40 MG Tablet TAKE 1 TABLET BY MOUTH EVERY DAY FOR 90 DAYS , Taking Naproxen 500 MG Tablet 1 tablet with food or milk as needed Orally every 12 hrs for severe pain , Taking Metoprolol Succinate 50 MG Capsule ER 24 Hour Sprinkle 1 capsule Orally Once a day , Taking Contrave 8-90 MG Tablet Extended Release 12 Hour 1 tablet Orally Once a day , Taking Atorvastatin Calcium 40 MG Tablet TAKE 1 TABLET BY MOUTH EVERY DAY , Medication List reviewed and reconciled with the patient * Allergies: L isinopril: Allergy. Objective: * Vitals: * Examination: G eneral Examination: GENERAL APPEARANCE: p leasant, well nourished, well developed, in no acute distress, calm and relaxed. HEAD: a traumatic, normocephalic. EYES: e nathanael, [...] or vascular bruits. LUNGS: c lear to auscultation . BREASTS: [...] exam intact. PSYCH: a lert, oriented. Assessment: Plan: * Treatment: * Images: * The named appointment provid er may or may not be the originator of this progress note, and it is not deemed complete until electronically signed by the appointment provider. Sign off status: Pending * Provider: Tr Ontiveros MD Date: 06/06/2024 Generated for Dominick culp/Mindy/Naveenitting on: 06/06/2024 05:11 PM EST History and Physical Notes * HPI (History of Present Illness) Category Sub-Category Detail Notes COVID-19 Screening Questions Have you had any new onset fever, chills, cough, congestion, sore throat, shortness of breath, muscle aches?: No Examination Category Sub-Category Detail Notes General Examination GENERAL APPEARANCE: pleasant , well nourished, well developed, in no acute distress, calm and relaxed HEAD: atraumatic, normocep halic EYES: eomi, perrla, anicte mingo, conjugate EARS: normal NOSE: septum intact NECK/THYROID: no jugular venous di stention, no carotid bruit, thyroid normal HEART: no clicks, gallops, murmurs, or rubs, regular rhythm, S1, S2 normal, no s3, or vascular bruits LUNGS: clear to auscultatio n ABDOMEN: bowel [...]
--- NOTE | 2025-04-06 14:07 | MHC.OFFVIS ---
Intake Visit Reasons: Inj-Left knee pain-last inj 12/14/24 Intake Note: Narendra is a 64 year old male who presents with complaints of left knee pain. He describes his pain as sharp in nature. He did have a cortisone injection given into his left knee 3 months ago which gave him fairly good relief. His pain has returned. Most of the pain is along the medial aspect of his knee. He denies any locking or giving way. He wishes to hold off on surgery if at all possible. Allergies lisinopril Allergy (Verified 04/06/25 14:08) Cough Medication List - Last Reconciled 04/06/25 by Jamie Campbell MD atorvastatin 40 mg PO BEDTIME 90 days levothyroxine 150 mcg PO DAILY metoprolol succinate ER 50 mg PO DAILY naltrexone-bupropion 8-90 mg (Contrave) tabs PO valsartan 40 mg PO DAILY [facility] Medical History (Updated 05/19/24 @ 10:21 by Jamie Campbell MD) Thyroid cancer Thyroid nodule Albuminuria Thymoma (~2020) Personal history of nicotine dependence Polyp of colon, hyperplastic (~2019) Obesity (BMI 30-39.9) Impaired fasting glucose Pure hypercholesterolemia Benign essential hypertension Surgical History History of lung biopsy (~09/2020) Hx of colonoscopy (~05/2020) S/P thymectomy (~12/20/20) Status post thymectomy Family History Father No problems noted. Mother No problems noted. 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 Physical Exam Const Other: Well-nourished well-developed very friendly male awake alert and oriented x3 in no acute distress Extrem Other: Left knee examination shows a minimal effusion, palpable crepitus with range of motion, pain with range of motion, no instability Office Procedures AMB Joint Injection/Aspiration Joint Injection/Aspiration Primary Site: left knee Prep: site was prepped using aseptic technique Injected: 40 mg of, DepoMedrol, with 4 mL of and 1% plain lidocaine Procedure: The patient tolerated the procedure well Coding 98775 - Large joint Procedure code (CPT) selection complete Results Reviewed Results Reviewed: X-rays of the patient's left knee taken previously show joint space narrowing, subchondral sclerosis, no acute bony abnormalities Assessment & Plan Assessment & Plan (1) Osteoarthritis of left knee: Code(s): M17.12 - Unilateral primary osteoarthritis, left knee Category: Medical Plan Narendra presents with left knee pain due to degenerative joint disease. The risks and benefits of a left knee cortisone injection were discussed at length with the patient. The patient wished to proceed. He tolerated the injection well. He will continue with his home exercise program. He will contact me prior to his follow-up appointment in 3 months should any questions or concerns arise. Feel free to call me at any time should questions regarding his orthopedic management arise. I spent 20 minutes in reviewing the patient's records and imaging studies, seeing the patient and documenting in the medical record. Orders: Orders AMB Joint Injection/Aspiration 04/06/25 M17.12 - Unilateral primary osteoarthritis, left knee Coding Level of Care Code Est Pt Level 3 (06724) Complex EM visit Add On G2211 Diagnoses Osteoarthritis of left knee M17.12 CPT Codes Coding - 99783 Large joint: 25449 - Large joint ([id number])
--- OUTSIDE RECORDS SUMMARY | 2025-04-06 17:12 | XMS_ITS | Patient Health Record ---
Author Organization Nicholas Ontiveros III, MD Address [address] [place] [address] Care Team Providers Care Welt Wheeler Name Role Phone Dr. Nicholas Ontiveros III Primary Care Provider Allergies Allergen (clinical drug ingredient) Drug/Non Drug Allergy documented on EMR Reaction Allergy Type Onset Date Status lisinopril Lisinopril Unknown Drug Allergy Activ e Results Component Value Reference Range Notes Complete Blood Count Auto Di ff Reviewed date:07/21/2024 03:44:39 PM Interpretation: Performing Lab:[facility], [address] [place] [phone] Notes/Report: White Blood Count 6.2 4.8-10.8 X10*3/uL [...] NRBC Abs Auto 0.000 0.0-0.012 X10*3/uL Comprehensive [place]. Panel Fa st Reviewed date:07/21/2024 03:44:39 PM Interpretation: Performing Lab:[address] [address] Notes/Report: Sodium 141 135-145 mmol/L Potassium 4.2 [...] Panel Reviewed date:07/21/2024 03:44:39 PM Interpretation: Performing Lab:[address] [place] [address] Notes/Report: Triglycerides 83 <150 mg/dL Desirable Triglyceride: [...] Total Reviewed date:07/25/2024 09:07:18 AM Interpretation: Performing Lab:[address] [address] Notes/Report: Prostate Specific Ag Total 4.7 < OR = 4.0 ng/ mL Percent Free Prostate Spec Ag 11 >25 % (calc ) PSA(ng/mL) Free PSA(%) Estimated(x) Probability of Cancer(as%) 0-2.5 (*) Approx. 1 2.6-4.0(1) 0-27(2) 24(3) 4.1-10(4) 0-10 56 11-15 28 16-20 20 21-25 16 >or =26 8 >10(+) N/A >50 References:(1)Jason et al.:Urology 60: 469-474 (2002) (2)Jason et al.:J.Urol 168: 922-925 (2001) Free PSA(%) Sensitivity(%) Specificity(%) < or = 25 85 19 < or = 30 93 9 (3)Lyssaona et al.:SILKE 277: 5520-5577 (1996) (4)Catalona et al.:SILKE 279: 2654-0718 (1997) (x)These estimates vary with age, ethnicity, [...] mind. PSA was performed using the Laurel Sravani Immunoassay method. Values obtained from different assay methods cannot be used interchangeably. PSA levels, regardless of value, should not be interpreted as absolute evidence of the presence or absence of disease. THIS TEST WAS PERFORMED AT: [facility] [address] [address] MAURY ORTIZ MD Free Prostate Spec Ag 0.5 Free T4 (Free Thyroxine) Reviewed date:07/21/2024 03:44:39 PM Interpretation: Performing Lab:[address] [address] Notes/Report: Free T4 (Free Thyroxine) 1.56 0.71-1.85 ng/dL Microalbumin, Random Reviewed date:07/21/2024 03:44:39 PM Interpretation: Performing Lab:[facility], [address] [place] [address] Notes/Report: Creatinine Urine 214.04 Microalbumin Urine 15.0 Microalbum/Creatinine Ratio Ur 7.0 <30 ug/mg cr Albumin/Creatinine Ratio Reference Ranges: Normal: < 30 ug/mg creatinine Microalbuminuria: 30 - 300 ug/mg creatinine Clinical Albuminuria: > 300 ug/mg creatinine Hemoglobin A1c Reviewed date:07/21/2024 03:44:39 PM Interpretation: Performing Lab:[facility], [address] [place] [address] Notes/Report: Hemoglobin A1c % 7.0 <6.0 % [...] average glucose, using the formula of the [id number] Average Glucose study (ADAG), Diabetes Care, Vol.31,#8, 2007 Complete Blood Count Auto Di ff Reviewed date:08/18/2024 02:09:40 PM Interpretation: Performing Lab:[facility], [address] [place] [address] Notes/Report: White Blood Count 6.2 4.8-10.8 X10*3/uL [...] NRBC Abs Auto 0.000 0.0-0.012 X10*3/uL Comprehensive [place]. Panel Fa st Reviewed date:08/18/2024 02:09:40 PM Interpretation: Performing Lab:[address] [address] Notes/Report: Sodium 140 135-145 mmol/L Potassium 4.1 [...] Panel Reviewed date:08/18/2024 02:09:40 PM Interpretation: Performing Lab:[address] [address] Notes/Report: Triglycerides 64 <150 mg/dL Desirable Triglyceride: [...] Antigen Reviewed date:08/18/2024 02:09:40 PM Interpretation: Performing Lab:[address], [place] [address] Notes/Report: Prostate Specific Antigen 4.88 <0.05-4.0 ng/mL PSA methodology: Gold Alinity i Chemiluminescent Microparticle Immunoassay (CMIA) URINE DIP STICK Reviewed date:08/18/2024 02:13:00 PM Interpretation: Performing Lab: Notes/Report: SG 1.030 1.005 - 1.025 pH 5.0 5.0 - 9.0 JEFFRY Negative Negative - NIT Negative Negative - PRO 15 Negative - Trace GLU Negative Negative - KET 5 Negative - UBG 0.2 0.1 - 1.8 ALPHONSE 1 0.2 - 1.3 BLD + Negative - Complete Blood Count Auto Di ff Reviewed date:03/30/2025 08:55:59 AM Interpretation: Performing Lab:[facility], [address] [place] [phone] Notes/Report: White Blood Count 5.9 4.8-10.8 X10*3/uL Red Blood Count 5.89 4.60-5.80 X10*6/uL Hemoglobin 14.9 14.0-18.0 g/dl Hematocrit 47.5 42.0-52.0 % Mean Corpuscular Volume 80.6 80.0-98.0 fL Mean Corpuscular Hemoglobin 25.3 27.0-33.0 pg Mean Corpuscular HGB Conc 31.4 31.0-36.0 g/dl Red Cell Distribution Width 14.0 11.0-16.0 % Platelet Count 196 160-400 X10*3/uL Mean Platelet Volume 11.6 9.4-12.4 fL Neutrophils Percent Auto 56.7 45-73 % Imm Gran Pct Auto 0.2 0.0-0.4 % Lymphocytes Percent Auto 27.5 20-40 % Monocytes Percent Auto 11.4 2-11 % Eosinophils Percent Auto 3.2 0-4 % Basophils Percent Auto 1.0 0-2 % NRBC Pct Auto 0.0 0.0-0.2 /100WBC Neutrophils Absolute Auto 3.3 2.0-8.3 x10*3/u L Imm Gran Abs Auto 0.01 0.00-0.03 X10*3/uL Lymphocytes Absolute Auto 1.6 1.2-4.9 X10*3/u L Monocytes Absolute Auto 0.7 0.1-1.2 X10*3/uL Eosinophils Absolute Auto 0.2 0.0-0.4 X10*3/u L Basophils Absolute Auto 0.1 0.0-0.2 X10*3/uL NRBC Abs Auto 0.000 0.0-0.012 X10*3/uL Comprehensive [place]. Panel Fa st Reviewed date:03/30/2025 08:55:59 AM Interpretation: Performing Lab:[facility], [address] [place] [phone] Notes/Report: Sodium 141 135-145 mmol/L Potassium 4.4 3.3-5.1 mmol/L Chloride 106 96-108 mmol/L Carbon Dioxide 29 22-29 mmol/L Anion Gap 10 12-20 Blood Urea Nitrogen 10 9-16 mg/dL Creatinine 0.88 0.5-1.4 mg/dL Estimated Glomerular Filt Rate > 60 Chronic Kidney Disease: Estimated GFR < 60 mL/min/1.73m2 Severe Kidney Disease: Estimated GFR < 15 mL/min/1.73m2 Glucose Fasting 125 60-99 mg/dL A fasting glucose from 100-125 mg/dl is considered impaired (pre-diabetes). Calcium 9.3 8.4-10.2 mg/dL Bilirubin Total 0.5 0.0-1.0 mg/dL Aspartate Amino Transferase 34 5-37 U/L Alanine Aminotransferase 56 0-40 U/L Total Protein 7.4 6.5-8.0 g/dL Albumin Level 4.3 3.5-5.0 g/dL Alkaline Phosphatase 85 39-117 U/L Lipid Panel Reviewed date:03/30/2025 08:55:59 AM Interpretation: Performing Lab:[facility], [address] [place] [phone] Notes/Report: Triglycerides 80 <150 mg/dL Desirable Triglyceride: less than 150 mg/dL Borderline High Triglyceride 150-199 mg/dL High Triglyceride: 200-499 mg/dL Very High Triglyceride: greater than or equal to 5OO mg/dL Cholesterol 154 <200 mg/dL Desirable Cholesterol: less than 200 mg/dL Borderline High Cholesterol: 200-239 mg/dL High Cholesterol: greater than 239 mg/dL LDL Cholesterol Calculated 99 <100 mg/dL Desirable LDL: less than 100 mg/dL Near Optimal/Above Optimal LDL: 110-129 mg/dL Borderline High LDL: 130-159 mg/dL High LDL: 160-189 mg/dL Very High LDL: greater than or equal to 190 mg/dL HDL Cholesterol 39 >40 mg/dL Desirable HDL: greater than 40 mg/dL Note: This HDL assay may give artificially low results in patients with liver disease. Prostate Specific Antigen Reviewed date:03/30/2025 08:56:35 AM Interpretation: Performing Lab:[address] [address] Notes/Report: Prostate Specific Antigen 5.04 <0.05-4.0 ng/mL PSA methodology: Gold Alinity i Chemiluminescent Microparticle Immunoassay (CMIA) Microalbumin, Random Reviewed date:04/03/2025 07:38:37 AM Interpretation: Performing Lab:[address] [address] Notes/Report: Creatinine Urine 345.96 Microalbumin Urine 17.0 Microalbum/Creatinine Ratio Ur 4.9 <30 ug/mg cr Albumin/Creatinine Ratio Reference Ranges: Normal: < 30 ug/mg creatinine Microalbuminuria: 30 - 300 ug/mg creatinine Clinical Albuminuria: > 300 ug/mg creatinine Reason For Referral No Information Medications Medication SIG (Take, Route, Frequency, Duration) [...] EVERY DAY Orally Once a day Active Valsartan 40 MG TAKE 1 TABLET BY YESSICA TH EVERY DAY FOR 90 DAYS Active Contrave 8-90 MG 1 tablet Orally Once a day 12/09/2024 Active Atorvastatin Calcium 40 MG TAKE 1 TABLET BY MOUTH EVERY DAY Active Immunizations Vaccine Route Administration Date Status [...] Problem Status W/U Status Risk Notes Problem 3789199 Former smoker (Z87.891) Active confirmed He is highly motivated not to smoke. We formulated a plan to prevent relapse in times of stress and illness. Problem Hyperlipidemia (03793917) Hyperlipidemia (E78.5) Active confirmed His total cholesterol is 121. He was continued on current medication. No change was necessary. Problem Obesity (804383601) Obesity (E66.9) Active confirmed His body mass [...] would like to avoid phentermine. Problem Hypertension (06245563) Hypertension (I10) Active confirmed His blood pressure is elevated. He was begun on metoprolol succinate 10 mg daily with a follow-up visit. Problem Benign prostatic hyperplasia (390388853) BPH (benign prostatic hyperplasia) (N40.0) Active confirmed He has been rising from sleep at most once a night to urinate. We have discussed lifestyle modifications he could make to reduce nocturia. Problem Thyroid cancer (283185533) Thyroid cancer (C73) Active confirmed He was found to have a 1.4 cm papillary thyroid cancer in the right lobe of his thyroid which has been removed. There is no sign of recurrence. He is asymptomatic and feeling well. Problem 608005338 Elevated PSA (R97.20) Active confirmed In the past his PSA was 3.14 and then 4.78. It is now 4.88 with a free PSA of 11%. This is going to be repeated in the near future. Necessary he will see urology. No nodules were palpated today. Problem 483580689 Type 2 diabetes mellitus without complication, without long-term current use of insulin (E11.9) Active confirmed His blood gl ucose is slightly elevated. Hemoglobin A1c is 7.0. No change in medication was necessary. He will pursue aggressive weight loss. Problem 589652382 Age-related incipient cataract of both eyes (H25.093) Active confirmed He is medically cleared for sequential bilateral cataract extraction and lens implantation in July 2024. There is no contraindication and he is given medical clearance. 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 Problem 521667847 Thymoma, benign (D15.0) Active confirmed He has recovere d from the surgery and the sternal incision is well-healed and nonpainful. Vital Signs Heart Rate 94 /min 02/02/2025 Temperature 98.2 degrees Fahrenheit 02/02/2025 Blood pressure diastolic 78 mm Hg 02/02/2025 Height 71 in 02/02/2025 Blood pressure systolic 138 mm Hg 02/02/2025 Weight 221 lbs 02/02/2025 BMI 30.82 kg/m2 02/02/2025 Encounters Encounter Location Date Provider Diagnosis Nicholas Ontiveros III, MD [address] [place] [address] [place] [address] 07/28/2024 Nicholas Ontiveros Thyroid cancer C73 ; Age-related incipient cataract of both eyes H25.093 ; Hyperlipidemia E78.5 ; Obesity (BMI 30.0-34.9) E66.9 ; Hypertension I10 ; Thymoma, benign D15.0 ; Former smoker Z87.891 ; Allergy to lisinopril Z88.8 and Type 2 diabetes mellitus without complication, without long-term current use of insulin E11.9 Nicholas Ontiveros III, MD [address] [place] [address] [place] [address] 08/18/2024 Nicholas Ontiveros Hypertension I10 ; Hyperlipidemia E78.5 ; Obesity (BMI 30.0-34.9) E66.9 ; Thymoma, benign D15.0 ; Former smoker Z87.891 ; Type 2 diabetes mellitus without complication, without long-term current use of insulin E11.9 ; Thyroid cancer C73 ; Age-related incipient cataract of both eyes H25.093 and Elevated PSA R97.20 Nicholas Ontiveros III, MD [address] [place] [address] [place] [address] 11/25/2024 Nicholas Ontiveros Former smoker Z87.89 1 ; Thymoma, benign D15.0 ; Hyperlipidemia E78.5 ; Hypertension I10 ; Elevated PSA R97.20 ; Thyroid cancer C73 and BPH (benign prostatic hyperplasia) N40.0 Nicholas Ontiveros III, MD [address] [place] [address] [place] [address] 12/09/2024 Nicholas Ontiveros Obesity E66.9 ; Thyr oid cancer C73 ; Type 2 diabetes mellitus without complication, without long-term current use of insulin E11.9 ; Thymoma, benign D15.0 ; Elevated PSA R97.20 ; Right anterior knee pain M25.561 and Former smoker Z87.891 Nicholas Ontiveros III, MD [address] [place] [address] [place] [address] 02/02/2025 Nicholas Ontiveros Former smoker Z87.89 1 [...] He is asymptomatic and feeling well. 02/02/2025 Former smoker (ICD-10 - Z87.891) He is highly motivated not to smoke. We formulated a plan to prevent relapse in times of stress and illness. 02/02/2025 Thymoma, benign (ICD-10 - D15.0) He has recovered from the surgery and the sternal incision is well-healed and nonpainful. 07/28/2024 Hyperlipidemia (ICD-10 - E78.5) He seems [...] necessary. He will pursue aggressive weight loss. 02/02/2025 Obesity (ICD-10 - E66.9) His body mass index is 31. We reviewed his weight loss strategy diet and nutrition. We formulated a plan to lose weight at a rate of one half of a pound per week.At his request. I have given him a prescription for Contrave. If unavailable. I will try to help your made. I would like to avoid phentermine. 07/28/2024 Obesity (BMI 30.0-34.9) (ICD-10 - E66.9) [...] sternal incision is well-healed and nonpainful. 02/02/2025 Hypertension (ICD-10 - I10) His blood pressure is elevated. He was begun on metoprolol succinate 10 mg daily with a follow-up visit. 07/28/2024 Hypertension (ICD-10 - I10) His blood [...] see urology. No nodules were palpated today. 02/02/2025 Hyperlipidemia (ICD-10 - E78.5) His total cholesterol is 121. He was continued on current medication. No change was necessary. 07/28/2024 Thymoma, benign (ICD-10 - D15.0) He [...] He was given an appointment with orthopedics. 02/02/2025 Thyroid cancer (ICD-10 - C73) He was found to have a 1.4 cm papillary thyroid cancer in the right lobe of his thyroid which has been removed. There is no sign of recurrence. He is asymptomatic and feeling well. 07/28/2024 Former smoker (ICD-10 - Z87.891) He [...] in times of stress and illness. 02/02/2025 Type 2 diabetes mellitus without complication, without long-term current use of insulin (ICD-10 - E11.9) His blood glucose is slightly elevated. Hemoglobin A1c is 7.0. No change in medication was necessary. He will pursue aggressive weight loss. 07/28/2024 Allergy to lisinopril (ICD-10 - Z88.8) [...] C) 11/01/2022 PROFILE, FASTING (COMPREHENSIVE METABOLI C) 07/28/2024 PROFILE, FASTING (COMPREHENSIVE METABOLI C) 03/26/2021 PROFILE, FASTING (COMPREHENSIVE METABOLI C) 08/18/2023 PROFILE, FASTING (COMPREHENSIVE METABOLI C) 11/24/2023 PROFILE, FASTING (COMPREHENSIVE METABOLI C) 03/31/2024 PROFILE, FASTING (COMPREHENSIVE METABOLI C) 02/02/2025 LIPID PANEL 02/04/2023 LIPID PANEL 11/01/2022 LIPID PANEL 03/26/2021 FREE T4 (FT4) 02/04/2023 FREE T4 (FT4) 11/01/2022 TSH (THYROID STIMULATING HORMONE) 2022 TSH (THYROID STIMULATING HORMONE) 2022 TSH (THYROID STIMULATING HORMONE) 2023 PSA, TOTAL 02/02/2025 PSA, TOTAL 11/24/2023 PSA, TOTAL 07/28/2024 PSA, TOTAL 03/26/2021 CBC w DIFF 02/02/2025 CBC w DIFF 03/26/2021 CBC w DIFF 02/04/2023 CBC w DIFF 11/01/2022 SED RATE (ESR) 02/04/2023 SED RATE (ESR) 03/26/2021 CBC WITH AUTO DIFF 03/31/2024 CBC WITH AUTO DIFF 11/24/2023 CBC WITH AUTO DIFF 08/18/2023 CBC WITH AUTO DIFF 07/28/2024 Lipid Panel 03/31/2024 Lipid Panel 02/02/2025 Lipid Panel 11/24/2023 Lipid Panel 08/18/2023 Lipid Panel 07/28/2024 PSA Free and Total 03/31/2024 Free T4 (Free Thyroxine) 03/31/2024 Free T4 (Free Thyroxine) 11/24/2023 Microalbumin, Random 02/02/2025 Microalbumin, Random 03/31/2024 Hemoglobin A1c 03/31/2024 Hemoglobin A1c 02/02/2025 Next Appt Details Provider Name:Nicholas Ontiveros , 08/22/2025 02:00:00 PM, [address] [place] [address] LEIF KO[address], [place], [address], Insurance Providers Payer Name Payer Address Payer Phone Subscriber Number Group Number Insured Name Patient Relationship to Insured Coverage Start Date Coverage End Date [facility] [address] [place] [phone] [id number] Narendra Naylor Self - patient is the insured Medical (General) History Medical History History ICD Code Hyperlipidemia E78.5 Hypertension I10 Benign thymoma, resected, 2020 Obesity Low-sodium diet Colonic polyp, hyperplastic 2019 Albuminuria Former smoker Papillary carcinoma of the thyroid 2022 Adult-onset diabetes Surgical History Surgery Date(Month/Year) Bilateral eye cataract surgery 2024 Thyroidectomy for papillary thyroid canc er 2022 thymectomy, , [facility] ter, benign 11/2020 Colonoscopy, [facility], Dr. Mccray 05/2020 lung biopsy 09/2020
--- OUTSIDE RECORDS SUMMARY | 2025-04-06 17:12 | XMS_ITS | Clinical Summary ---
Author Organization [facility] Address [address] [place] [address] Care Team Providers Care Vending Machine Attendant Name Role Phone Nicholas Ontiveros MD Primary Care Provider [phone] Social History Tobacco Use Types Packs/Day Years Used Date Smoking Tobacco: Never Assessed Sex and Gender Information Value Date Recorded Sex Assigned at Not on file Legal Sex Male 10:02 AM EST Gender Identity Not on file Sexual Orientation Not on file Plan of Treatment Health Maintenance Due Date Last Done Comments Colorectal Cancer Screening: Colonoscopy 1960 DTaP,Tdap,and Td Vaccines (1 - Tdap) 1979 Pneumococcal Vaccine: 50+ Ye ars (1 of 1 - PCV) 2010 Zoster Vaccines (1 of 2) 2010 Cholesterol Screening (Lipid Panel) 04/30/2022 HIV Screening 04/30/2022 Hepatitis C Screening 04/30/2022 Social Influencers of Health Screening 04/30/2022 Depression Screening 06/02/2024 COVID-19 Vaccine (1 - 2023-2 5 season) 2025 Influenza Vaccine (#1) 2025 RSV Immunization Adult [...] age to complete this topic Care Teams Vending Machine Attendant Relationship Specialty Start Date End Date Nicholas Ontiveros MD [address] [address] PCP - General 07/18/21
== END 2025-04-06 14:32 | disposition home or self-care (01) ==
LOC: HO.HOS 14:00
PROVIDERS: PCP Internal Medicine Medical Oncology; Visit Provider Orthopaedic Surgery
DX: M17.12 Unilateral primary osteoarthritis, left knee (principal)
CPT/HCPCS: 20610; 99213

== ENCOUNTER → 2025-04-06 13:59 | Outpatient (BNVA) | payer OTHER, SELFPAY | PROVIDERS: PCP Internal Medicine Medical Oncology; Visit Provider Orthopaedic Surgery | DX: M17.12 Unilateral primary osteoarthritis, left knee (principal) | CPT/HCPCS: 20610; 99212; J1010; J2003 ==